=== PATIENT | male | born 1945 | race Two or more races ===

== ENCOUNTER 2024-05-22 05:40 | Day surgery (SDC) | payer MEDICARE, MEDICAID, SELFPAY ==
[2024-05-16 08:49] VITALS: BMI 23.6
[2024-05-16 09:51] LABS: Alanine Aminotransferase 37 U/L (10-49); Albumin, Serum 4.1 gm/dL (3.4-4.8); Albumin/Globulin Ratio 1.4 (1.2-2.2); Alkaline Phosphatase 226 U/L (46-116); Anion Gap 12 (7-16); Aspartate Amino Transferase 13 U/L (0-34); BUN/Creatinine Ratio 19 Ratio (12-20); Bilirubin,Total 0.3 mg/dL (0.3-1.2); Blood Urea Nitrogen 98 mg/dL (9-23); Calcium 8.9 mg/dL (8.3-10.6); Calcium (Corrected) 8.9 mg/dL (8.5-10.1); Carbon Dioxide 24.2 mMol/L (20.0-31.0); Chloride 98 mMol/L (98-107); Creatinine (Component) 5.2 mg/dL (0.6-1.3); Estimated Creatinine Clearance 11.5 mL/min (>60); Glucose 214 mg/dL (74-106); Osmolality,Calculated 304 (275-295); Potassium 4.2 mMol/L (3.4-5.1); Sodium 134 mMol/L (136-145); Total Protein 7.1 gm/dL (5.7-8.2); eGFR 11 See Note
--- NOTE | 2024-05-21 13:30 | SUR.PREOP ---
Health history reviewed with Dr Mace.
[2024-05-22] VITALS (8 sets, daily range): BP systolic 139–150; BP diastolic 61–68; PULSE 63–73; RESP 12–20; TEMP 36.6–37; O2SAT 99–100; BMI 23.2
[2024-05-22] MEDS: DEXAMETHASONE SOD PHOS INJ 10 MG/ML VIAL 8 MG IV (07:02)
[2024-05-22] MEDS: SODIUM CHLORIDE 0.9% 500 ML 500 ML 20 ML IV (07:03)
--- NOTE | 2024-05-22 10:36 | SUR.PHASEI ---
1036 Patient arrived to recovery resting comfortably in [facility], on oxygen 8L via oxy mask with an oral airway in place, breathing unlabored, vital signs stable, dressing intact to left ear; dermabond behind ear, cotton ball to ear, gauze, guilherme, no bleeding noted, lung sounds clear upon auscultation, bilateral radial pulses present when palpated, report received from Thelma LUTZ and Dr. Siddiqi
--- NOTE | 2024-05-22 10:43 | XR_ITS ---
Examination: Skull series 2 views TECHNIQUE: Yariel sagittal oblique skull series 2 views Exam date and time: May 22, 2024 1138 hours INDICATIONS: Postop cochlear implant FINDINGS: Cochlear implant lead satisfactory position Intact cranial vault IMPRESSION: Cochlear implant lead satisfactory position
--- NOTE | 2024-05-22 10:53 | ESOP_ITS ---
Date of Procedure 05/22/24 Pre Op Diagnosis Bilateral profound sensorineural hearing loss Post Op Diagnosis Bilateral profound sensorineural hearing loss Procedure Left tympanomastoidectomy with facial nerve monitoring and insertion of cochlear implant Findings Normal mastoid anatomy. The facial nerve was displaced anteriorly. The ossicular chain was intact and mobile. The round window had a large bony overhang preventing visualization from the mastoid cavity. Procedure Description Indications: This is a 78-year-old male with progressive long-term profound hearing loss. This was confirmed on audiometric testing as well as [place] bio testing which score was 0%. Treatment options were discussed and he and his family wish to proceed with insertion of a cochlear implant on the left side. The risk were explained in detail including facial nerve paralysis. Anticipated outcomes were discussed informing her that he will not have normal hearing restored and I will take active involvement by them postoperatively to improve the hearing. They understood this and wished to proceed. Patient was marked and shaved in the preoperative setting and transferred to the operative suite where he was anesthetized and intubated. Timeout was performed. Markings were made for the surgical incision and projected implant placement. Facial nerve monitoring electrodes were placed in the usual fashion for the left ear. Patient was then sterilely prepped and draped. Postauricular area was injected with 1% lidocaine with 1 100,000 dilution epinephrine. A lazy S postauricular incision was then performed and a anterior and posterior flap elevated. A palva flap was created as well. The ear was turned forward and held in place with self-retaining retractors. The external canal meatus was identified. A canal wall up mastoidectomy was then initiated with a 6 cutting bur. This was carried down to the aditus region where the horizontal canal and incus were identified. Further thinning of the posterior canal wall was performed and then switched out to a #3 and then gradually down to a 1.5 deep bur to open up the chorda facial angle. The facial nerve was identified with light pressure of the drill exposing the sheath covering the nerve but the nerve and the sheath were not traumatized. The nerve was tested with the nerve m onitor proximal to the exposed area and a good signal was maintained throughout the procedure. This was tested again later. The chorda tympani nerve was not identified in the mastoid cavity. The anterior displacement of the nerve made it more difficult to expose the round window niche. The stapes was identified and dissection was carried inferior to that happens was stillborn unable to identify the actual round window niche. This time elected to elevate the tympanic membrane so the canal was irrigated with saline and suctioned and then injected. The posterior tympanum flap was created and the drum turned forward. Some curetting was required to expose the oval window niche. The chorda tympani nerve was identified in the middle ear and preserved. Once good visualization was obtained the round window niche was drilled down with a #1 cutting bur. There appeared to be a false membrane overlying it but after opening it up it appeared that this was the actual membrane. I then returned my view back to the mastoid cavity was able to visualize where the round window now was. There was endolymphatic fluid present in the opening. Vitrace was placed over the area as well. I Went back and drilled the channel for the electrodes and a well for the internal implant. A pocket was created anteriorly for the ground electrode as well. Irrigation with warm saline solution was performed and mastoid cavity was carefully cleaned. I regloved and brought the implant into the field. At this point monopolar cautery was disabled. Under microscopic visualization the active electrode was carefully inserted into the round window to a near full insertion. Attempts at performing a full insertion were met with resistance so this was terminated. Periosteum had been harvested previously for a plug and this was placed around the electrode in between the electrode and the facial nerve. The ground electrode was placed in this position. The muscle layer was then closed with 4-0 Vicryl. And the tympanic membrane was returned back to its normal position and Surgifoam dipped in saline was placed on top of that. Neuro metric testing was then performed. All the electrodes were found to be functional. Electrodes 4 through 22 were found to have good responses. There was no response on testing with electrodes 1-3. The closure of the postauricular incision was then completed. Facial nerve monitoring electrodes were removed and patient was awakened and taken recovery room in stable condition Anesthesia GETA Implants Cochlear implant model CI 622 serial #[id number] Pathology / specimen None Estimated Blood Loss 5 Surgeon Elmer Rodriguez DO Surgical Staff Operation Date: 05/22/24 07:30 Case Staff Anesthesiologist: Sushil Siddiqi
--- NOTE | 2024-05-22 11:54 | SUR.PHASEII ---
1154 Patient meets discharge criteria from recovery, awake and alert, breathing unlabored, vital signs stable, denies pain, dressing intact; no bleeding noted, patient ate two jello and drinking water, denies nausea, patient assisted with dressing into his clothing by his son, patients son signed limited proficiency statement for to staff interpreter to his father, discharge instructions given to patients son and his father, son signed discharge instructions. Patient given all his belongings prior to discharge, transported via wheelchair and left in a private vehicle.
== END 2024-05-22 11:54 | disposition home or self-care (01) ==
PROVIDERS: PCP Family Medicine; Referring Provider Otolaryngology; Visit Provider Otolaryngology
PROC: (CPT 69930; principal; 2024-05-22 07:30)
DX: H90.A22 Sensorineural hearing loss, unilateral, left ear, with restricted hearing on the contralateral side (principal); E11.36 Type 2 diabetes mellitus with diabetic cataract; H26.9 Unspecified cataract; G47.33 Obstructive sleep apnea (adult) (pediatric); N18.6 End stage renal disease; Z99.2 Dependence on renal dialysis; E11.22 Type 2 diabetes mellitus with diabetic chronic kidney disease; I12.0 Hypertensive chronic kidney disease with stage 5 chronic kidney disease or end stage renal disease
CPT/HCPCS: 69930; 36415; 70250; 80053; 84132; A4217; A4649; J0171; J0690; J1100; J2250; J2405; J2704; J3010; J3473; J3490; J7040; L8614; L8690; Q9968; A9270

== ENCOUNTER 2024-07-19 14:02 | Emergency (ER) | payer MEDICARE, MEDICAID, SELFPAY ==
[2024-07-19 14:06] VITALS: BP 127/52; PULSE 145; PULSE 63; RESP 16; RESP 20; O2SAT 98
[2024-07-19 14:11] VITALS: BMI 23.8
[2024-07-19 14:14] VITALS: PULSE 63
[2024-07-19 14:17] VITALS: PULSE 63
--- NOTE | 2024-07-19 14:40 | PD.EDARRY ---
ED Arrhythmia Palp. RME/HPI General Chief Complaint: Arrhythmia/Palpitations Stated Complaint: TACHYCARDIA Time Seen by Provider: 07/19/24 14:38 Arrival date/time: 07/19/24 14:02 RME / HPI RME / HPI narrative: DR. FUENTES MAIN ED EVALUATION: 78 year old male with past medical history significant for SVT in past on carvedilol, renal disease with peritoneal dialysis, diabetes, and hypertension presents to the Emergency Department [facility] with complaint of palpitations prior to arrival. Per EMS, patient was in SVT and converted in the field. Nurse Charge Rn: Joseph De Leon at [place], has an appointment 07/24/2024. Hall Coordinator is at [place], last seen 2 months ago. Related Data Home Medications ?Medication ?Instructions ?Recorded ?Confirmed bumetanide 1 mg tablet 2 mg PO BID 12/22/23 05/16/24 calcitriol 0.25 mcg capsule 0.25 mcg PO UD 12/22/23 05/16/24 calcium acetate 667 mg tablet 667 mg PO DAILY 12/22/23 05/16/24 carvedilol 6.25 mg tablet 6.25 mg PO BID 12/22/23 05/16/24 ferrous sulfate 325 mg (65 mg 325 mg PO QDAY 12/22/23 05/16/24 iron) tablet hydralazine 50 mg tablet 50 mg PO TID 12/22/23 05/16/24 metolazone 2.5 mg tablet 2.5 mg PO Q OTHER DAY 12/22/23 05/16/24 minoxidil 2.5 mg tablet 2.5 mg PO BID 12/22/23 05/16/24 omeprazole 20 mg tablet,delayed 20 mg PO QDAY 12/22/23 05/16/24 release benzonatate 200 mg capsule 200 mg PO TID 05/16/24 05/16/24 fluoxetine 20 mg capsule (Prozac) 20 mg PO QAM 05/16/24 05/16/24 nifedipine 30 mg tablet,extended 90 mg PO QDAY 05/16/24 05/16/24 release pantoprazole 40 mg tablet,delayed 40 mg PO QAM 05/16/24 05/16/24 release Previous Rx's ?Medication ?Instructions ?Recorded cephalexin 500 mg capsule 500 mg PO BID #3 caps 02/06/25 hydrocodone 5 mg-acetaminophen 325 1 tab PO Q6H PRN pain #20 tabs 05/22/24 mg tablet Allergies Allergy/AdvReac Type Severity Reaction Status Date / Time No Known Allergies Allergy Verified 05/22/24 10:21 Review of Systems Review of Systems Systems Reviewed: All systems reviewed, normal except as documented Past Medical History Past Medical History CARDIAC: Positive Cardiac Disorders and Hypertension; Negative Congestive Heart Failure GENITOURINARY: Positive Genitourinary Disorders, Renal Disease and Dialysis (peritonial daily) ENT: Positive Cataracts and Deafness (bilateral hearing aids) ENDOCRINE: Positive Endocrine Disorders and Diabetes Mellitus Type 2 HEMATOLOGIC: Positive Blood Disorders and Anemia PSYCHO/SOCIAL: Positive Depression OTHER HISTORY: Positive Hospitalization and Chicken Pox Social History SMOKING STATUS: Never smoker SUBSTANCE USE: does not use ALCOHOL: Never ED Exam Narrative Physical exam: GENERAL APPEARANCE: AxOx4, generally well-appearing, no acute distress. HEENT: NC, AT. MMM. EOMI, clear conjunctiva, oropharynx clear. NECK: Supple without lymphadenopathy. No stiffness or restricted ROM. HEART: Normal rate and regular rhythm, normal S1/S1, no m/r/g LUNGS: CTAB, moving air well. No crackles or wheezes are heard. ABDOMEN: Soft, nontender, nondistended with good bowel sounds heard. BACK: No midline C/T/L spine pain or deformity, No CVAT, no obvious deformity. EXTREMITIES: Without cyanosis, clubbing or edema. MUSCULOSKELETAL: FROM of all major joints, no chest tenderness NEUROLOGICAL: Grossly nonfocal. Alert and oriented, moving all 4 extremities. CN not formally tested but appear grossly intact. Observed to ambulate with normal gait. Skin: Warm and dry without any rash. Course Quality Measures none Orders Category Date Time Status Marketing Planning Manager Q4H START 00 Care 07/19/24 14:16 Active Vital Signs Vital signs: Vital Signs Pulse Rate 63 07/19/24 14:06 Respiratory Rate 16 07/19/24 14:06 Blood Pressure 127/52 L 07/19/24 14:06 Pulse Oximetry (%) 98 07/19/24 14:06 Oxygen Delivery Method Room Air 07/19/24 14:06 Arrhythmia/Palpitations MDM Narrative MDM Narrative:: Marcela Hall am scribing for and in the presence of Dr. Fuentes. Patient data External records reviewed:: EMS form Clinical information provided by:: patient, EMS and spouse Social determinants that could affect healthcare access:: none Patient has the following chronic illnesses:: SVT in past on carvedilol, renal disease with peritoneal dialysis, diabetes, and hypertension How is presenting disease/condition affected by chronic disease/condition?: caused by Evaluation data The following diagnostics were reviewed and interpreted by me:: lab results and EKG tracing(s) Lab and/or radiology exams considered but not ordered:: none Interpretation Summary: Initial EMS EKG was done at 1323 hours, my interpretation: SVT at 145 BPM Second EKG by EMS done at 1331 hours, my interpretation: sinus rhythm at 66 BPM EKG#1 at emergency department: EKG at 1556 hours. Interpreted by me: sinus rhythm, rate 56, no acute ST-T wave changes. Medications / Prescriptions Medications or Prescriptions considered but not ordered:: none Medication administrations:: none Consultations Consultation(s) initiated? (list below): No Diagnosis Differential diagnosis arrhythmia/palpitations: palpitations, anxiety, artial fibrillation, artial flutter and supraventricular tachycardia Most likely diagnosis given after review of the tests above:: Paroxysmal supraventricular tachycardia End-stage renal disease on peritoneal dialysis Admission Indicated Admission indicated?: not indicated Admission Request Was there a request for admission?: No Disposition Plan Disposition Plan: Discharge Discharge Attestation Discharge Attestation: The patient and all family members were given an opportunity to ask questions and understood the discharge instructions. Discharge instructions specifically effects, indications for sooner follow up or return to the emergency department, and the expected course of current diagnosis. Patient condition: Stable Discharge Plan Plan Patient Disposition: HOME (Self Care) Prescriptions/Referrals Prescriptions/Med Rec: No Action pantoprazole 40 mg tablet,delayed release (DR/EC) 40 mg PO QAM benzonatate 200 mg capsule 200 mg PO TID fluoxetine [Prozac] 20 mg capsule 20 mg PO QAM nifedipine 30 mg tablet extended release 90 mg PO QDAY cephalexin 500 mg capsule 500 mg PO BID Qty: 3 0RF Rx Instructions: Begin 1st dose this afternoon hydrocodone-acetaminophen 5-325 mg tablet 1 tab PO Q6H MDD 5 PRN (Reason: pain) Qty: 20 0RF carvedilol 6.25 mg tablet 6.25 mg PO BID minoxidil 2.5 mg Tablet 2.5 mg PO BID bumetanide 1 mg tablet 2 mg PO BID hydralazine 50 mg tablet 50 mg PO TID calcitriol 0.25 mcg Capsule 0.25 mcg PO UD Rx Instructions: 4 days sunday, sunday, and sunday calcium acetate 667 mg Tablet 667 mg PO DAILY metolazone 2.5 mg Tablet 2.5 mg PO Q OTHER DAY ferrous sulfate 325 mg (65 mg iron) Tablet 325 mg PO QDAY omeprazole 20 mg Tablet,Delayed Release (Dr/Ec) 20 mg PO QDAY Referrals: Vera Hall MD [Primary Care Provider] - In 1 week Problem List Clinical Impression: Paroxysmal supraventricular tachycardia, End-stage renal disease on peritoneal dialysis Patient/Caregiver Discharge Instructions Education Materials: ED Tachycardia: PAT Additional Instructions: You can continue with your normal dialysis tonight at home. Follow-up with your mechanical intern (Beverley) in 2 to 3 days for recheck. You can return to the emergency department sooner symptoms worsen or if he notes any new, concerning issues. Print Language: Portuguese Stand Alone Forms: [facility] Award Info., Patient Portal Info Letter
[2024-07-19 15:31] LABS: Alanine Aminotransferase 13 U/L (10-49); Albumin, Serum 3.7 gm/dL (3.4-4.8); Albumin/Globulin Ratio 1.3 (1.2-2.2); Alkaline Phosphatase 218 U/L (46-116); Anion Gap 14 (7-16); Aspartate Amino Transferase 12 U/L (0-34); BUN/Creatinine Ratio 16 Ratio (12-20); Bilirubin,Total 0.3 mg/dL (0.3-1.2); Blood Urea Nitrogen 95 mg/dL (9-23); Calcium 8.5 mg/dL (8.3-10.6); Calcium (Corrected) 8.7 mg/dL (8.5-10.1); Chloride 91 mMol/L (98-107); Creatinine (Component) 5.9 mg/dL (0.6-1.3); Estimated Creatinine Clearance 9.5 mL/min (>60); Globulin 2.9 gm/dL (2.3-3.5); Glucose 304 mg/dL (74-106); Magnesium 2.2 mg/dL (1.6-2.6); Osmolality,Calculated 301 (275-295); Potassium 3.9 mMol/L (3.4-5.1); Sodium 130 mMol/L (136-145); Total Protein 6.6 gm/dL (5.7-8.2); eGFR 9 See Note
--- NOTE | 2024-07-19 15:50 | EKG_ITS ---
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
[2024-07-19 16:00] VITALS: BP 127/62; PULSE 57; RESP 16; O2SAT 98
== END 2024-07-19 16:10 | disposition home or self-care (01) ==
PROVIDERS: Emergency Provider Emergency Medicine; PCP Family Medicine
DX: I47.10 Supraventricular tachycardia, unspecified (principal); I12.0 Hypertensive chronic kidney disease with stage 5 chronic kidney disease or end stage renal disease; E11.22 Type 2 diabetes mellitus with diabetic chronic kidney disease; N18.6 End stage renal disease; Z99.2 Dependence on renal dialysis
CPT/HCPCS: 36415; 80053; 83735; 84484; 93005; 99283

== ENCOUNTER 2024-07-29 12:18 | Emergency (ER) | payer MEDICARE, MEDICAID, SELFPAY ==
--- NOTE | 2024-07-29 12:57 | PD.EDRME ---
Rapid Medical Screening Exam RME Arrival date/time: 07/29/24 12:18 78-year-old male with a history of peritoneal dialysis, SVT, presents to the emergency room with a chief complaint of nausea, diarrhea x 2 days I have greeted and performed a focused initial assessment of this patient. A comprehensive ED assessment and evaluation of the patient, analysis of all test results, and completion of the medical decision making process will be conducted by additional ED providers. Chief Complaint: Nausea/Vomiting/Diarrhea Vital signs reviewed by provider: Yes
[2024-07-29 13:04] VITALS: BP 120/68; PULSE 66; RESP 20; TEMP 36.6; O2SAT 98; BMI 25.6
[2024-07-29] MEDS: ONDANSETRON ODT 4 MG TABRAP PO (13:06)
[2024-07-29 13:38] LABS: Basophils % (Auto) 1 % (0-2.5); Eosinophils # (Auto) 0.1 Thou/mm3 (0.0-0.5); Eosinophils % (Auto) 2 % (0-10); Hematocrit 34.8 % (41.0-53.0); Immature Granulocytes % (Auto) 1 % (0-0); Immature Granulocytes Auto 0.03 Thou/mm3 (0.00-0.00); Lymphocytes # (Auto) 0.4 Thou/mm3 (1.0-4.8); Lymphocytes % (Auto) 7 % (10-50); Mean Corpuscular HGB Conc 34.5 g/dl (31.0-37.0); Mean Corpuscular Hemoglobin 32.7 pg (25.0-35.0); Mean Corpuscular Volume 95 fL (80-100); Monocytes # (Auto) 0.4 Thou/mm3 (0.0-0.8); Monocytes % (Auto) 6 % (0-12); Neutrophils # (Auto) 5.4 Thou/mm3 (1.8-7.7); Neutrophils % (Auto) 84 % (37-80); Nucleated Red Blood Cell % 0 /100 WBC (0); Platelet Count 181 Thou/mm3 (140-440); RDW Standard Deviation 44.9 fL (35.1-43.9); Red Blood Count 3.67 Miln/mm3 (4.50-5.90); White Blood Count 6.4 Thou/mm3 (3.8-10.6)
[2024-07-29 13:54] LABS: Alanine Aminotransferase 23 U/L (10-49); Albumin/Globulin Ratio 1.4 (1.2-2.2); Alkaline Phosphatase 205 U/L (46-116); Anion Gap 10 (7-16); Aspartate Amino Transferase 13 U/L (0-34); BUN/Creatinine Ratio 16 Ratio (12-20); Bilirubin,Total 0.3 mg/dL (0.3-1.2); Blood Urea Nitrogen 80 mg/dL (9-23); Calcium 8.7 mg/dL (8.3-10.6); Calcium (Corrected) 8.7 mg/dL (8.5-10.1); Chloride 99 mMol/L (98-107); Creatinine (Component) 4.9 mg/dL (0.6-1.3); Globulin 2.8 gm/dL (2.3-3.5); Glucose 123 mg/dL (74-106); Lipase 55 U/L (12-53); Osmolality,Calculated 293 (275-295); Potassium 4.2 mMol/L (3.4-5.1); Sodium 134 mMol/L (136-145); Total Protein 6.8 gm/dL (5.7-8.2); eGFR 12 See Note
[2024-07-29 13:55] LABS: Collection Type, Urine Clean Catch
[2024-07-29 14:03] LABS: Bacteria,Urine Rare; Bilirubin,Urine Negative (Negative); Blood,Urine Trace (Negative); Clarity,Urine Clear (Clear/Hazy); Color,Urine Lt-Yellow (Lt Yel-Yel); Glucose, Urine 2+ (Negative); Ketones,Urine Negative (Negative); Leukocyte Esterase,Urine Negative (Negative); Nitrite,Urine Negative (Negative); Protein,Urine 3+ (Neg - Trace); RBC,Urine 1 /hpf (0-3); Specific Gravity,Urine 1.034 (1.001-1.035); Squamous Epithelial Cell,Urine < 1 /hpf (0-5); Urobilinogen,Urine Negative mg/dL (0.0-1.0); WBC,Urine 1 /hpf (0-5)
[2024-07-29 17:08] VITALS: BP 145/74; PULSE 57; RESP 18; TEMP 36.4; O2SAT 97
--- NOTE | 2024-07-29 17:26 | PD.EDADULT ---
ED General RME/HPI General Chief complaint: Nausea/Vomiting/Diarrhea Stated complaint: N/V/D, DEHYDRATED, BURDICK, SOB, CHEST PAIN X 2 DAYS Time Seen by Provider: 07/29/24 17:26 Arrival date/time: 07/29/24 12:18 CC: Nausea vomiting diarrhea HPI onset last night. Although as per previously reported 2 days. The patient is awake alert oriented nontoxic-appearing not in any acute distress with no active nausea vomiting at this time. Patient is a peritoneal dialysis patient. RME / HPI RME / HPI narrative: 07/29/24 12:18 78-year-old male with a history of peritoneal dialysis, SVT, presents to the emergency room with a chief complaint of nausea, diarrhea x 2 days I have greeted and performed a focused initial assessment of this patient. A comprehensive ED assessment and evaluation of the patient, analysis of all test results, and completion of the medical decision making process will be conducted by additional ED providers. Related Data Home Medications ?Medication ?Instructions ?Recorded ?Confirmed bumetanide 1 mg tablet 2 mg PO BID 12/22/23 05/16/24 calcitriol 0.25 mcg capsule 0.25 mcg PO UD 12/22/23 05/16/24 calcium acetate 667 mg tablet 667 mg PO DAILY 12/22/23 05/16/24 carvedilol 6.25 mg tablet 6.25 mg PO BID 12/22/23 05/16/24 ferrous sulfate 325 mg (65 mg 325 mg PO QDAY 12/22/23 05/16/24 iron) tablet hydralazine 50 mg tablet 50 mg PO TID 12/22/23 05/16/24 metolazone 2.5 mg tablet 2.5 mg PO Q OTHER DAY 12/22/23 05/16/24 minoxidil 2.5 mg tablet 2.5 mg PO BID 12/22/23 05/16/24 omeprazole 20 mg tablet,delayed 20 mg PO QDAY 12/22/23 05/16/24 release benzonatate 200 mg capsule 200 mg PO TID 05/16/24 05/16/24 fluoxetine 20 mg capsule (Prozac) 20 mg PO QAM 05/16/24 05/16/24 nifedipine 30 mg tablet,extended 90 mg PO QDAY 05/16/24 05/16/24 release pantoprazole 40 mg tablet,delayed 40 mg PO QAM 05/16/24 05/16/24 release Previous Rx's ?Medication ?Instructions ?Recorded cephalexin 500 mg capsule 500 mg PO BID #3 caps 05/22/24 hydrocodone 5 mg-acetaminophen 325 1 tab PO Q6H PRN pain #20 tabs 05/22/24 mg tablet loperamide 2 mg capsule (Imodium 2 mg PO Q6H PRN loose stool #10 07/29/24 A-D) caps ondansetron 4 mg disintegrating 4 mg PO Q8H #10 tabs 07/29/24 tablet Allergies Allergy/AdvReac Type Severity Reaction Status Date / Time No Known Allergies Allergy Verified 07/29/24 12:22 Review of Systems Review of Systems Narrative Review of Systems: GEN: No fever, no chills, no weight loss EYES: No discharge, no visual changes, no pain HEENT: No ear pain, no congestion, no sore throat PULM: No shortness of breath, no cough, no congestion CV: No chest pain, no dyspnea on exertion, no palpitations GI: No nausea, no vomiting, no diarrhea, no pain, no constipation : No frequency, no urgency, no dysuria MUSC/SKEL: No joint pain, no back pain SKIN: No rash PSYCH: No hallucinations, no depression HEME/LYMPH: No easy bleeding or bruising tendencies NEURO: No weakness, no headache Past Medical History Past Medical History NEUROLOGIC: Negative Neurological Disorders or Seizures CARDIAC: Positive Cardiac Disorders and Hypertension; Negative Congestive Heart Failure RESPIRATORY: Negative Chronic Obstructive Pulmonary Disease (COPD) GASTROINTESTINAL: Negative Gastrointestinal Disorders or Hepatitis GENITOURINARY: Positive Genitourinary Disorders, Renal Disease and Dialysis (peritonial daily) MUSCULOSKELETAL: Negative Musculoskeletal Disorders ENT: Positive Cataracts and Deafness (bilateral hearing aids) ENDOCRINE: Positive Endocrine Disorders and Diabetes Mellitus Type 2; Negative Diabetes Mellitus Type 1 HEMATOLOGIC: Positive Blood Disorders and Anemia PSYCHO/SOCIAL: Positive Depression OTHER HISTORY: Positive Hospitalization and Chicken Pox; Negative Autoimmune Disease, Shingles, Falls, Blood Transfusions, Blood Transfusion Reaction, Anesthesia Reactions or Cancer Family History FAMILY HISTORY: Negative Family Psychiatric Problems, Family Respiratory Disorders, Family Cardiac Disorders, Family Gastrointestinal Problems, Family Cancer, Family Surgery or Family Anesthesia Reaction Social History SMOKING STATUS: Never smoker SUBSTANCE USE: does not use ED Exam Narrative Physical exam: [General: Not in any acute distress Head normocephalic HEENT: Within acceptable limits Neck is supple nontender Chest equal chest rise nontender to palpation Respiratory: Clear to auscultation no wheezes crackles or rubs CV: Rate rhythm is regular no murmurs rubs or clicks Abdomen is soft nontender no masses positive bowel sounds all 4 quadrants Back: No CVA tenderness no spinous process tenderness from cervical spine thoracic and lumbar spine Skin: Intact no petechiae rash induration ulceration or crepitus Extremities: Moving all extremity against resistance cap refill less than 2 seconds neurosensory intact Neuro: Awake alert oriented x3 Glascow coma 15 no focal deficits] Course Quality Measures none Orders Category Date Time Status CBC Stat Lab 07/29/24 13:13 Completed CMP [Comprehensive Metabolic Panel] Stat Lab 07/29/24 13:13 Completed Lipase Stat Lab 07/29/24 13:13 Completed UA [Urinalysis] Stat Lab 07/29/24 13:42 Completed Urine Culture Stat Lab 07/29/24 13:42 Received Ondansetron Odt [Zofran Odt] Med 07/29/24 12:58 Discontinued 4 mg PO X1 ONE Vital Signs Vital signs: Vital Signs Temperature 97.9 F 07/29/24 13:04 Pulse Rate 66 07/29/24 13:04 Respiratory Rate 20 07/29/24 13:04 Blood Pressure 120/68 07/29/24 13:04 Pulse Oximetry (%) 98 07/29/24 13:04 [facility] Patient data External records reviewed:: [facility] previous records Clinical information provided by:: patient Social determinants that could affect healthcare access:: none Patient has the following chronic illnesses:: Peritoneal dialysis ESRD How is presenting disease/condition affected by chronic disease/condition?: exacerbated by Evaluation data The following diagnostics were reviewed and interpreted by me:: lab results and radiology exam(s) Lab and/or radiology exams considered but not ordered:: CBC shows no leukocytosis and H&H of 12.0 and 34.8. With platelets at 181. CMP shows sodium 134 BUN of 80 creatinine 4.9. Glucose of 123. Alk phos of 205 Lipase at 55. Urine shows of 3+ protein nitrite negative no signs of infection. Interpretation Summary: There is no active nausea vomiting or diarrhea while waiting here in the emergency room the patient has been here approximately 4 hours. This time comfortable discharging the patient home is a most likely viral syndrome. Medications Medications considered but not ordered:: None Medication administrations:: Medication Administration History Discontinued Medications Ondansetron HCl (Ondansetron Odt 4 Mg Tabrap) 4 mg PO X1 ONE; Protocol Stop: 07/29/24 12:59 Last Admin: 07/29/24 13:06 Dose: 4 mg Documented By: MURTAZA None Consultations Consultation(s) initiated? (list below): No Diagnosis Differential Diagnosis ED Complaint MDM: Nausea vomiting diarrhea viral syndrome Most likely diagnosis given after review of the tests above:: Nausea vomiting diarrhea Admission Indicated Admission indicated?: not indicated Explain why admission is indicated or not indicated:: None Admission Request Was there a request for admission?: No Disposition Plan Disposition Plan: Discharge Discharge Attestation Discharge Attestation: The patient and all family members were given an opportunity to ask questions and understood the discharge instructions. Discharge instructions specifically effects, indications for sooner follow up or return to the emergency department, and the expected course of current diagnosis. Patient condition: Stable Medical Decision Making Differential Diagnosis Differential Diagnosis: Nausea vomiting diarrhea viral syndrome Lab Data 07/29/24 13:13 07/29/24 13:13 Labs: Lab Results 07/29/24 07/29/24 Range/Units 13:13 13:42 WBC 6.4 (3.8-10.6) Thou/mm3 RBC 3.67 L (4.50-5.90) Miln/mm3 Hgb 12.0 L (13.5-16.0) g/dL Hct 34.8 L (41.0-53.0) % MCV 95 (80-100) fL MCH 32.7 (25.0-35.0) pg MCHC 34.5 (31.0-37.0) g/dl RDW Std Deviation 44.9 H (35.1-43.9) fL Plt Count 181 (140-440) Thou/mm3 Neut % (Auto) 84 H (37-80) % Lymph % (Auto) 7 L (10-50) % [place] % (Auto) 6 (0-12) % Eos % (Auto) 2 (0-10) % Baso % (Auto) 1 (0-2.5) % Neut # (Auto) 5.4 (1.8-7.7) Thou/mm3 Lymph # (Auto) 0.4 L (1.0-4.8) Thou/mm3 [place] # (Auto) 0.4 (0.0-0.8) Thou/mm3 Eos # (Auto) 0.1 (0.0-0.5) Thou/mm3 Baso # (Auto) 0.0 (0.0-0.2) Thou/mm3 Immature Gran # (Auto) 0.03 H (0.00-0.00) Thou/mm3 Absolute Nucleated RBC 0.00 (0.00-0.00) Thou/mm3 Immature Gran % 1 H (0-0) % Nucleated RBC % 0 (0) /100 WBC Sodium 134 L (136-145) mMol/L Potassium 4.2 (3.4-5.1) mMol/L Chloride 99 (98-107) mMol/L Carbon Dioxide 25.0 (20.0-31.0) mMol/L Anion Gap 10 (7-16) BUN 80 H (9-23) mg/dL Creatinine 4.9 H* (0.6-1.3) mg/dL Estim Creat Clear Calc 11.0 L (>60) mL/min eGFR 12 L* (60 - ) See Note BUN/Creatinine Ratio 16 (12-20) Ratio Glucose 123 H (74-106) mg/dL Calculated Osmolality 293 (275-295) Calcium 8.7 (8.3-10.6) mg/dL Corrected Calcium 8.7 (8.5-10.1) mg/dL Total Bilirubin 0.3 (0.3-1.2) mg/dL AST 13 (0-34) U/L ALT 23 (10-49) U/L Alkaline Phosphatase 205 H (46-116) U/L Total Protein 6.8 (5.7-8.2) gm/dL Albumin 4.0 (3.4-4.8) gm/dL Globulin 2.8 (2.3-3.5) gm/dL Albumin/Globulin Ratio 1.4 (1.2-2.2) Lipase 55 H (12-53) U/L Ur Collection Type Clean Catch Urine Color Lt-Yellow (Lt Yel-Yel) Urine Clarity Clear (Clear/Hazy) Urine pH 6.0 (5.0-7.0) Ur Specific [place] 1.034 (1.001-1.035) Urine Protein 3+ A (Neg - Trace) Urine Glucose (UA) 2+ A (Negative) Urine Ketones Negative (Negative) Urine Blood Trace (Negative) Urine Nitrite Negative (Negative) Urine Bilirubin Negative (Negative) Urine Urobilinogen (Auto) Negative (0.0-1.0) mg/dL Ur Leukocyte Esterase Negative (Negative) Urine RBC 1 (0-3) /hpf Urine WBC 1 (0-5) /hpf Ur Squamous Epith Cells < 1 (0-5) /hpf Urine Bacteria Rare (None) Discharge Plan Plan Patient Disposition: HOME (Self Care) Patient condition on transfer: Stable Prescriptions/Referrals Prescriptions/Med Rec: New ondansetron 4 mg tablet,disintegrating 4 mg PO Q8H Qty: 10 0RF loperamide [Imodium A-D] 2 mg capsule 2 mg PO Q6H PRN (Reason: loose stool) Qty: 10 0RF No Action pantoprazole 40 mg tablet,delayed release (DR/EC) 40 mg PO QAM benzonatate 200 mg capsule 200 mg PO TID fluoxetine [Prozac] 20 mg capsule 20 mg PO QAM nifedipine 30 mg tablet extended release 90 mg PO QDAY cephalexin 500 mg capsule 500 mg PO BID Qty: 3 0RF Rx Instructions: Begin 1st dose this afternoon hydrocodone-acetaminophen 5-325 mg tablet 1 tab PO Q6H MDD 5 PRN (Reason: pain) Qty: 20 0RF carvedilol 6.25 mg tablet 6.25 mg PO BID minoxidil 2.5 mg Tablet 2.5 mg PO BID bumetanide 1 mg tablet 2 mg PO BID hydralazine 50 mg tablet 50 mg PO TID calcitriol 0.25 mcg Capsule 0.25 mcg PO UD Rx Instructions: 4 days sunday, sunday, and sunday calcium acetate 667 mg Tablet 667 mg PO DAILY metolazone 2.5 mg Tablet 2.5 mg PO Q OTHER DAY ferrous sulfate 325 mg (65 mg iron) Tablet 325 mg PO QDAY omeprazole 20 mg Tablet,Delayed Release (Dr/Ec) 20 mg PO QDAY Referrals: Vera Hall MD [Primary Care Provider] - In 1 week Problem List Clinical Impression: Nausea vomiting and diarrhea Patient/Caregiver Discharge Instructions Education Materials: ED Vomiting and Diarrhea ... Print Language: Ghanaian Stand Alone Forms: [facility] Award Info., Patient Portal Info Letter PA/PIECER UP Supervising Physician PA/PIECER UP Supervising Physician: Bryant Clarke ENP
== END 2024-07-29 17:35 | disposition home or self-care (01) ==
PROVIDERS: Nurse Practitioner Family; Emergency Provider Emergency Medicine; PCP Family Medicine
DX: R11.2 Nausea with vomiting, unspecified (principal); R19.7 Diarrhea, unspecified
CPT/HCPCS: 36415; 80053; 81001; 83690; 85025; 87086; 99283; Q0162

== ENCOUNTER 2025-01-17 10:27 | Inpatient (IN) | payer MEDICARE, MEDICAID, SELFPAY ==
[2025-01-17] VITALS (11 sets, daily range): BP systolic 104–137; BP diastolic 67–84; PULSE 19–99; RESP 16–100; TEMP -12.4–37.1; O2SAT 98–100; BMI 27.4
--- NOTE | 2025-01-17 11:03 | EDNOTE_ITS ---
ED SOB =RME/HPI General Chief Complaint: Weakness Stated Complaint: GENERALIZED WEAKNESS Time Seen by Provider: 01/17/25 11:03 Arrival date/time: 01/17/25 10:27 Limitations: no limitations RME / HPI RME / HPI Narrative: DR. LINK MAIN ED EVALUATION: 79-year-old male with past medical history of diabetes, hypertension, supraventricular tachycardia on carvedilol, and renal disease on peritoneal di alysis presents to the Emergency Department [facility] with complaints of abdominal distention and shortness of breath following his dialysis session this morning. He reports feeling like he had too much fluid in his belly after dialysis, which he has not experienced before. Associated symptoms include generalized weakness. He still produces urine and denies dysuria or chest pain. Social history negative for tobacco, alcohol, or substance use. Related Data Home Medications ?Medication ?Instructions ?Recorded ?Confirmed bumetanide 1 mg tablet 2 mg PO BID 12/22/23 calcitriol 0.25 mcg capsule 0.25 mcg PO UD 12/22/23 calcium acetate 667 mg tablet 667 mg PO DAILY 12/22/23 01/18/25 carvedilol 6.25 mg tablet 6.25 mg PO BID 12/22/2309/07 ferrous sulfate 325 mg (65 mg 325 mg PO QDAY 12/22/23 01/18/25 iron) tablet metolazone 2.5 mg tablet 2.5 mg PO Q OTHER DAY 01/18/25 minoxidil 2.5 mg tablet 2.5 mg PO BID 12/22/2301/18 fluoxetine 20 mg capsule (Prozac) 20 mg PO QAM 5 01/18/25 pantoprazole 40 mg tablet,delayed 40 mg PO QAM 5 01/18/25 release atorvastatin 40 mg tablet 40 mg PO DAILY 01/18/2509/07 insulin glargine 100 unit/mL (3 20 unit subcut BID 09/0701/18/25 mL) subcutaneous pen (Lantus Solostar U-100 Insulin) levothyroxine 50 mcg tablet 50 mcg PO DAILY 01/18/25 1 nifedipine 60 mg tablet,extended 60 mg PO DAILY 01/18/25 release Previous Rx's ?Medication ?Instructions ?Recorded amiodarone 200 mg tablet (Pacerone) 400 mg (2 x 200 mg ) PO BID 30 days 01/25/25 #120 tabs apixaban 2.5 mg tablet (Eliquis) 2.5 mg PO BID 30 days #60 tabs 01/25/25 Allergies Allergy/AdvReac Type Severity Reaction Status Date / Time No Known Allergies Allergy Verified 01/24/25 16:44 Review of Systems Review of Systems Systems Reviewed: All systems reviewed, normal except as documented Past Medical History Past Medical History CARDIAC: Positive Cardiac Disorders and Hypertension GENITOURINARY: Positive Genitourinary Disorders, Renal Disease and Dialysis (peritonial daily) ENT: Positive Cataracts and Deafness (bilateral hearing aids) ENDOCRINE: Positive Endocrine Disorders and Diabetes Mellitus Type 2 HEMATOLOGIC: Positive Blood Disorders and Anemia PSYCHO/SOCIAL: Positive Depression OTHER HISTORY: Positive Hospitalization and Chicken Pox Social History SMOKING STATUS: Never smoker SUBSTANCE USE: does not use ALCOHOL: Never ED Exam General Limitations: Present no limitations General appearance: Present alert and in no apparent distress Head Head exam: Present atraumatic, normocephalic and normal inspection Eye Eye exam: Present normal appearance, PERRL and EOMI ENT ENT exam: Present normal exam, normal oropharynx and mucous membranes moist Neck Neck exam: Present normal inspection, full ROM and trachea midline Chest Chest inspection: Present normal inspection and symmetric chest wall rise Respiratory Respiratory exam: Present normal lung sounds bilaterally Cardiovascular Cardiovascular exam: Present regular rate, normal rhythm and normal heart sounds Abdominal Exam Abdominal exam: Present distention (mildly distended) and normal bowel sounds Extremities Exam Extremities exam: Present normal inspection and full ROM Back Exam Back exam: Present normal inspection and full ROM Neurological Exam Neurological exam: Present alert, oriented X3 and CN II-XII intact Psychiatric Psychiatric exam: Present normal affect and normal mood Skin Skin exam: Present warm, dry, intact and normal color Course Quality Measures none Orders Category Date Time Status Bedside COVID-19 Antigen Test NOW Care 01/17/25 11:[address] Screening NOW Care 01/17/25 14:[address] Screening NOW Care 01/17/25 14:[address] Screening NOW Care 01/17/25 17:13 Completed EKG (ED ONLY) *Do not use* NOW Care 01/17/25 11:04 Completed Occult Blood,Stool (Nursing) NOW Care 01/17/25 18:[address] angio abdomen pelvis Stat Exams 01/17/25 14:30 Completed CXR [XR chest 1V] Stat Exams 01/17/25 11:03 Completed EKG (ED Only) Stat Exams 01/17/25 11:03 Draft BNP [B-Type Natriuretic Peptide] Stat Lab 01/17/25 11:10 Completed CBC Stat Lab 01/17/25 11:10 Completed CMP [Comprehensive Metabolic Panel] Stat Lab 01/17/25 11:10 Completed INR [Prothrombin Time with INR] Stat Lab 01/17/25 12:13 Completed Influenza A & B Rapid Panel Stat Lab 01/17/25 14:53 Completed Peritoneal Cell Cnt/Diff Stat Lab 01/17/25 16:30 Completed Troponin I Stat Lab 01/17/25 11:10 Completed Type and Screen Routine Lab 01/17/25 18:48 Completed Vital Signs Vital signs: Vital Signs Temperature 98.7 F 01/17/25 10:49 Pulse Rate 79 01/17/25 10:49 Respiratory Rate 22 H 01/17/25 10:49 Blood Pressure 111/69 01/17/25 10:49 Pulse Oximetry (%) 100 01/17/25 10:49 Oxygen Delivery Method Room Air 01/17/25 10:49 Shortness of Breath / Dyspnea MDM Narrative MDM Narrative:: Patient is a 79-year-old male is in the emerged from concerns for acute shortness of breath after initiating peritoneal dialysis for the day. Vital signs and exam as listed. Concern for ACS arrhythmia electrolyte disturbance CHF exacerbation among others. Also concern for possible complication from patient's peritoneal dialysis. Ordered labs EKG chest x-ray. Also requested that dialysis nurse come to evaluate the patient. On my assessment patient is hemodynamically stable not in distress states that he feels better. Labs with evidence of leukocytosis 12.2, left shift of 87%. Patient hemoglobin 7.3, previously 12 in July of this year. Patient denies any bleeding no hematemesis no bloody stools no melena. Patient also with hyponatremia sodium 124, this is near patient's baseline. Patient BUN is 85 no significant transaminitis, troponin normal. BNP 319, this is higher than patient's baseline. Chest x-ray with cardiomegaly otherwise no other abnormalities. EKG performed today at 1135, sinus rhythm, normal intervals, nonspecific T wave changes, no cardiac alert. Chest x-ray cardiomegaly. EKG performed at 1135 today, notable for sinus rhythm, normal intervals, nonspecific T wave changes, not a cardiac alert. Given patient's acute decline in his hemoglobin performed a rectal exam, did not identify any gross blood. CT abdomen pelvis angio study prominent pericardial effusion, moderate vascular congestion, small bilateral pleural effusions, liver disease, as well as free fluid in the abdomen likely secondary to patient's peritoneal dialysis. Patient is HD stable, not in tamponade physiology. Updated patient's in person and son Devin over the phone. I ordered CTA of chest and discussed with group leader semiconductor processing ruby on rails developer Dr. Fajardo. Does not recommend CTA chest at this time. recommends admission and echocardiogram. States that effusion is less likely hemorrhagic and more likely 2/2 failed peritoneal dialysis. States that if patient requires a pericardiocentesis that he can perform as needed, but not needed at this time. I updated patient and family. In agreement with admission. Discussed with hospitalist, agrees to admit I, Marcela Kolb, am scribing for and in the presence of Dr. Link. Patient data External records reviewed:: [facility] previous records and EMS form Clinical information provided by:: patient and EMS Social determinants that could affect healthcare access:: none Patient has the following chronic illnesses:: Medical history of diabetes, hypertension, supraventricular tachycardia on carvedilol, and renal disease on peritoneal dialysis. How is presenting disease/condition affected by chronic disease/condition?: exacerbated by Evaluation data The following diagnostics were reviewed and interpreted by me:: lab results, radiology exam(s) and EKG tracing(s) Lab and/or radiology exams considered but not ordered:: none Interpretation Summary: See MDM narrative above. RADIOLOGY Procedure(s): XR chest 1V Accession Number(s): [id number] cc: Floyd Ospina MD; Vera Hall MD; Mery Link MD~ Examination: AP chest single view Technique one AP portable upright chest single view Date and time: January 17, 2025, 1141 hrs. Indications: Chest pain shortness of breath today. Findings: Moderate enlargement cardiac contour. No pneumonia or pulmonary edema. Prominent osteopenia Impression: Moderate enlargement cardiac contour Dictated By: Floyd Ospina MD Medications / Prescriptions Medications or Prescriptions considered but not ordered:: none Medication administrations:: Medication Administration History Discontinued Medications Acetaminophen (Acetaminophen 325 Mg Tablet) 650 mg PO Q6H PRN; Protocol PRN Reason: Fever >100.4 or pain Stop: 02/16/25 18:38 Hydrocodone Bitart/Acetaminophen (Hydrocodone/Apap 5/325 Tablet) 1 tab PO Q6H PRN PRN Reason: PAIN Stop: 01/22/25 19:25 Hydrocodone Bitart/Acetaminophen (Hydrocodone/Apap 5/325 Tablet) 1 tab PO Q6H PRN PRN Reason: PAIN SCALE 4-10(Mod-Sev Stop: 01/22/25 06:01 Last Admin: 01/21/25 11:58 Dose: 1 tab Documented By: Admin: 01/20/25 10:45 Dose: 1 tab Documented By: MAX Amiodarone HCl (Amiodarone Hcl 200 Mg Tablet) 200 mg PO BID JAIRO Stop: 02/19/25 14:39 Last Admin: 01/22/25 09:07 Dose: 200 mg Documented By: Admin: 01/21/25 20:32 Dose: 200 mg Documented By: Admin: 01/21/25 11:50 Dose: 200 mg Documented By: Admin: 01/20/25 15:11 Dose: 200 mg Documented By: Admin: 01/20/25 15:10 Dose: 200 mg Documented By: MAX Amiodarone HCl (Amiodarone Hcl 200 Mg Tablet) 200 mg PO X1 ONE Stop: 01/22/25 09:56 Last Admin: 01/22/25 10:01 Dose: 200 mg Documented By: LISE Amiodarone HCl (Amiodarone Hcl 200 Mg Tablet) 400 mg PO BID JAIRO Stop: 02/21/25 20:59 Last Admin: 01/25/25 08:20 Dose: 400 mg Documented By: Admin: 01/24/25 20:24 Dose: 400 mg Documented By: Admin: 01/24/25 07:49 Dose: 400 mg Documented By: Admin: 01/23/25 20:23 Dose: 400 mg Documented By: Admin: 01/23/25 09:47 Dose: 400 mg Documented By: Admin: 01/22/25 22:01 Dose: 400 mg Documented By: FLIP Comments: late admin, pt not on floor Apixaban (Apixaban 2.5 Mg Tablet) 2.5 mg PO BID [facility] Stop: 02/21/25 20:59 Last Admin: 01/22/25 22:01 Dose: 2.5 mg Documented By: FLIP Comments: late admin, pt not on floor Atorvastatin Calcium (Atorvastatin Calcium 20 Mg Tablet) 40 mg PO HS JAIRO Stop: 02/16/25 20:59 Last Admin: 01/24/25 20:23 Dose: 40 mg Documented By: Admin: 01/23/25 20:23 Dose: 40 mg Documented By: Admin: 01/22/25 22:00 Dose: 40 mg Documented By: FLIP Comments: Admin: 01/21/25 20:25 Dose: 40 mg Documented By: Admin: 01/20/25 20:11 Dose: 40 mg Documented By: Admin: 01/19/25 20:06 Dose: 40 mg Documented By: Admin: 01/18/25 20:58 Dose: 40 mg Documented By: Admin: 01/17/25 22:02 Dose: 40 mg Documented By: SHARAD Benzocaine (Benzocaine 20% (Hurricaine) Dana 1 Dose) Confirm Administered Dose 1 dose TOP .STK-MED ONE Stop: 01/22/25 20:39 Benzocaine (Benzocaine 20% (Hurricaine) Dana 1 Dose) 1 dose TOP X1 ONE Stop: 01/22/25 20:40 Bumetanide (Bumetanide 0.5 Mg Tablet) 2 mg PO BID [facility] Stop: 02/16/25 20:59 Bumetanide (Bumetanide 0.5 Mg Tablet) 1 mg PO BID [facility] Stop: 02/16/25 20:59 Bumetanide (Bumetanide 0.5 Mg Tablet) 2 mg PO BID JAIRO Stop: 02/16/25 20:59 Last Admin: 01/25/25 08:19 Dose: 2 mg Documented By: Admin: 01/24/25 20:25 Dose: 2 mg Documented By: Admin: 01/24/25 08:00 Dose: Not Given Documented By: OKSANA Non-Admin Reason: Held for Dialysis Admin: 01/23/25 20:22 Dose: 2 mg Documented By: Admin: 01/23/25 09:48 Dose: 2 mg Documented By: Admin: 01/22/25 21:59 Dose: 2 mg Documented By: Admin: 01/22/25 08:35 Dose: Not Given Documented By: OKSANA Non-Admin Reason: Held for Dialysis Admin: 01/21/25 20:25 Dose: 2 mg Documented By: Admin: 01/21/25 11:48 Dose: 2 mg Documented By: Admin: 01/20/25 20:12 Dose: 2 mg Documented By: Admin: 01/20/25 08:02 Dose: 2 mg Documented By: Admin: 01/19/25 20:05 Dose: 2 mg Documented By: Admin: 01/19/25 08:48 Dose: 2 mg Documented By: Admin: 01/18/25 20:58 Dose: 2 mg Documented By: Admin: 01/18/25 10:01 Dose: 2 mg Documented By: Admin: 01/17/25 22:01 Dose: 2 mg Documented By: SHARAD Calcitriol (Calcitriol 0.25 Mcg Capsule) 0.25 mcg PO UD JAIRO Stop: 02/16/25 19:29 Last Admin: 01/24/25 20:23 Dose: 0.25 mcg Documented By: Admin: 01/23/25 19:07 Dose: Not Given Documented By: HOLLY Non-Admin Reason: per instructions, not to be given Sunday Admin: 01/22/25 22:08 Dose: 0.25 mcg Documented By: Admin: 01/21/25 20:21 Dose: Not Given Documented By: ANTHONY Non-Admin Reason: not due til wed per swati pharmacey Admin: 01/20/25 20:11 Dose: 0.25 mcg Documented By: Admin: 01/19/25 20:06 Dose: 0.25 mcg Documented By: Admin: 01/19/25 05:20 Dose: Not Given Documented By: FLIP Non-Admin Reason: Due Sunday Admin: 01/18/25 00:16 Dose: 0.25 mcg Documented By: FLIP Calcium Acetate (Calcium Acetate 667 Mg Tablet) 667 mg PO DAILY JAIRO Stop: 02/17/25 08:59 Last Admin: 01/19/25 08:42 Dose: 667 mg Documented By: Admin: 01/18/25 08:19 Dose: 667 mg Documented By: Calcium Acetate (Calcium Acetate 667 Mg Tablet) 667 mg PO TIDWM JAIRO Stop: 02/18/25 11:59 Last Admin: 01/25/25 08:14 Dose: Not Given Documented By: TED Non-Admin Reason: ON HOLD Admin: 01/24/25 17:41 Dose: 667 mg Documented By: Admin: 01/24/25 12:15 Dose: 667 mg Documented By: Admin: 01/24/25 07:54 Dose: Not Given Documented By: OKSANA Non-Admin Reason: Held for Dialysis Admin: 01/23/25 18:16 Dose: 667 mg Documented By: Admin: 01/23/25 12:37 Dose: 667 mg Documented By: Admin: 01/23/25 08:05 Dose: 667 mg Documented By: Admin: 01/22/25 16:53 Dose: 667 mg Documented By: Admin: 01/22/25 11:43 Dose: 667 mg Documented By: Admin: 01/22/25 07:47 Dose: Not Given Documented By: OKSANA Non-Admin Reason: Held for Dialysis Admin: 01/21/25 17:05 Dose: 667 mg Documented By: Admin: 01/21/25 11:50 Dose: 667 mg Documented By: Admin: 01/21/25 11:50 Dose: Not Given Documented By: AC Non-Admin Reason: PT AT HD Admin: 01/20/25 18:46 Dose: 667 mg Documented By: Admin: 01/20/25 11:45 Dose: 667 mg Documented By: Admin: 01/20/25 08:02 Dose: 667 mg Documented By: Admin: 01/19/25 17:30 Dose: 667 mg Documented By: Admin: 01/19/25 11:53 Dose: 667 mg Documented By: Carvedilol (Carvedilol 3.125 Mg Tablet) 6.25 mg PO BID JAIRO Stop: 02/16/25 20:59 Last Admin: 01/19/25 08:49 Dose: Not Given Documented By: Non-Admin Reason: help per Dr. Santana Admin: 01/18/25 20:57 Dose: 6.25 mg Documented By: Admin: 01/18/25 08:19 Dose: 6.25 mg Documented By: Admin: 01/17/25 22:02 Dose: 6.25 mg Documented By: SHARAD Dextrose (Dextrose 50%-Water Inj 50 Ml Syringe) 25 ml IV Q15MIN PRN PRN Reason: BG 50-70 responsive npo pt Stop: 02/16/25 20:07 Dextrose (Dextrose 50%-Water Inj 50 Ml Syringe) 50 ml IV Q15MIN PRN PRN Reason: BG <50 OR BG <70 & pt unresponsive Stop: 02/16/25 20:07 Diltiazem HCl (Diltiazem Inj 5 Mg/Ml Vial 5 Ml) 15 mg IV X1 ONE Stop: 01/18/25 23:08 Last Admin: 01/19/25 05:14 Dose: Not Given Documented By: FLIP Non-Admin Reason: Cancelled by Provider Diphenhydramine HCl (Diphenhydramine Inj 50 Mg/Ml Vial) Confirm Administered Dose 50 mg .ROUTE .STK-MED ONE Stop: 01/22/25 20:40 Diphenhydramine HCl (Diphenhydramine Inj 50 Mg/Ml Vial) 25 mg IVP PRNMRX1 PRN PRN Reason: MODERATE SEDATION Stop: 01/22/25 22:39 Epoetin Avni (Epoetin Avni-Epbx Inj 10,000 Unit/Ml Vial (Esrd)) 10,000 unit SC X1 ONE Stop: 01/18/25 13:04 Last Admin: 01/18/25 15:32 Dose: 10,000 unit Documented By: Epoetin Avni (Epoetin Avni-Epbx Inj 10,000 Unit/Ml Vial (Non-Esrd)) 10,000 unit IV X1 ONE Stop: 01/22/25 09:01 Last Admin: 01/22/25 10:56 Dose: 10,000 unit Documented By: SC Fentanyl Citrate (Fentanyl Cit Inj 50 Mcg/Ml Amp 2ml) Confirm Administered Dose 100 mcg .ROUTE .STK-MED ONE Stop: 01/20/25 13:46 Last Admin: 01/20/25 13:57 Dose: Not Given Documented By: (2) Non-Admin Reason: Duplicate Medication on eMAR Fentanyl Citrate (Fentanyl Cit Inj 50 Mcg/Ml Amp 2ml) 50 mcg IVP X1 ONE Stop: 01/20/25 14:01 Last Admin: 01/20/25 14:30 Dose: 50 mcg Documented By: (2) Fentanyl Citrate (Fentanyl Cit Inj 50 Mcg/Ml Amp 2ml) Confirm Administered Dose 100 mcg .ROUTE .STK-MED ONE Stop: 01/22/25 20:40 Fentanyl Citrate (Fentanyl Cit Inj 50 Mcg/Ml Amp 2ml) 50 mcg IVP Q2M PRN PRN Reason: MODERATE SEDATION Stop: 01/22/25 22:39 Fentanyl Citrate (Fentanyl Cit Inj 50 Mcg/Ml Amp 2ml) Confirm Administered Dose 100 mcg .ROUTE .STK-MED ONE Stop: 01/24/25 14:54 Fentanyl Citrate (Fentanyl Cit Inj 50 Mcg/Ml Amp 2ml) 50 mcg IVP Q2M PRN PRN Reason: MODERATE SEDATION Stop: 01/24/25 17:50 Fluoxetine HCl (Fluoxetine Hcl 10 Mg Capsule) 20 mg PO QDAY JAIRO Stop: 02/17/25 08:59 Last Admin: 01/25/25 08:19 Dose: 20 mg Documented By: Admin: 01/24/25 08:01 Dose: Not Given Documented By: OKSANA Non-Admin Reason: Held for Dialysis Admin: 01/23/25 09:48 Dose: 20 mg Documented By: Admin: 01/22/25 08:35 Dose: Not Given Documented By: OKSANA Non-Admin Reason: Held for Dialysis Admin: 01/21/25 11:49 Dose: 20 mg Documented By: MAX Comments: PT AT HD. MEDS LATE Admin: 01/20/25 08:02 Dose: 20 mg Documented By: Admin: 01/19/25 08:42 Dose: 20 mg Documented By: Admin: 01/18/25 08:20 Dose: 20 mg Documented By: Glucagon (Glucagon Inj 1 Mg Vial) 1 mg IM Q15MIN PRN PRN Reason: BG <70, and no IV access Heparin Sodium (Beef Lung) (Heparin Sod Lock Syr 100 Unit/Ml) Confirm Administered Dose 500 unit .ROUTE .STK-MED ONE Stop: 01/20/25 13:46 Last Admin: 01/20/25 13:57 Dose: Not Given Documented By: (2) Non-Admin Reason: Duplicate Medication on eMAR Heparin Sodium (Beef Lung) (Heparin Sod Lock Syr 100 Unit/Ml) 500 unit STFIELD X1 ONE Stop: 01/20/25 14:01 Last Admin: 01/20/25 14:15 Dose: 500 unit Documented By: (2) Heparin Sodium (Beef Lung) (Heparin Sod Lock Syr 100 Unit/Ml) 4,100 unit INTRACATH X1 ONE Stop: 01/20/25 14:31 Last Admin: 01/20/25 15:27 Dose: Not Given Documented By: AC Non-Admin 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: 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 Heparin Sodium (Porcine) (Heparin Sod Inj 1000 Unit/Ml Vial) Confirm Administered Dose 5,000 unit .ROUTE .STK-MED ONE Stop: 01/20/25 13:46 Last Admin: 01/20/25 13:57 Dose: Not Given Documented By: (2) Non-Admin Reason: Duplicate Medication on eMAR Heparin Sodium (Porcine) (Heparin Sod Inj 1000 Unit/Ml Vial) 4,100 unit INDWELLCAT X1 ONE Stop: 01/20/25 14:31 Last Admin: 01/20/25 14:55 Dose: 4,100 unit Documented By: (2) Co-signed By: CU Heparin Sodium (Porcine) (Heparin Sod Inj 1000 Unit/Ml Vial 10 Ml) 4,100 unit INDWELLCAT PRN PRN PRN Reason: DIALYSIS Stop: 02/03/25 17:07 Last Admin: 01/24/25 11:15 Dose: 4,100 unit Documented By: ED Co-signed By: PP Admin: 01/22/25 09:36 Dose: 4,100 unit Documented By: ED Co-signed By: SC Admin: 01/21/25 11:07 Dose: 4,100 unit Documented By: MM Co-signed By: MM(2) Magnesium Sulfate (Magnesium Sulfate Ivpb) 2 gm in 50 mls @ 25 mls/hr IV X1 ONE Stop: 01/18/25 11:09 Last Admin: 01/18/25 10:05 Dose: 25 mls/hr Documented By: Magnesium Sulfate (Magnesium Sulfate Ivpb) 4 gm in 50 mls @ 12.5 mls/hr IV X1 ONE Stop: 01/19/25 03:16 Last Admin: 01/18/25 23:27 Dose: 12.5 mls/hr Documented By: FLIP Amiodarone HCl/Dextrose (Nexterone Ivpb) 150 mg in 100 mls @ 600 mls/hr IV .Q10M ONE Stop: 01/19/25 04:21 Last Admin: 01/19/25 04:43 Dose: 600 mls/hr Documented By: SS Amiodarone HCl/Dextrose (Nexterone Ivpb) 360 mg in 200 mls @ 33.333 mls/hr IV .Q6H ONE Stop: 01/19/25 10:10 Last Admin: 01/19/25 05:02 Dose: 33.333 mls/hr Documented By: FLIP Amiodarone HCl/Dextrose (Nexterone Ivpb) 360 mg in 200 mls @ 16.667 mls/hr IV .Q12H JAIRO Stop: 01/20/25 04:11 Last Admin: 01/19/25 23:17 Dose: 16.667 mls/hr Documented By: Infusion: 01/19/25 22:55 Dose: Infused Documented By: Admin: 01/19/25 10:55 Dose: 16.667 mls/hr Documented By: Albumin Human (Albuminex 25% Ivpb) 25 gm in 100 mls @ 100 mls/min IV PRN PRN PRN Reason: DIALYSIS Last Infusion: 01/21/25 19:19 Dose: Infused Documented By: Admin: 01/20/25 16:31 Dose: 100 mls/min Documented By: MM(2) Magnesium Sulfate (Magnesium Sulfate Ivpb) 2 gm in 50 mls @ 25 mls/hr IV X1 ONE Stop: 01/23/25 09:11 Last Admin: 01/23/25 08:05 Dose: 25 mls/hr Documented By: YOAN Sodium Chloride (Ns) 500 mls @ 20 mls/hr IV .Q24H ONE Stop: 01/25/25 15:49 Last Admin: 01/24/25 15:51 Dose: 20 mls/hr Documented By: ERIK Insulin Degludec (Insulin Degludec 5 Unit/0.05 Ml (Per 5 Units)) 10 unit SC QDAY JAIRO Stop: 02/17/25 08:59 Last Admin: 01/18/25 08:21 Dose: 10 unit Documented By: Co-signed By: DEBORAH Insulin Degludec (Insulin Degludec 5 Unit/0.05 Ml (Per 5 Units)) 20 unit SC QDAY JAIRO Stop: 02/18/25 08:59 Last Admin: 01/25/25 09:34 Dose: 20 unit Documented By: TED Co-signed By: WILLOW Admin: 01/24/25 08:01 Dose: Not Given Documented By: OKSANA Non-Admin Reason: Not In Room Admin: 01/23/25 09:59 Dose: Not Given Documented By: YOAN Non-Admin Reason: Per Protocol Comments: Per MD order, BS too low Admin: 01/22/25 08:38 Dose: Not Given Documented By: OKSANA Non-Admin Reason: Held for Dialysis Admin: 01/21/25 07:59 Dose: 20 unit Documented By: MAX Co-signed By: KARRIE Admin: 01/20/25 08:11 Dose: 20 unit Documented By: MAX Co-signed By: OKSANA Admin: 01/19/25 08:36 Dose: 20 unit Documented By: Co-signed By: MAX Insulin Degludec (Insulin Degludec 5 Unit/0.05 Ml (Per 5 Units)) 10 unit SC X1 ONE Stop: 01/18/25 09:00 Last Admin: 01/18/25 09:59 Dose: 10 unit Documented By: Co-signed By: TADEO Insulin Human Lispro (Insulin Lispro (Admelog) 1 Unit/0.01 Ml Unit) 0 unit SC AC [facility]; Protocol Stop: 02/17/25 07:29 Last Admin: 01/18/25 11:58 Dose: 5 unit Documented By: Co-signed By: DEBORAH Admin: 01/18/25 08:21 Dose: 5 unit Documented By: Co-signed By: DEBORAH Insulin Human Lispro (Insulin Lispro (Admelog) 1 Unit/0.01 Ml Unit) 0 unit SC ACHS [facility]; Protocol Stop: 02/17/25 16:59 Last Admin: 01/25/25 12:15 Dose: 3 unit Documented By: TED Co-signed By: WILLOW Admin: 01/25/25 08:17 Dose: 3 unit Documented By: TED Co-signed By: EMETERIO Admin: 01/24/25 20:25 Dose: 5 unit Documented By: DINORAH Co-signed By: HOLLY Admin: 01/24/25 17:32 Dose: Not Given Documented By: OKSANA Non-Admin Reason: blood sugar 111 Admin: 01/24/25 12:14 Dose: 3 unit Documented By: OKSANA Co-signed By: TED Admin: 01/24/25 07:47 Dose: Not Given Documented By: OKSANA Non-Admin Reason: blood sugar 105 Admin: 01/23/25 20:24 Dose: Not Given Documented By: DINORAH Non-Admin Reason: Patient Refused Admin: 01/23/25 17:47 Dose: Not Given Documented By: YOAN Non-Admin Reason: Per Protocol Admin: 01/23/25 12:28 Dose: Not Given Documented By: YOAN Non-Admin Reason: Per Protocol Admin: 01/23/25 07:58 Dose: Not Given Documented By: YOAN Non-Admin Reason: Per Protocol Comments: BS 62 Admin: 01/22/25 22:06 Dose: Not Given Documented By: FLIP Non-Admin Reason: blood glucose 115 Admin: 01/22/25 16:52 Dose: Not Given Documented By: OKSANA Non-Admin Reason: NPO Admin: 01/22/25 11:43 Dose: 3 unit Documented By: OKSANA Co-signed By: LISE Admin: 01/22/25 07:47 Dose: Not Given Documented By: OKSANA Non-Admin Reason: blood sugar 164. just received orange juice Admin: 01/21/25 20:24 Dose: 3 unit Documented By: ANTHONY Co-signed By: TAE Admin: 01/21/25 17:33 Dose: 6 unit Documented By: MAX Co-signed By: TED Admin: 01/21/25 12:06 Dose: 3 unit Documented By: MAX Co-signed By: WILLOW Admin: 01/21/25 07:59 Dose: 4 unit Documented By: MAX Co-signed By: KARRIE Admin: 01/20/25 20:17 Dose: Not Given Documented By: XIANG Non-Admin Reason: Per Protocol Admin: 01/20/25 17:27 Dose: Not Given Documented By: AMX Non-Admin Reason: Per Protocol Admin: 01/20/25 11:39 Dose: 3 unit Documented By: MAX Co-signed By: TADEO Admin: 01/20/25 07:44 Dose: 3 unit Documented By: MAX Co-signed By: AYDEE Admin: 01/19/25 20:11 Dose: 5 unit Documented By: XIANG Co-signed By: TAE(2) Admin: 01/19/25 17:30 Dose: 5 unit Documented By: Co-signed By: MAX Admin: 01/19/25 11:53 Dose: 5 unit Documented By: Co-signed By: MAX Admin: 01/19/25 08:35 Dose: 3 unit Documented By: Co-signed By: MAX Admin: 01/18/25 21:02 Dose: 1 unit Documented By: FLIP Co-signed By: VINNY Admin: 01/18/25 17:39 Dose: 5 unit Documented By: Co-signed By: DEBORAH Levothyroxine Sodium (Levothyroxine Sodium 25 Mcg Tablet) 50 mcg PO ACBR JAIRO Stop: 02/17/25 05:59 Last Admin: 01/25/25 05:06 Dose: 50 mcg Documented By: Admin: 01/24/25 05:36 Dose: 50 mcg Documented By: Admin: 01/23/25 05:15 Dose: 50 mcg Documented By: Admin: 01/22/25 05:35 Dose: 50 mcg Documented By: Admin: 01/21/25 05:46 Dose: 50 mcg Documented By: Admin: 01/20/25 05:09 Dose: 50 mcg Documented By: Admin: 01/19/25 05:14 Dose: 50 mcg Documented By: Admin: 01/18/25 05:15 Dose: 50 mcg Documented By: FRANCI Lidocaine HCl (Lidocaine Inj Pf 1% 30 Ml Vial) Confirm Administered Dose 30 ml .ROUTE .STK-MED ONE Stop: 01/20/25 13:46 Last Admin: 01/20/25 13:57 Dose: Not Given Documented By: (2) Non-Admin Reason: Duplicate Medication on eMAR Lidocaine HCl (Lidocaine Inj Pf 1% 5 Ml Vial) 6 ml INFL X1 ONE Stop: 01/20/25 14:32 Last Admin: 01/20/25 14:31 Dose: 6 ml Documented By: (2) Metolazone (Metolazone 2.5 Mg Tablet) 2.5 mg PO Q48H [facility] Stop: 02/17/25 16:14 Last Admin: 01/24/25 17:40 Dose: 2.5 mg Documented By: Admin: 01/22/25 16:53 Dose: 2.5 mg Documented By: Admin: 01/20/25 15:11 Dose: 2.5 mg Documented By: Admin: 01/18/25 17:38 Dose: 2.5 mg Documented By: Midazolam HCl (Midazolam Inj 1 Mg/Ml Vial 2 Ml) Confirm Administered Dose 4 mg .ROUTE .STK-MED ONE Stop: 01/22/25 20:40 Midazolam HCl (Midazolam Inj 1 Mg/Ml Vial 2 Ml) 2 mg IVP Q2M PRN PRN Reason: Moderate Sedation Stop: 01/22/25 22:39 Midazolam HCl (Midazolam Inj 1 Mg/Ml Vial 2 Ml) Confirm Administered Dose 4 mg .ROUTE .STK-MED ONE Stop: 01/24/25 14:54 Midazolam HCl (Midazolam Inj 1 Mg/Ml Vial 2 Ml) 2 mg IVP Q2M PRN PRN Reason: Moderate Sedation Stop: 01/24/25 17:50 Naloxone HCl (Naloxone Inj 0.4 Mg/Ml Vial) Confirm Administered Dose 0.4 mg .ROUTE .STK-MED ONE Stop: 01/20/25 13:46 Last Admin: 01/20/25 13:57 Dose: Not Given Documented By: (2) Non-Admin Reason: Duplicate Medication on eMAR Ondansetron HCl (Ondansetron Inj 2 Mg/Ml Inj 2 Ml) 4 mg IVP Q6H PRN; Protocol PRN Reason: NAUSEA OR VOMITING Stop: 02/16/25 18:38 Last Admin: 01/21/25 11:59 Dose: 4 mg Documented By: Admin: 01/20/25 08:08 Dose: 4 mg Documented By: Admin: 01/19/25 11:52 Dose: 4 mg Documented By: Admin: 01/18/25 11:27 Dose: 4 mg Documented By: Pantoprazole Sodium (Pantoprazole 40 Mg Tablet) 40 mg PO QAM JAIRO Stop: 02/17/25 08:59 Last Admin: 01/25/25 08:18 Dose: 40 mg Documented By: Admin: 01/24/25 08:01 Dose: Not Given Documented By: OKSANA Non-Admin Reason: Held for Dialysis Admin: 01/23/25 09:48 Dose: 40 mg Documented By: Admin: 01/22/25 08:35 Dose: Not Given Documented By: OKSANA Non-Admin Reason: Held for Dialysis Admin: 01/21/25 11:47 Dose: 40 mg Documented By: MAX Comments: PT AT HD. MEDS LATE Admin: 01/20/25 08:04 Dose: 40 mg Documented By: Admin: 01/19/25 08:43 Dose: 40 mg Documented By: Admin: 01/18/25 08:19 Dose: 40 mg Documented By: Polyethylene Glycol/Electrolytes (Na Lara/Nahco3/Haris/Peg (Golytely) 4,000 Ml Btl) 4,000 ml PO X1 ONE Stop: 01/22/25 20:54 Last Admin: 01/22/25 22:17 Dose: 4,000 ml Documented By: FLIP Polyethylene Glycol/Electrolytes (Na Lara/Nahco3/Haris/Peg (Golytely) 4,000 Ml Btl) 4,000 ml PO X1 ONE Stop: 01/23/25 18:06 Last Admin: 01/23/25 21:21 Dose: 1 bottle Documented By: DINORAH Potassium Chloride (Potassium Chloride 20 Meq Tabcr) 40 meq PO X1 ONE Stop: 01/23/25 07:11 Last Admin: 01/23/25 08:05 Dose: 40 meq Documented By: YOAN Tuberculin PPD (Tuberculin Ppd Inj 5 Unit/0.1 Ml Dose) 5 unit ID X1 ONE Stop: 01/21/25 13:53 Last Admin: 01/22/25 17:51 Dose: 5 unit Documented By: Admin: 01/21/25 17:17 Dose: Not Given Documented By: MAX Non-Admin Reason: MD HAGEN NOTIFIED PT HAS BCG VACCINE see above if any Consultations Consultation(s) initiated? (list below): Yes Consultation #1 (Physician, Specialty, Details): See MDM narrative above. Diagnosis Shortness of Breath Differential Diagnosis: other (Volume overload, peritoneal dialysis complication (peritonitis or dialysate imbalance), and CHF exacerbation.) Most likely diagnosis given after review of the tests above:: See below under clinical impression Admission Indicated Admission indicated?: indicated Admission Request Was there a request for admission?: Yes Admission Attestation Admission request attestation: Discussed case with Hospitalist service regarding admission. Discussed patients ED course, exam findings, labs, and radiology results. The Hospitalist [agrees] to accept the patient for admission. Disposition Plan Disposition Plan: Admit Critical Care Time Critical Care Time Critical Care Time: Yes Total Critical Care Time (min.): 60 Attestation: Due to a high probability of clinically significant, life threatening deterioration, the patient required my highest level of preparedness to intervene emergently and I personally spent this critical care time directly and personally managing the patient. This critical care time included obtaining a history; examining the patient; pulse oximetry; ordering and review of studies; arranging urgent treatment with development of a management plan; evaluation of patient's response to treatment; frequent reassessment; and, discussions with other providers. This critical care time was performed to assess and manage the high probability of imminent, life-threatening deterioration that could result in multi-organ fa ilure. It was exclusive of separately billable procedures and treating other patients and teaching time. Please see MDM section and the rest of the note for further information on patient assessment and treatment. Discharge Plan Plan Patient Disposition: Admit Acute Care w/in Hospital Problem List Clinical Impression: Anemia, Acute pericardial effusion Patient/Caregiver Discharge Instructions Other Activity Instructions:: Follow up with out patient dialysis at [facility], #[phone], M/W/F at 10:15 chair time. Address: [facility] [address]. Start date: 2024. Please arrive 30 min early with d/c paperwork, insurance cards, I.D.
--- NOTE | 2025-01-17 11:03 | EKG_ITS ---
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
[2025-01-17 11:50] LABS: Alanine Aminotransferase 27 U/L (10-49); Albumin, Serum 3.8 gm/dL (3.4-4.8); Albumin/Globulin Ratio 1.6 (1.2-2.2); Alkaline Phosphatase 177 U/L (46-116); Anion Gap 13 (7-16); Aspartate Amino Transferase 19 U/L (0-34); BUN/Creatinine Ratio 14 Ratio (12-20); Bilirubin,Total 0.2 mg/dL (0.3-1.2); Blood Urea Nitrogen 85 mg/dL (9-23); Calcium 8.0 mg/dL (8.3-10.6); Calcium (Corrected) 8.2 mg/dL (8.5-10.1); Carbon Dioxide 22.7 mMol/L (20.0-31.0); Chloride 88 mMol/L (98-107); Creatinine (Component) 6.2 mg/dL (0.6-1.3); Estimated Creatinine Clearance 9.6 mL/min (>60); Globulin 2.4 gm/dL (2.3-3.5); Glucose 267 mg/dL (74-106); Osmolality,Calculated 284 (275-295); Potassium 4.3 mMol/L (3.4-5.1); Sodium 124 mMol/L (136-145); Total Protein 6.2 gm/dL (5.7-8.2); Troponin I < 0.020 ng/mL (0.0-0.045); eGFR 9 See Note
[2025-01-17 12:04] LABS: Basophils # (Auto) 0.0 Thou/mm3 (0.0-0.2); Basophils % (Auto) 0 % (0-2.5); Eosinophils # (Auto) 0.0 Thou/mm3 (0.0-0.5); Eosinophils % (Auto) 0 % (0-10); Hematocrit 21.3 % (41.0-53.0); Immature Granulocytes Auto 0.08 Thou/mm3 (0.00-0.00); Lymphocytes # (Auto) 0.6 Thou/mm3 (1.0-4.8); Lymphocytes % (Auto) 5 % (10-50); Mean Corpuscular HGB Conc 34.3 g/dl (31.0-37.0); Mean Corpuscular Hemoglobin 32.3 pg (25.0-35.0); Mean Corpuscular Volume 94 fL (80-100); Monocytes # (Auto) 0.9 Thou/mm3 (0.0-0.8); Monocytes % (Auto) 7 % (0-12); Neutrophils # (Auto) 10.5 Thou/mm3 (1.8-7.7); Neutrophils % (Auto) 87 % (37-80); Nucleated Red Blood Cell # 0.00 Thou/mm3 (0.00-0.00); Nucleated Red Blood Cell % 0 /100 WBC (0); Platelet Count 250 Thou/mm3 (140-440); RDW Standard Deviation 42.2 fL (35.1-43.9); Red Blood Count 2.26 Miln/mm3 (4.50-5.90); White Blood Count 12.2 Thou/mm3 (3.8-10.6)
[2025-01-17 12:34] LABS: INR 1.1 (0.9-1.3); Prothrombin Time 11.2 Seconds (9.0-12.2)
[2025-01-17 12:38] LABS: Hemoglobin 7.3 g/dL (13.5-16.0)
[2025-01-17 13:06] LABS: B-Type Natriuretic Peptide 319 pg/mL (0-100)
--- NOTE | 2025-01-17 13:07 | PC.NURSE ---
CALLED DIALYSIS NURSE JEFFY TO SEE IF IT IS POSSIBLE TO COME EVALUATE PATIENT'S PERITONEAL DIALYSIS CATHETER FOR PATENCY.
--- NOTE | 2025-01-17 14:30 | XR_ITS ---
Examination: . CTA abdomen, with intravenous contrast. CTA pelvis, with intravenous contrast. 2-D sagittal and coronal reconstructions. 3-D reconstructions. Date and time of exam: January 17, 2025, 1539 hrs. Indications: Abdominal pain today, clinical diagnosis gastrointestinal bleeding CTDI vol (mgy) 8.68 DLP (MGycm) 540 Technique: Multiple CTA images, 2.0 mm slice thickness, obtained, abdomen, pelvis, with the high-resolution 64 slice scanner. 100 cc Isovue-370 is administered intravenously. Sagittal and coronal 2-D reconstructions are obtained. 3-D reconstructions, angiographic images are obtained. 3-D postprocessing, including vascular maximum intensity projections. Low dose protocols were performed. One or more of the following dose reduction techniques were used; automated exposure control, adjustment of the mA and/or KV according to patient size, use of iterative reconstruction technique. Findings: Prominent pericardial effusion, measuring up to 26 mm at the level of the left ventricle Moderate vascular congestion small bilateral pleural effusions Atelectasis versus pneumonia left base Liver is irregular in contour with mild fluid in the abdomen including peripheral to the spleen Gallbladder wall appears mildly thickened No pancreatic or adrenal mass Gastric mucosa is thickened Atrophic kidneys Peritoneal dialysis catheter No contrast extravasation in the gastrointestinal tract Normal appendix Severe osteopenia No hydronephrosis No abdominal aortic aneurysmal dilatation Negative for pneumoperitoneum Colonic diverticulosis Impression: Prominent pericardial effusion Moderate vascular congestion Small bilateral pleural effusions. Atelectasis versus pneumonia left base. Suspicious for primary hepatocellular disease. Gastritis pattern. Gallbladder wall appears mildly thickened, recommend hepatobiliary sonography follow-up No contrast extravasation in the stomach or gastrointestinal tract. Normal appendix Mild free fluid in the abdomen likely related to the peritoneal dialysis catheter
[2025-01-17 15:32] LABS: Influenza A Ag Negative
[2025-01-17 15:33] LABS: Influenza B Ag Negative
[2025-01-17 17:22] LABS: Peritoneal Fluid WBC 92 /cmm; RBC,Peritoneal Fluid 0 /cmm
[2025-01-17 17:24] LABS: Peritoneal Fluid Appearance Clear; Peritoneal Fluid Color Straw; Peritoneal Fluid Mononuclear 86 %; Peritoneal Fluid Polynuclear 14 %
--- NOTE | 2025-01-17 17:40 | PD.RESCONSUL ---
HPI Data of Consult Primary Care Provider: Vera Hall MD Consult Narrative History of present illness: Patient is a Australian speaking 79 year old male with PMH of ESRD on peritoneal dialysis for the past 3 years history of SVT (last reported episode July 2024), chronic anemia, insulin-dependent diabetes type 2, hypertension, GERD, alcohol abuse who presents to the ED on 01/17 for shortness of breath. Patient was a very poor historian so majority of history was obtained from patient's son Devin over telephone. Per son, patient has been experiencing nausea, shortness of breath, lightheadedness for the past 3 days since peritoneal dialysis fluid was switched to different solution. Denies recent trauma, cardiac procedures, illnesses/infections, history of LA. Patient's assist patient with peritoneal dialysis sessions every day at home. Goes to dialysis center twice a month for iron infusions. 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 De Leon in [place]. Otherwise patient does not have shortness of breath, and is usually able to walk at least 4 blocks with ease and is otherwise functionally independent. Does sleep with 2-3 pillows at night. Has CPAP machine at home but does not use it. Patient follows program developer in [place] Dr. Gutierrez. Last visit was 3 weeks ago for follow-up of echo results, was told that heart is doing fine. On exam, patient denied any chest pain, shortness of breath, palpitations. Only endorsed abdominal discomfort from distended abdomen. Blood pressure was 121/68, heart rate in 70s, saturating well on room air. WBC elevated 12.2, likely reactive. Hemoglobin 7.3, platelets 258. Sodium 124, potassium 4.3, BUN 85, creatinine 6.2, glucose 264, calcium 8.2. Troponin negative, BNP 319. Chest x-ray showed enlarged cardiac contour. EKG showed sinus rhythm, no ST or T wave abnormalities noted. CT abdomen pelvis showed prominent pericardial effusion, measuring up to 26 mm, moderate vascular congestion with small bilateral pleural effusions, mild fluid in the abdomen including peripheral to the spleen, irregular liver contour, atrophic kidneys, peritoneal dialysis catheter. Cardiology was consulted for pericardial effusion found on CT A/P, consulted by ED for concern of hemopericardium. Past Medical History: As above Family History: Father and mother had diabetes. No known family history of cardiac disease. Surgical History: Left cochlear implant (05/22/2024) Social History: Used to drink 6 pack beers per day during his youth for about 25 years, stopped 3 years ago. Denies tobacco and drug use. Used to work as a [employer] for 30 years. Was born in [place] and came to the in 1960s. Lives at home with in [place]. Current Medications: Hydralazine 50 mg 3 times daily, nifedipine 60 mg daily, carvedilol 6.25 mg twice daily, Bumex 2 mg twice daily, Protonix 40 mg daily. Pending official med rec Allergies: No known drug allergies cc:: cc: Exam Vital Signs Temp Pulse Resp BP Pulse Ox O2 Del Method 97.6 F 72 19 121/68 99 Room Air 01/17/25 17:37 01/17/25 17:37 01/17/25 17:37 01/17/25 17:37 01/17/25 17:37 01/17/25 17:37 Narrative Exam Physical Exam General: Awake and in no acute distress. Conversational and non-toxic appearing. Australian-speaking elderly male. Overweight. HEENT: Normocephalic, atraumatic, mucous membranes moist. Heart: Regular rate and rhythm, normal S1 and S2. 2/6 systolic murmur more pronounced with inspiration, heard best at right second intercostal space. Lungs: Decreased breath sounds in bilateral lower lobes, otherwise clear. Abdomen: Soft, distended, nontender, positive bowel sounds. No guarding or rebound tenderness. Neurologic: Alert and oriented x3, no gross neurological deficit, and patient able to move all 4 extremities. Extremities: No edema. Skin: No rash or ecchymoses. Results Labs 01/18/25 04:55 01/18/25 04:55 Labs: Short CBC 01/17/25 Range/Units 11:10 WBC 12.2 H (3.8-10.6) Thou/mm3 Hgb 7.3 L (13.5-16.0) g/dL Hct 21.3 L* (41.0-53.0) % Plt Count 250 (140-440) Thou/mm3 BMP 01/17/25 11:10 Sodium 124 L Potassium 4.3 Chloride 88 L Carbon Dioxide 22.7 BUN 85 H Creatinine 6.2 H* Glucose 267 H Calcium 8.0 L Cardiac Enzymes 01/17/25 Range/Units 11:10 Troponin I < 0.020 (0.0-0.045) ng/mL Liver Function 01/17/25 Range/Units 11:10 Total Bilirubin 0.2 L (0.3-1.2) mg/dL AST 19 (0-34) U/L ALT 27 (10-49) U/L Alkaline Phosphatase 177 H (46-116) U/L Albumin 3.8 (3.4-4.8) gm/dL Quality Measures Quality Measures none Advance care planning discussed with:: patient and child Medications Home Medications and Allergies Home Medications ?Medication ?Instructions ?Recorded ?Confirmed ?Type bumetanide 1 mg tablet 2 mg PO BID 12/22/23 01/18/25 History calcitriol 0.25 mcg capsule 0.25 mcg PO UD 12/22/23 01/18/25 History calcium acetate 667 mg tablet 667 mg PO DAILY 12/22/23 01/18/25 History carvedilol 6.25 mg tablet 6.25 mg PO BID 12/22/23 01/18/25 History ferrous sulfate 325 mg (65 mg 325 mg PO QDAY 12/22/23 01/18/25 History iron) tablet hydralazine 50 mg tablet 50 mg PO TID 12/22/23 01/18/25 History metolazone 2.5 mg tablet 2.5 mg PO Q OTHER DAY 12/22/23 01/18/25 History minoxidil 2.5 mg tablet 2.5 mg PO BID 12/22/23 01/18/25 History omeprazole 20 mg tablet,delayed 20 mg PO QDAY 12/22/23 01/18/25 History release fluoxetine 20 mg capsule (Prozac) 20 mg PO QAM 05/16/24 01/18/25 History nifedipine 30 mg tablet,extended 90 mg PO QDAY 05/16/24 01/18/25 History release pantoprazole 40 mg tablet,delayed 40 mg PO QAM 05/16/24 01/18/25 History release atorvastatin 40 mg tablet 40 mg PO DAILY 01/18/25 01/18/25 History insulin glargine 100 unit/mL (3 20 unit subcut BID 01/18/25 01/18/25 History mL) subcutaneous pen (Lantus Solostar U-100 Insulin) levothyroxine 50 mcg tablet 50 mcg PO DAILY 01/18/25 01/18/25 History nifedipine 60 mg tablet,extended 60 mg PO DAILY 01/18/25 01/18/25 History release Allergies Allergy/AdvReac Type Severity Reaction Status Date / Time No Known Allergies Allergy Verified 01/17/25 10:37 Assessment & Plan Plan Patient is a 79 year old male with PMH of ESRD on peritoneal dialysis for the past 3 years history of SVT (last reported episode July 2024), chronic anemia, insulin-dependent diabetes type 2, hypertension, GERD, alcohol abuse who presents to the ED on 01/17 for shortness of breath. Cardiology was consulted for pericardial effusion found on CT A/P, consulted by ED for concern of hemopericardium. #Pericardial effusion, 26mm on CTAP #Bilateral pleural effusions #SVT, resolved #ESRD on peritoneal dialysis (2021) 2/2 diabetic nephropathy #2/6 systolic murmur # Rule out heart failure Presents with 3 day history of SOB and fatigue. Symptom onset since transition to new solution recently. Reported that at home, patient blood pressure was low at 190s and heart rate elevated 160s to 180s. Suspect patient has been fluctuating between over and under diuresis since solution transition. Last dialysis session last night at home. Otherwise, had been on PD since 2021 for diabetic nephropathy. At home, patient is on bumetanide 2 mg BID and metolaxone 2.5 mg QOD. Admission vital stable. BNP 319. EKG shows sinus rhythm rate 79 QTc 457. On exam, 2/6 systolic murmur increased on inspiration as well as decreased lung sounds and distended abdomen. No edema. CXR shows moderate enlargement cardiac contour. CTAP shows prominent pericardial effusion of 26 mm, moderate vascular congestion, small bilateral pleural effusions, atelectasis versus pneumonia left base, suspicious for edema. Hepatocellular disease, gastritis pattern, gallbladder wall appears slightly thickened, mild free fluid in the abdomen likely related to peritoneal dialysis catheter. Likely 2/2 fluid overload from inadequate peritoneal fluid removal with new recently changed PD regimen vs heart failure exacerbation. Patient follows program developer Dr. Gonsales in [place], followed up 3 weeks ago for echo results which he was told was fine . Plan: ? Obtain TTE for better visualization of pericardial effusion. Low suspicion for hemoperitoneum at this time despite what appears to be acute drop in hemoglobin, as well as stable vitals and unremarkable EKG. Based on history, anemia appears to be chronic. Will determine based on echo results if effusion will require drainage. ?Recommend consulting nephrology for dialysis as soon as possible ?Resume home Bumex and metolaxone #Normocytic anemia, chronic Per son, patient receives iron infusions bimonthly at dialysis center and takes iron supplements 325 QD. WBC 12.2 and H&H 7.3/21.3. Anemia likely secondary to chronic disease on dialysis, low suspicion for active bleeding as patient. Denies any melena, hematochezia or coffee-ground emesis. ?Defer anemia workup to primary team #IDDM2 #HLD Per pharmacy review, patient has been prescribed insulin and is taking atorvastatin 40 mg qhs. On admission glucose 267 Plan: ?A1c, lipid panel and TSH/T4 ?Insulin management per primary team ? Recommend continuing atorvastatin 40 mg nightly #HTN Has history of hypertension however as of late, patient has been hypotensive, likely secondary to volume status changes. Home medications include hydralazine 50 mg TID, carvedilol 6.25 mg BID, nifedipine ER 60 mg QD. Plan: - Resume all home antihypertensives as above #Hx alcohol abuse Used to drink 6 pack beers per day during his youth for 25 years, stopped 3 years ago when started on dialysis. #Leukocytosis, likely reactive #Hyponatremia #Hypothyroidism #GERD #Depression ?Management per primary team Thank you for your consultation, please do not hesitate to reach out if you have any question or concern Patient plan of care was discussed with the attending physician, Dr. Fajardo. Lucy Santana, PGY-1 Attending Provider Attestation/Addendum I have personally seen and examined the patient separately on the above date of service and discussed the plan of care with the resident. I reviewed the resident Dr. Lucy aSntana consultation progress note and agree with the resident findings and plan in the note above and have also edited the documentation to reflect my findings and plan. Essential gentleman with a past medical history of ESRD on peritoneal dialysis for the last 3 years, history of SVT in July 2024, chronic anemia and transfusions at the dialysis center, essential hypertension, type 2 diabetes mellitus, GERD, history of previous alcohol abuse presented to the emergency department for further evaluation of shortness of breath along with abdominal discomfort during peritoneal dialysis. During the initial evaluation in the ED a CT abdomen and pelvis was performed which showed pericardial effusion measuring [address] and cardiology was consulted for further evaluation. Patient denies any chest pain chest pressure but does have shortness of breath at rest or even with minimal exertion and also has significant orthopnea. Patient did follow-up with cardiology in [place] Dr. Gutierrez. Previously no history of any CAD or any heart failure. Labs showed that the patient hemoglobin was low at 7.3 and platelets 258 with WBC of 12.2 and BUN of 85 and creatinine of 6.2 troponins were negative BNP was 319 and chest x-ray showed cardiomegaly along with vascular congestion as well as bilateral pleural effusions. Mild fluid in the abdomen was noted on the CT abdomen with irregular liver contour atrophic kidneys. Moderate vascular congestion also noted. ED doctor had concern for hemopericardium given the low hemoglobin in the no obvious blood loss. Assessment and plan- Patient presented with shortness of breath as well as abdominal pain. CT showed left pericardial effusion up to 26 mm along with bilateral pleural effusions along with moderate vascular congestion and also mild fluid in the abdomen. ED had concern about the hemopericardium given the low hemoglobin. Explained to the ED that unlikely it is a hemorrhagic pericardial effusion as patient has been on iron infusions at the dialysis center and could be chronic blood loss as the last globin was around 11-12 in July 2024. The pericardial effusion is secondary mostly to longstanding urinary pericardial effusion from the inadequate peritoneal dialysis given that the patient is fluid overloaded. Patient apparently had change of fluid dialysate recently but still patient has not been having significant net negative balance. Recommend to obtain echocardiogram to evaluate pericardial effusion. Patient is not in any kind of cardiac tamponade Clinically the patient respiratory stable and heart rate is also stable. No Kussmaul sign. Will evaluate with echocardiogram to see if the patient has any kind of signs of cardiac tamponade by echocardiographic criteria. Echocardiogram ordered. Check lipid profile, TSH, A1c and free T4 Regarding shortness of breath patient shortness of breath is mostly secondary to the fluid overload state due to inadequate fluid removal from the peritoneal dialysis. Is been 3 years since the peritoneal dialysis and started most likely the PD is not working well for the patient and will need hemodialysis because the BUN is 86 and creatinine is 2.6. Patient will need hemodialysis and recommend to consult nephrology and pericardial effusion is also secondary to same with the pleural effusions as well as mild fluid in the abdomen. Regarding the anemia-patient's hemoglobin is 7.0 and previous hemoglobin was around 11-12 in July 2024. Patient apparently is on IV iron transfusions. Unclear if the patient is on a probiotic. Recommend to obtain all the anemia workup by the primary team transfuse if she is 2 units of PRBC to keep the hemoglobin around 9-10 in view of possible procedures. Julius Fajardo M.D. Interventional Cardiology
--- NOTE | 2025-01-17 18:41 | ECHO_ITS ---
Transthoracic Echo Report Ht (in): 66 Wt (lb): 170 Exam Location: Echo Lab Status: Emergency Paleontology Teacher: Jimena Choi Indications: Procedure Performed: BP: 110 / 82 HR: 77 Rhythm: Sinus Technical Quality: Fair MEASUREMENTS (Male / Female) Normal Values 2D ECHO LV Ejection Fraction MOD BP 50.4 % >= 55 % LV Cardiac Index MOD BP 1964.7 cm?/min?m? LV Ejection Fraction MOD 4C 45.8 % LV Cardiac Index MOD 4C 1288.3 cm?/min?m? LV Ejection Fraction 4C AL 45.6 % LV Cardiac Index 4C AL 1356.3 cm?/min?m? LV Ejection Fraction MOD 2C 51.5 % LV Cardiac Index MOD 2C 2572.7 cm?/min?m? LV Ejection Fraction 2C AL 54.2 % LV Cardiac Index 2C AL 2864.7 cm?/min?m? LA Volume Index 22.2 cm?/m? 16 - 28 cm?/m? DOPPLER AV Peak Velocity 154.0 cm/s AV Peak Gradient 9.5 mmHg AV Mean Gradient 4.0 mmHg AV Velocity Time Integral 29.0 cm LVOT Peak Velocity 137.0 cm/s LVOT Peak Gradient 7.5 mmHg LVOT Velocity Time Integral 33.9 cm MV Area PHT 3.0 cm? Mitral E Point Velocity 59.7 cm/s Mitral A Point Velocity 107.0 cm/s Mitral E to A Ratio 0.6 LV E' Lateral Velocity 5.8 cm/s Mitral E to LV E' Lateral Ratio 10.3 LV E' Septal Velocity 4.5 cm/s Mitral E to LV E' Septal Ratio 13.4 TR Peak Velocity 233.0 cm/s TR Peak Gradient 21.7 mmHg FINDINGS Left Ventricle Normal left ventricular size and wall thickness, systolic function with no obvious regional wall motion abnormalities. There is grade I diastolic dysfunction of the left ventricle (impaired relaxation pattern). The ejection fraction is visually estimated at 45-50%. Right Ventricle The right ventricular cavity size is normal. The right ventricular systolic function is normal. Left Atrium The left atrium is normal by two-dimensional, color flow and Doppler imaging with no structural abnormalities, no thrombus formation present. Right Atrium The right atrium is normal by two-dimensional imaging, color flow and Doppler imaging with no structural abnormalities, no thrombus formation present. Atrial Septum The interatrial septum appears normal with no evidence of a shunt. Aorta The aorta is normal by two-dimensional, color flow and Doppler interrogation. Mitral Valve The mitral valve is normal by two-dimensional, color flow and Doppler interrogation. There is no significant mitral valve regurgitation, stenosis or prolapse. Aortic Valve The aortic valve is not well visualized. Tricuspid Valve The tricuspid valve is normal by two-dimensional, color flow and Doppler interrogation. There is trace tricuspid valve regurgitation. Pulmonic Valve The pulmonic valve is not well visualized. There is no significant pulmonic valve regurgitation. Vessels Less than 50% respiratory change in dimension of the inferior vena cava abnormal. Pericardium There is a large circumferential pericardial effusion. There is echocardiographic evidence of pericardial tamponade. CONCLUSIONS Indication: Pericardial effusion Normal LV size and wall thickness. There is grade I diastolic dysfunction. Estimated EF at 50-55%. Normal RV size and function. RVSP appears to be in the normal range Trace TR and MR. Minimal aortic valve sclerosis without stenosis. Large circumferential pericardial effusion that appears to be loculated with significant septae noted along with the fibrinous exudate on the ventricular veloz indicating chronic effusion. No RV diastolic collapse or any RA inversion.. No significant respiratory variation in the tricuspid inflow velocities except for the mitral inflow. IVC dilated with less than 50% collapse with inspiration. There is no clear evidence of cardiac tamponade. Julius Fajardo (Electronically Signed) Final Date: 18 January 2025 19:18
--- NOTE | 2025-01-17 19:29 | PD.RESHP ---
Documentation for date of: 01/17/25 Senior resident attestation: Patient evaluated and examined at the bedside, plan of care discussed with rest of the team including my attending physician, except as noted. Mr. Sebas Patel is a 79-year-old male who presented to the ED complaining of shortness of breath and abdominal discomfort during peritoneal dialysis. Patient has a history of ESRD on peritoneal dialysis since 2021, history of diabetes mellitus, hypertension, history of SVT on carvedilol. #Pericardial effusion?CT scan imaging showed prominent pericardial effusion 27 mm, ER consulted studio potter Dr. Fajardo who recommended getting echocardiogram and he will evaluate the patient for possible pericardiocentesis if found to have massive pericardial effusion or signs of tamponade. Currently the patient is maintaining stable vitals, on room air, laying comfortably in bed, no complaint. Or chest pain. Slightly distended with nontender abdomen. Will resume patient's home medications, echocardiogram ordered. #ESRD on peritoneal dialysis?on-call acid pump operator Dr. Amador is consulted, to resume peritoneal dialysis nightly. #Hypertension #History of diabetes mellitus Quresh PGY3 HPI History of Present Illness Chief complaint: Abdominal distension History of present illness: Ruperto Love 79M pmhx significant for ESRD on home PD (since 2021) 2/2 diabetic nephropathy, IDDM2, HTN, TATY, hx of SVT on carvedilol, and hypothyroidism who presents with epigastric abdominal pain that occurs during PD and SOB. Reports has been feeling nauseous with some abdominal pain during PD with associated worsening shortness of breath on short distances. Patient reports his studio potter in [place] had told him to go to the emergency room. Per son, he reports that patient recently started new PD regimen and since then has been having the symptoms which have worsened over the past 3 days with SBPs in 90s and heart rate 160-180s at home yesterday. Son reports patient received iron infusions twice a month at dialysis center. Patient has not had any melena, hematochezia or coffee-ground emesis as well as recent fever/chills. At this time, patient denies complaining chest pain, abdominal pain or shortness of breath. 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 Cage Supervisor is Dr. De Leon in [place]. 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 Peritoneal fluid with normal limits. CXR shows moderate enlargement cardiac contour. EKG shows sinus rhythm rate 79 QTc 457. CTAP shows prominent pericardial effusion of 26 mm, moderate vascular congestion, small bilateral pleural effusions, atelectasis versus pneumonia left base, suspicious for edema. Hepatocellular disease, gastritis pattern, gallbladder wall appears slightly thickened, mild free fluid in the abdomen likely related to peritoneal dialysis catheter Patient was admitted for further workup, found to have pericardial effusion. Review of Systems Review of Systems Systems Reviewed: All systems reviewed, normal except as documented Exam Vital Signs Temp Pulse Resp BP Pulse Ox O2 Del Method 97.6 F 71 21 H 121/68 99 Room Air 01/17/25 17:37 01/17/25 19:11 01/17/25 19:11 01/17/25 17:37 01/17/25 17:37 01/17/25 17:37 Narrative Exam GENERAL: AOx3, no acute distress, sitting in bed, frail HEENT: NC/AT, mucous membranes moist, bilateral sclera anicteric CARDIOVASCULAR: regular rate, S1/S2 present, 2/6 systolic murmur PULMONARY: diminished breath sounds bilaterally, no rales/rhonchi/wheezes ABDOMINAL: soft, distended, non-tender, no rebound/guarding, bowel sounds present, PD cath present and covered to L of umbilicus EXTREMITIES: no peripheral edema SKIN: warm and dry, intact, no rashes NEURO: CN II-XII grossly intact, no focal deficits, alert, following commands Results: Labs 01/19/25 04:54 01/19/25 04:54 Labs: Short CBC 01/17/25 Range/Units 11:10 WBC 12.2 H (3.8-10.6) Thou/mm3 Hgb 7.3 L (13.5-16.0) g/dL Hct 21.3 L* (41.0-53.0) % Plt Count 250 (140-440) Thou/mm3 BMP 01/17/25 11:10 Sodium 124 L Potassium 4.3 Chloride 88 L Carbon Dioxide 22.7 BUN 85 H Creatinine 6.2 H* Glucose 267 H Calcium 8.0 L Cardiac Enzymes 01/17/25 Range/Units 11:10 Troponin I < 0.020 (0.0-0.045) ng/mL Liver Function 01/17/25 Range/Units 11:10 Total Bilirubin 0.2 L (0.3-1.2) mg/dL AST 19 (0-34) U/L ALT 27 (10-49) U/L Alkaline Phosphatase 177 H (46-116) U/L Albumin 3.8 (3.4-4.8) gm/dL Quality Measures Quality Measures none Advance care planning discussed with:: patient Medications Home Medications and Allergies Home Medications ?Medication ?Instructions ?Recorded ?Confirmed ?Type bumetanide 1 mg tablet 2 mg PO BID 12/22/23 01/18/25 History calcitriol 0.25 mcg capsule 0.25 mcg PO UD 12/22/23 01/18/25 History calcium acetate 667 mg tablet 667 mg PO DAILY 12/22/23 01/18/25 History carvedilol 6.25 mg tablet 6.25 mg PO BID 12/22/23 01/18/25 History ferrous sulfate 325 mg (65 mg 325 mg PO QDAY 12/22/23 01/18/25 History iron) tablet hydralazine 50 mg tablet 50 mg PO TID 12/22/23 01/18/25 History metolazone 2.5 mg tablet 2.5 mg PO Q OTHER DAY 12/22/23 01/18/25 History minoxidil 2.5 mg tablet 2.5 mg PO BID 12/22/23 01/18/25 History omeprazole 20 mg tablet,delayed 20 mg PO QDAY 12/22/23 01/18/25 History release fluoxetine 20 mg capsule (Prozac) 20 mg PO QAM 05/16/24 01/18/25 History nifedipine 30 mg tablet,extended 90 mg PO QDAY 05/16/24 01/18/25 History release pantoprazole 40 mg tablet,delayed 40 mg PO QAM 05/16/24 01/18/25 History release atorvastatin 40 mg tablet 40 mg PO DAILY 01/18/25 01/18/25 History insulin glargine 100 unit/mL (3 20 unit subcut BID 01/18/25 01/18/25 History mL) subcutaneous pen (Lantus Solostar U-100 Insulin) levothyroxine 50 mcg tablet 50 mcg PO DAILY 01/18/25 01/18/25 History nifedipine 60 mg tablet,extended 60 mg PO DAILY 01/18/25 01/18/25 History release Allergies Allergy/AdvReac Type Severity Reaction Status Date / Time No Known Allergies Allergy Verified 01/17/25 10:37 Visit Medications Acetaminophen (Acetaminophen 325 Mg Tablet) 650 mg PO Q6H PRN PRN Reason: Fever >100.4 or pain Stop: 02/16/25 18:38 Hydrocodone Bitart/Acetaminophen (Hydrocodone/Apap 5/325 Tablet) 1 tab PO Q6H PRN PRN Reason: PAIN Stop: 01/22/25 19:25 Bumetanide (Bumetanide 0.5 Mg Tablet) 2 mg PO BID JAIRO Stop: 02/16/25 20:59 Calcitriol (Calcitriol 0.25 Mcg Capsule) 0.25 mcg PO UD JAIRO Stop: 02/16/25 19:29 Carvedilol (Carvedilol 3.125 Mg Tablet) 6.25 mg PO BID JAIRO Stop: 02/16/25 20:59 Non-Formulary Medication (Calcium Acetate) 667 mg PO DAILY JAIRO Stop: 02/16/25 19:29 Ondansetron HCl (Ondansetron Inj 2 Mg/Ml Inj 2 Ml) 4 mg IVP Q6H PRN; Protocol PRN Reason: NAUSEA OR VOMITING Stop: 02/16/25 18:38 Pantoprazole Sodium (Pantoprazole 40 Mg Tablet) 40 mg PO QAM JAIRO Stop: 02/17/25 08:59 Assessment & Plan Plan Ruperto Love 79M pmhx significant for ESRD on home PD (since 2021) 2/2 diabetic nephropathy, IDDM2, HTN, TATY, hx of SVT on carvedilol, and hypothyroidism who presents with epigastric abdominal pain that occurs during PD and SOB, admitted for pericardial effusion. #Shortness of breath #Pericardial effusion #Volume overload #ESRD on peritoneal dialysis (2021) 2/2 diabetic nephropathy Presents with SOB and fatigue. Has been on PD since 2021 for diabetic nephropathy. At home, patient is on bumetanide 2 mg BID and metolaxone 2.5 mg QOD. Admission BNP 319. EKG shows sinus rhythm rate 79 QTc 457. CXR shows moderate enlargement cardiac contour. CTAP shows prominent pericardial effusion of 26 mm, moderate vascular congestion, small bilateral pleural effusions, atelectasis versus pneumonia left base, suspicious for edema. Hepatocellular disease, gastritis pattern, gallbladder wall appears slightly thickened, mild free fluid in the abdomen likely related to peritoneal dialysis catheter. Likely 2/2 fluid overload from inadequate peritoneal fluid removal with new recently changed PD regimen vs heart failure exacerbation vs PNA vs atelectasis. Low suspicion for hemopericardium as patient's vitals and presentation are stable. Plan: - Dr. Amador consulted, recs appreciated: PD tonight - Cardiology consulted, recs appreciated - F/u echocardiogram - Fluid restrictions 1.2L - Continue calcium acetate - Continue home PO bumetanide 2 mg BID, consider IV if inadequate diuresis - Hold metolazone #Hyponatremia Admission Na 124. Likely 2/2 fluid overload. Plan: - Fluid restriction 1.2L as above - Caution with bumetanide, hold metolazone - CTM Na #Normocytic anemia #Leukocytosis Per son, patient has been received iron infusions bimonthly at dialysis center and takes iron supplements 325 QD. WBC 12.2 and H&H 7.3/21.3. Anemia likely secondary to chronic disease on dialysis, low suspicion for active bleeding as patient denies any melena, hematochezia or coffee-ground emesis. Leukocytosis likely reactive, no clear source of infection at this time with peritoneal fluid cytology negative with no tenderness to abdominal palpation. Plan: - F/u FOBT - CTM CBC - Consider abx if patient becomes symptomatic or leukocytosis worsens - Type and screen ordered - Transfuse if Hgb <7 #IDDM2 #Hyperglycemia #HLD Per pharmacy review, patient has been prescribed insulin and is taking atorvastatin 40 mg qhs. On admission glucose 267 Plan: - F/u A1c, lipid panel and TSH/T4 - Degludac 10u started with SSI step 2 #HTN Per history. However recently patient has been hypotensive secondary to volume overload. At home patient is on hydralazine 50 mg TID, carvedilol 6.25 mg BID, nifedipine ER 90 mg QD, minoxidil 5 mg BID, Plan: - Hold all home antihypertensives #Hypothyroidism Plan: - Continue home levothyroxine 50 mcg QD #Depression Plan: - Continue home fluoxetine 20 mg QD Hospital management: Lines: PIV, PD cath L of umbilicus Diet: Cardiac 1.2L fluid restriction Bowel: not indicated GI prophylaxis: PO pantoprazole 40 mg QD DVT prophylaxis: SCDs iso severe anemia Disposition: tele for PD and evaluation of pericardial effusion CODE STATUS: FULL CODE Plan of care discussed with attending Dr. Villa, and PGY-3 Dr. Naidu. Hortencia Santana, DO PGY-1 Internal Medicine Attending Provider Attestation/Addendum I have examined the patient, reviewed labs and imaging findings, discussed the case with the resident(s), and reviewed entered orders. I agree with the plan of care as outlined in this note, with these additional summaries/recommendations: Patient seen at bedside. No acute overnight events. Patient did receive session of peritoneal dialysis overnight. Patient admitted for shortness of breath and was found to have prominent pericardial effusion up to 26 mm at the level of the left ventricle. Cardiology consulted and following. Most likely etiology for pericardial effusion is end-stage renal disease. Transthoracic echocardiogram ordered. Patient currently hemodynamically stable. Case was discussed with cardiology and given this effusion patient should be switched to hemodialysis. Discussed with family and they are in agreement. We will touch base with nephrology. Patient also noted to have hemoglobin 7.0. Fecal occult blood test negative. Patient does have a history of iron deficiency anemia. At this time most likely multifactorial secondary to anemia of chronic disease and MANOLO. We will give a dose of Epogen today. Transfuse 1 unit platelets given cardiac history. Hyponatremia present in the setting of volume overload. Continue fluid restriction and dialysis for preload reduction. Nephrology following. Patient has diabetes mellitus type 2 with hyperglycemia and blood sugars into the 400s today. No evidence of DKA. A1c 7.5%. We will adjust basal and bolus insulin to target blood sugar of 140-180 while hospitalized. Mild electrolyte abnormalities with hypomagnesia and hypocalcemia and replacement given. Repeat levels in AM. Leukocytosis present although no evidence of infection at this time. Patient and family updated on the plan and in agreement. All questions answered to satisfaction. Please see residents note for additional details and management. Dr. Allen MD
[2025-01-17] MEDS: BUMETANIDE 0.5 MG TABLET 2 MG PO (22:01)
[2025-01-17] MEDS: ATORVASTATIN CALCIUM 20 MG TABLET 40 MG PO (22:02)
[2025-01-18] VITALS (16 sets, daily range): BP systolic 105–139; BP diastolic 66–94; PULSE 19–100; RESP 18–97; TEMP 36.2–37.1; O2SAT 95–99; BMI 26.5
[2025-01-18] MEDS: LEVOTHYROXINE SODIUM 25 MCG TABLET 50 MCG PO (05:15)
[2025-01-18 05:30] LABS: Basophils # (Auto) 0.0 Thou/mm3 (0.0-0.2); Basophils % (Auto) 0 % (0-2.5); Eosinophils # (Auto) 0.0 Thou/mm3 (0.0-0.5); Eosinophils % (Auto) 0 % (0-10); Hematocrit 20.4 % (41.0-53.0); Immature Granulocytes Auto 0.09 Thou/mm3 (0.00-0.00); Lymphocytes # (Auto) 0.5 Thou/mm3 (1.0-4.8); Lymphocytes % (Auto) 4 % (10-50); Mean Corpuscular HGB Conc 34.3 g/dl (31.0-37.0); Mean Corpuscular Hemoglobin 32.9 pg (25.0-35.0); Mean Corpuscular Volume 96 fL (80-100); Monocytes # (Auto) 1.0 Thou/mm3 (0.0-0.8); Monocytes % (Auto) 9 % (0-12); Neutrophils # (Auto) 10.0 Thou/mm3 (1.8-7.7); Neutrophils % (Auto) 86 % (37-80); Nucleated Red Blood Cell # 0.00 Thou/mm3 (0.00-0.00); Nucleated Red Blood Cell % 0 /100 WBC (0); Platelet Count 252 Thou/mm3 (140-440); RDW Standard Deviation 43.0 fL (35.1-43.9); Red Blood Count 2.13 Miln/mm3 (4.50-5.90); White Blood Count 11.6 Thou/mm3 (3.8-10.6)
[2025-01-18 05:31] LABS: Hemoglobin 7.0 g/dL (13.5-16.0)
[2025-01-18 06:14] LABS: Alanine Aminotransferase 20 U/L (10-49); Albumin, Serum 3.7 gm/dL (3.4-4.8); Albumin/Globulin Ratio 1.5 (1.2-2.2); Alkaline Phosphatase 141 U/L (46-116); Anion Gap 14 (7-16); Aspartate Amino Transferase < 10 U/L (0-34); BUN/Creatinine Ratio 13 Ratio (12-20); Bilirubin,Total 0.2 mg/dL (0.3-1.2); Blood Urea Nitrogen 84 mg/dL (9-23); Calcium 8.1 mg/dL (8.3-10.6); Calcium (Corrected) 8.3 mg/dL (8.5-10.1); Carbon Dioxide 21.6 mMol/L (20.0-31.0); Cardiac Risk Estimate 3.2 RATIO (4.0-6.7); Chloride 87 mMol/L (98-107); Cholesterol 104 mg/dL (132-200); Creatinine (Component) 6.6 mg/dL (0.6-1.3); Estimated Creatinine Clearance 9.0 mL/min (>60); Free T4 (Free Thyroxine) 1.22 ng/dL (0.89-1.76); Globulin 2.5 gm/dL (2.3-3.5); HDL Cholesterol 33 mg/dL (40-60); LDL Cholesterol,Calculated 51 mg/dL (0-130); Magnesium 1.4 mg/dL (1.6-2.6); Osmolality,Calculated 291 (275-295); Phosphorous 5.3 mg/dL (2.4-5.1); Potassium 4.1 mMol/L (3.4-5.1); Sodium 123 mMol/L (136-145); Thyroid Stimulating Hormone 4.88 uIU/mL (0.55-4.78); Total Protein 6.2 gm/dL (5.7-8.2); Triglycerides 99 mg/dL (30-150); eGFR 8 See Note
[2025-01-18 06:18] LABS: Glucose 431 mg/dL (74-106)
[2025-01-18 06:36] LABS: OBS Card Lot # 0124; OBS Developer Lot # 23002; OBS Performed By ORPIW2; OBS QC OK? Yes; Occult Blood, Stool Negative (Negative)
[2025-01-18] MEDS: CALCIUM ACETATE 667 MG TABLET PO (08:19)
[2025-01-18] MEDS: PANTOPRAZOLE 40 MG TABLET PO (08:19)
[2025-01-18] MEDS: INSULIN DEGLUDEC 5 UNIT/0.05 ML (PER 5 UNITS) 10 UNIT SC ×2 (08:21→09:59)
[2025-01-18] MEDS: INSULIN LISPRO (AdmeLOG) 1 UNIT/0.01 ML UNIT SC ×4 (08:21→21:02)
--- NOTE | 2025-01-18 09:52 | PD.RESPRO ---
Documentation for date of: 01/18/25 Subjective Subjective Interval history: Patient seen and assessed at bedside. Doing well this morning. Denies chest pain, shortness of breath, palpitations. On exam abdomen continues to be distended. Underwent peritoneal dialysis overnight, removed 600 cc however continues to appear fluid overloaded. On bedside echo, noted approximately 30 mm peripheral effusion with fibrotic adhesions, indicating likely chronic effusion. Will likely need to advance to hemodialysis. Intermittent PVCs noted on telemetry. Blood pressure well-controlled, systolics 120s to 130s. Heart rate in 70s. Hemoglobin dropped to 7.0 (7.3 yesterday). Sodium 123, potassium 4.1, BUN 84, creatinine 6.6, glucose 431, magnesium 1.4, recommend potassium mag repletion. TSH elevated at 4.88. Exam Vital Signs Temp Pulse Resp BP Pulse Ox O2 Del Method 97.2 F 75 21 H 129/83 96 Room Air 01/18/25 08:00 01/18/25 08:19 01/18/25 08:00 01/18/25 08:19 01/18/25 08:00 01/18/25 08:00 Objective Labs 01/18/25 04:55 01/18/25 04:55 Labs: Laboratory Results - last 24 hr 01/17/25 01/17/25 01/17/25 11:10 12:13 14:53 WBC 12.2 H RBC 2.26 L Hgb 7.3 L Hct 21.3 L* MCV 94 MCH 32.3 MCHC 34.3 RDW Std Deviation 42.2 Plt Count 250 Neut % (Auto) 87 H Lymph % (Auto) 5 L [place] % (Auto) 7 Eos % (Auto) 0 Baso % (Auto) 0 Neut # (Auto) 10.5 H Lymph # (Auto) 0.6 L [place] # (Auto) 0.9 H Eos # (Auto) 0.0 Baso # (Auto) 0.0 Immature Gran # (Auto) 0.08 H Absolute Nucleated RBC 0.00 Immature Gran % 1 H Nucleated RBC % 0 PT 11.2 INR 1.1 Sodium 124 L Potassium 4.3 Chloride 88 L Carbon Dioxide 22.7 Anion Gap 13 BUN 85 H Creatinine 6.2 H* Estim Creat Clear Calc 9.6 L eGFR 9 L* BUN/Creatinine Ratio 14 Glucose 267 H Calculated Osmolality 284 Calcium 8.0 L Corrected Calcium 8.2 L Phosphorus Magnesium Total Bilirubin 0.2 L AST 19 ALT 27 Alkaline Phosphatase 177 H Troponin I < 0.020 B-Natriuretic Peptide 319 H Total Protein 6.2 Albumin 3.8 Globulin 2.4 Albumin/Globulin Ratio 1.6 Triglycerides Cholesterol LDL Cholesterol, Calc HDL Cholesterol Cholesterol/HDL Ratio TSH Free T4 Peritoneal Color Peritoneal Appearance Peritoneal WBC Peritoneal RBC Periton Polynucl WBCs Periton Mononucl WBCs Stool Occult Blood Influenza A (Rapid) Negative Influenza B (Rapid) Negative Blood Type Antibody Screen Blood Bank Wristband ID 01/17/25 01/17/25 01/18/25 16:30 18:48 04:55 WBC 11.6 H RBC 2.13 L Hgb 7.0 L Hct 20.4 L* MCV 96 MCH 32.9 MCHC 34.3 RDW Std Deviation 43.0 Plt Count 252 Neut % (Auto) 86 H Lymph % (Auto) 4 L [place] % (Auto) 9 Eos % (Auto) 0 Baso % (Auto) 0 Neut # (Auto) 10.0 H Lymph # (Auto) 0.5 L [place] # (Auto) 1.0 H Eos # (Auto) 0.0 Baso # (Auto) 0.0 Immature Gran # (Auto) 0.09 H Absolute Nucleated RBC 0.00 Immature Gran % 1 H Nucleated RBC % 0 PT INR Sodium 123 L Potassium 4.1 Chloride 87 L Carbon Dioxide 21.6 Anion Gap 14 BUN 84 H Creatinine 6.6 H* Estim Creat Clear Calc 9.0 L eGFR 8 L* BUN/Creatinine Ratio 13 Glucose 431 H* D Calculated Osmolality 291 Calcium 8.1 L Corrected Calcium 8.3 L Phosphorus 5.3 H Magnesium 1.4 L Total Bilirubin 0.2 L AST < 10 ALT 20 Alkaline Phosphatase 141 H D Troponin I B-Natriuretic Peptide Total Protein 6.2 Albumin 3.7 Globulin 2.5 Albumin/Globulin Ratio 1.5 Triglycerides 99 Cholesterol 104 L LDL Cholesterol, Calc 51 HDL Cholesterol 33 L Cholesterol/HDL Ratio 3.2 L TSH 4.88 H Free T4 1.22 Peritoneal Color Straw Peritoneal Appearance Clear Peritoneal WBC 92 Peritoneal RBC 0 Periton Polynucl WBCs 14 Periton Mononucl WBCs 86 Stool Occult Blood Influenza A (Rapid) Influenza B (Rapid) Blood Type O Positive Antibody Screen NEGATIVE Blood Bank Wristband ID Yes 01/18/25 06:06 WBC RBC Hgb Hct MCV MCH MCHC RDW Std Deviation Plt Count Neut % (Auto) Lymph % (Auto) [place] % (Auto) Eos % (Auto) Baso % (Auto) Neut # (Auto) Lymph # (Auto) [place] # (Auto) Eos # (Auto) Baso # (Auto) Immature Gran # (Auto) Absolute Nucleated RBC Immature Gran % Nucleated RBC % PT INR Sodium Potassium Chloride Carbon Dioxide Anion Gap BUN Creatinine Estim Creat Clear Calc eGFR BUN/Creatinine Ratio Glucose Calculated Osmolality Calcium Corrected Calcium Phosphorus Magnesium Total Bilirubin AST ALT Alkaline Phosphatase Troponin I B-Natriuretic Peptide Total Protein Albumin Globulin Albumin/Globulin Ratio Triglycerides Cholesterol LDL Cholesterol, Calc HDL Cholesterol Cholesterol/HDL Ratio TSH Free T4 Peritoneal Color Peritoneal Appearance Peritoneal WBC Peritoneal RBC Periton Polynucl WBCs Periton Mononucl WBCs Stool Occult Blood Negative Influenza A (Rapid) Influenza B (Rapid) Blood Type Antibody Screen Blood Bank Wristband ID Quality Measures Quality Measures none Advance care planning discussed with:: patient Assessment & Plan Assessment Current Active Medications: Generic Name Dose Route Start Last Admin Trade Name Freq PRN Reason Stop Dose Admin Acetaminophen 650 mg 01/17/25 18:39 Acetaminophen 325 Mg Tablet PO 02/16/25 18:38 Q6H PRN Fever >100.4 or pain Protocol Hydrocodone Bitart/Acetaminophen 1 tab 01/18/25 06:02 Hydrocodone/Apap 5/325 Tablet PO 01/22/25 06:01 Q6H PRN PAIN SCALE 4-10(Mod-Sev Atorvastatin Calcium 40 mg 01/17/25 21:00 01/17/25 22:02 Atorvastatin Calcium 20 Mg Tablet PO 02/16/25 20:59 40 mg HS JAIRO Administration Bumetanide 2 mg 01/17/25 21:00 01/17/25 22:01 Bumetanide 0.5 Mg Tablet PO 02/16/25 20:59 2 mg BID JAIRO Administration Calcitriol 0.25 mcg 01/17/25 19:30 01/18/25 00:16 Calcitriol 0.25 Mcg Capsule PO 02/16/25 19:29 0.25 mcg UD JAIRO Administration Calcium Acetate 667 mg 01/18/25 09:00 01/18/25 08:19 Calcium Acetate 667 Mg Tablet PO 02/17/25 08:59 667 mg DAILY JAIRO Administration Carvedilol 6.25 mg 01/17/25 21:00 01/18/25 08:19 Carvedilol 3.125 Mg Tablet PO 02/16/25 20:59 6.25 mg BID JAIRO Administration Dextrose 25 ml 01/17/25 20:08 Dextrose 50%-Water Inj 50 Ml Syringe IV 02/16/25 20:07 Q15MIN PRN BG 50-70 responsive npo pt Dextrose 50 ml 01/17/25 20:08 Dextrose 50%-Water Inj 50 Ml Syringe IV 02/16/25 20:07 Q15MIN PRN BG <50 OR BG <70 & pt unresponsive Fluoxetine HCl 20 mg 01/18/25 09:00 01/18/25 08:20 Fluoxetine Hcl 10 Mg Capsule PO 02/17/25 08:59 20 mg QDAY JAIRO Administration Glucagon 1 mg 01/17/25 20:08 Glucagon Inj 1 Mg Vial IM Q15MIN PRN BG <70, and no IV access Magnesium Sulfate 2 gm in 50 mls @ 25 mls/hr 01/18/25 09:10 Magnesium Sulfate Ivpb IV 01/18/25 11:09 X1 ONE Insulin Degludec 20 unit 01/19/25 09:00 Insulin Degludec 5 Unit/0.05 Ml (Per 5 Units) SC 02/18/25 08:59 QDAY JAIRO Insulin Human Lispro 0 unit 01/18/25 07:30 01/18/25 08:21 Insulin Lispro (Admelog) 1 Unit/0.01 Ml Unit SC 02/17/25 07:29 5 unit AC JAIRO Administration Protocol Levothyroxine Sodium 50 mcg 01/18/25 06:00 01/18/25 05:15 Levothyroxine Sodium 25 Mcg Tablet PO 02/17/25 05:59 50 mcg ACBR JAIRO Administration Ondansetron HCl 4 mg 01/17/25 18:39 Ondansetron Inj 2 Mg/Ml Inj 2 Ml IVP 02/16/25 18:38 Q6H PRN NAUSEA OR VOMITING Protocol Pantoprazole Sodium 40 mg 01/18/25 09:00 01/18/25 08:19 Pantoprazole 40 Mg Tablet PO 02/17/25 08:59 40 mg QAM JAIRO Administration Plan Patient is a 79 year old male with PMH of ESRD on peritoneal dialysis for the past 3 years history of SVT (last reported episode July 2024), chronic anemia, insulin-dependent diabetes type 2, hypertension, GERD, alcohol abuse who presents to the ED on 01/17 for shortness of breath. Cardiology was consulted for pericardial effusion found on CT A/P, consulted by ED for concern of hemopericardium. Found to have approximately 3 cm chronic pericardial effusion. #Pericardial effusion, 26mm on CTAP #Bilateral pleural effusions #SVT, resolved #ESRD on peritoneal dialysis (2021) 2/2 diabetic nephropathy #? HF #2/6 systolic murmur Presents with 3 day history of SOB and fatigue. Symptom onset since transition to new solution recently. Reported that at home, patient blood pressure was low at 190s and heart rate elevated 160s to 180s. Suspect patient has been fluctuating between over and under diuresis since solution transition. Last dialysis session last night at home. Otherwise, had been on PD since 2021 for diabetic nephropathy. At home, patient is on bumetanide 2 mg BID and metolaxone 2.5 mg QOD. Admission vital stable. BNP 319. EKG shows sinus rhythm rate 79 QTc 457. On exam, 2/6 systolic murmur increased on inspiration as well as decreased lung sounds and distended abdomen. No edema. CXR shows moderate enlargement cardiac contour. CTAP shows prominent pericardial effusion of 26 mm, moderate vascular congestion, small bilateral pleural effusions, atelectasis versus pneumonia left base, suspicious for edema. Hepatocellular disease, gastritis pattern, gallbladder wall appears slightly thickened, mild free fluid in the abdomen likely related to peritoneal dialysis catheter. Likely 2/2 fluid overload from inadequate peritoneal fluid removal with new recently changed PD regimen vs heart failure exacerbation. Patient follows measurement department chief clerk Dr. Gonsales in [place], followed up 3 weeks ago for echo results which he was told was fine . Plan: ?Pending official TTE read but TTE showed approximately 30 mm pericardial effusion with fibrotic adhesions, indicating likely chronic effusion. No right ventricular diastolic dysfunction or swinging heart sign noted however does have mild respiratory variation in flow velocity across mitral valve. Does not meet criteria for cardiac tamponade. ?Based on chronicity of effusion, patient will likely benefit more from starting hemodialysis to remove excess fluid at this time. Will reconsider effusion drainage once patient is more hemodynamically stable and HD catheter is in place. ?Recommend consulting nephrology for insertion of hemodialysis catheter ?Resume home Bumex and metolaxone #Normocytic anemia, chronic Per son, patient receives iron infusions bimonthly at dialysis center and takes iron supplements 325 QD. WBC 12.2 and H&H 7.3/21.3. Anemia likely secondary to chronic disease on dialysis, low suspicion for active bleeding as patient. Denies any melena, hematochezia or coffee-ground emesis. 01/18/2025?hemoglobin dropped to 7.0. No sign of acute bleed. ?Defer anemia workup to primary team. Recommend transfusing 1 unit. #IDDM2 #HLD Per pharmacy review, patient has been prescribed insulin and is taking atorvastatin 40 mg qhs. On admission glucose 267. A1c 7.5. Lipid panel: Trig 99, total cholesterol 104, LDL 51, HDL 33. TSH elevated 4.88, T41.22. ASCVD score: Patient is above age 75 however this regarding age, would recommend to continue high intensity statin Plan: ?Insulin management per primary team ?Continue atorvastatin 40 mg nightly #HTN Has history of hypertension however as of late, patient has been hypotensive, likely secondary to volume status changes. Home medications include hydralazine 50 mg TID, carvedilol 6.25 mg BID, nifedipine ER 60 mg QD. Plan: - Resume all home antihypertensives as above #Hx alcohol abuse Used to drink 6 pack beers per day during his youth for 25 years, stopped 3 years ago when started on dialysis. #Leukocytosis, likely reactive #Hyponatremia #Hypothyroidism #GERD #Depression ?Management per primary team Thank you for your consultation, please do not hesitate to reach out if you have any question or concern Patient plan of care was discussed with the attending physician, Dr. Fajardo. Lucy Santana, PGY-1 Attending Provider Attestation/Addendum I have personally seen and examined the patient separately on the above date of service and discussed the plan of care with the resident. I reviewed the resident Dr. Lucy Santana consultation progress note and agree with the resident findings and plan in the note above and have also edited the documentation to reflect my findings and plan. Echocardiogram completed 01/18/2025 showed Normal LV size and wall thickness. There is grade I diastolic dysfunction. Estimated EF at 50-55%. Normal RV size and function. RVSP appears to be in the normal range. Trace TR and MR. Minimal aortic valve sclerosis without stenosis. Large circumferential pericardial effusion that appears to be loculated with significant septae noted along with the fibrinous exudate on the ventricular veloz indicating chronic effusion. No RV diastolic collapse or any RA inversion. No significant respiratory variation in the tricuspid inflow velocities except for the mitral inflow. IVC dilated with less than 50% collapse with inspiration.There is no clear evidence of cardiac tamponade. No need of any urgent pericardiocentesis at the present moment as there is no evidence of any cardiac tamponade as mentioned above. Patient also has possibility of loculated pericardial effusion given the significant septae noted on the echocardiogram. Her pericardial effusion is mostly secondary to the inadequate fluid removal from the peritoneal dialysis as suspected earlier. Patient will need hemodialysis and discussed the primary team to discuss with nephrology team for placement of dialysis catheter. Discussed the same with who was at the bedside as well as the patient. Patient has significant anemia and hemoglobin is 7.0. Anemia workup started by the primary team. Recommended to transfuse 2 units of PRBC to keep the hemoglobin between 9-10. Patient will need to transfusions as patient will need further procedures including permacath placement requested access catheter placement. And if patient is hemodynamically unstable then we will plan for any kind of pericardiocentesis which also would require stable hemoglobin. Electrolytes reviewed and magnesium is 1.4 and recommend to replace magnesium aggressively. Potassium appears to be in the normal range. Julius Fajardo M.D. Interventional Cardiology
[2025-01-18] MEDS: BUMETANIDE 0.5 MG TABLET 2 MG PO ×2 (10:01→20:58)
[2025-01-18] MEDS: Magnesium Sulfate 2 GM Ivpb 2 GM/50 ML BAG IV (10:05)
[2025-01-18 10:27] LABS: Glucose Estimated Average 169 mg/dL (80-131); Hemoglobin A1C 7.5 % Hgb (4.8-6.0)
[2025-01-18] MEDS: ONDANSETRON INJ 2 MG/ML INJ 2 ML 4 MG IVP (11:27)
--- NOTE | 2025-01-18 12:17 | PC.SS ---
Ruperto Love is a 79-year-old male admitted to [facility] for Pericardal Effusion. SS conducted bedside contact with the patient to complete initial assessment and to discuss discharge planning. Role and reason explained. Pt confirmed demographic information. Pt identifies his son Devin Mullen [phone]. Pt resides at home with his Mery Mullen [phone]. Pt is independent with all ADLs. No need for any source of DME. Pt PCP is Dr. Vera Hall (last visit was 2 weeks ago). Pharmacy of choice is [facility] in [place]. Pt will return home at the time of DC. SS will remain available for any additional needs. DC plan: Home DM: Son
--- NOTE | 2025-01-18 13:57 | PD.RESPRO ---
Documentation for date of: 01/18/25 Senior resident attestation: Patient evaluated and examined at the bedside, plan of care discussed with rest of the team including my attending physician, except as noted. Mr. Sebas Patel is a 79-year-old male who presented to the ED complaining of shortness of breath and abdominal discomfort during peritoneal dialysis. Patient has a history of ESRD on peritoneal dialysis since 2021, history of diabetes mellitus, hypertension, history of SVT on carvedilol. #Pericardial effusion? Echocardiogram 01/17/2025, EF reported as 50 to 55%, large circumferential pericardial effusion that appears to be loculated with significant septae noted along with fibrinous exudate on the ventricular veloz indicating chronic effusion no RV diastolic collapse or RA inversion no significant respiratory variation no tricuspid inflow velocities except for mitral inflow. IVC dilated with less than 50% collapse with inspiration. Per cardiology no clear evidence of cardiac tamponade. Pericardial effusion secondary to underlying CKD. #ESRD on peritoneal dialysis?on-call bottom hoop driver Dr. Amador is consulted, to resume peritoneal dialysis nightly. Per cardiology patient will benefit from hemodialysis as the peritoneal dialysis appears to be ineffective. Patient's bottom hoop driver is Dr. De Leon in [place]. #Hypertension #History of diabetes mellitus Quresh PGY3 Subjective Subjective Interval history: Overnight, patient received peritoneal dialysis with 600 cc ultrafiltration. Patient seen and examined at bedside. Patient's at bedside reports dry heaving but no vomiting. states that 4 days ago peritoneal dialysis regimen was changed from green to purple with improvement however reports that recently patient feels like he is drowning during peritoneal dialysis sessions. Denies chest pain, shortness of breath or abdominal pain at this time. Lab eval reviewed. Hemoglobin decreased from 7.3 to 7.0 with hematocrit 20.4. Sodium 123, chloride 87, BUN 84, creatinine 6.6, glucose 431, calcium low 8.3, phosphate 5.3, magnesium 1.4, repleted with 2 g IV. Per nephrology, EPO x 1 and peritoneal dialysis to be administered today by . Hyponatremia likely secondary to volume overload. 1 PRBC transfusing currently. Although FOBT negative, GI consulted for sharp decline in hemoglobin from 6 months ago to today. Per cardiology, pericardial effusion likely chronic due to chronic volume overload and no intervention at this time. Believe the patient will benefit from hemodialysis versus peritoneal dialysis. Restarted home metolazone and continue bumetanide. Pending echo. Exam Vital Signs Temp Pulse Resp BP Pulse Ox O2 Del Method 97.9 F 74 18 122/66 95 Room Air 01/18/25 12:00 01/18/25 12:00 01/18/25 12:00 01/18/25 12:00 01/18/25 12:00 01/18/25 12:00 Narrative Exam GENERAL: AOx3, no acute distress, sitting in bed, frail HEENT: NC/AT, mucous membranes moist, bilateral sclera anicteric CARDIOVASCULAR: regular rate, S1/S2 present, 2/6 systolic murmur PULMONARY: diminished breath sounds bilaterally, no rales/rhonchi/wheezes ABDOMINAL: soft, distended, non-tender, no rebound/guarding, bowel sounds present, PD cath present and covered to L of umbilicus EXTREMITIES: no peripheral edema SKIN: warm and dry, intact, no rashes NEURO: CN II-XII grossly intact, no focal deficits, alert, following commands Objective Labs 01/19/25 04:54 01/19/25 04:54 Labs: Laboratory Results - last 24 hr 01/17/25 01/17/25 01/17/25 14:53 16:30 18:48 WBC RBC Hgb Hct MCV MCH MCHC RDW Std Deviation Plt Count Neut % (Auto) Lymph % (Auto) [place] % (Auto) Eos % (Auto) Baso % (Auto) Neut # (Auto) Lymph # (Auto) [place] # (Auto) Eos # (Auto) Baso # (Auto) Immature Gran # (Auto) Absolute Nucleated RBC Immature Gran % Nucleated RBC % Sodium Potassium Chloride Carbon Dioxide Anion Gap BUN Creatinine Estim Creat Clear Calc eGFR BUN/Creatinine Ratio Glucose Estimated Ave Glu mg/dL Hemoglobin A1c Calculated Osmolality Calcium Corrected Calcium Phosphorus Magnesium Total Bilirubin AST ALT Alkaline Phosphatase Total Protein Albumin Globulin Albumin/Globulin Ratio Triglycerides Cholesterol LDL Cholesterol, Calc HDL Cholesterol Cholesterol/HDL Ratio TSH Free T4 Peritoneal Color Straw Peritoneal Appearance Clear Peritoneal WBC 92 Peritoneal RBC 0 Periton Polynucl WBCs 14 Periton Mononucl WBCs 86 Stool Occult Blood Influenza A (Rapid) Negative Influenza B (Rapid) Negative Blood Type O Positive Antibody Screen NEGATIVE Blood Bank Wristband ID Yes 01/18/25 01/18/25 04:55 06:06 WBC 11.6 H RBC 2.13 L Hgb 7.0 L Hct 20.4 L* MCV 96 MCH 32.9 MCHC 34.3 RDW Std Deviation 43.0 Plt Count 252 Neut % (Auto) 86 H Lymph % (Auto) 4 L Z[place] % (Auto) 9 Eos % (Auto) 0 Baso % (Auto) 0 Neut # (Auto) 10.0 H Lymph # (Auto) 0.5 L [place] # (Auto) 1.0 H Eos # (Auto) 0.0 Baso # (Auto) 0.0 Immature Gran # (Auto) 0.09 H Absolute Nucleated RBC 0.00 Immature Gran % 1 H Nucleated RBC % 0 Sodium 123 L Potassium 4.1 Chloride 87 L Carbon Dioxide 21.6 Anion Gap 14 BUN 84 H Creatinine 6.6 H* Estim Creat Clear Calc 9.0 L eGFR 8 L* BUN/Creatinine Ratio 13 Glucose 431 H* D Estimated Ave Glu mg/dL 169 H Hemoglobin A1c 7.5 H Calculated Osmolality 291 Calcium 8.1 L Corrected Calcium 8.3 L Phosphorus 5.3 H Magnesium 1.4 L Total Bilirubin 0.2 L AST < 10 ALT 20 Alkaline Phosphatase 141 H D Total Protein 6.2 Albumin 3.7 Globulin 2.5 Albumin/Globulin Ratio 1.5 Triglycerides 99 Cholesterol 104 L LDL Cholesterol, Calc 51 HDL Cholesterol 33 L Cholesterol/HDL Ratio 3.2 L TSH 4.88 H Free T4 1.22 Peritoneal Color Peritoneal Appearance Peritoneal WBC Peritoneal RBC Periton Polynucl WBCs Periton Mononucl WBCs Stool Occult Blood Negative Influenza A (Rapid) Influenza B (Rapid) Blood Type Antibody Screen Blood Bank Wristband ID Quality Measures Quality Measures none Advance care planning discussed with:: patient Assessment & Plan Assessment Current Active Medications: Generic Name Dose Route Start Last Admin Trade Name Freq PRN Reason Stop Dose Admin Acetaminophen 650 mg 01/17/25 18:39 Acetaminophen 325 Mg Tablet PO 02/16/25 18:38 Q6H PRN Fever >100.4 or pain Protocol Hydrocodone Bitart/Acetaminophen 1 tab 01/18/25 06:02 Hydrocodone/Apap 5/325 Tablet PO 01/22/25 06:01 Q6H PRN PAIN SCALE 4-10(Mod-Sev Atorvastatin Calcium 40 mg 01/17/25 21:00 01/17/25 22:02 Atorvastatin Calcium 20 Mg Tablet PO 02/16/25 20:59 40 mg HS JAIRO Administration Bumetanide 2 mg 01/17/25 21:00 01/18/25 10:01 Bumetanide 0.5 Mg Tablet PO 02/16/25 20:59 2 mg BID JAIRO Administration Calcitriol 0.25 mcg 01/17/25 19:30 01/18/25 00:16 Calcitriol 0.25 Mcg Capsule PO 02/16/25 19:29 0.25 mcg UD JAIRO Administration Calcium Acetate 667 mg 01/18/25 09:00 01/18/25 08:19 Calcium Acetate 667 Mg Tablet PO 02/17/25 08:59 667 mg DAILY JAIRO Administration Carvedilol 6.25 mg 01/17/25 21:00 01/18/25 08:19 Carvedilol 3.125 Mg Tablet PO 02/16/25 20:59 6.25 mg BID JAIRO Administration Dextrose 25 ml 01/17/25 20:08 Dextrose 50%-Water Inj 50 Ml Syringe IV 02/16/25 20:07 Q15MIN PRN BG 50-70 responsive npo pt Dextrose 50 ml 01/17/25 20:08 Dextrose 50%-Water Inj 50 Ml Syringe IV 02/16/25 20:07 Q15MIN PRN BG <50 OR BG <70 & pt unresponsive Fluoxetine HCl 20 mg 01/18/25 09:00 01/18/25 08:20 Fluoxetine Hcl 10 Mg Capsule PO 02/17/25 08:59 20 mg QDAY JAIRO Administration Glucagon 1 mg 01/17/25 20:08 Glucagon Inj 1 Mg Vial IM Q15MIN PRN BG <70, and no IV access Insulin Degludec 20 unit 01/19/25 09:00 Insulin Degludec 5 Unit/0.05 Ml (Per 5 Units) SC 02/18/25 08:59 QDAY JAIRO Insulin Human Lispro 0 unit 01/18/25 07:30 01/18/25 11:58 Insulin Lispro (Admelog) 1 Unit/0.01 Ml Unit SC 02/17/25 07:29 5 unit AC JAIRO Administration Protocol Levothyroxine Sodium 50 mcg 01/18/25 06:00 01/18/25 05:15 Levothyroxine Sodium 25 Mcg Tablet PO 02/17/25 05:59 50 mcg ACBR JAIRO Administration Ondansetron HCl 4 mg 01/17/25 18:39 01/18/25 11:27 Ondansetron Inj 2 Mg/Ml Inj 2 Ml IVP 02/16/25 18:38 4 mg Q6H PRN Administration NAUSEA OR VOMITING Protocol Pantoprazole Sodium 40 mg 01/18/25 09:00 01/18/25 08:19 Pantoprazole 40 Mg Tablet PO 02/17/25 08:59 40 mg QAM JAIRO Administration Plan Ruperto Love 79M pmhx significant for ESRD on home PD (since 2021) 2/2 diabetic nephropathy, IDDM2, HTN, TATY, hx of SVT on carvedilol, and hypothyroidism who presents with epigastric abdominal pain that occurs during PD and SOB, admitted for volume overload and pericardial effusion. #Shortness of breath #Pericardial effusion, chronic #Volume overload #ESRD on peritoneal dialysis (2021) 2/2 diabetic nephropathy Presents with SOB and fatigue. Has been on PD since 2021 for diabetic nephropathy. At home, patient is on bumetanide 2 mg BID and metolaxone 2.5 mg QOD. Admission BNP 319. EKG shows sinus rhythm rate 79 QTc 457. CXR shows moderate enlargement cardiac contour. CTAP shows prominent pericardial effusion of 26 mm, moderate vascular congestion, small bilateral pleural effusions, atelectasis versus pneumonia left base, suspicious for edema. Hepatocellular disease, gastritis pattern, gallbladder wall appears slightly thickened, mild free fluid in the abdomen likely related to peritoneal dialysis catheter. Likely 2/2 fluid overload from inadequate peritoneal fluid removal with new recently changed PD regimen vs heart failure exacerbation vs PNA vs atelectasis. Low suspicion for hemopericardium as patient's vitals and presentation are stable. Peritoneal dialysis: 01/17 (600cc UF), Plan: - Dr. Amador consulted, recs appreciated: PD today by , EPOx1 given - Consider HD and TDC as PD seems insufficient - Cardiology consulted, recs appreciated - F/u echocardiogram - Fluid restrictions 1.2L - Continue calcium acetate - Continue home PO bumetanide 2 mg BID, consider IV if inadequate diuresis - Restart home metolazone 2.5 mg QOD #Hyponatremia Admission Na 124. Likely 2/2 fluid overload. Plan: - Fluid restriction 1.2L as above - Caution with bumetanide and metolazone - CTM Na #Normocytic anemia #Leukocytosis Per son, patient has been received iron infusions bimonthly at dialysis center and takes iron supplements 325 QD. WBC 12.2 and H&H 7.3/21.3. FOBT negative. Iron low 36, TIBC 230, iron sat 15, ferritin 1077. Anemia likely secondary to chronic disease on dialysis, low suspicion for active bleeding as patient denies any melena, hematochezia or coffee-ground emesis. Leukocytosis likely reactive, no clear source of infection at this time with peritoneal fluid cytology negative with no tenderness to abdominal palpation. Plan: - CTM CBC - Consider abx if patient becomes symptomatic or leukocytosis worsens - 1 pRBC transfusing - Transfuse if Hgb <7 - GI consulted, recs appreciated #IDDM2 #Hyperglycemia #HLD Per pharmacy review, patient has been prescribed insulin and is taking atorvastatin 40 mg qhs. On admission glucose 267. 01/2025 A1c 7.5. Triglycerides 99. Cholesterol 104. LDL 51, HDL 33. Plan: - Degludac 20u started with SSI step 2 #HTN Per history. However recently patient has been hypotensive secondary to volume overload. At home patient is on hydralazine 50 mg TID, carvedilol 6.25 mg BID, nifedipine ER 90 mg QD, minoxidil 5 mg BID, Plan: - Hold all home antihypertensives #Hypothyroidism TSH 4.88 and T4 1.22. Plan: - Continue home levothyroxine 50 mcg QD #Depression Plan: - Continue home fluoxetine 20 mg QD Hospital management: Lines: PIV, PD cath L of umbilicus Diet: Cardiac 1.2L fluid restriction Bowel: not indicated GI prophylaxis: PO pantoprazole 40 mg QD DVT prophylaxis: SCDs iso severe anemia Disposition: tele for PD and evaluation of pericardial effusion CODE STATUS: FULL CODE Plan of care discussed with attending Dr. Villa, and PGY-3 Dr. Naidu. Hortencia Santana, DO PGY-1 Internal Medicine Attending Provider Attestation/Addendum I have examined the patient, reviewed labs and imaging findings, discussed the case with the resident(s), and reviewed entered orders. I agree with the plan of care as outlined in this note, with these additional summaries/recommendations: Patient seen at bedside. No acute overnight events. Patient did receive session of peritoneal dialysis overnight. Patient admitted for shortness of breath and was found to have prominent pericardial effusion up to 26 mm at the level of the left ventricle. Cardiology consulted and following. Most likely etiology for pericardial effusion is end-stage renal disease. Transthoracic echocardiogram ordered. Patient currently hemodynamically stable. Case was discussed with cardiology and given this effusion patient should be switched to hemodialysis. Discussed with family and they are in agreement. We will touch base with nephrology. Patient also noted to have hemoglobin 7.0. Fecal occult blood test negative. Patient does have a history of iron deficiency anemia. At this time most likely multifactorial secondary to anemia of chronic disease and MANOLO. We will give a dose of Epogen today. Transfuse 1 unit platelets given cardiac history. Hyponatremia present in the setting of volume overload. Continue fluid restriction and dialysis for preload reduction. Nephrology following. Patient has diabetes mellitus type 2 with hyperglycemia and blood sugars into the 400s today. No evidence of DKA. A1c 7.5%. We will adjust basal and bolus insulin to target blood sugar of 140-180 while hospitalized. Mild electrolyte abnormalities with hypomagnesia and hypocalcemia and replacement given. Repeat levels in AM. Leukocytosis present although no evidence of infection at this time. Patient and family updated on the plan and in agreement. All questions answered to satisfaction. Please see residents note for additional details and management. Dr. Allen MD
[2025-01-18 15:19] LABS: Immature Reticulocyte Fraction 36.1 % (2.3-13.4); Reticulocyte % (Auto) 2.4 % (0.5-1.5); Reticulocyte Absolute Auto 51.0 Biln/L (25.0-75.0); Reticulocyte Hgb Content 39.5 pg (28.0-35.0)
[2025-01-18] MEDS: EPOETIN ALFA-EPBX INJ 10,000 UNIT/ML VIAL (ESRD) 10000 UNIT SC (15:32)
[2025-01-18 15:39] LABS: Ferritin 1077 ng/mL (10.5-307.3); Iron 36 mcg/dL (65-175); Percent Iron Saturation 15 % (20-55); Total Iron Binding Capacity 230 mcg/dL (250-425); Unsaturated Iron Binding 194 (225-295)
--- NOTE | 2025-01-18 16:01 | PC.SS ---
Rounding: Pending cardio reccs, nephro consult, DC plan home when stable
--- NOTE | 2025-01-18 20:31 | PD.IMCONS ---
HPI Data of Consult Requesting Physician: Jefry Villa MD Primary Care Provider: Vera Hall MD Consult Narrative Reason for consult: Epigastric pain, nausea History of present illness: 79 years old male sent by his primary care physician to the emergency room because of epigastric pain nausea and shortness of breath CTA abdomen shows prominent pericardial effusion and peritoneal dialysis catheter in place which he has started recently Patient does have a history of diabetes mellitus essential hypertension supraventricular tachycardia on carvedilol and of course peritoneal dialysis His WBC count is 12.2 hemoglobin hematocrit 7.3 and 21.3 and the platelet count at 1 50,000 Hemoglobin hematocrit has gone down to 7.0 and 20.4 cc:: cc: Jefry Villa MD Review of Systems Review of Systems Systems Reviewed: All systems reviewed, normal except as documented Past Medical History Surgical History OTHER SURGICAL HX: As in the history of present illness Meds Home Medications and Allergies Home Medications ?Medication ?Instructions ?Recorded ?Confirmed ?Type bumetanide 1 mg tablet 2 mg PO BID 12/22/23 01/18/25 History calcitriol 0.25 mcg capsule 0.25 mcg PO UD 12/22/23 01/18/25 History calcium acetate 667 mg tablet 667 mg PO DAILY 12/22/23 01/18/25 History carvedilol 6.25 mg tablet 6.25 mg PO BID 12/22/23 01/18/25 History ferrous sulfate 325 mg (65 mg 325 mg PO QDAY 12/22/23 01/18/25 History iron) tablet hydralazine 50 mg tablet 50 mg PO TID 12/22/23 01/18/25 History metolazone 2.5 mg tablet 2.5 mg PO Q OTHER DAY 12/22/23 01/18/25 History minoxidil 2.5 mg tablet 2.5 mg PO BID 12/22/23 01/18/25 History omeprazole 20 mg tablet,delayed 20 mg PO QDAY 12/22/23 01/18/25 History release fluoxetine 20 mg capsule (Prozac) 20 mg PO QAM 05/16/24 01/18/25 History nifedipine 30 mg tablet,extended 90 mg PO QDAY 05/16/24 01/18/25 History release pantoprazole 40 mg tablet,delayed 40 mg PO QAM 05/16/24 01/18/25 History release atorvastatin 40 mg tablet 40 mg PO DAILY 01/18/25 01/18/25 History insulin glargine 100 unit/mL (3 20 unit subcut BID 01/18/25 01/18/25 History mL) subcutaneous pen (Lantus Solostar U-100 Insulin) levothyroxine 50 mcg tablet 50 mcg PO DAILY 01/18/25 01/18/25 History nifedipine 60 mg tablet,extended 60 mg PO DAILY 01/18/25 01/18/25 History release Allergies Allergy/AdvReac Type Severity Reaction Status Date / Time No Known Allergies Allergy Verified 01/17/25 10:37 Exam Vital Signs Temp Pulse Resp BP Pulse Ox O2 Del Method 98.7 F 75 20 124/90 H 96 Room Air 01/18/25 18:25 01/18/25 18:25 01/18/25 18:25 01/18/25 18:25 01/18/25 18:25 01/18/25 16:00 Constitutional Comments: Chronically ill-appearing Routine Respiratory Exam Comments: Normal to auscultation Routine Abdominal Exam Comments: Midepigastric tenderness Results Labs 01/19/25 16:43 01/19/25 04:54 Labs: Short CBC 01/18/25 Range/Units 04:55 WBC 11.6 H (3.8-10.6) Thou/mm3 Hgb 7.0 L (13.5-16.0) g/dL Hct 20.4 L* (41.0-53.0) % Plt Count 252 (140-440) Thou/mm3 BMP 01/18/25 04:55 Sodium 123 L Potassium 4.1 Chloride 87 L Carbon Dioxide 21.6 BUN 84 H Creatinine 6.6 H* Glucose 431 H* D Calcium 8.1 L Liver Function 01/18/25 Range/Units 04:55 Total Bilirubin 0.2 L (0.3-1.2) mg/dL AST < 10 (0-34) U/L ALT 20 (10-49) U/L Alkaline Phosphatase 141 H D (46-116) U/L Albumin 3.7 (3.4-4.8) gm/dL Assessment and Plan Additional Assessment & Plan Additional Plan: # Epigastric abdominal pain # Nausea # Anemia multifactorial already getting iron infusions twice a month at the dialysis center Other medical problems include Suggestions Once patient's shortness of breath improves and pericardial effusion is taking care of upper endoscopy prior to discharge Other medical problems include Diabetes mellitus type 1 Essential hypertension SVT on carvedilol Peritoneal dialysis Pericardial effusion Thank you very much for the opportunity to participate in care of this patient
[2025-01-18] MEDS: ATORVASTATIN CALCIUM 20 MG TABLET 40 MG PO (20:58)
--- NOTE | 2025-01-18 22:42 | EKG_ITS ---
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
[2025-01-18] MEDS: Magnesium Sulfate 4 GM Ivpb 4 GM/50 ML BAG IV (23:27)
[2025-01-18 23:29] LABS: Troponin I 0.020 ng/mL (0.0-0.045)
[2025-01-19] VITALS (20 sets, daily range): BP systolic 100–128; BP diastolic 57–92; PULSE 61–87; RESP 15–98; TEMP 35.9–36.6; O2SAT 94–98; BMI 26.5
[2025-01-19] MEDS: AMIODARONE 150 MG IVPB 150 MG/100 ML BAG 600 MG IV (04:43)
[2025-01-19] MEDS: AMIODARONE 360 MG IVPB 360 MG/200 ML BAG 33.333 MG IV (05:02)
[2025-01-19] MEDS: LEVOTHYROXINE SODIUM 25 MCG TABLET 50 MCG PO (05:14)
[2025-01-19 06:06] LABS: Basophils # (Auto) 0.0 Thou/mm3 (0.0-0.2); Basophils % (Auto) 0 % (0-2.5); Eosinophils # (Auto) 0.0 Thou/mm3 (0.0-0.5); Eosinophils % (Auto) 0 % (0-10); Hematocrit 21.8 % (41.0-53.0); Immature Granulocytes Auto 0.08 Thou/mm3 (0.00-0.00); Lymphocytes # (Auto) 0.7 Thou/mm3 (1.0-4.8); Lymphocytes % (Auto) 6 % (10-50); Mean Corpuscular HGB Conc 34.4 g/dl (31.0-37.0); Mean Corpuscular Hemoglobin 33.0 pg (25.0-35.0); Mean Corpuscular Volume 96 fL (80-100); Monocytes # (Auto) 1.0 Thou/mm3 (0.0-0.8); Monocytes % (Auto) 8 % (0-12); Neutrophils # (Auto) 10.1 Thou/mm3 (1.8-7.7); Neutrophils % (Auto) 85 % (37-80); Nucleated Red Blood Cell # 0.02 Thou/mm3 (0.00-0.00); Nucleated Red Blood Cell % 0 /100 WBC (0); Platelet Count 238 Thou/mm3 (140-440); RDW Standard Deviation 45.5 fL (35.1-43.9); Red Blood Count 2.27 Miln/mm3 (4.50-5.90); White Blood Count 11.9 Thou/mm3 (3.8-10.6)
[2025-01-19 06:10] LABS: Hemoglobin 7.5 g/dL (13.5-16.0)
[2025-01-19 06:30] LABS: Alanine Aminotransferase 20 U/L (10-49); Albumin, Serum 3.7 gm/dL (3.4-4.8); Albumin/Globulin Ratio 1.4 (1.2-2.2); Alkaline Phosphatase 129 U/L (46-116); Anion Gap 15 (7-16); Aspartate Amino Transferase 16 U/L (0-34); BUN/Creatinine Ratio 11 Ratio (12-20); Bilirubin,Total 0.2 mg/dL (0.3-1.2); Blood Urea Nitrogen 81 mg/dL (9-23); Calcium 8.5 mg/dL (8.3-10.6); Calcium (Corrected) 8.7 mg/dL (8.5-10.1); Carbon Dioxide 22.9 mMol/L (20.0-31.0); Chloride 87 mMol/L (98-107); Creatinine (Component) 7.1 mg/dL (0.6-1.3); Estimated Creatinine Clearance 7.7 mL/min (>60); Globulin 2.6 gm/dL (2.3-3.5); Glucose 142 mg/dL (74-106); Magnesium 3.1 mg/dL (1.6-2.6); Osmolality,Calculated 277 (275-295); Phosphorous 5.7 mg/dL (2.4-5.1); Potassium 4.2 mMol/L (3.4-5.1); Sodium 125 mMol/L (136-145); Total Protein 6.3 gm/dL (5.7-8.2); eGFR 7 See Note
[2025-01-19] MEDS: INSULIN LISPRO (AdmeLOG) 1 UNIT/0.01 ML UNIT SC ×4 (08:35→20:11)
[2025-01-19] MEDS: INSULIN DEGLUDEC 5 UNIT/0.05 ML (PER 5 UNITS) 20 UNIT SC (08:36)
[2025-01-19] MEDS: CALCIUM ACETATE 667 MG TABLET PO ×3 (08:42→17:30)
[2025-01-19] MEDS: PANTOPRAZOLE 40 MG TABLET PO (08:43)
[2025-01-19] MEDS: BUMETANIDE 0.5 MG TABLET 2 MG PO ×2 (08:48→20:05)
--- NOTE | 2025-01-19 10:47 | PD.NEPHCONS ---
History of Present Illness Data of Consult Requesting Physician: Jefry Villa MD Primary Care Provider: Vera Hall MD Consult Narrative History of present illness: Mr. Sebas Patel is a 79-year-old male who presented to the complaining of shortness of breath and abdominal discomfort during peritoneal dialysis. Patient has a history of ESRD on peritoneal dialysis since 2021, history of diabetes mellitus, hypertension, history of SVT on carvedilol. #Pericardial effusion? Echocardiogram 01/17/2025, EF reported as 50 to 55%, large circumferential pericardial effusion that appears to be loculated with significant septae noted along with fibrinous exudate on the ventricular veloz indicating chronic effusion no RV diastolic collapse or RA inversion no significant respiratory variation no tricuspid inflow velocities except for mitral inflow. IVC dilated with less than 50% collapse with inspiration. Per cardiology no clear evidence of cardiac tamponade. Pericardial effusion secondary to underlying CKD. Pt follows with Dr Shepherd, I am covering Dr Shepherd cc:: cc: Jefry Villa MD Review of Systems Review of Systems Systems Reviewed: All systems reviewed, normal except as documented Meds Home Medications and Allergies Home Medications ?Medication ?Instructions ?Recorded ?Confirmed ?Type bumetanide 1 mg tablet 2 mg PO BID 12/22/23 01/18/25 History calcitriol 0.25 mcg capsule 0.25 mcg PO UD 12/22/23 01/18/25 History calcium acetate 667 mg tablet 667 mg PO DAILY 12/22/23 01/18/25 History carvedilol 6.25 mg tablet 6.25 mg PO BID 12/22/23 01/18/25 History ferrous sulfate 325 mg (65 mg 325 mg PO QDAY 12/22/23 01/18/25 History iron) tablet hydralazine 50 mg tablet 50 mg PO TID 12/22/23 01/18/25 History metolazone 2.5 mg tablet 2.5 mg PO Q OTHER DAY 12/22/23 01/18/25 History minoxidil 2.5 mg tablet 2.5 mg PO BID 12/22/23 01/18/25 History omeprazole 20 mg tablet,delayed 20 mg PO QDAY 12/22/23 01/18/25 History release fluoxetine 20 mg capsule (Prozac) 20 mg PO QAM 05/16/24 01/18/25 History nifedipine 30 mg tablet,extended 90 mg PO QDAY 05/16/24 01/18/25 History release pantoprazole 40 mg tablet,delayed 40 mg PO QAM 05/16/24 01/18/25 History release atorvastatin 40 mg tablet 40 mg PO DAILY 01/18/25 01/18/25 History insulin glargine 100 unit/mL (3 20 unit subcut BID 01/18/25 01/18/25 History mL) subcutaneous pen (Lantus Solostar U-100 Insulin) levothyroxine 50 mcg tablet 50 mcg PO DAILY 01/18/25 01/18/25 History nifedipine 60 mg tablet,extended 60 mg PO DAILY 01/18/25 01/18/25 History release Allergies Allergy/AdvReac Type Severity Reaction Status Date / Time No Known Allergies Allergy Verified 01/17/25 10:37 Exam Vital Signs Temp Pulse Resp BP Pulse Ox O2 Del Method 96.7 F L 76 20 102/57 L 95 Room Air 01/19/25 08:00 01/19/25 08:48 01/19/25 08:00 01/19/25 08:48 01/19/25 08:00 01/19/25 08:00 Narrative Exam GENERAL: AOx3, no acute distress, sitting in bed, frail HEENT: NC/AT, mucous membranes moist, bilateral sclera anicteric CARDIOVASCULAR: regular rate, S1/S2 , positive systolic murmur PULMONARY: no rales/rhonchi/wheezes ABDOMINAL: soft, distended, non-tender, no rebound/guarding, bowel sounds present, PD cath present EXTREMITIES: no peripheral edema SKIN: warm and dry, intact, no rashes NEURO: CN II-XII grossly intact, no focal deficits, alert, following commands Results Labs 01/19/25 16:43 01/19/25 04:54 Labs: Short CBC 01/19/25 Range/Units 04:54 WBC 11.9 H (3.8-10.6) Thou/mm3 Hgb 7.5 L (13.5-16.0) g/dL Hct 21.8 L* (41.0-53.0) % Plt Count 238 (140-440) Thou/mm3 BMP 01/19/25 04:54 Sodium 125 L Potassium 4.2 Chloride 87 L Carbon Dioxide 22.9 BUN 81 H Creatinine 7.1 H* D Glucose 142 H D Calcium 8.5 Cardiac Enzymes 01/18/25 Range/Units 23:01 Troponin I 0.020 (0.0-0.045) ng/mL Liver Function 01/19/25 Range/Units 04:54 Total Bilirubin 0.2 L (0.3-1.2) mg/dL AST 16 (0-34) U/L ALT 20 (10-49) U/L Alkaline Phosphatase 129 H (46-116) U/L Albumin 3.7 (3.4-4.8) gm/dL Assessment & Plan Assessment and plan (1) End-stage renal disease on peritoneal dialysis: Status: Inactive Assessment and plan: ESRD on PD for 3 years Pt and his son states that recently xPD treatment changed by Dr Shepherd Pt was on Puple fluid (Isodextrin) was working well [employer] Manager recommended HD but pt and son want to keep on PD, pt lives 45 minutes away from near dialysis unit c/w PD Pt is stable f/u with Dr shepherd as out pt
[2025-01-19] MEDS: AMIODARONE 360 MG IVPB 360 MG/200 ML BAG 16.667 MG IV ×2 (10:55→23:17)
[2025-01-19] MEDS: ONDANSETRON INJ 2 MG/ML INJ 2 ML 4 MG IVP (11:52)
--- NOTE | 2025-01-19 14:30 | ESPR_ITS ---
<Statement entered by Germán Reed MD - 01/19/25 16:49> Patient was seen and evaluated at bedside this morning. Overnight patient had a run of A-fib with RVR and was placed on amiodarone drip by 19. At this time patient's [id number] was 3, but given patient's low hemoglobin hide risk of bleeding at this time we will hold off on heparin as per cardiology. Spoke with nephrology for possible need of temporary hemodialysis given that patient's peritoneal dialysis had been unsuccessful in removing excess fluid at this time and think that patient's pericardial effusion is in the setting of kidney disease. Hemodialysis was not recommended at this time by nephrology and stated to continue peritoneal dialysis. Will transfuse 1 unit PRBC as patient is hemoglobin was 7.5. Possible EGD after patient is more stable. Patient at this time is hemodynamically stable, and has not had hypotension. Will hold off carvedilol for now and will reevaluate tomorrow. I have reviewed the note and agree with the resident's assessment & plan with exceptions as below. I have personally reviewed labs, imaging, home meds/prior records, examined the patient, formulated and discussed management plan with my attending Case disclosed with attending Dr. Allen Reed PGY2 Disclaimer: Even though this this note was dictated by speech recognition and even though it was carefully revised there may still be minor errors in geriatric care manager due to voice recognition software. Documentation for date of: 01/19/25 Subjective Subjective Interval history: Overnight, patient developed atrial fibrillation RVR at 10:30 PM with rates between 130-170. 2 episodes of RVR with atrial fibrillation in between. 19 gave magnesium and diltiazem x 1 with no resolution of atrial fibrillation RVR. Patient was then placed on amiodarone drip with conversion to sinus rhythm rate 60s. Patient reports feeling well today, performed PD last night however did not insert any infiltration just took out 5 cc of fluid. Patient denies any abdominal pain however does have mild epigastric tenderness on palpation. Reports improved shortness of breath. Vitals and labs reviewed. Blood pressure still soft and morning dose of carvedilol held. Telemetry reviewed showing patient currently in sinus rhythm rate 60s and episodes of atrial fibrillation RVR as stated above. Hemoglobin 7.5. Hematocrit 21.8. Sodium 125, chloride 87, BUN stable elevated 81, creatinine 7. Glucose 142, phosphate 5.7, magnesium 3.1. Continue amiodarone drip and plan to transition to p.o. tomorrow. Per cardiology, no anticoagulation needed at this time as hemoglobin is in the 7s. Per nephrology, no indication for hemodialysis at this time due to not likely fluid overloaded clinically with no supplemental oxygen requirement and no leg edema except chronic pericardial effusion. Dr. De Leon attempted to be contacted however he is on vacation. to continue daily PD in hospital. Transfusing 1 more unit of PRBC, per GI, possible EGD after stabilization of SOB and resolution or improvement of pericardial effusion. Increased calcium acetate to 667 mg 3 times daily. Exam Vital Signs Temp Pulse Resp BP Pulse Ox O2 Del Method 96.9 F 85 21 H 114/82 96 Room Air 01/19/25 12:57 01/19/25 12:57 01/19/25 12:57 01/19/25 12:57 01/19/25 12:57 01/19/25 12:00 Narrative Exam GENERAL: AOx3, no acute distress, sitting in bed, frail HEENT: NC/AT, mucous membranes moist, bilateral sclera anicteric CARDIOVASCULAR: regular rate, S1/S2 present, 2/6 systolic murmur PULMONARY: diminished breath sounds bilaterally, no rales/rhonchi/wheezes ABDOMINAL: soft, distended, non-tender, no rebound/guarding, bowel sounds present, PD cath present and covered to L of umbilicus, mild epigastric tendereness EXTREMITIES: no peripheral edema SKIN: warm and dry, intact, no rashes NEURO: CN II-XII grossly intact, no focal deficits, alert, following commands Objective Labs 01/19/25 04:54 01/19/25 04:54 Labs: Laboratory Results - last 24 hr 01/17/25 01/18/25 01/18/25 18:48 04:55 13:30 WBC RBC Hgb Hct MCV MCH MCHC RDW Std Deviation Plt Count Neut % (Auto) Lymph % (Auto) Coke % (Auto) Eos % (Auto) Baso % (Auto) Neut # (Auto) Lymph # (Auto) Coke # (Auto) Eos # (Auto) Baso # (Auto) Immature Gran # (Auto) Absolute Nucleated RBC Immature Gran % Nucleated RBC % Retic Count (auto) 2.4 H Absolute Retic 51.0 Immature Retic Fraction 36.1 H Retic Hgb Content CHr 39.5 H Sodium Potassium Chloride Carbon Dioxide Anion Gap BUN Creatinine Estim Creat Clear Calc eGFR BUN/Creatinine Ratio Glucose Calculated Osmolality Calcium Corrected Calcium Phosphorus Magnesium Iron 36 L TIBC 230 L Iron Saturation 15 L Unsat Iron Binding 194 L Ferritin 1077 H Total Bilirubin AST ALT Alkaline Phosphatase Troponin I Total Protein Albumin Globulin Albumin/Globulin Ratio Blood Type O Positive Antibody Screen NEGATIVE Crossmatch See Detail Blood Bank Wristband ID Yes 01/18/25 01/19/25 23:01 04:54 WBC 11.9 H RBC 2.27 L Hgb 7.5 L Hct 21.8 L* MCV 96 MCH 33.0 MCHC 34.4 RDW Std Deviation 45.5 H Plt Count 238 Neut % (Auto) 85 H Lymph % (Auto) 6 L Coke % (Auto) 8 Eos % (Auto) 0 Baso % (Auto) 0 Neut # (Auto) 10.1 H Lymph # (Auto) 0.7 L Coke # (Auto) 1.0 H Eos # (Auto) 0.0 Baso # (Auto) 0.0 Immature Gran # (Auto) 0.08 H Absolute Nucleated RBC 0.02 H Immature Gran % 1 H Nucleated RBC % 0 Retic Count (auto) Absolute Retic Immature Retic Fraction Retic Hgb Content CHr Sodium 125 L Potassium 4.2 Chloride 87 L Carbon Dioxide 22.9 Anion Gap 15 BUN 81 H Creatinine 7.1 H* D Estim Creat Clear Calc 7.7 L eGFR 7 L* BUN/Creatinine Ratio 11 L Glucose 142 H D Calculated Osmolality 277 Calcium 8.5 Corrected Calcium 8.7 Phosphorus 5.7 H Magnesium 3.1 H Iron TIBC Iron Saturation Unsat Iron Binding Ferritin Total Bilirubin 0.2 L AST 16 ALT 20 Alkaline Phosphatase 129 H Troponin I 0.020 Total Protein 6.3 Albumin 3.7 Globulin 2.6 Albumin/Globulin Ratio 1.4 Blood Type Antibody Screen Crossmatch Blood Bank Wristband ID Quality Measures Quality Measures none Advance care planning discussed with:: patient Assessment & Plan Assessment Current Active Medications: Generic Name Dose Route Start Last Admin Trade Name Freq PRN Reason Stop Dose Admin Acetaminophen 650 mg 01/17/25 18:39 Acetaminophen 325 Mg Tablet PO 02/16/25 18:38 Q6H PRN Fever >100.4 or pain Protocol Hydrocodone Bitart/Acetaminophen 1 tab 01/18/25 06:02 Hydrocodone/Apap 5/325 Tablet PO 01/22/25 06:01 Q6H PRN PAIN SCALE 4-10(Mod-Sev Atorvastatin Calcium 40 mg 01/17/25 21:00 01/18/25 20:58 Atorvastatin Calcium 20 Mg Tablet PO 02/16/25 20:59 40 mg HS JAIRO Administration Bumetanide 2 mg 01/17/25 21:00 01/19/25 08:48 Bumetanide 0.5 Mg Tablet PO 02/16/25 20:59 2 mg BID JAIRO Administration Calcitriol 0.25 mcg 01/17/25 19:30 01/19/25 05:20 Calcitriol 0.25 Mcg Capsule PO 02/16/25 19:29 Not Given UD JAIRO Calcium Acetate 667 mg 01/19/25 12:00 01/19/25 11:53 Calcium Acetate 667 Mg Tablet PO 02/18/25 11:59 667 mg TIDWM JAIRO Administration Carvedilol 6.25 mg 01/17/25 21:00 01/19/25 08:49 Carvedilol 3.125 Mg Tablet PO 02/16/25 20:59 Not Given BID JAIRO Dextrose 25 ml 01/17/25 20:08 Dextrose 50%-Water Inj 50 Ml Syringe IV 02/16/25 20:07 Q15MIN PRN BG 50-70 responsive npo pt Dextrose 50 ml 01/17/25 20:08 Dextrose 50%-Water Inj 50 Ml Syringe IV 02/16/25 20:07 Q15MIN PRN BG <50 OR BG <70 & pt unresponsive Fluoxetine HCl 20 mg 01/18/25 09:00 01/19/25 08:42 Fluoxetine Hcl 10 Mg Capsule PO 02/17/25 08:59 20 mg QDAY JAIRO Administration Glucagon 1 mg 01/17/25 20:08 Glucagon Inj 1 Mg Vial IM Q15MIN PRN BG <70, and no IV access Amiodarone HCl/Dextrose 360 mg in 200 mls @ 16.667 mls/hr 01/19/25 04:12 01/19/25 10:55 Nexterone Ivpb IV 01/20/25 04:11 16.667 mls/hr .Q12H JAIRO Administration Insulin Degludec 20 unit 01/19/25 09:00 01/19/25 08:36 Insulin Degludec 5 Unit/0.05 Ml (Per 5 Units) SC 02/18/25 08:59 20 unit QDAY JAIRO Administration Insulin Human Lispro 0 unit 01/18/25 17:00 01/19/25 11:53 Insulin Lispro (Admelog) 1 Unit/0.01 Ml Unit SC 02/17/25 16:59 5 unit ACHS JAIRO Administration Protocol Levothyroxine Sodium 50 mcg 01/18/25 06:00 01/19/25 05:14 Levothyroxine Sodium 25 Mcg Tablet PO 02/17/25 05:59 50 mcg ACBR JAIRO Administration Metolazone 2.5 mg 01/18/25 16:15 01/18/25 17:38 Metolazone 2.5 Mg Tablet PO 02/17/25 16:14 2.5 mg Q48H JAIRO Administration Ondansetron HCl 4 mg 01/17/25 18:39 01/19/25 11:52 Ondansetron Inj 2 Mg/Ml Inj 2 Ml IVP 02/16/25 18:38 4 mg Q6H PRN Administration NAUSEA OR VOMITING Protocol Pantoprazole Sodium 40 mg 01/18/25 09:00 01/19/25 08:43 Pantoprazole 40 Mg Tablet PO 02/17/25 08:59 40 mg QAM JAIRO Administration Plan Ruperto Love 79M pmhx significant for ESRD on home PD (since 2021) 2/2 diabetic nephropathy, IDDM2, HTN, TATY, hx of SVT on carvedilol, and hypothyroidism who presents with epigastric abdominal pain that occurs during PD and SOB, admitted for volume overload and pericardial effusion. #Shortness of breath #Pericardial effusion, chronic #Volume overload #ESRD on peritoneal dialysis (2021) 2/2 diabetic nephropathy Presents with SOB and fatigue. Has been on PD since 2021 for diabetic nephropathy. At home, patient is on bumetanide 2 mg BID and metolaxone 2.5 mg QOD. Admission BNP 319. EKG shows sinus rhythm rate 79 QTc 457. CXR shows moderate enlargement cardiac contour. CTAP shows prominent pericardial effusion of 26 mm, moderate vascular congestion, small bilateral pleural effusions, atelectasis versus pneumonia left base, suspicious for edema. Hepatocellular disease, gastritis pattern, gallbladder wall appears slightly thickened, mild free fluid in the abdomen likely related to peritoneal dialysis catheter. Likely 2/2 fluid overload from inadequate peritoneal fluid removal with new recently changed PD regimen vs heart failure exacerbation vs PNA vs atelectasis. Low suspicion for hemopericardium as patient's vitals and presentation are stable. s/p EPO x1 01/18 TTE: Normal LV size and wall thickness. There is grade I diastolic dysfunction. Estimated EF at 50-55%. Normal RV size and function. RVSP appears to be in the normal range Trace TR and MR. Minimal aortic valve sclerosis without stenosis. Large circumferential pericardial effusion that appears to be loculated with significant septae noted along with the fibrinous exudate on the ventricular veloz indicating chronic effusion. No RV diastolic collapse or any RA inversion.. No significant respiratory variation in the tricuspid inflow velocities except for the mitral inflow. IVC dilated with less than 50% collapse with inspiration. There is no clear evidence of cardiac tamponade. Peritoneal dialysis: 01/17 (600cc UF), 01/18 (by , only ~500cc fluid removed no filtrate), 01/19 (by , 1.5L filtrate administered Plan: - Dr. Amador consulted, recs appreciated: PD continue to administer by , no need for HD at this time due to low clinical suspicion for overload with patient on room air and no leg edema - Cardiology consulted, recs appreciated: No need for urgent paracentesis at this time due to no evidence of cardiac tamponade, patient also has possibility of loculated pericardial effusion given septae noted, as pericardial fluid likely secondary to inadequate fluid removal from peritoneal dialysis, recommend HD - Fluid restrictions 1.2L - Consider temporary HD and TDC as PD seems insufficient - Increase calcium acetate from QD to TID - Continue home PO bumetanide 2 mg BID, consider IV if inadequate diuresis - Continue home metolazone 2.5 mg QOD #Atrial fibrillation, RVR, resolved #History of SVT Night of 01/18, patient developed 2 episodes of afib RVR at [id number] with rates 130-170 with intermittent atrial fibrillation with controlled rate in between. Overnight, patient received Mg and dilt without resolution. Amiodarone drip started with conversion of atrial fibraillation to sinus rhythm. Per , patient does not have a diagnosed history of atrial fibrillation however monitor reads sent entirely up to 170. CHADSVASC 4, 4.8% stroke risk/year HASBLED 2, moderate risk for bleeding Plan: - Cardiology consulted, recs appreciated: no need for heparin at this time due to low Hgb - Amiodarone drip, plan to transition to PO amiodarone following as patient can tolerate PO - Carvedilol held due to soft BP - Telemetry for monitoring - Keep K>4 and Mg>2 at all times #Hyponatremia Admission Na 124. Likely 2/2 fluid overload. Plan: - Fluid restriction 1.2L as above - Caution with bumetanide and metolazone - CTM Na #Normocytic anemia s/p 2 pRBC #Leukocytosis Per son, patient has been received iron infusions bimonthly at dialysis center and takes iron supplements 325 QD. WBC 12.2 and H&H 7.3/21.3. FOBT negative. Iron low 36, TIBC 230, iron sat 15, ferritin 1077. Anemia likely secondary to chronic disease on dialysis, low suspicion for active bleeding as patient denies any melena, hematochezia or coffee-ground emesis. Leukocytosis likely reactive, no clear source of infection at this time with peritoneal fluid cytology negative with no tenderness to abdominal palpation. s/p 1 pRBC 10/5 and 1 pRBC 10/6 Plan: - 1 pRBC transfusing - CTM CBC - Consider abx if patient becomes symptomatic or leukocytosis worsens - Transfuse if Hgb <7 - GI consulted, recs appreciated: Plan for EGD following resolution of patient's shortness of breath and pericardial effusion #IDDM2 #Hyperglycemia #HLD Per pharmacy review, patient has been prescribed insulin and is taking atorvastatin 40 mg qhs. On admission glucose 267. 01/2025 A1c 7.5. Triglycerides 99. Cholesterol 104. LDL 51, HDL 33. Plan: - Degludac 20u started with SSI step 2 #HTN Per history. However recently patient has been hypotensive secondary to volume overload. At home patient is on hydralazine 50 mg TID, carvedilol 6.25 mg BID, nifedipine ER 90 mg QD, minoxidil 5 mg BID, Plan: - Hold all home antihypertensives #Hypothyroidism TSH 4.88 and T4 1.22. Plan: - Continue home levothyroxine 50 mcg QD #Depression Plan: - Continue home fluoxetine 20 mg QD Hospital management: Lines: PIV, PD cath L of umbilicus Diet: Cardiac 1.2L fluid restriction Bowel: not indicated GI prophylaxis: PO pantoprazole 40 mg QD DVT prophylaxis: SCDs iso severe anemia Disposition: tele for PD and evaluation of pericardial effusion CODE STATUS: FULL CODE Plan of care discussed with attending Dr. Villa, and PGY-2 Dr. Foss. Hortencia Santana, DO PGY-1 Internal Medicine Attending Provider Attestation/Addendum I have examined the patient, reviewed labs and imaging findings, discussed the case with the resident(s), and reviewed entered orders. I agree with the plan of care as outlined in this note, with these additional summaries/recommendations: Patient seen at bedside. No acute overnight events and patient has no new symptoms to report today. Patient did receive session of peritoneal dialysis overnight. Patient admitted for shortness of breath and was found to have prominent pericardial effusion up to 26 mm at the level of the left ventricle. Echocardiogram completed which showed grade 1 diastolic dysfunction, EF 50 to 55%, large circumferential pericardial effusion that appears to be loculated with significant septi, and no RV collapse. Cardiology consulted and following. Most likely etiology for pericardial effusion is end-stage renal disease. Patient currently hemodynamically stable. Case was discussed with nephrology about transitioning to hemodialysis for better volume removal although patient currently lives 1 hour away from closest dialysis center and currently not an option. Patient's park maintainer Dr. De Leon is currently on vacation. Patient also noted to have hemoglobin 7.0. Fecal occult blood test negative. Patient does have a history of iron deficiency anemia. At this time most likely multifactorial secondary to anemia of chronic disease and MANOLO. S/P Epogen. Transfuse 1 unit platelets given cardiac history. Given patient has had such a significant drop in hemoglobin in a short amount of time we will consult gastroenterology, recommendations appreciated. Hyponatremia present in the setting of volume overload. Continue fluid restriction and dialysis for preload reduction. Nephrology following. Patient has diabetes mellitus type 2 with hyperglycemia and blood sugars into the 400s today. No evidence of DKA. A1c 7.5%. We will adjust basal and bolus insulin to target blood sugar of 140-180 while hospitalized. Mild electrolyte abnormalities with hypomagnesia and hypocalcemia and replacement given. Repeat levels in AM. Leukocytosis present although no evidence of infection at this time. Patient and family updated on the plan and in agreement. All questions answered to satisfaction. Please see residents note for additional details and management. Dr. Allen MD
--- NOTE | 2025-01-19 15:44 | PD.RESPRO ---
Documentation for date of: 01/19/25 Subjective Subjective Interval history: Patient was seen and assessed at bedside. Reports intermittent palpitations overnight, denies chest pain and shortness of breath. On telemetry, patient converted to A-fib with RVR, likely secondary to anemia. Was started on amiodarone drip overnight. BP 102/63 this morning, systolics in the 100-110s. HR in 60s to 70s. Started on EPO yesterday. WBC 11.9 from 11.6, hemoglobin 7.5 (from 7.0), recommend transfusing another unit. Sodium 125, potassium 4.2, creatinine 7.1, magnesium 3.1. Nephrology not recommending HD at this time. Exam Vital Signs Temp Pulse Resp BP Pulse Ox O2 Del Method 97.0 F 73 17 112/69 96 Room Air 01/19/25 15:23 01/19/25 15:23 01/19/25 15:23 01/19/25 15:23 01/19/25 15:23 01/19/25 15:23 Narrative Exam Physical Exam General: Awake and in no acute distress. Conversational and non-toxic appearing. [place]-speaking elderly male. Overweight. HEENT: Normocephalic, atraumatic, mucous membranes moist. Heart: Regular rate and rhythm, normal S1 and S2. 2/6 systolic murmur more pronounced with inspiration, heard best at right second intercostal space. Lungs: Decreased breath sounds in bilateral lower lobes, otherwise clear. Abdomen: Soft, distended, nontender, positive bowel sounds. No guarding or rebound tenderness. Neurologic: Alert and oriented x3, no gross neurological deficit, and patient able to move all 4 extremities. Extremities: No edema. Skin: No rash or ecchymoses. Objective Labs 01/19/25 16:43 01/19/25 04:54 Labs: Laboratory Results - last 24 hr 01/17/25 01/18/25 01/19/25 18:48 23:01 04:54 WBC 11.9 H RBC 2.27 L Hgb 7.5 L Hct 21.8 L* MCV 96 MCH 33.0 MCHC 34.4 RDW Std Deviation 45.5 H Plt Count 238 Neut % (Auto) 85 H Lymph % (Auto) 6 L [place] % (Auto) 8 Eos % (Auto) 0 Baso % (Auto) 0 Neut # (Auto) 10.1 H Lymph # (Auto) 0.7 L [place] # (Auto) 1.0 H Eos # (Auto) 0.0 Baso # (Auto) 0.0 Immature Gran # (Auto) 0.08 H Absolute Nucleated RBC 0.02 H Immature Gran % 1 H Nucleated RBC % 0 Sodium 125 L Potassium 4.2 Chloride 87 L Carbon Dioxide 22.9 Anion Gap 15 BUN 81 H Creatinine 7.1 H* D Estim Creat Clear Calc 7.7 L eGFR 7 L* BUN/Creatinine Ratio 11 L Glucose 142 H D Calculated Osmolality 277 Calcium 8.5 Corrected Calcium 8.7 Phosphorus 5.7 H Magnesium 3.1 H Total Bilirubin 0.2 L AST 16 ALT 20 Alkaline Phosphatase 129 H Troponin I 0.020 Total Protein 6.3 Albumin 3.7 Globulin 2.6 Albumin/Globulin Ratio 1.4 Blood Type O Positive Antibody Screen NEGATIVE Crossmatch See Detail Blood Bank Wristband ID Yes Quality Measures Quality Measures none Advance care planning discussed with:: patient Assessment & Plan Assessment Current Active Medications: Generic Name Dose Route Start Last Admin Trade Name Freq PRN Reason Stop Dose Admin Acetaminophen 650 mg 01/17/25 18:39 Acetaminophen 325 Mg Tablet PO 02/16/25 18:38 Q6H PRN Fever >100.4 or pain Protocol Hydrocodone Bitart/Acetaminophen 1 tab 01/18/25 06:02 Hydrocodone/Apap 5/325 Tablet PO 01/22/25 06:01 Q6H PRN PAIN SCALE 4-10(Mod-Sev Atorvastatin Calcium 40 mg 01/17/25 21:00 01/18/25 20:58 Atorvastatin Calcium 20 Mg Tablet PO 02/16/25 20:59 40 mg HS JAIRO Administration Bumetanide 2 mg 01/17/25 21:00 01/19/25 08:48 Bumetanide 0.5 Mg Tablet PO 02/16/25 20:59 2 mg BID JAIRO Administration Calcitriol 0.25 mcg 01/17/25 19:30 01/19/25 05:20 Calcitriol 0.25 Mcg Capsule PO 02/16/25 19:29 Not Given UD JAIRO Calcium Acetate 667 mg 01/19/25 12:00 01/19/25 11:53 Calcium Acetate 667 Mg Tablet PO 02/18/25 11:59 667 mg TIDWM JAIRO Administration Carvedilol 6.25 mg 01/17/25 21:00 01/19/25 08:49 Carvedilol 3.125 Mg Tablet PO 02/16/25 20:59 Not Given BID JAIRO Dextrose 25 ml 01/17/25 20:08 Dextrose 50%-Water Inj 50 Ml Syringe IV 02/16/25 20:07 Q15MIN PRN BG 50-70 responsive npo pt Dextrose 50 ml 01/17/25 20:08 Dextrose 50%-Water Inj 50 Ml Syringe IV 02/16/25 20:07 Q15MIN PRN BG <50 OR BG <70 & pt unresponsive Fluoxetine HCl 20 mg 01/18/25 09:00 01/19/25 08:42 Fluoxetine Hcl 10 Mg Capsule PO 02/17/25 08:59 20 mg QDAY JAIRO Administration Glucagon 1 mg 01/17/25 20:08 Glucagon Inj 1 Mg Vial IM Q15MIN PRN BG <70, and no IV access Amiodarone HCl/Dextrose 360 mg in 200 mls @ 16.667 mls/hr 01/19/25 04:12 01/19/25 10:55 Nexterone Ivpb IV 01/20/25 04:11 16.667 mls/hr .Q12H JAIRO Administration Insulin Degludec 20 unit 01/19/25 09:00 01/19/25 08:36 Insulin Degludec 5 Unit/0.05 Ml (Per 5 Units) SC 02/18/25 08:59 20 unit QDAY JAIRO Administration Insulin Human Lispro 0 unit 01/18/25 17:00 01/19/25 11:53 Insulin Lispro (Admelog) 1 Unit/0.01 Ml Unit SC 02/17/25 16:59 5 unit ACHS JAIRO Administration Protocol Levothyroxine Sodium 50 mcg 01/18/25 06:00 01/19/25 05:14 Levothyroxine Sodium 25 Mcg Tablet PO 02/17/25 05:59 50 mcg ACBR JAIRO Administration Metolazone 2.5 mg 01/18/25 16:15 01/18/25 17:38 Metolazone 2.5 Mg Tablet PO 02/17/25 16:14 2.5 mg Q48H JAIRO Administration Ondansetron HCl 4 mg 01/17/25 18:39 01/19/25 11:52 Ondansetron Inj 2 Mg/Ml Inj 2 Ml IVP 02/16/25 18:38 4 mg Q6H PRN Administration NAUSEA OR VOMITING Protocol Pantoprazole Sodium 40 mg 01/18/25 09:00 01/19/25 08:43 Pantoprazole 40 Mg Tablet PO 02/17/25 08:59 40 mg QAM JAIRO Administration Plan Patient is a 79 year old male with PMH of ESRD on peritoneal dialysis for the past 3 years history of SVT (last reported episode July 2024), chronic anemia, insulin-dependent diabetes type 2, hypertension, GERD, alcohol abuse who presents to the ED on 01/17 for shortness of breath. Cardiology was consulted for pericardial effusion found on CT A/P, consulted by ED for concern of hemopericardium. Found to have approximately 3 cm chronic pericardial effusion. #Afib with RVR Converted to A-fib with RVR overnight on telemetry. Confirmed on EKG. Was started on amiodarone drip by night team. Likely secondary to low hemoglobin despite 1 unit PRBC earlier that day. On telemetry, patient were to be back in sinus rhythm with occasional PACs. ?Continue amiodarone drip. Consider increasing IV amiodarone rate or adding another rate control agent if converts back to RVR. ?Hold heparin drip for now as patient is anemic. #Large pericardial effusion #Bilateral pleural effusions #SVT, resolved #ESRD on peritoneal dialysis (2021) 2/2 diabetic nephropathy #HFpEF (EF 50-55%) #Grade I diastolic dysfunction Presents with 3 day history of SOB and fatigue. Symptom onset since transition to new solution recently. Reported that at home, patient blood pressure was low at 190s and heart rate elevated 160s to 180s. Suspect patient has been fluctuating between over and under diuresis since solution transition. Last dialysis session last night at home. Otherwise, had been on PD since 2021 for diabetic nephropathy. At home, patient is on bumetanide 2 mg BID and metolaxone 2.5 mg QOD. Admission vital stable. BNP 319. EKG shows sinus rhythm rate 79 QTc 457. On exam, 2/6 systolic murmur increased on inspiration as well as decreased lung sounds and distended abdomen. No edema. CXR shows moderate enlargement cardiac contour. CTAP shows prominent pericardial effusion of 26 mm, moderate vascular congestion, small bilateral pleural effusions, atelectasis versus pneumonia left base, suspicious for edema. Hepatocellular disease, gastritis pattern, gallbladder wall appears slightly thickened, mild free fluid in the abdomen likely related to peritoneal dialysis catheter. TTE 01/17/25 shows normal LV size and wall thickness. There is grade I diastolic dysfunction. Estimated EF at 50-55%. Normal RV size and function. RVSP appears to be in the normal range. Trace TR and MR. Minimal aortic valve sclerosis without stenosis. Large circumferential pericardial effusion that appears to be loculated with significant septae noted along with the fibrinous exudate on the ventricular veloz indicating chronic effusion. No RV diastolic collapse or any RA inversion. No significant respiratory variation in the tricuspid inflow velocities except for the mitral inflow. IVC dilated with less than 50% collapse with inspiration. There is no clear evidence of cardiac tamponade. Likely 2/2 fluid overload from inadequate peritoneal fluid removal with new recently changed PD regimen vs heart failure exacerbation. Patient follows alternative financing specialist Dr. Gonsales in [place], followed up 3 weeks ago for echo results which he was told was fine . Plan: ?TTE showed approximately 30 mm pericardial effusion with fibrotic adhesions, indicating likely chronic effusion. No right ventricular diastolic dysfunction or swinging heart sign noted however does have mild respiratory variation in flow velocity across mitral valve. Does not meet criteria for cardiac tamponade. ?Based on chronicity of effusion, patient will likely benefit more from starting hemodialysis to remove excess fluid at this time. Will reconsider effusion drainage once patient is more hemodynamically stable and HD catheter is in place. ?Recommend consulting nephrology for insertion of hemodialysis catheter ?Resume home Bumex and metolaxone #Normocytic anemia, chronic Per son, patient receives iron infusions bimonthly at dialysis center and takes iron supplements 325 QD. WBC 12.2 and H&H 7.3/21.3. Anemia likely secondary to chronic disease on dialysis, low suspicion for active bleeding as patient. Denies any melena, hematochezia or coffee-ground emesis. 01/18/2025?hemoglobin dropped to 7.0. No sign of acute bleed. ?Defer anemia workup to primary team. Recommend transfusing 1 unit. #IDDM2 #HLD Per pharmacy review, patient has been prescribed insulin and is taking atorvastatin 40 mg qhs. On admission glucose 267. A1c 7.5. Lipid panel: Trig 99, total cholesterol 104, LDL 51, HDL 33. TSH elevated 4.88, T41.22. ASCVD score: Patient is above age 75 however this regarding age, would recommend to continue high intensity statin Plan: ?Insulin management per primary team ?Continue atorvastatin 40 mg nightly #HTN Has history of hypertension however as of late, patient has been hypotensive, likely secondary to volume status changes. Home medications include hydralazine 50 mg TID, carvedilol 6.25 mg BID, nifedipine ER 60 mg QD. Plan: - Resume all home antihypertensives as above #Hx alcohol abuse Used to drink 6 pack beers per day during his youth for 25 years, stopped 3 years ago when started on dialysis. #Leukocytosis, likely reactive #Hyponatremia #Hypothyroidism #GERD #Depression ?Management per primary team Thank you for your consultation, please do not hesitate to reach out if you have any question or concern Patient plan of care was discussed with the attending physician, Dr. Fajardo. Lucy Santana, PGY-1 Attending Provider Attestation/Addendum I have personally seen and examined the patient separately on the above date of service and discussed the plan of care with the resident. I reviewed the resident Dr. Lucy Santana consultation progress note and agree with the resident findings and plan in the note above and have also edited the documentation to reflect my findings and plan. Julius Fajardo M.D. Interventional Cardiology
[2025-01-19 17:13] LABS: Hematocrit 22.9 % (41.0-53.0)
[2025-01-19 17:43] LABS: Hemoglobin 8.0 g/dL (13.5-16.0)
--- NOTE | 2025-01-19 19:18 | ESPR_ITS ---
Documentation for date of: 01/19/25 Subjective Subjective Interval history: Patient evaluated 1Z show the pericardial effusion is resolved I will schedule the patient for an upper endoscopy Exam Vital Signs Temp Pulse Resp BP Pulse Ox O2 Del Method 97.0 F 73 17 112/69 96 Room Air 01/19/25 15:23 01/19/25 15:23 01/19/25 15:23 01/19/25 15:23 01/19/25 15:23 01/19/25 15:23 Objective Labs 01/19/25 16:43 01/19/25 04:54 Labs: Laboratory Results - last 24 hr 01/17/25 01/18/25 01/19/25 18:48 23:01 04:54 WBC 11.9 H RBC 2.27 L Hgb 7.5 L Hct 21.8 L* MCV 96 MCH 33.0 MCHC 34.4 RDW Std Deviation 45.5 H Plt Count 238 Neut % (Auto) 85 H Lymph % (Auto) 6 L [place] % (Auto) 8 Eos % (Auto) 0 Baso % (Auto) 0 Neut # (Auto) 10.1 H Lymph # (Auto) 0.7 L [place] # (Auto) 1.0 H Eos # (Auto) 0.0 Baso # (Auto) 0.0 Immature Gran # (Auto) 0.08 H Absolute Nucleated RBC 0.02 H Immature Gran % 1 H Nucleated RBC % 0 Sodium 125 L Potassium 4.2 Chloride 87 L Carbon Dioxide 22.9 Anion Gap 15 BUN 81 H Creatinine 7.1 H* D Estim Creat Clear Calc 7.7 L eGFR 7 L* BUN/Creatinine Ratio 11 L Glucose 142 H D Calculated Osmolality 277 Calcium 8.5 Corrected Calcium 8.7 Phosphorus 5.7 H Magnesium 3.1 H Total Bilirubin 0.2 L AST 16 ALT 20 Alkaline Phosphatase 129 H Troponin I 0.020 Total Protein 6.3 Albumin 3.7 Globulin 2.6 Albumin/Globulin Ratio 1.4 Blood Type O Positive Antibody Screen NEGATIVE Crossmatch See Detail Blood Bank Wristband ID Yes 01/19/25 16:43 WBC RBC Hgb 8.0 L Hct 22.9 L MCV MCH MCHC RDW Std Deviation Plt Count Neut % (Auto) Lymph % (Auto) [place] % (Auto) Eos % (Auto) Baso % (Auto) Neut # (Auto) Lymph # (Auto) [place] # (Auto) Eos # (Auto) Baso # (Auto) Immature Gran # (Auto) Absolute Nucleated RBC Immature Gran % Nucleated RBC % Sodium Potassium Chloride Carbon Dioxide Anion Gap BUN Creatinine Estim Creat Clear Calc eGFR BUN/Creatinine Ratio Glucose Calculated Osmolality Calcium Corrected Calcium Phosphorus Magnesium Total Bilirubin AST ALT Alkaline Phosphatase Troponin I Total Protein Albumin Globulin Albumin/Globulin Ratio Blood Type Antibody Screen Crossmatch Blood Bank Wristband ID Impressions Impression: Persistent nausea Pain abdomen epigastric Pericardial effusion End-stage renal disease on peritoneal dialysis Plan Cardiology evaluation in progress once pericardial effusion issue resolved I will schedule the patient for an upper endoscopy prior to discharge Assessment & Plan A&P Narrative # Epigastric abdominal pain # Nausea # Anemia multifactorial already getting iron infusions twice a month at the dialysis center Other medical problems include Suggestions Once patient's shortness of breath improves and pericardial effusion is taking care of upper endoscopy prior to discharge Other medical problems include Diabetes mellitus type 1 Essential hypertension SVT on carvedilol Peritoneal dialysis Pericardial effusion Thank you very much for the opportunity to participate in care of this patient Time Spent With Patient Time: Total time spent is greater than 50% in coordination of care (as documented) at patient's floor/unit and/or counseling patient:
[2025-01-19] MEDS: ATORVASTATIN CALCIUM 20 MG TABLET 40 MG PO (20:06)
[2025-01-20] VITALS (32 sets, daily range): BP systolic 82–158; BP diastolic 52–98; PULSE 54–112; RESP 14–97; TEMP 35.9–36.4; O2SAT 93–99; BMI 26.5
--- NOTE | 2025-01-20 | XR_ITS ---
Ultrasound-guided needle placement right internal jugular vein Permanent tunneled dialysis catheter insertion, percutaneous Fluoroscopy AP chest, portable, single view. Date and time of procedure: January 20, 2025, 1425 hours INDICATIONS: Acute renal insufficiency this week, need for statin long-term dialysis Informed consent provided Technique: A timeout was completed verifying correct patient, procedure, site, positioning, and special equipment if applicable. The patient was placed in a dependent position appropriate for dialysis catheter placement based on the vein to be cannulated. The patient's right neck was prepped and draped in sterile fashion. Maximum Sterile Barrier Technique used including cap, mask, sterile gown, sterile gloves, and sterile full body drape. If ultrasound technique used: sterile gel and sterile probe covers. Hand Hygiene performed using proper scrub, soap and water, or alcohol-based hand rub. 1% lidocaine was used to anesthetize the surrounding skin area [employer] portable ultrasound apparatus utilized to confirm patency of the right internal jugular vein Utilizing ultrasonographic guidance successful 21-gauge needle puncture right internal jugular vein Ultrasound images were recorded and stored. Vessel micropuncture was performed with 21-gauge needle. 0.18 wire guide is introduced into the vein. 0.18 wire is introduced into the vena cava under fluoroscopy. Subcutaneous tunnel formed in the upper chest. Permanent tunneled dialysis catheter placed in the subcutaneous tunnel. Dilators were introduced over the J-wire guide. Tunneled dialysis catheter is introduced through a dilator with venous sheath into the superior vena cava under fluoroscopic guidance. The catheter is sutured in place to the skin and a sterile dressing applied. Perfusion to the extremity distal to the point of catheter insertion is checked and found to be adequate Attending radiologist was present for the entire procedure Estimated blood loss 2 cc. The patient tolerated the procedure well and there were no complications Impression: Successful ultrasound-guided needle placement right internal jugular vein Successful permanent tunneled dialysis catheter insertion, percutaneous Fluoroscopy 0.3-minute radiation dose 2.72 mGy 1 spot fluoroscopic chest film. AP chest performed at completion procedure demonstrates satisfactory position dialysis catheter. May use dialysis catheter.
[2025-01-20] MEDS: LEVOTHYROXINE SODIUM 25 MCG TABLET 50 MCG PO (05:09)
[2025-01-20 05:28] LABS: Basophils # (Auto) 0.0 Thou/mm3 (0.0-0.2); Basophils % (Auto) 0 % (0-2.5); Eosinophils # (Auto) 0.0 Thou/mm3 (0.0-0.5); Eosinophils % (Auto) 0 % (0-10); Hematocrit 24.2 % (41.0-53.0); Immature Granulocytes Auto 0.14 Thou/mm3 (0.00-0.00); Lymphocytes # (Auto) 0.8 Thou/mm3 (1.0-4.8); Lymphocytes % (Auto) 7 % (10-50); Mean Corpuscular HGB Conc 35.1 g/dl (31.0-37.0); Mean Corpuscular Hemoglobin 32.7 pg (25.0-35.0); Mean Corpuscular Volume 93 fL (80-100); Monocytes # (Auto) 1.0 Thou/mm3 (0.0-0.8); Monocytes % (Auto) 9 % (0-12); Neutrophils # (Auto) 10.1 Thou/mm3 (1.8-7.7); Neutrophils % (Auto) 83 % (37-80); Nucleated Red Blood Cell # 0.03 Thou/mm3 (0.00-0.00); Nucleated Red Blood Cell % 0 /100 WBC (0); Platelet Count 230 Thou/mm3 (140-440); RDW Standard Deviation 47.7 fL (35.1-43.9); Red Blood Count 2.60 Miln/mm3 (4.50-5.90); White Blood Count 12.1 Thou/mm3 (3.8-10.6)
[2025-01-20 06:00] LABS: Hemoglobin 8.5 g/dL (13.5-16.0)
[2025-01-20 06:02] LABS: Alanine Aminotransferase 34 U/L (10-49); Albumin, Serum 3.5 gm/dL (3.4-4.8); Albumin/Globulin Ratio 1.3 (1.2-2.2); Alkaline Phosphatase 214 U/L (46-116); Anion Gap 18 (7-16); Aspartate Amino Transferase 23 U/L (0-34); BUN/Creatinine Ratio 11 Ratio (12-20); Bilirubin,Total < 0.2 mg/dL (0.3-1.2); Blood Urea Nitrogen 87 mg/dL (9-23); Calcium 8.0 mg/dL (8.3-10.6); Calcium (Corrected) 8.4 mg/dL (8.5-10.1); Carbon Dioxide 21.0 mMol/L (20.0-31.0); Chloride 84 mMol/L (98-107); Creatinine (Component) 8.0 mg/dL (0.6-1.3); Estimated Creatinine Clearance 6.9 mL/min (>60); Globulin 2.6 gm/dL (2.3-3.5); Glucose 170 mg/dL (74-106); Magnesium 2.5 mg/dL (1.6-2.6); Osmolality,Calculated 278 (275-295); Phosphorous 5.4 mg/dL (2.4-5.1); Potassium 4.5 mMol/L (3.4-5.1); Sodium 123 mMol/L (136-145); Total Protein 6.1 gm/dL (5.7-8.2); eGFR 6 See Note
[2025-01-20] MEDS: INSULIN LISPRO (AdmeLOG) 1 UNIT/0.01 ML UNIT SC ×2 (07:44→11:39)
[2025-01-20] MEDS: BUMETANIDE 0.5 MG TABLET 2 MG PO ×2 (08:02→20:12)
[2025-01-20] MEDS: CALCIUM ACETATE 667 MG TABLET PO ×3 (08:02→18:46)
[2025-01-20] MEDS: PANTOPRAZOLE 40 MG TABLET PO (08:04)
[2025-01-20] MEDS: ONDANSETRON INJ 2 MG/ML INJ 2 ML 4 MG IVP (08:08)
[2025-01-20] MEDS: INSULIN DEGLUDEC 5 UNIT/0.05 ML (PER 5 UNITS) 20 UNIT SC (08:11)
--- NOTE | 2025-01-20 09:22 | PD.RESPRO ---
Documentation for date of: 01/20/25 Subjective Subjective Interval history: Patient was seen and assessed at bedside. Had 2 runs of afib with RVR overnight at 2327 and 0300. No more than 5 beats. Complains this morning of upper abdominal pain, had 2500 cc removed via peritoneal dialysis overnight per son at bedside. BP and heart rate well controlled on current anti-hypertensive medication. Continues to saturate well on room air. Hgb stable at 8.5 s/p 1 unit pRBC. Potassium 4.5, magnesium 2.5, creatinine increased to 8.0. Exam Vital Signs Temp Pulse Resp BP Pulse Ox O2 Del Method 97.2 F 73 20 128/78 94 L Room Air 01/20/25 08:00 01/20/25 08:02 01/20/25 08:00 01/20/25 08:02 01/20/25 08:00 01/20/25 08:00 Narrative Exam Physical Exam General: Awake and in no acute distress. Conversational and non-toxic appearing. Monegasque-speaking elderly male. Overweight. HEENT: Normocephalic, atraumatic, mucous membranes moist. Heart: Regular rate and rhythm, normal S1 and S2. 2/6 systolic murmur more pronounced with inspiration, heard best at right second intercostal space. Lungs: Decreased breath sounds in bilateral lower lobes, otherwise clear. Abdomen: Soft, distended, nontender, positive bowel sounds. No guarding or rebound tenderness. Neurologic: Alert and oriented x3, no gross neurological deficit, and patient able to move all 4 extremities. Extremities: No edema. Skin: No rash or ecchymoses. Objective Labs 01/21/25 05:04 01/21/25 05:04 Labs: Laboratory Results - last 24 hr 01/17/25 01/19/25 01/20/25 18:48 16:43 04:26 WBC 12.1 H RBC 2.60 L Hgb 8.0 L 8.5 L Hct 22.9 L 24.2 L MCV 93 MCH 32.7 MCHC 35.1 RDW Std Deviation 47.7 H Plt Count 230 Neut % (Auto) 83 H Lymph % (Auto) 7 L [place] % (Auto) 9 Eos % (Auto) 0 Baso % (Auto) 0 Neut # (Auto) 10.1 H Lymph # (Auto) 0.8 L [place] # (Auto) 1.0 H Eos # (Auto) 0.0 Baso # (Auto) 0.0 Immature Gran # (Auto) 0.14 H Absolute Nucleated RBC 0.03 H Immature Gran % 1 H Nucleated RBC % 0 Sodium 123 L Potassium 4.5 Chloride 84 L Carbon Dioxide 21.0 Anion Gap 18 H BUN 87 H Creatinine 8.0 H* D Estim Creat Clear Calc 6.9 L eGFR 6 L* BUN/Creatinine Ratio 11 L Glucose 170 H Calculated Osmolality 278 Calcium 8.0 L Corrected Calcium 8.4 L Phosphorus 5.4 H Magnesium 2.5 Total Bilirubin < 0.2 L AST 23 ALT 34 Alkaline Phosphatase 214 H D Total Protein 6.1 Albumin 3.5 Globulin 2.6 Albumin/Globulin Ratio 1.3 Blood Type O Positive Antibody Screen NEGATIVE Crossmatch See Detail Blood Bank Wristband ID Yes Quality Measures Quality Measures none Advance care planning discussed with:: patient Assessment & Plan Assessment Current Active Medications: Generic Name Dose Route Start Last Admin Trade Name Freq PRN Reason Stop Dose Admin Acetaminophen 650 mg 01/17/25 18:39 Acetaminophen 325 Mg Tablet PO 02/16/25 18:38 Q6H PRN Fever >100.4 or pain Protocol Hydrocodone Bitart/Acetaminophen 1 tab 01/18/25 06:02 Hydrocodone/Apap 5/325 Tablet PO 01/22/25 06:01 Q6H PRN PAIN SCALE 4-10(Mod-Sev Atorvastatin Calcium 40 mg 01/17/25 21:00 01/19/25 20:06 Atorvastatin Calcium 20 Mg Tablet PO 02/16/25 20:59 40 mg HS JAIRO Administration Bumetanide 2 mg 01/17/25 21:00 01/20/25 08:02 Bumetanide 0.5 Mg Tablet PO 02/16/25 20:59 2 mg BID JAIRO Administration Calcitriol 0.25 mcg 01/17/25 19:30 01/19/25 20:06 Calcitriol 0.25 Mcg Capsule PO 02/16/25 19:29 0.25 mcg UD JAIRO Administration Calcium Acetate 667 mg 01/19/25 12:00 01/20/25 08:02 Calcium Acetate 667 Mg Tablet PO 02/18/25 11:59 667 mg TIDWM JAIRO Administration Carvedilol 6.25 mg 01/17/25 21:00 01/19/25 08:49 Carvedilol 3.125 Mg Tablet PO 02/16/25 20:59 Not Given On Hold: 01/19/25 16:51 BID JAIRO Dextrose 25 ml 01/17/25 20:08 Dextrose 50%-Water Inj 50 Ml Syringe IV 02/16/25 20:07 Q15MIN PRN BG 50-70 responsive npo pt Dextrose 50 ml 01/17/25 20:08 Dextrose 50%-Water Inj 50 Ml Syringe IV 02/16/25 20:07 Q15MIN PRN BG <50 OR BG <70 & pt unresponsive Fluoxetine HCl 20 mg 01/18/25 09:00 01/20/25 08:02 Fluoxetine Hcl 10 Mg Capsule PO 02/17/25 08:59 20 mg QDAY JAIRO Administration Glucagon 1 mg 01/17/25 20:08 Glucagon Inj 1 Mg Vial IM Q15MIN PRN BG <70, and no IV access Insulin Degludec 20 unit 01/19/25 09:00 01/20/25 08:11 Insulin Degludec 5 Unit/0.05 Ml (Per 5 Units) SC 02/18/25 08:59 20 unit QDAY JAIRO Administration Insulin Human Lispro 0 unit 01/18/25 17:00 01/20/25 07:44 Insulin Lispro (Admelog) 1 Unit/0.01 Ml Unit SC 02/17/25 16:59 3 unit ACHS JAIRO Administration Protocol Levothyroxine Sodium 50 mcg 01/18/25 06:00 01/20/25 05:09 Levothyroxine Sodium 25 Mcg Tablet PO 02/17/25 05:59 50 mcg ACBR JAIRO Administration Metolazone 2.5 mg 01/18/25 16:15 01/18/25 17:38 Metolazone 2.5 Mg Tablet PO 02/17/25 16:14 2.5 mg Q48H JAIRO Administration Ondansetron HCl 4 mg 01/17/25 18:39 01/20/25 08:08 Ondansetron Inj 2 Mg/Ml Inj 2 Ml IVP 02/16/25 18:38 4 mg Q6H PRN Administration NAUSEA OR VOMITING Protocol Pantoprazole Sodium 40 mg 01/18/25 09:00 01/20/25 08:04 Pantoprazole 40 Mg Tablet PO 02/17/25 08:59 40 mg QAM JAIRO Administration Plan Patient is a 79 year old male with PMH of ESRD on peritoneal dialysis for the past 3 years history of SVT (last reported episode July 2024), chronic anemia, insulin-dependent diabetes type 2, hypertension, GERD, alcohol abuse who presents to the ED on 01/17 for shortness of breath. Cardiology was consulted for pericardial effusion found on CT A/P, consulted by ED for concern of hemopericardium. Found to have approximately 3 cm chronic pericardial effusion. #Afib with RVR Reports occassional palpitations at home prior to admission. Converted to A-fib with RVR overnight on telemetry. Confirmed on EKG. Was started on amiodarone drip by night team. Likely secondary to low hemoglobin despite 1 unit PRBC earlier that day. On telemetry, patient were to be back in sinus rhythm with occasional PACs. ?Continue amiodarone drip. Consider increasing IV amiodarone rate or adding another rate control agent if converts back to RVR. ?Hold heparin drip for now as patient is anemic. - Recommend that patient get outpatient work up #Large pericardial effusion #Bilateral pleural effusions #SVT, resolved #ESRD on peritoneal dialysis (2021) 2/2 diabetic nephropathy #HFpEF (EF 50-55%) #Grade I diastolic dysfunction Presents with 3 day history of SOB and fatigue. Symptom onset since transition to new solution recently. Reported that at home, patient blood pressure was low at 190s and heart rate elevated 160s to 180s. Suspect patient has been fluctuating between over and under diuresis since solution transition. Last dialysis session last night at home. Otherwise, had been on PD since 2021 for diabetic nephropathy. At home, patient is on bumetanide 2 mg BID and metolaxone 2.5 mg QOD. Admission vital stable. BNP 319. EKG shows sinus rhythm rate 79 QTc 457. On exam, 2/6 systolic murmur increased on inspiration as well as decreased lung sounds and distended abdomen. No edema. CXR shows moderate enlargement cardiac contour. CTAP shows prominent pericardial effusion of 26 mm, moderate vascular congestion, small bilateral pleural effusions, atelectasis versus pneumonia left base, suspicious for edema. Hepatocellular disease, gastritis pattern, gallbladder wall appears slightly thickened, mild free fluid in the abdomen likely related to peritoneal dialysis catheter. TTE 01/17/25 shows normal LV size and wall thickness. There is grade I diastolic dysfunction. Estimated EF at 50-55%. Normal RV size and function. RVSP appears to be in the normal range. Trace TR and MR. Minimal aortic valve sclerosis without stenosis. Large circumferential pericardial effusion that appears to be loculated with significant septae noted along with the fibrinous exudate on the ventricular veloz indicating chronic effusion. No RV diastolic collapse or any RA inversion. No significant respiratory variation in the tricuspid inflow velocities except for the mitral inflow. IVC dilated with less than 50% collapse with inspiration. There is no clear evidence of cardiac tamponade. Likely 2/2 fluid overload from inadequate peritoneal fluid removal with new recently changed PD regimen vs heart failure exacerbation. Patient follows senior peoplesoft developer Dr. Gonsales in [place], followed up 3 weeks ago for echo results which he was told was fine . Plan: ?TTE showed approximately 30 mm pericardial effusion with fibrotic adhesions, indicating likely chronic effusion. No right ventricular diastolic dysfunction or swinging heart sign noted however does have mild respiratory variation in flow velocity across mitral valve. Does not meet criteria for cardiac tamponade, which does not make him an ideal candidate for pleural drainage given risks versus benefits. ?Based on chronicity of effusion, patient will likely benefit more from starting hemodialysis to remove excess fluid at this time. ?Recommend consulting nephrology for insertion of hemodialysis catheter ?Resume home Bumex 2mg daily and metolaxone #Normocytic anemia, chronic Per son, patient receives iron infusions bimonthly at dialysis center and takes iron supplements 325 QD. WBC 12.2 and H&H 7.3/21.3. Anemia likely secondary to chronic disease on dialysis, low suspicion for active bleeding as patient. Denies any melena, hematochezia or coffee-ground emesis. 01/18/2025?hemoglobin dropped to 7.0. No sign of acute bleed. S/p 2 units pRBC. ?Defer anemia workup to primary team. #IDDM2 #HLD Per pharmacy review, patient has been prescribed insulin and is taking atorvastatin 40 mg qhs. On admission glucose 267. A1c 7.5. Lipid panel: Trig 99, total cholesterol 104, LDL 51, HDL 33. TSH elevated 4.88, T4 1.22. ASCVD score: Patient is above age 75 however this regarding age, would recommend to continue high intensity statin Plan: ?Insulin management per primary team ?Continue atorvastatin 40 mg nightly #HTN Has history of hypertension however as of late, patient has been hypotensive, likely secondary to volume status changes. Home medications include hydralazine 50 mg TID, carvedilol 6.25 mg BID, nifedipine ER 60 mg QD. Plan: - Resume all home antihypertensives as above #Hx alcohol abuse Used to drink 6 pack beers per day during his youth for 25 years, stopped 3 years ago when started on dialysis. #Leukocytosis, likely reactive #Hyponatremia #Hypothyroidism #GERD #Depression ?Management per primary team Thank you for your consultation, please do not hesitate to reach out if you have any question or concern Patient plan of care was discussed with the attending physician, Dr. Fajardo. Lucy Santana, PGY-1 Attending Provider Attestation/Addendum I have personally seen and examined the patient separately on the above date of service and discussed the plan of care with the resident. I reviewed the resident Dr. Lucy Santana consultation progress note and agree with the resident findings and plan in the note above and have also edited the documentation to reflect my findings and plan. Dr. Amador lean manufacturing leader called me today regarding the patient and we discussed about his fluid overloaded state with the bilateral pleural effusions, fluid in the abdomen along with the large pericardial effusion. It appears that patient has not been diuresing well in the recent past and hence the dialysate was changed as per nephrology. Patient is not too keen for starting hemodialysis even previously and also there were issues with transportation and hence the PD was being continued. Unfortunately the peritoneal dialysis is not helping the patient and looks like he has been accumulating more fluid and is being fluid overloaded from previously indicated with a large pericardial effusion with septic. There was also chronic fibrinous exudate noted on the LV, RV veloz indicating the chronic nature of the effusion along with the septae. Ideally not a good candidate to perform pericardiocentesis until the patient is in tamponade. Patient possibly has loculated effusions and we might end up even only doing partial pericardiocentesis. Patient should slowly improve over repeated time with hemodialysis and adequate fluid removal with hemodialysis. Dr. Fisher from nephrology agrees with the plan and she conveyed to us that he will speak to the family regarding starting the hemodialysis. Hemoglobin appears to be stable now at 8.5 and patient did receive 2 units of blood. Not a significant increase as the overall hemoglobin went up only by 1-1.5 g. Hemodynamically stable. Management of rest of the medical conditions as per primary team and other consultants. Thank you for the consult and allowing me to participate in the care of the patient. Cardiology will continue to follow. Julius Fajardo M.D. Interventional Cardiology
[2025-01-20] MEDS: HYDROcodone/APAP 5/325 TABLET 1 TAB PO (10:45)
--- NOTE | 2025-01-20 13:32 | ESPR_ITS ---
<Statement entered by Germán Reed MD - 01/20/25 16:57> Patient was seen and evaluated at bedside this morning. No acute overnight events. Spoke into detail with patient's and patient's son about the need for hemodialysis at this time given that patient did have a significant pleural effusion and that the risk factors for pericardiocentesis were greater than further hemodialysis. Nephrology also stated that they were agreeable to start hemodialysis on the patient to improve the patient's pleural effusion. Ordered a tunneled dialysis catheter after having long discussion with the patient's family including the and the son about the need for hemodialysis at this time given that there was significant risk with pericardiocentesis as well as continuing only with peritoneal dialysis. It was explained to them that even though patient was getting peritoneal dialysis it seem like it was not being efficient as patient's was taking out the fluid prior to the multimedia coordinator needed of the hemodialysis. Therefore he was explained that patient needed a more efficient dialysis and that hemodialysis at this time would be appropriate. Tunneled dialysis catheter was placed. Will transition to oral p.o. amiodarone 200 twice daily. Still pending EGD prior to discharge. I have reviewed the note and agree with the resident's assessment & plan with exceptions as below. I have personally reviewed labs, imaging, home meds/prior records, examined the patient, formulated and discussed management plan with my attending Case disclosed with attending Dr. Daly Reed PGY2 Disclaimer: Even though this this note was dictated by speech recognition and even though it was carefully revised there may still be minor errors in television news anchor due to voice recognition software. Documentation for date of: 01/20/25 Subjective Subjective Interval history: No acute overnight events. Patient seen and examined at bedside with . Patient complains of abdominal pain as recently injected ultrafiltrate, however she is concerned as his abdomen is very distended. Abdominal pain improved with [place]. Spoke with and son (on the phone) and they are amenable to hemodialysis at this time. Vitals and labs reviewed, SBP 115-130 off carvedilol, while continuing bumex and metolazone. Telemetry reviewed, overnight 3 minutes of atrial fibrillation rate ~110. Hgb stable post 2 pRBC at 8.5 this AM. Na still low 123, K 4.5, BUN stable elevated 84, Cr 8. Ca 8.4, Phos 5.4, alk phos 214. TDC to be placed by IR with subsequent HD. Continue Bumex and metolazone. Completed amio drip 10/7 AM and started PO amiodarone 200 mg BID. Per GI, possible EGD post discharge given acute drop on Hgb. Exam Vital Signs Temp Pulse Resp BP Pulse Ox O2 Del Method 97.5 F 72 18 123/76 95 Room Air 01/20/25 12:00 01/20/25 12:00 01/20/25 12:00 01/20/25 12:00 01/20/25 12:00 01/20/25 12:00 Narrative Exam GENERAL: AOx3, no acute distress, sitting in chair, frail HEENT: NC/AT, mucous membranes moist, bilateral sclera anicteric CARDIOVASCULAR: regular rate, S1/S2 present, 2/6 systolic murmur PULMONARY: diminished breath sounds bilaterally, no rales/rhonchi/wheezes ABDOMINAL: soft, distended, no rebound/guarding, bowel sounds present, PD cath present and covered to L of umbilicus, mild epigastric tendereness EXTREMITIES: no peripheral edema SKIN: warm and dry, intact, no rashes NEURO: CN II-XII grossly intact, no focal deficits, alert, following commands Objective Labs 01/20/25 04:26 01/20/25 04:26 Labs: Laboratory Results - last 24 hr 01/17/25 01/19/25 01/20/25 18:48 16:43 04:26 WBC 12.1 H RBC 2.60 L Hgb 8.0 L 8.5 L Hct 22.9 L 24.2 L MCV 93 MCH 32.7 MCHC 35.1 RDW Std Deviation 47.7 H Plt Count 230 Neut % (Auto) 83 H Lymph % (Auto) 7 L [place] % (Auto) 9 Eos % (Auto) 0 Baso % (Auto) 0 Neut # (Auto) 10.1 H Lymph # (Auto) 0.8 L [place] # (Auto) 1.0 H Eos # (Auto) 0.0 Baso # (Auto) 0.0 Immature Gran # (Auto) 0.14 H Absolute Nucleated RBC 0.03 H Immature Gran % 1 H Nucleated RBC % 0 Sodium 123 L Potassium 4.5 Chloride 84 L Carbon Dioxide 21.0 Anion Gap 18 H BUN 87 H Creatinine 8.0 H* D Estim Creat Clear Calc 6.9 L eGFR 6 L* BUN/Creatinine Ratio 11 L Glucose 170 H Calculated Osmolality 278 Calcium 8.0 L Corrected Calcium 8.4 L Phosphorus 5.4 H Magnesium 2.5 Total Bilirubin < 0.2 L AST 23 ALT 34 Alkaline Phosphatase 214 H D Total Protein 6.1 Albumin 3.5 Globulin 2.6 Albumin/Globulin Ratio 1.3 Crossmatch See Detail Quality Measures Quality Measures none Advance care planning discussed with:: patient Assessment & Plan Assessment Current Active Medications: Generic Name Dose Route Start Last Admin Trade Name Freq PRN Reason Stop Dose Admin Acetaminophen 650 mg 01/17/25 18:39 Acetaminophen 325 Mg Tablet PO 02/16/25 18:38 Q6H PRN Fever >100.4 or pain Protocol Hydrocodone Bitart/Acetaminophen 1 tab 01/18/25 06:02 01/20/25 10:45 Hydrocodone/Apap 5/325 Tablet PO 01/22/25 06:01 1 tab Q6H PRN Administration PAIN SCALE 4-10(Mod-Sev Atorvastatin Calcium 40 mg 01/17/25 21:00 01/19/25 20:06 Atorvastatin Calcium 20 Mg Tablet PO 02/16/25 20:59 40 mg HS JAIRO Administration Bumetanide 2 mg 01/17/25 21:00 01/20/25 08:02 Bumetanide 0.5 Mg Tablet PO 02/16/25 20:59 2 mg BID JAIRO Administration Calcitriol 0.25 mcg 01/17/25 19:30 01/19/25 20:06 Calcitriol 0.25 Mcg Capsule PO 02/16/25 19:29 0.25 mcg UD JAIRO Administration Calcium Acetate 667 mg 01/19/25 12:00 01/20/25 11:45 Calcium Acetate 667 Mg Tablet PO 02/18/25 11:59 667 mg TIDWM JAIRO Administration Carvedilol 6.25 mg 01/17/25 21:00 01/19/25 08:49 Carvedilol 3.125 Mg Tablet PO 02/16/25 20:59 Not Given On Hold: 01/19/25 16:51 BID JAIRO Dextrose 25 ml 01/17/25 20:08 Dextrose 50%-Water Inj 50 Ml Syringe IV 02/16/25 20:07 Q15MIN PRN BG 50-70 responsive npo pt Dextrose 50 ml 01/17/25 20:08 Dextrose 50%-Water Inj 50 Ml Syringe IV 02/16/25 20:07 Q15MIN PRN BG <50 OR BG <70 & pt unresponsive Fluoxetine HCl 20 mg 01/18/25 09:00 01/20/25 08:02 Fluoxetine Hcl 10 Mg Capsule PO 02/17/25 08:59 20 mg QDAY JAIRO Administration Glucagon 1 mg 01/17/25 20:08 Glucagon Inj 1 Mg Vial IM Q15MIN PRN BG <70, and no IV access Insulin Degludec 20 unit 01/19/25 09:00 01/20/25 08:11 Insulin Degludec 5 Unit/0.05 Ml (Per 5 Units) SC 02/18/25 08:59 20 unit QDAY JAIRO Administration Insulin Human Lispro 0 unit 01/18/25 17:00 01/20/25 11:39 Insulin Lispro (Admelog) 1 Unit/0.01 Ml Unit SC 02/17/25 16:59 3 unit ACHS JAIRO Administration Protocol Levothyroxine Sodium 50 mcg 01/18/25 06:00 01/20/25 05:09 Levothyroxine Sodium 25 Mcg Tablet PO 02/17/25 05:59 50 mcg ACBR JAIRO Administration Metolazone 2.5 mg 01/18/25 16:15 01/18/25 17:38 Metolazone 2.5 Mg Tablet PO 02/17/25 16:14 2.5 mg Q48H JAIRO Administration Ondansetron HCl 4 mg 01/17/25 18:39 01/20/25 08:08 Ondansetron Inj 2 Mg/Ml Inj 2 Ml IVP 02/16/25 18:38 4 mg Q6H PRN Administration NAUSEA OR VOMITING Protocol Pantoprazole Sodium 40 mg 01/18/25 09:00 01/20/25 08:04 Pantoprazole 40 Mg Tablet PO 02/17/25 08:59 40 mg QAM JAIRO Administration Plan Ruperto Love 79M pmhx significant for ESRD on home PD (since 2021) 2/2 diabetic nephropathy, IDDM2, HTN, TATY, hx of SVT on carvedilol, and hypothyroidism who presents with epigastric abdominal pain that occurs during PD and SOB, admitted for volume overload and pericardial effusion. #Pericardial effusion, chronic #Volume overload #ESRD on peritoneal dialysis (2021) 2/2 diabetic nephropathy #Shortness of breath Presents with SOB and fatigue. Has been on PD since 2021 for diabetic nephropathy. At home, patient is on bumetanide 2 mg BID and metolaxone 2.5 mg QOD. Admission BNP 319. EKG shows sinus rhythm rate 79 QTc 457. CXR shows moderate enlargement cardiac contour. CTAP shows prominent pericardial effusion of 26 mm, moderate vascular congestion, small bilateral pleural effusions, atelectasis versus pneumonia left base, suspicious for edema. Hepatocellular disease, gastritis pattern, gallbladder wall appears slightly thickened, mild free fluid in the abdomen likely related to peritoneal dialysis catheter. Likely 2/2 fluid overload from inadequate peritoneal fluid removal with new recently changed PD regimen vs heart failure exacerbation vs PNA vs atelectasis. Low suspicion for hemopericardium as patient's vitals and presentation are stable. s/p EPO x1 01/18 TTE: Normal LV size and wall thickness. There is grade I diastolic dysfunction. Estimated EF at 50-55%. Normal RV size and function. RVSP appears to be in the normal range Trace TR and MR. Minimal aortic valve sclerosis without stenosis. Large circumferential pericardial effusion that appears to be loculated with significant septae noted along with the fibrinous exudate on the ventricular veloz indicating chronic effusion. No RV diastolic collapse or any RA inversion.. No significant respiratory variation in the tricuspid inflow velocities except for the mitral inflow. IVC dilated with less than 50% collapse with inspiration. There is no clear evidence of cardiac tamponade. Peritoneal dialysis: 01/17 (600cc UF), 01/18 (by , only ~500cc fluid removed no filtrate), 01/19 (by , 1.5L filtrate administered), 01/20 (by , 2L filtrate administered) Plan: - Dr. Amador consulted, recs appreciated: TDC to be placed by IR, subsequent HD, anticipate 2-3 months of HD to remove pericardial effusion - Cardiology consulted, recs appreciated: No need for urgent paracentesis at this time due to no evidence of cardiac tamponade, patient also has possibility of loculated pericardial effusion given septae noted, as pericardial fluid likely secondary to inadequate fluid removal from peritoneal dialysis, recommend HD - Fluid restrictions 1.2L - Continue calcium acetate 667 mg TID - Continue home PO bumetanide 2 mg BID, consider IV if inadequate diuresis - Continue home metolazone 2.5 mg QOD #Atrial fibrillation, RVR, resolved #History of SVT Night of 01/18, patient developed 2 episodes of afib RVR at [id number] with rates 130-170 with intermittent atrial fibrillation with controlled rate in between. Overnight, patient received Mg and dilt without resolution. Amiodarone drip started with conversion of atrial fibraillation to sinus rhythm. Per , patient does not have a diagnosed history of atrial fibrillation however monitor reads sent entirely up to 170. s/p amiodarone drip and patient currently in sinus rhythm CHADSVASC 4, 4.8% stroke risk/year HASBLED 2, moderate risk for bleeding Plan: - Cardiology consulted, recs appreciated: no need for heparin at this time due to low Hgb - Start PO amiodarone 200 mg BID - Carvedilol held due to soft BP - Telemetry for monitoring - Keep K>4 and Mg>2 at all times #Hyponatremia Admission Na 124. Likely 2/2 fluid overload. Plan: - Fluid restriction 1.2L as above - Caution with bumetanide and metolazone - CTM Na #Normocytic anemia s/p 2 pRBC #Leukocytosis Per son, patient has been received iron infusions bimonthly at dialysis center and takes iron supplements 325 QD. WBC 12.2 and H&H 7.3/21.3. FOBT negative. Iron low 36, TIBC 230, iron sat 15, ferritin 1077. Anemia likely secondary to chronic disease on dialysis, low suspicion for active bleeding as patient denies any melena, hematochezia or coffee-ground emesis. Leukocytosis likely reactive, no clear source of infection at this time with peritoneal fluid cytology negative with no tenderness to abdominal palpation. s/p 1 pRBC /5 and 1 pRBC 10/6 Plan: - CTM CBC - Consider abx if patient becomes symptomatic or leukocytosis worsens - Transfuse if Hgb <7 - GI consulted, recs appreciated: Plan for EGD following resolution of patient's shortness of breath and pericardial effusion #IDDM2 #Hyperglycemia #HLD Per pharmacy review, patient has been prescribed insulin and is taking atorvastatin 40 mg qhs. On admission glucose 267. 01/2025 A1c 7.5. Triglycerides 99. Cholesterol 104. LDL 51, HDL 33. Plan: - Degludac 20u started with SSI step 2 #HTN Per history. However recently patient has been hypotensive secondary to volume overload. At home patient is on hydralazine 50 mg TID, carvedilol 6.25 mg BID, nifedipine ER 90 mg QD, minoxidil 5 mg BID, Plan: - Hold all home antihypertensives #Hypothyroidism TSH 4.88 and T4 1.22. Plan: - Continue home levothyroxine 50 mcg QD #Depression Plan: - Continue home fluoxetine 20 mg QD Hospital management: Lines: PIV, PD cath L of umbilicus Diet: Cardiac 1.2L fluid restriction Bowel: not indicated GI prophylaxis: PO pantoprazole 40 mg QD DVT prophylaxis: SCDs iso severe anemia Disposition: tele for PD and evaluation of pericardial effusion CODE STATUS: FULL CODE Plan of care discussed with attending Dr. Kauffman, and PGY-2 Dr. Foss. Hortencia Santana DO PGY-1 Internal Medicine Attending Provider Attestation/Addendum I have discussed and was present for the essential components of the history, physical examination, diagnosis, and treatment plan with the resident. I agree with the patient's care as documented by the resident and amended herein by me. Valentín Kauffman DO. Although this document has been carefully reviewed, there may still be some phonetic and other typographical errors. These errors are purely grammatical due to imperfections in the software program and should not be construed in any way to compromise the substance of the patient's medical care during this visit. Patient seen and evaluated this AM. In Short, patient is a 79M pmhx significant for ESRD on home PD (since 2021) 2/2 diabetic nephropathy, IDDM2, HTN, TATY, hx of SVT on carvedilol, and hypothyroidism who presents with epigastric abdominal pain that occurs during PD and SOB, admitted for volume overload and pericardial effusion. No acute events overnight, vital signs stable, patient afebrile, I/os 1637/0 mL overnight, significant labs included WBC of 12.1, hemoglobin 8.5 which is stable, sodium 123, potassium 4.5, chloride 84, anion gap 18, BUN 87, creatinine 8, corrected calcium 8.4 alk phos 214. At this point I do believe the patient would benefit for hemodialysis, we did speak with the family today and they are in agreement for dialysis catheter placement which has been ordered. Will then start the patient on hemodialysis at least on a temporary basis until we can get some fluid removed and his pericardial effusion improves. Cardiology consulted, agrees with continuing amiodarone 200 mg p.o. twice daily holding heparin for now, will also continue Bumex 2 mg p.o. twice daily and metolazone 2.5 mg p.o. every 48 hours. Patient's Coreg has been held due to soft blood pressures pending further cardiology recommendations. Nephrology also consulted for hemodialysis, appreciate recommendations.
[2025-01-20] MEDS: HEPARIN SOD LOCK SYR 100 UNIT/ML 500 UNIT STFIELD (14:15)
[2025-01-20] MEDS: fentaNYL CIT INJ 50 mCg/ML AMP 2ML IVP (14:30)
[2025-01-20] MEDS: LIDOCAINE INJ PF 1% 5 ML VIAL 6 ML INFL (14:31)
[2025-01-20] MEDS: HEPARIN SOD INJ 1000 UNIT/ML VIAL 4100 UNIT INDWELLCAT (14:55)
[2025-01-20] MEDS: AMIODARONE HCL 200 MG TABLET PO ×2 (15:10→15:11)
--- NOTE | 2025-01-20 15:31 | PC.SS ---
rounding note: Patient on peritoneal dialysis transitioning to HD for the next 3 days. 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
[2025-01-20] MEDS: ALBUMIN HUMAN-KJDA 25% IVPB 25 GM/100 ML BTL IV (16:31)
--- NOTE | 2025-01-20 16:34 | PC.NURSE ---
BP TRENDING DOWN, PT DENIES ALL S/S OF HYPOTENSION, UF GOAL LOWERED TO 1.5L TOLERATED. WILL ADMIN PRN ALBUMIN 25/100ML AND CONT. TO MONITOR
--- NOTE | 2025-01-20 17:46 | PC.NURSE ---
PT NOTED TO BE IN AFIB RVR PER THIS OR ASSISTANT, VENTILATING ENGINEER AMY AND MD PUENTES, PT REMAINS ASYMPTOMATIC AND DENIES ALL C/O CHEST PAIN, PRESSURE, BURDICK, SOB OR DISCOMFORT. MD SANTAMARIA AND DHAVAL NOTIFIED. DHAVAL AT BEDSIDE W/ ORDER TO CONTINUE TX LONF RVR DOES NOT INCREASE ANS SUSTAIN <170. MD SANTAMARIA AND VENTILATING ENGINEER AMY NOTIFIED OF ORDER. WILL CARRY OUT ORDER AND CONT. TO MONITOR
[2025-01-20] MEDS: ATORVASTATIN CALCIUM 20 MG TABLET 40 MG PO (20:11)
[2025-01-20 20:20] LABS: Albumin, Serum 4.2 gm/dL (3.4-4.8); Anion Gap 14 (7-16); BUN/Creatinine Ratio 8 Ratio (12-20); Blood Urea Nitrogen 44 mg/dL (9-23); Calcium 9.1 mg/dL (8.3-10.6); Calcium (Corrected) 9.1 mg/dL (8.5-10.1); Carbon Dioxide 23.2 mMol/L (20.0-31.0); Chloride 90 mMol/L (98-107); Creatinine (Component) 5.3 mg/dL (0.6-1.3); Estimated Creatinine Clearance 10.4 mL/min (>60); Glucose 104 mg/dL (74-106); Osmolality,Calculated 266 (275-295); Phosphorous 4.3 mg/dL (2.4-5.1); Potassium 3.7 mMol/L (3.4-5.1); Sodium 127 mMol/L (136-145); eGFR 10 See Note
--- NOTE | 2025-01-20 21:14 | PD.IMPROG ---
Documentation for date of: 01/20/25 Subjective Subjective Interval history: 2 episodes of atrial fibrillation last night according to cardiology notes the Pericardial effusion is chronic does not meet the criteria for tamponade But because of the cardiac arrhythmias and pericardial effusion issues I will hold off doing an endoscopy at this point till her cardiac issues are better under control Exam Vital Signs Temp Pulse Resp BP Pulse Ox O2 Del Method O2 Flow Rate 96.7 F L 88 16 141/90 H 98 Room Air 3 01/20/25 20:00 01/20/25 20:12 01/20/25 20:00 01/20/25 20:12 01/20/25 20:00 01/20/25 20:00 01/20/25 14:40 Objective Labs 01/20/25 04:26 01/20/25 19:52 Labs: Laboratory Results - last 24 hr 01/20/25 01/20/25 04:26 19:52 WBC 12.1 H RBC 2.60 L Hgb 8.5 L Hct 24.2 L MCV 93 MCH 32.7 MCHC 35.1 RDW Std Deviation 47.7 H Plt Count 230 Neut % (Auto) 83 H Lymph % (Auto) 7 L [place] % (Auto) 9 Eos % (Auto) 0 Baso % (Auto) 0 Neut # (Auto) 10.1 H Lymph # (Auto) 0.8 L [place] # (Auto) 1.0 H Eos # (Auto) 0.0 Baso # (Auto) 0.0 Immature Gran # (Auto) 0.14 H Absolute Nucleated RBC 0.03 H Immature Gran % 1 H Nucleated RBC % 0 Sodium 123 L 127 L Potassium 4.5 3.7 D Chloride 84 L 90 L Carbon Dioxide 21.0 23.2 Anion Gap 18 H 14 BUN 87 H 44 H Creatinine 8.0 H* D 5.3 H* D Estim Creat Clear Calc 6.9 L 10.4 L eGFR 6 L* 10 L* BUN/Creatinine Ratio 11 L 8 L Glucose 170 H 104 D Calculated Osmolality 278 266 L Calcium 8.0 L 9.1 Corrected Calcium 8.4 L 9.1 Phosphorus 5.4 H 4.3 Magnesium 2.5 Total Bilirubin < 0.2 L AST 23 ALT 34 Alkaline Phosphatase 214 H D Total Protein 6.1 Albumin 3.5 4.2 D Globulin 2.6 Albumin/Globulin Ratio 1.3 Impressions Impression: Anemia blood loss Atrial fibrillation with RVR currently rate controlled Pericardial effusion End-stage renal disease on dialysis Continue current management Assessment & Plan A&P Narrative # Epigastric abdominal pain # Nausea # Anemia multifactorial already getting iron infusions twice a month at the dialysis center Other medical problems include Suggestions Once patient's shortness of breath improves and pericardial effusion is taking care of upper endoscopy prior to discharge Other medical problems include Diabetes mellitus type 1 Essential hypertension SVT on carvedilol Peritoneal dialysis Pericardial effusion Thank you very much for the opportunity to participate in care of this patient Time Spent With Patient Time: Total time spent is greater than 50% in coordination of care (as documented) at patient's floor/unit and/or counseling patient:
[2025-01-21] VITALS (29 sets, daily range): BP systolic 104–155; BP diastolic 48–90; PULSE 77–96; RESP 16–24; TEMP 36–36.9; O2SAT 95–98; BMI 26.4; BMI 26.3
[2025-01-21] MEDS: LEVOTHYROXINE SODIUM 25 MCG TABLET 50 MCG PO (05:46)
[2025-01-21 05:59] LABS: Basophils # (Auto) 0.0 Thou/mm3 (0.0-0.2); Basophils % (Auto) 0 % (0-2.5); Eosinophils # (Auto) 0.0 Thou/mm3 (0.0-0.5); Eosinophils % (Auto) 0 % (0-10); Hematocrit 22.5 % (41.0-53.0); Immature Granulocytes Auto 0.09 Thou/mm3 (0.00-0.00); Lymphocytes # (Auto) 0.4 Thou/mm3 (1.0-4.8); Lymphocytes % (Auto) 3 % (10-50); Mean Corpuscular HGB Conc 34.7 g/dl (31.0-37.0); Mean Corpuscular Hemoglobin 32.5 pg (25.0-35.0); Mean Corpuscular Volume 94 fL (80-100); Monocytes # (Auto) 0.9 Thou/mm3 (0.0-0.8); Monocytes % (Auto) 7 % (0-12); Neutrophils # (Auto) 11.8 Thou/mm3 (1.8-7.7); Neutrophils % (Auto) 89 % (37-80); Nucleated Red Blood Cell # 0.03 Thou/mm3 (0.00-0.00); Nucleated Red Blood Cell % 0 /100 WBC (0); Platelet Count 237 Thou/mm3 (140-440); RDW Standard Deviation 48.6 fL (35.1-43.9); Red Blood Count 2.40 Miln/mm3 (4.50-5.90); White Blood Count 13.2 Thou/mm3 (3.8-10.6)
[2025-01-21 06:11] LABS: Hemoglobin 7.8 g/dL (13.5-16.0)
[2025-01-21 06:24] LABS: Alanine Aminotransferase 29 U/L (10-49); Albumin, Serum 3.8 gm/dL (3.4-4.8); Albumin/Globulin Ratio 1.6 (1.2-2.2); Alkaline Phosphatase 164 U/L (46-116); Anion Gap 17 (7-16); Aspartate Amino Transferase 17 U/L (0-34); BUN/Creatinine Ratio 10 Ratio (12-20); Bilirubin,Total 0.2 mg/dL (0.3-1.2); Blood Urea Nitrogen 62 mg/dL (9-23); Calcium 8.4 mg/dL (8.3-10.6); Calcium (Corrected) 8.6 mg/dL (8.5-10.1); Carbon Dioxide 22.0 mMol/L (20.0-31.0); Chloride 89 mMol/L (98-107); Creatinine (Component) 6.2 mg/dL (0.6-1.3); Estimated Creatinine Clearance 8.9 mL/min (>60); Globulin 2.4 gm/dL (2.3-3.5); Glucose 197 mg/dL (74-106); Magnesium 2.3 mg/dL (1.6-2.6); Osmolality,Calculated 279 (275-295); Phosphorous 5.3 mg/dL (2.4-5.1); Potassium 3.9 mMol/L (3.4-5.1); Sodium 128 mMol/L (136-145); Total Protein 6.2 gm/dL (5.7-8.2); eGFR 9 See Note
[2025-01-21] MEDS: INSULIN LISPRO (AdmeLOG) 1 UNIT/0.01 ML UNIT SC ×4 (07:59→20:24)
[2025-01-21] MEDS: INSULIN DEGLUDEC 5 UNIT/0.05 ML (PER 5 UNITS) 20 UNIT SC (07:59)
--- NOTE | 2025-01-21 09:47 | ESPR_ITS ---
Documentation for date of: 01/21/25 Senior resident attestation: Patient evaluated and examined at the bedside, plan of care discussed with rest of the team including my attending physician, except as noted. Mr. Sebas Patel is a 79-year-old male who presented to the ED complaining of shortness of breath and abdominal discomfort during peritoneal dialysis. Patient has a history of ESRD on peritoneal dialysis since 2021, history of diabetes mellitus, hypertension, history of SVT on carvedilol. #Pericardial effusion?CT scan imaging showed prominent pericardial effusion 27 mm, bush hog operator Dr. Fajardo was consulted and followed the patient, echocardiogram negative for signs of tamponade. Per cardiology patient will benefit from hemodialysis as peritoneal dialysis has been ineffective. Also patient is unable to tolerate PD, feels short of breath even after 3 to 4 hours and PD has to be discontinued. Coloring Checker Dr. Hanna was consulted, spoke to cardiology, hemodialysis was offered to the family. Patient's family also agreed to proceeding with hemodialysis, tunneled dialysis PermCath was ordered and hemodialysis initiated. Currently tolerating HD well. We attempted to reach Dr. De Leon earlier but [place] was [place] location unable to reach. Patient will need outpatient hemodialysis chair and follow-up with his child protective services social worker Dr. De Leon. #ESRD on peritoneal dialysis?on-call child protective services social worker Dr. Amador is consulted, initially attempted peritoneal dialysis but patient unable to tolerate PD, now started hemodialysis, details noted above. #Hypertension #History of diabetes mellitus Quresh PGY3 Subjective Subjective Interval history: Patient was seen and examined at bedside today. No acute events overnight. Has received his dialysis catheter, and went for his first session today, with 2.9L removed per report. Exam Vital Signs Temp Pulse Resp BP Pulse Ox O2 Del Method O2 Flow Rate 98.5 F 78 18 129/53 L 96 Room Air 3 01/21/25 08:28 01/21/25 09:45 01/21/25 08:28 01/21/25 09:45 01/21/25 08:28 01/21/25 08:00 01/20/25 14:40 Narrative Exam General: A/O x3, no acute distress, well-nourished, well-developed, dialysis catheter present Eyes: PERRL, EOMI. Anicteric, vision grossly intact. Ears: No ear pain, no ear discharge, Hearing grossly intact. Nose: No nasal discharge. Mouth/Throat: Moist mucous membranes, no redness, no lesions. Neck: Neck supple, non-tender, no cervical lymphadenopathy Lungs: Clear bilaterally to auscultation and percussion, No accessory muscle use. Cardio: Normal S1/S2, regular rhythm, no murmurs, no JVD or carotid bruits. Abdomen: Soft, mildly tender and distended, no palpable masses, peristalsis present, peritoneal dialysis catheter present Extremities: Symmetrical, no significant deformities, no peripheral edema , non-tender, peripheral pulses presents. Skin: No rashes, no lesions, warm to touch. Neuro: No focal neurological deficits. Psych: Cooperative, appropriate mood and effect. Objective Labs 01/22/25 04:33 01/22/25 04:33 Labs: Laboratory Results - last 24 hr 01/20/25 01/21/25 01/21/25 19:52 05:04 07:00 WBC 13.2 H RBC 2.40 L Hgb 7.8 L Hct 22.5 L MCV 94 MCH 32.5 MCHC 34.7 RDW Std Deviation 48.6 H Plt Count 237 Neut % (Auto) 89 H Lymph % (Auto) 3 L Garvin % (Auto) 7 Eos % (Auto) 0 Baso % (Auto) 0 Neut # (Auto) 11.8 H Lymph # (Auto) 0.4 L Garvin # (Auto) 0.9 H Eos # (Auto) 0.0 Baso # (Auto) 0.0 Immature Gran # (Auto) 0.09 H Absolute Nucleated RBC 0.03 H Immature Gran % 1 H Nucleated RBC % 0 Sodium 127 L 128 L Potassium 3.7 D 3.9 Chloride 90 L 89 L Carbon Dioxide 23.2 22.0 Anion Gap 14 17 H BUN 44 H 62 H Creatinine 5.3 H* D 6.2 H* D Estim Creat Clear Calc 10.4 L 8.9 L eGFR 10 L* 9 L* BUN/Creatinine Ratio 8 L 10 L Glucose 104 D 197 H D Calculated Osmolality 266 L 279 Calcium 9.1 8.4 Corrected Calcium 9.1 8.6 Phosphorus 4.3 5.3 H Magnesium 2.3 Total Bilirubin 0.2 L AST 17 ALT 29 Alkaline Phosphatase 164 H D Total Protein 6.2 Albumin 4.2 D 3.8 Globulin 2.4 Albumin/Globulin Ratio 1.6 Blood Type O Positive Antibody Screen NEGATIVE Crossmatch See Detail Blood Bank Wristband ID Yes Quality Measures Quality Measures none Advance care planning discussed with:: other Assessment & Plan Assessment Current Active Medications: Generic Name Dose Route Start Last Admin Trade Name Freq PRN Reason Stop Dose Admin Acetaminophen 650 mg 01/17/25 18:39 Acetaminophen 325 Mg Tablet PO 02/16/25 18:38 Q6H PRN Fever >100.4 or pain Protocol Hydrocodone Bitart/Acetaminophen 1 tab 01/18/25 06:02 01/20/25 10:45 Hydrocodone/Apap 5/325 Tablet PO 01/22/25 06:01 1 tab Q6H PRN Administration PAIN SCALE 4-10(Mod-Sev Amiodarone HCl 200 mg 01/20/25 14:40 01/20/25 15:11 Amiodarone Hcl 200 Mg Tablet PO 02/19/25 14:39 200 mg BID JAIRO Administration Atorvastatin Calcium 40 mg 01/17/25 21:00 01/20/25 20:11 Atorvastatin Calcium 20 Mg Tablet PO 02/16/25 20:59 40 mg HS JAIRO Administration Bumetanide 2 mg 01/17/25 21:00 01/20/25 20:12 Bumetanide 0.5 Mg Tablet PO 02/16/25 20:59 2 mg BID JAIRO Administration Calcitriol 0.25 mcg 01/17/25 19:30 01/20/25 20:11 Calcitriol 0.25 Mcg Capsule PO 02/16/25 19:29 0.25 mcg UD JAIRO Administration Calcium Acetate 667 mg 01/19/25 12:00 01/20/25 18:46 Calcium Acetate 667 Mg Tablet PO 02/18/25 11:59 667 mg TIDWM JAIRO Administration Carvedilol 6.25 mg 01/17/25 21:00 01/19/25 08:49 Carvedilol 3.125 Mg Tablet PO 02/16/25 20:59 Not Given On Hold: 01/19/25 16:51 BID JAIRO Dextrose 25 ml 01/17/25 20:08 Dextrose 50%-Water Inj 50 Ml Syringe IV 02/16/25 20:07 Q15MIN PRN BG 50-70 responsive npo pt Dextrose 50 ml 01/17/25 20:08 Dextrose 50%-Water Inj 50 Ml Syringe IV 02/16/25 20:07 Q15MIN PRN BG <50 OR BG <70 & pt unresponsive Fluoxetine HCl 20 mg 01/18/25 09:00 01/20/25 08:02 Fluoxetine Hcl 10 Mg Capsule PO 02/17/25 08:59 20 mg QDAY JAIRO Administration Glucagon 1 mg 01/17/25 20:08 Glucagon Inj 1 Mg Vial IM Q15MIN PRN BG <70, and no IV access Heparin Sodium (Porcine) 4,100 unit 01/20/25 17:08 Heparin Sod Inj 1000 Unit/Ml Vial 10 Ml INDWELLCAT 02/03/25 17:07 PRN PRN DIALYSIS Albumin Human 25 gm in 100 mls @ 100 mls/min 01/20/25 14:32 01/20/25 16:31 Albuminex 25% Ivpb IV 100 mls/min PRN PRN Administration DIALYSIS Insulin Degludec 20 unit 01/19/25 09:00 01/21/25 07:59 Insulin Degludec 5 Unit/0.05 Ml (Per 5 Units) SC 02/18/25 08:59 20 unit QDAY JAIRO Administration Insulin Human Lispro 0 unit 01/18/25 17:00 01/21/25 07:59 Insulin Lispro (Admelog) 1 Unit/0.01 Ml Unit SC 02/17/25 16:59 4 unit ACHS JAIRO Administration Protocol Levothyroxine Sodium 50 mcg 01/18/25 06:00 01/21/25 05:46 Levothyroxine Sodium 25 Mcg Tablet PO 02/17/25 05:59 50 mcg ACBR JAIRO Administration Metolazone 2.5 mg 01/18/25 16:15 01/20/25 15:11 Metolazone 2.5 Mg Tablet PO 02/17/25 16:14 2.5 mg Q48H JAIRO Administration Ondansetron HCl 4 mg 01/17/25 18:39 01/20/25 08:08 Ondansetron Inj 2 Mg/Ml Inj 2 Ml IVP 02/16/25 18:38 4 mg Q6H PRN Administration NAUSEA OR VOMITING Protocol Pantoprazole Sodium 40 mg 01/18/25 09:00 01/20/25 08:04 Pantoprazole 40 Mg Tablet PO 02/17/25 08:59 40 mg QAM JAIRO Administration Plan Patient is a 79M with PMH significant for ESRD on peritoneal dialysis (since 2021), diabetic nephropathy, T2DM, HTN, TATY, hx of SVT on carvedilol, and hypothyroidism who presents with epigastric abdominal pain that occurs during PD and SOB, admitted for volume overload and pericardial effusion. #Pericardial effusion, chronic #Volume overload #ESRD on peritoneal dialysis (2021) 2/2 diabetic nephropathy #Shortness of breath Presents with SOB and fatigue. Has been on PD since 2021 for diabetic nephropathy. At home, patient is on bumetanide 2 mg BID and metolazone 2.5 mg QOD. Admission BNP 319 (01-17-25). EKG shows sinus rhythm rate 79 QTc 457. CXR shows moderate enlargement cardiac contour. CTAP shows prominent pericardial effusion of 26 mm, moderate vascular congestion, small bilateral pleural effusions, atelectasis versus pneumonia left base, suspicious for edema. Hepatocellular disease, gastritis pattern, gallbladder wall appears slightly thickened, mild free fluid in the abdomen likely related to peritoneal dialysis catheter. Likely from fluid overload from inadequate peritoneal fluid removal with new recently changed PD regimen vs heart failure exacerbation vs PNA vs atelectasis. Low suspicion for hemopericardium as patient's vitals and presentation are stable. s/p EPO x1 01/18 TTE: Normal LV size and wall thickness. There is grade I diastolic dysfunction. Estimated EF at 50-55%. Normal RV size and function. RVSP appears to be in the normal range Trace TR and MR. Minimal aortic valve sclerosis without stenosis. Large circumferential pericardial effusion that appears to be loculated with significant septae noted along with the fibrinous exudate on the ventricular veloz indicating chronic effusion. No RV diastolic collapse or any RA inversion. No significant respiratory variation in the tricuspid inflow velocities except for the mitral inflow. IVC dilated with less than 50% collapse with inspiration. There is no clear evidence of cardiac tamponade. Peritoneal dialysis: 01/17 (600cc UF), 01/18 (by , only ~500cc fluid removed no filtrate), 01/19 (by , 1.5L filtrate administered), 01/20 (by , 2L filtrate administered) Plan: - Tunneled dialysis catheter placed; 2.9L fluid removed by hemodialysis on 01-21-25 - Dr. Amador consulted, recs appreciated: anticipate 2-3 months of hemodialysis to remove pericardial effusion - Cardiology consulted, recs appreciated: No need for urgent paracentesis at this time due to no evidence of cardiac tamponade, patient also has possibility of loculated pericardial effusion given septae noted, as pericardial fluid likely secondary to inadequate fluid removal from peritoneal dialysis, recommend hemodialysis - Fluid restrictions 1.2L - Continue calcium acetate 667 mg TID - Continue home PO bumetanide 2 mg BID, consider IV if inadequate diuresis - Continue home metolazone 2.5 mg QOD #Atrial fibrillation, RVR, resolved #History of SVT Night of 01/18, patient developed 2 episodes of afib RVR at [id number] with rates 130-170 with intermittent atrial fibrillation with controlled rate in between. Overnight, patient received Mg and dilt without resolution. Amiodarone drip started with conversion of atrial fibraillation to sinus rhythm. Per , patient does not have a diagnosed history of atrial fibrillation however monitor reads sent entirely up to 170. s/p amiodarone drip and patient currently in sinus rhythm CHADSVASC 4, 4.8% stroke risk/year HASBLED 2, moderate risk for bleeding Plan: - Cardiology consulted, recs appreciated: no need for heparin at this time due to low Hgb - PO amiodarone 200 mg BID - Carvedilol held - Telemetry for monitoring - Keep K>4 and Mg>2 at all times #Hyponatremia Admission Na 124 (10-4-25). Likely 2/2 fluid overload. Plan: - Fluid restriction 1.2L as above - Caution with bumetanide and metolazone - Trend Na #Normocytic anemia s/p 2 pRBC #Leukocytosis Per son, patient has been received iron infusions bimonthly at dialysis center and takes iron supplements 325 QD. WBC 13.2 and Hgb 7.8 (10-8-25). FOBT negative. Iron low 36, TIBC 230, iron sat 15, ferritin 1077 (01/18/25) Anemia likely secondary to chronic disease on dialysis, low suspicion for active bleeding as patient denies any melena, hematochezia or coffee-ground emesis. Leukocytosis likely reactive, no clear source of infection at this time with peritoneal fluid cytology negative with no tenderness to abdominal palpation. s/p 1 pRBC 10/5 and 1 pRBC 10/6 1 unit pRBCs transfused 01/21 per cardiology recommendations Plan: - Trend CBC - Consider antibiotics if patient becomes symptomatic or leukocytosis worsens - Per cardiology recommendations- transfuse if Hgb <8 - GI consulted, recs appreciated: Plan for EGD following resolution of patient's shortness of breath and pericardial effusion #IDDM2 #Hyperglycemia #HLD Per pharmacy review, patient has been prescribed insulin and is taking atorvastatin 40 mg qhs. On admission glucose 267. 01/2025 A1c 7.5. Triglycerides 99. Cholesterol 104. LDL 51, HDL 33. Glucose 01/21/25- 197 Plan: - Degludac 20 units started with SSI step 3 #HTN Per history. However recently patient has been hypotensive secondary to volume overload. At home patient is on hydralazine 50 mg TID, carvedilol 6.25 mg BID, nifedipine ER 90 mg QD, minoxidil 5 mg BID, Plan: - Hold all home antihypertensives #Hypothyroidism TSH 4.88 and T4 1.22 01-18-25. Plan: - Continue home levothyroxine 50 mcg QD #Depression Plan: - Continue home fluoxetine 20 mg QD Hospital management: Lines: PIV, peritoneal dialysis catheter L of umbilicus Diet: Cardiac 1.2L fluid restriction Bowel: not indicated GI prophylaxis: PO pantoprazole 40 mg QD DVT prophylaxis: SCDs iso severe anemia Disposition: tele for PD and evaluation of pericardial effusion CODE STATUS: FULL CODE This case was discussed with my attending physician, Dr. Kauffman, and senior resident, Dr. Naidu. Baltazar Partida MD-PhD, PGY1 Attending Provider Attestation/Addendum I have discussed and was present for the essential components of the history, physical examination, diagnosis, and treatment plan with the resident. I agree with the patient's care as documented by the resident and amended herein by me. Valentín Kauffman DO. Although this document has been carefully reviewed, there may still be some phonetic and other typographical errors. These errors are purely grammatical due to imperfections in the software program and should not be construed in any way to compromise the substance of the patient's medical care during this visit.
--- NOTE | 2025-01-21 10:21 | ESPR_ITS ---
Documentation for date of: 01/21/25 Subjective Subjective Interval history: Patient was seen and assessed at bedside. Exam Vital Signs Temp Pulse Resp BP Pulse Ox O2 Del Method O2 Flow Rate 98.5 F 82 18 121/74 96 Room Air 3 01/21/25 10:07 01/21/25 10:15 01/21/25 10:07 01/21/25 10:15 01/21/25 08:28 01/21/25 08:00 01/20/25 14:40 Narrative Exam Physical Exam General: Awake and in no acute distress. Conversational and non-toxic appearing. Greenlandic-speaking elderly male. Overweight. HEENT: Normocephalic, atraumatic, mucous membranes moist. Heart: Regular rate and rhythm, normal S1 and S2. 2/6 systolic murmur more pronounced with inspiration, heard best at right second intercostal space. Lungs: Decreased breath sounds in bilateral lower lobes, otherwise clear. Abdomen: Soft, distended, nontender, positive bowel sounds. No guarding or rebound tenderness. Neurologic: Alert and oriented x3, no gross neurological deficit, and patient able to move all 4 extremities. Extremities: No edema. Skin: No rash or ecchymoses. Objective Labs 01/21/25 05:04 01/21/25 05:04 Labs: Laboratory Results - last 24 hr 01/20/25 01/21/25 01/21/25 19:52 05:04 07:00 WBC 13.2 H RBC 2.40 L Hgb 7.8 L Hct 22.5 L MCV 94 MCH 32.5 MCHC 34.7 RDW Std Deviation 48.6 H Plt Count 237 Neut % (Auto) 89 H Lymph % (Auto) 3 L [place] % (Auto) 7 Eos % (Auto) 0 Baso % (Auto) 0 Neut # (Auto) 11.8 H Lymph # (Auto) 0.4 L [place] # (Auto) 0.9 H Eos # (Auto) 0.0 Baso # (Auto) 0.0 Immature Gran # (Auto) 0.09 H Absolute Nucleated RBC 0.03 H Immature Gran % 1 H Nucleated RBC % 0 Sodium 127 L 128 L Potassium 3.7 D 3.9 Chloride 90 L 89 L Carbon Dioxide 23.2 22.0 Anion Gap 14 17 H BUN 44 H 62 H Creatinine 5.3 H* D 6.2 H* D Estim Creat Clear Calc 10.4 L 8.9 L eGFR 10 L* 9 L* BUN/Creatinine Ratio 8 L 10 L Glucose 104 D 197 H D Calculated Osmolality 266 L 279 Calcium 9.1 8.4 Corrected Calcium 9.1 8.6 Phosphorus 4.3 5.3 H Magnesium 2.3 Total Bilirubin 0.2 L AST 17 ALT 29 Alkaline Phosphatase 164 H D Total Protein 6.2 Albumin 4.2 D 3.8 Globulin 2.4 Albumin/Globulin Ratio 1.6 Blood Type O Positive Antibody Screen NEGATIVE Crossmatch See Detail Blood Bank Wristband ID Yes Quality Measures Quality Measures none Advance care planning discussed with:: patient Assessment & Plan Assessment Current Active Medications: Generic Name Dose Route Start Last Admin Trade Name Freq PRN Reason Stop Dose Admin Acetaminophen 650 mg 01/17/25 18:39 Acetaminophen 325 Mg Tablet PO 02/16/25 18:38 Q6H PRN Fever >100.4 or pain Protocol Hydrocodone Bitart/Acetaminophen 1 tab 01/18/25 06:02 01/20/25 10:45 Hydrocodone/Apap 5/325 Tablet PO 01/22/25 06:01 1 tab Q6H PRN Administration PAIN SCALE 4-10(Mod-Sev Amiodarone HCl 200 mg 01/20/25 14:40 01/20/25 15:11 Amiodarone Hcl 200 Mg Tablet PO 02/19/25 14:39 200 mg BID JAIRO Administration Atorvastatin Calcium 40 mg 01/17/25 21:00 01/20/25 20:11 Atorvastatin Calcium 20 Mg Tablet PO 02/16/25 20:59 40 mg HS JAIRO Administration Bumetanide 2 mg 01/17/25 21:00 01/20/25 20:12 Bumetanide 0.5 Mg Tablet PO 02/16/25 20:59 2 mg BID JAIRO Administration Calcitriol 0.25 mcg 01/17/25 19:30 01/20/25 20:11 Calcitriol 0.25 Mcg Capsule PO 02/16/25 19:29 0.25 mcg UD JAIRO Administration Calcium Acetate 667 mg 01/19/25 12:00 01/20/25 18:46 Calcium Acetate 667 Mg Tablet PO 02/18/25 11:59 667 mg TIDWM JAIRO Administration Carvedilol 6.25 mg 01/17/25 21:00 01/19/25 08:49 Carvedilol 3.125 Mg Tablet PO 02/16/25 20:59 Not Given On Hold: 01/19/25 16:51 BID JAIRO Dextrose 25 ml 01/17/25 20:08 Dextrose 50%-Water Inj 50 Ml Syringe IV 02/16/25 20:07 Q15MIN PRN BG 50-70 responsive npo pt Dextrose 50 ml 01/17/25 20:08 Dextrose 50%-Water Inj 50 Ml Syringe IV 02/16/25 20:07 Q15MIN PRN BG <50 OR BG <70 & pt unresponsive Fluoxetine HCl 20 mg 01/18/25 09:00 01/20/25 08:02 Fluoxetine Hcl 10 Mg Capsule PO 02/17/25 08:59 20 mg QDAY JAIRO Administration Glucagon 1 mg 01/17/25 20:08 Glucagon Inj 1 Mg Vial IM Q15MIN PRN BG <70, and no IV access Heparin Sodium (Porcine) 4,100 unit 01/20/25 17:08 Heparin Sod Inj 1000 Unit/Ml Vial 10 Ml INDWELLCAT 02/03/25 17:07 PRN PRN DIALYSIS Albumin Human 25 gm in 100 mls @ 100 mls/min 01/20/25 14:32 01/20/25 16:31 Albuminex 25% Ivpb IV 100 mls/min PRN PRN Administration DIALYSIS Insulin Degludec 20 unit 01/19/25 09:00 01/21/25 07:59 Insulin Degludec 5 Unit/0.05 Ml (Per 5 Units) SC 02/18/25 08:59 20 unit QDAY JAIRO Administration Insulin Human Lispro 0 unit 01/18/25 17:00 01/21/25 07:59 Insulin Lispro (Admelog) 1 Unit/0.01 Ml Unit SC 02/17/25 16:59 4 unit ACHS JAIRO Administration Protocol Levothyroxine Sodium 50 mcg 01/18/25 06:00 01/21/25 05:46 Levothyroxine Sodium 25 Mcg Tablet PO 02/17/25 05:59 50 mcg ACBR JARIO Administration Metolazone 2.5 mg 01/18/25 16:15 01/20/25 15:11 Metolazone 2.5 Mg Tablet PO 02/17/25 16:14 2.5 mg Q48H JAIRO Administration Ondansetron HCl 4 mg 01/17/25 18:39 01/20/25 08:08 Ondansetron Inj 2 Mg/Ml Inj 2 Ml IVP 02/16/25 18:38 4 mg Q6H PRN Administration NAUSEA OR VOMITING Protocol Pantoprazole Sodium 40 mg 01/18/25 09:00 01/20/25 08:04 Pantoprazole 40 Mg Tablet PO 02/17/25 08:59 40 mg QAM JAIRO Administration Plan Patient is a 79 year old male with PMH of ESRD on peritoneal dialysis for the past 3 years history of SVT (last reported episode July 2024), chronic anemia, insulin-dependent diabetes type 2, hypertension, GERD, alcohol abuse who presents to the ED on 01/17 for shortness of breath. Cardiology was consulted for pericardial effusion found on CT A/P, consulted by ED for concern of hemopericardium. Found to have approximately 3 cm chronic pericardial effusion. #Afib with RVR Reports occassional palpitations at home prior to admission. Converted to A-fib with RVR overnight on telemetry. Confirmed on EKG. Was started on amiodarone drip by night team. Likely secondary to low hemoglobin despite 1 unit PRBC earlier that day. On telemetry, patient were to be back in sinus rhythm with occasional PACs. ?Amiodarone PO 200 mg BID ?Hold heparin drip for now as patient is anemic. - Recommend that patient get outpatient work up #Large pericardial effusion #Bilateral pleural effusions #SVT, resolved #ESRD on peritoneal dialysis (2021) 2/2 diabetic nephropathy #HFpEF (EF 50-55%) #Grade I diastolic dysfunction Presents with 3 day history of SOB and fatigue. Symptom onset since transition to new solution recently. Reported that at home, patient blood pressure was low at 190s and heart rate elevated 160s to 180s. Suspect patient has been fluctuating between over and under diuresis since solution transition. Last dialysis session last night at home. Otherwise, had been on PD since 2021 for diabetic nephropathy. At home, patient is on bumetanide 2 mg BID and metolaxone 2.5 mg QOD. Admission vital stable. BNP 319. EKG shows sinus rhythm rate 79 QTc 457. On exam, 2/6 systolic murmur increased on inspiration as well as decreased lung sounds and distended abdomen. No edema. CXR shows moderate enlargement cardiac contour. CTAP shows prominent pericardial effusion of 26 mm, moderate vascular congestion, small bilateral pleural effusions, atelectasis versus pneumonia left base, suspicious for edema. Hepatocellular disease, gastritis pattern, gallbladder wall appears slightly thickened, mild free fluid in the abdomen likely related to peritoneal dialysis catheter. TTE 01/17/25 shows normal LV size and wall thickness. There is grade I diastolic dysfunction. Estimated EF at 50-55%. Normal RV size and function. RVSP appears to be in the normal range. Trace TR and MR. Minimal aortic valve sclerosis without stenosis. Large circumferential pericardial effusion that appears to be loculated with significant septae noted along with the fibrinous exudate on the ventricular veloz indicating chronic effusion. No RV diastolic collapse or any RA inversion. No significant respiratory variation in the tricuspid inflow velocities except for the mitral inflow. IVC dilated with less than 50% collapse with inspiration. There is no clear evidence of cardiac tamponade. Likely 2/2 fluid overload from inadequate peritoneal fluid removal with new recently changed PD regimen vs heart failure exacerbation. Patient follows heel burnisher Dr. Gonsales in [place], followed up 3 weeks ago for echo results which he was told was fine . Plan: ?TTE showed approximately 30 mm pericardial effusion with fibrotic adhesions, indicating likely chronic effusion. No right ventricular diastolic dysfunction or swinging heart sign noted however does have mild respiratory variation in flow velocity across mitral valve. Does not meet criteria for cardiac tamponade, which does not make him an ideal candidate for pleural drainage given risks versus benefits. ?Based on chronicity of effusion, patient will likely benefit more from starting hemodialysis to remove excess fluid at this time. ?Recommend consulting nephrology for insertion of hemodialysis catheter ?Resume home Bumex 2mg daily and metolazone #Normocytic anemia, chronic Per son, patient receives iron infusions bimonthly at dialysis center and takes iron supplements 325 QD. WBC 12.2 and H&H 7.3/21.3. Anemia likely secondary to chronic disease on dialysis, low suspicion for active bleeding as patient. Denies any melena, hematochezia or coffee-ground emesis. 01/18/2025?hemoglobin dropped to 7.0. No sign of acute bleed. S/p 2 units pRBC. ?Defer anemia workup to primary team. #IDDM2 #HLD Per pharmacy review, patient has been prescribed insulin and is taking atorvastatin 40 mg qhs. On admission glucose 267. A1c 7.5. Lipid panel: Trig 99, total cholesterol 104, LDL 51, HDL 33. TSH elevated 4.88, T4 1.22. ASCVD score: Patient is above age 75 however this regarding age, would recommend to continue high intensity statin Plan: ?Insulin management per primary team ?Continue atorvastatin 40 mg nightly #HTN Has history of hypertension however as of late, patient has been hypotensive, likely secondary to volume status changes. Home medications include hydralazine 50 mg TID, carvedilol 6.25 mg BID, nifedipine ER 60 mg QD. Plan: - Resume all home antihypertensives as above #Hx alcohol abuse Used to drink 6 pack beers per day during his youth for 25 years, stopped 3 years ago when started on dialysis. #Leukocytosis, likely reactive #Hyponatremia #Hypothyroidism #GERD #Depression ?Management per primary team Thank you for your consultation, please do not hesitate to reach out if you have any question or concern Patient plan of care was discussed with the attending physician, Dr. Fajardo. Lucy Santana, PGY-1 Attending Provider Attestation/Addendum I have personally seen and examined the patient separately on the above date of service and discussed the plan of care with the resident. I reviewed the resident Dr. Lucy Santana consultation progress note and agree with the resident findings and plan in the note above and have also edited the documentation to reflect my findings and plan. Julius Fajardo M.D. Interventional Cardiology
[2025-01-21] MEDS: HEPARIN SOD INJ 1000 UNIT/ML VIAL 10 ML 4100 UNIT INDWELLCAT (11:07)
[2025-01-21] MEDS: PANTOPRAZOLE 40 MG TABLET PO (11:47)
[2025-01-21] MEDS: BUMETANIDE 0.5 MG TABLET 2 MG PO ×2 (11:48→20:25)
[2025-01-21] MEDS: AMIODARONE HCL 200 MG TABLET PO ×2 (11:50→20:32)
[2025-01-21] MEDS: CALCIUM ACETATE 667 MG TABLET PO ×2 (11:50→17:05)
[2025-01-21] MEDS: HYDROcodone/APAP 5/325 TABLET 1 TAB PO (11:58)
[2025-01-21] MEDS: ONDANSETRON INJ 2 MG/ML INJ 2 ML 4 MG IVP (11:59)
--- NOTE | 2025-01-21 15:05 | PC.SS ---
Rounding Note: TB test and HEP Panel have been ordered. Patient has completed 2 sessions of dialysis.
[2025-01-21 15:25] LABS: Hepatitis A Antibody IgM Non Reactive (Non React); Hepatitis B Core Antibody IgM Non Reactive (Non React); Hepatitis B Surface Antigen Non Reactive (Non React); Hepatitis C Antibody Non Reactive (Non React)
--- NOTE | 2025-01-21 17:18 | PC.NURSE ---
MD HAGEN NOTIFIED OF AM INSULIN INCORRECT AMOUNT OF INSULIN ADMINISTERED. PER PROTOCOL BG OF 253- 5 UNITS OF INSULIN LISPRO SUB Q SHOULD BE GIVEN. CHEMICAL MACHINE TENDER GAVE 4 UNITS VIA SUB Q.
--- NOTE | 2025-01-21 17:21 | PC.NURSE ---
MD HAGEN NOTIFIED PT HAS BCG VACCINE FROM [place]. PER , HOLD PPD ADMINISTRATION UNTIL ATTENDING NOTIFIED TO POSSIBLY MAKE ADJUSTMENTS TO POC.
[2025-01-21] MEDS: ATORVASTATIN CALCIUM 20 MG TABLET 40 MG PO (20:25)
--- NOTE | 2025-01-21 20:47 | ESPR_ITS ---
Documentation for date of: 01/21/25 Subjective Subjective Interval history: Patient went into A-fib RVR currently on amiodarone drip No signs of active bleeding although patient is anemic I recommended the patient needs to be on anticoagulation he can be I will speak with the hard metals hand engraver if he is cleared from a cardiology viewpoint with pericardial effusion which appears to be chronic and rate is controlled I can schedule the patient for initially upper endoscopy Exam Vital Signs Temp Pulse Resp BP Pulse Ox O2 Del Method O2 Flow Rate 97.2 F 80 24 H 125/90 H 98 Room Air 3 01/21/25 20:00 01/21/25 20:32 01/21/25 20:00 01/21/25 20:32 01/21/25 20:00 01/21/25 20:00 01/21/25 12:00 Objective Labs 01/21/25 05:04 01/21/25 05:04 Labs: Laboratory Results - last 24 hr 01/21/25 01/21/25 05:04 07:00 WBC 13.2 H RBC 2.40 L Hgb 7.8 L Hct 22.5 L MCV 94 MCH 32.5 MCHC 34.7 RDW Std Deviation 48.6 H Plt Count 237 Neut % (Auto) 89 H Lymph % (Auto) 3 L [place] % (Auto) 7 Eos % (Auto) 0 Baso % (Auto) 0 Neut # (Auto) 11.8 H Lymph # (Auto) 0.4 L [place] # (Auto) 0.9 H Eos # (Auto) 0.0 Baso # (Auto) 0.0 Immature Gran # (Auto) 0.09 H Absolute Nucleated RBC 0.03 H Immature Gran % 1 H Nucleated RBC % 0 Sodium 128 L Potassium 3.9 Chloride 89 L Carbon Dioxide 22.0 Anion Gap 17 H BUN 62 H Creatinine 6.2 H* D Estim Creat Clear Calc 8.9 L eGFR 9 L* BUN/Creatinine Ratio 10 L Glucose 197 H D Calculated Osmolality 279 Calcium 8.4 Corrected Calcium 8.6 Phosphorus 5.3 H Magnesium 2.3 Total Bilirubin 0.2 L AST 17 ALT 29 Alkaline Phosphatase 164 H D Total Protein 6.2 Albumin 3.8 Globulin 2.4 Albumin/Globulin Ratio 1.6 Hepatitis A IgM Ab Non Reactive Hep Bs Antigen Non Reactive Hep B Core IgM Ab Non Reactive Hepatitis C Antibody Non Reactive Blood Type O Positive Antibody Screen NEGATIVE Crossmatch See Detail Blood Bank Wristband ID Yes Impressions Impression: Anemia multifactorial A-fib with RVR on amiodarone drip pericardial effusion Will speak with a hard metals hand engraver before scheduling any invasive GI workup Assessment & Plan A&P Narrative # Epigastric abdominal pain # Nausea # Anemia multifactorial already getting iron infusions twice a month at the dialysis center Other medical problems include Suggestions Once patient's shortness of breath improves and pericardial effusion is taking care of upper endoscopy prior to discharge Other medical problems include Diabetes mellitus type 1 Essential hypertension SVT on carvedilol Peritoneal dialysis Pericardial effusion Thank you very much for the opportunity to participate in care of this patient Time Spent With Patient Time: Total time spent is greater than 50% in coordination of care (as documented) at patient's floor/unit and/or counseling patient:
[2025-01-22] VITALS (28 sets, daily range): BP systolic 105–171; BP diastolic 55–96; PULSE 58–145; RESP 12–24; TEMP 35.8–36.9; O2SAT 95–100; BMI 26.6
[2025-01-22] MEDS: LEVOTHYROXINE SODIUM 25 MCG TABLET 50 MCG PO (05:35)
[2025-01-22 05:44] LABS: Basophils # (Auto) 0.0 Thou/mm3 (0.0-0.2); Basophils % (Auto) 0 % (0-2.5); Eosinophils # (Auto) 0.0 Thou/mm3 (0.0-0.5); Eosinophils % (Auto) 0 % (0-10); Hematocrit 26.5 % (41.0-53.0); Hemoglobin 9.1 g/dL (13.5-16.0); Immature Granulocytes Auto 0.10 Thou/mm3 (0.00-0.00); Lymphocytes # (Auto) 0.7 Thou/mm3 (1.0-4.8); Lymphocytes % (Auto) 6 % (10-50); Mean Corpuscular HGB Conc 34.3 g/dl (31.0-37.0); Mean Corpuscular Hemoglobin 32.2 pg (25.0-35.0); Mean Corpuscular Volume 94 fL (80-100); Monocytes # (Auto) 1.2 Thou/mm3 (0.0-0.8); Monocytes % (Auto) 10 % (0-12); Neutrophils # (Auto) 10.2 Thou/mm3 (1.8-7.7); Neutrophils % (Auto) 83 % (37-80); Nucleated Red Blood Cell # 0.04 Thou/mm3 (0.00-0.00); Nucleated Red Blood Cell % 0 /100 WBC (0); Platelet Count 198 Thou/mm3 (140-440); RDW Standard Deviation 48.1 fL (35.1-43.9); Red Blood Count 2.83 Miln/mm3 (4.50-5.90); White Blood Count 12.3 Thou/mm3 (3.8-10.6)
[2025-01-22 06:12] LABS: Alanine Aminotransferase 30 U/L (10-49); Albumin, Serum 4.1 gm/dL (3.4-4.8); Albumin/Globulin Ratio 1.7 (1.2-2.2); Alkaline Phosphatase 179 U/L (46-116); Anion Gap 13 (7-16); Aspartate Amino Transferase 25 U/L (0-34); BUN/Creatinine Ratio 9 Ratio (12-20); Bilirubin,Total 0.2 mg/dL (0.3-1.2); Blood Urea Nitrogen 43 mg/dL (9-23); Calcium 9.2 mg/dL (8.3-10.6); Calcium (Corrected) 9.2 mg/dL (8.5-10.1); Carbon Dioxide 24.4 mMol/L (20.0-31.0); Chloride 94 mMol/L (98-107); Creatinine (Component) 4.9 mg/dL (0.6-1.3); Estimated Creatinine Clearance 11.2 mL/min (>60); Globulin 2.4 gm/dL (2.3-3.5); Glucose 65 mg/dL (74-106); Magnesium 1.9 mg/dL (1.6-2.6); Osmolality,Calculated 271 (275-295); Phosphorous 3.9 mg/dL (2.4-5.1); Potassium 4.3 mMol/L (3.4-5.1); Sodium 131 mMol/L (136-145); Total Protein 6.5 gm/dL (5.7-8.2); eGFR 11 See Note
--- NOTE | 2025-01-22 06:27 | PC.NURSE ---
Lab glucose this am was 65. I gave patient 2 orange juices and waited 20 min and luli's bs was 134.
--- NOTE | 2025-01-22 08:59 | EKG_ITS ---
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[id number] Requested By: Lucy Santana Order Number: [id number] Reading MD: Lucy Santana Measurements Intervals [place] Rate: 107 P: 5 ME: 147 QRS: 42 QRSD: 101 T: -4 QT: 410 QTc: 549 Interpretive Statements SINUS TACHYCARDIA WITH OCCASIONAL VENTRICULAR PREMATURE COMPLEXES WITH FREQUENT SUPRAVENTRICULAR PREMATURE COMPLEXES NONSPECIFIC T-WAVE ABNORMALITY ABNORMAL RHYTHM ECG Compared to ECG 01/18/2025 22:55:31 Ventricular premature complex(es) now present Atrial fibrillation no longer present Possible ischemia no longer present T-wave abnormality still present /store/S0/[id number].pdf
[2025-01-22] MEDS: AMIODARONE HCL 200 MG TABLET PO ×2 (09:07→10:01)
[2025-01-22] MEDS: HEPARIN SOD INJ 1000 UNIT/ML VIAL 10 ML 4100 UNIT INDWELLCAT (09:36)
--- NOTE | 2025-01-22 10:09 | PC.SS ---
Addendum entered by Diana Lux 01/22/25 15:15: SS spoke to [facility] and they state patient was receiving dialysis in [place]. teletype installer present. SS confirmed patient's physical address: [address] [place] Patient and were agreeable to dialysis closer to where they live. SS [facility] provided a schedule for [place] dialysis MWF . Financial clearance pending. Nursing and physician notes indicate that patient was not able to tolerate dialysis treatment today due to tachycardia. SS [facility] as patient's Neprhologist is Dr. De Leon with [facility] in [place]. Original Note: Follow up note: Today is patient's 3rd dialysis treatment. Patient went from PD to HD treatment. Patient will need new o/p chair time. SS submitted all documentation to [facility] D[facility] on [address] for review.
--- NOTE | 2025-01-22 10:39 | PD.RESPRO ---
Documentation for date of: 01/22/25 Subjective Subjective Interval history: Patient was seen and assessed at bedside and hemodialysis unit. On telemetry, patient was noted to be in A-fib with RVR (heart rate 130s to 140s). Dialysis session was stopped and given his morning dose of amiodarone 200 mg. Repeat EKG showed HR still in 100s to 105's. Was given another dose of amiodarone 200 mg x 1. No fluid was removed. Will increase amiodarone to 400 mg twice daily. Hemoglobin improved to 9.1 from 7.8 previously without any blood transfusions. Will start on Eliquis 2.5 twice daily as there does not appear to be any acute bleed. Continue to monitor hemoglobin and for signs of bleeding. Potassium 4.3, magnesium 1.9, replete accordingly. Exam Vital Signs Temp Pulse Resp BP Pulse Ox O2 Del Method O2 Flow Rate 98.4 F 116 H 17 138/81 H 99 Room Air 2 01/22/25 09:48 01/22/25 10:01 01/22/25 09:48 01/22/25 10:01 01/22/25 09:48 01/22/25 08:00 01/22/25 09:48 Narrative Exam Physical Exam General: Awake and in no acute distress. Conversational and non-toxic appearing. Telugu-speaking elderly male. Overweight. HEENT: Normocephalic, atraumatic, mucous membranes moist. Heart: Regular rate and rhythm, normal S1 and S2. 2/6 systolic murmur more pronounced with inspiration, heard best at right second intercostal space. Lungs: Decreased breath sounds in bilateral lower lobes, otherwise clear. Abdomen: Soft, distended, nontender, positive bowel sounds. No guarding or rebound tenderness. Neurologic: Alert and oriented x3, no gross neurological deficit, and patient able to move all 4 extremities. Extremities: No edema. Skin: No rash or ecchymoses. Objective Labs 01/22/25 04:33 01/22/25 04:33 Labs: Laboratory Results - last 24 hr 01/21/25 01/21/25 01/22/25 05:04 07:00 04:33 WBC 12.3 H RBC 2.83 L Hgb 9.1 L Hct 26.5 L MCV 94 MCH 32.2 MCHC 34.3 RDW Std Deviation 48.1 H Plt Count 198 D Neut % (Auto) 83 H Lymph % (Auto) 6 L [place] % (Auto) 10 Eos % (Auto) 0 Baso % (Auto) 0 Neut # (Auto) 10.2 H Lymph # (Auto) 0.7 L [place] # (Auto) 1.2 H Eos # (Auto) 0.0 Baso # (Auto) 0.0 Immature Gran # (Auto) 0.10 H Absolute Nucleated RBC 0.04 H Immature Gran % 1 H Nucleated RBC % 0 Sodium 131 L Potassium 4.3 Chloride 94 L Carbon Dioxide 24.4 Anion Gap 13 BUN 43 H Creatinine 4.9 H* D Estim Creat Clear Calc 11.2 L eGFR 11 L* BUN/Creatinine Ratio 9 L Glucose 65 L D Calculated Osmolality 271 L Calcium 9.2 Corrected Calcium 9.2 Phosphorus 3.9 Magnesium 1.9 Total Bilirubin 0.2 L AST 25 ALT 30 Alkaline Phosphatase 179 H Total Protein 6.5 Albumin 4.1 Globulin 2.4 Albumin/Globulin Ratio 1.7 Hepatitis A IgM Ab Non Reactive Hep Bs Antigen Non Reactive Hep B Core IgM Ab Non Reactive Hepatitis C Antibody Non Reactive Crossmatch See Detail Quality Measures Quality Measures none Advance care planning discussed with:: patient Assessment & Plan Assessment Current Active Medications: Generic Name Dose Route Start Last Admin Trade Name Freq PRN Reason Stop Dose Admin Acetaminophen 650 mg 01/17/25 18:39 Acetaminophen 325 Mg Tablet PO 02/16/25 18:38 Q6H PRN Fever >100.4 or pain Protocol Amiodarone HCl 400 mg 01/22/25 21:00 Amiodarone Hcl 200 Mg Tablet PO 02/21/25 20:59 BID JAIRO Atorvastatin Calcium 40 mg 01/17/25 21:00 01/21/25 20:25 Atorvastatin Calcium 20 Mg Tablet PO 02/16/25 20:59 40 mg HS JAIRO Administration Bumetanide 2 mg 01/17/25 21:00 01/22/25 08:35 Bumetanide 0.5 Mg Tablet PO 02/16/25 20:59 Not Given BID JARIO Calcitriol 0.25 mcg 01/17/25 19:30 01/21/25 20:21 Calcitriol 0.25 Mcg Capsule PO 02/16/25 19:29 Not Given UD JAIRO Calcium Acetate 667 mg 01/19/25 12:00 01/22/25 07:47 Calcium Acetate 667 Mg Tablet PO 02/18/25 11:59 Not Given TIDWM [facility] Carvedilol 6.25 mg 01/17/25 21:00 01/19/25 08:49 Carvedilol 3.125 Mg Tablet PO 02/16/25 20:59 Not Given On Hold: 01/19/25 16:51 BID JAIRO Dextrose 25 ml 01/17/25 20:08 Dextrose 50%-Water Inj 50 Ml Syringe IV 02/16/25 20:07 Q15MIN PRN BG 50-70 responsive npo pt Dextrose 50 ml 01/17/25 20:08 Dextrose 50%-Water Inj 50 Ml Syringe IV 02/16/25 20:07 Q15MIN PRN BG <50 OR BG <70 & pt unresponsive Fluoxetine HCl 20 mg 01/18/25 09:00 01/22/25 08:35 Fluoxetine Hcl 10 Mg Capsule PO 02/17/25 08:59 Not Given QDAY JAIRO Glucagon 1 mg 01/17/25 20:08 Glucagon Inj 1 Mg Vial IM Q15MIN PRN BG <70, and no IV access Heparin Sodium (Porcine) 4,100 unit 01/20/25 17:08 01/22/25 09:36 Heparin Sod Inj 1000 Unit/Ml Vial 10 Ml INDWELLCAT 02/03/25 17:07 4,100 unit PRN PRN Administration DIALYSIS Albumin Human 25 gm in 100 mls @ 100 mls/min 01/20/25 14:32 01/21/25 19:19 Albuminex 25% Ivpb IV Infused PRN PRN Infusion DIALYSIS Insulin Degludec 20 unit 01/19/25 09:00 01/22/25 08:38 Insulin Degludec 5 Unit/0.05 Ml (Per 5 Units) SC 02/18/25 08:59 Not Given QDAY [facility] Insulin Human Lispro 0 unit 01/18/25 17:00 01/22/25 07:47 Insulin Lispro (Admelog) 1 Unit/0.01 Ml Unit SC 02/17/25 16:59 Not Given ACHS [facility] Protocol Levothyroxine Sodium 50 mcg 01/18/25 06:00 01/22/25 05:35 Levothyroxine Sodium 25 Mcg Tablet PO 02/17/25 05:59 50 mcg ACBR [facility] Administration Metolazone 2.5 mg 01/18/25 16:15 01/20/25 15:11 Metolazone 2.5 Mg Tablet PO 02/17/25 16:14 2.5 mg Q48H JAIRO Administration Ondansetron HCl 4 mg 01/17/25 18:39 01/21/25 11:59 Ondansetron Inj 2 Mg/Ml Inj 2 Ml IVP 02/16/25 18:38 4 mg Q6H PRN Administration NAUSEA OR VOMITING Protocol Pantoprazole Sodium 40 mg 01/18/25 09:00 01/22/25 08:35 Pantoprazole 40 Mg Tablet PO 02/17/25 08:59 Not Given QAM JAIRO Plan Patient is a 79 year old male with PMH of ESRD on peritoneal dialysis for the past 3 years history of SVT (last reported episode July 2024), chronic anemia, insulin-dependent diabetes type 2, hypertension, GERD, alcohol abuse who presents to the ED on 01/17 for shortness of breath. Cardiology was consulted for pericardial effusion found on CT A/P, consulted by ED for concern of hemopericardium. Found to have approximately 3 cm chronic pericardial effusion. #Afib with RVR Reports occassional palpitations at home prior to admission. Converted to A-fib with RVR overnight on telemetry. Confirmed on EKG. Was started on amiodarone drip by night team. Likely secondary to low hemoglobin despite 1 unit PRBC earlier that day. On telemetry, patient were to be back in sinus rhythm with occasional PACs. 01/22/25: Went into afib with RVR (HR 130-140) during dialysis session. No fluid removed and patient was given amiodarone 200 mg, HR improved to 100-105. Gave another amiodarone 200 mg x1. ?Increase amiodarone PO to 400 mg BID for rate control for 2 weeks, recommend to reduce back to amiodarone 200 mg twice daily when patient follows outpatient with his investigations chief in [place]. ? Plan to start Eliquis 2.5 mg BID now that hemoglobin now improved and stable. Will hold off on Eliquis now and place patient on heparin drip in view of any possible procedures. -If blood pressure stable patient can be started on metoprolol tartrate 12.5 mg twice daily for now - Recommend that patient get outpatient work up #Large pericardial effusion #Bilateral pleural effusions #SVT, resolved #ESRD on peritoneal dialysis (2021) 2/2 diabetic nephropathy #HFpEF (EF 50-55%) #Grade I diastolic dysfunction Presents with 3 day history of SOB and fatigue. Symptom onset since transition to new solution recently. Reported that at home, patient blood pressure was low at 190s and heart rate elevated 160s to 180s. Suspect patient has been fluctuating between over and under diuresis since solution transition. Last dialysis session last night at home. Otherwise, had been on PD since 2021 for diabetic nephropathy. At home, patient is on bumetanide 2 mg BID and metolaxone 2.5 mg QOD. Admission vital stable. BNP 319. EKG shows sinus rhythm rate 79 QTc 457. On exam, 2/6 systolic murmur increased on inspiration as well as decreased lung sounds and distended abdomen. No edema. CXR shows moderate enlargement cardiac contour. CTAP shows prominent pericardial effusion of 26 mm, moderate vascular congestion, small bilateral pleural effusions, atelectasis versus pneumonia left base, suspicious for edema. Hepatocellular disease, gastritis pattern, gallbladder wall appears slightly thickened, mild free fluid in the abdomen likely related to peritoneal dialysis catheter. TTE 01/17/25 shows normal LV size and wall thickness. There is grade I diastolic dysfunction. Estimated EF at 50-55%. Normal RV size and function. RVSP appears to be in the normal range. Trace TR and MR. Minimal aortic valve sclerosis without stenosis. Large circumferential pericardial effusion that appears to be loculated with significant septae noted along with the fibrinous exudate on the ventricular veloz indicating chronic effusion. No RV diastolic collapse or any RA inversion. No significant respiratory variation in the tricuspid inflow velocities except for the mitral inflow. IVC dilated with less than 50% collapse with inspiration. There is no clear evidence of cardiac tamponade. Likely 2/2 fluid overload from inadequate peritoneal fluid removal with new recently changed PD regimen vs heart failure exacerbation. Patient follows investigations chief Dr. Gonsales in [place], followed up 3 weeks ago for echo results which he was told was fine . Plan: ?TTE showed approximately 30 mm pericardial effusion with fibrotic adhesions, indicating likely chronic effusion with multiple septae. No right ventricular diastolic collapse noted however does have mild respiratory variation in flow velocity across mitral valve but not diagnostic tricuspid valve and there was no inversion. Does not meet criteria for cardiac tamponade, which does not make him an ideal candidate for pericardial drainage given risks versus benefits and patient could be having loculated effusion given the septic. ?Based on chronicity of effusion, patient will likely benefit more from starting hemodialysis to remove excess fluid at this time. ? Patient seen by nephrology and now started on hemodialysis but unable to tolerated dialysis well due to the A-fib with RVR episodes we will adjust the medications for amiodarone. ?Patient maintaining very minimal urine output and recommend to discuss with nephrology about continuing the Bumex as well as metolazone and could be stopped if he does not have much output #Normocytic anemia, chronic Per son, patient receives iron infusions bimonthly at dialysis center and takes iron supplements 325 QD. WBC 12.2 and H&H 7.3/21.3. Anemia likely secondary to chronic disease on dialysis, low suspicion for active bleeding as patient. Denies any melena, hematochezia or coffee-ground emesis. 01/18/2025?hemoglobin dropped to 7.0. No sign of acute bleed. S/p 2 units pRBC. ?Defer anemia workup to primary team. #IDDM2 #HLD Per pharmacy review, patient has been prescribed insulin and is taking atorvastatin 40 mg qhs. On admission glucose 267. A1c 7.5. Lipid panel: Trig 99, total cholesterol 104, LDL 51, HDL 33. TSH elevated 4.88, T4 1.22. ASCVD score: Patient is above age 75 however this regarding age, would recommend to continue high intensity statin Plan: ?Insulin management per primary team ?Continue atorvastatin 40 mg nightly #HTN Has history of hypertension however as of late, patient has been hypotensive, likely secondary to volume status changes. Home medications include hydralazine 50 mg TID, carvedilol 6.25 mg BID, nifedipine ER 60 mg QD. Plan: - Resume all home antihypertensives as above #Hx alcohol abuse Used to drink 6 pack beers per day during his youth for 25 years, stopped 3 years ago when started on dialysis. #Leukocytosis, likely reactive #Hyponatremia #Hypothyroidism #GERD #Depression ?Management per primary team Thank you for your consultation, please do not hesitate to reach out if you have any question or concern Patient plan of care was discussed with the attending physician, Dr. Fajardo. Lucy Santana, PGY-1 Attending Provider Attestation/Addendum I have personally seen and examined the patient separately on the above date of service and discussed the plan of care with the resident. I reviewed the resident Dr. Lucy Santana consultation progress note and agree with the resident findings and plan in the note above and have also edited the documentation to reflect my findings and plan. Julius Fajardo M.D. Interventional Cardiology
[2025-01-22] MEDS: EPOETIN ALFA-EPBX INJ 10,000 UNIT/ML VIAL (NON-ESRD) 10000 UNIT IV (10:56)
[2025-01-22] MEDS: CALCIUM ACETATE 667 MG TABLET PO ×2 (11:43→16:53)
[2025-01-22] MEDS: INSULIN LISPRO (AdmeLOG) 1 UNIT/0.01 ML UNIT SC (11:43)
--- NOTE | 2025-01-22 13:01 | PD.NEPHPROG ---
Documentation for date of: 01/22/25 Subjective Subjective Interval history: Mr. Sebas Patel is a 79-year-old male who presented to the complaining of shortness of breath and abdominal discomfort during peritoneal dialysis. Patient has a history of ESRD on peritoneal dialysis since 2021, history of diabetes mellitus, hypertension, history of SVT on carvedilol. #Pericardial effusion? Echocardiogram 01/17/2025, EF reported as 50 to 55%, large circumferential pericardial effusion that appears to be loculated with significant septae noted along with fibrinous exudate on the ventricular veloz indicating chronic effusion no RV diastolic collapse or RA inversion no significant respiratory variation no tricuspid inflow velocities except for mitral inflow. IVC dilated with less than 50% collapse with inspiration. Per cardiology no clear evidence of cardiac tamponade. Pericardial effusion secondary to underlying CKD. Pt follows with Dr De Leon, I am covering Dr De Leon Pt is seen and examined Pt started on HD today 3rd treatment, pt had tachycardia during dialysis, dialysis stopped in 1 hour Exam Vital Signs Temp Pulse Resp BP Pulse Ox O2 Del Method O2 Flow Rate 97.1 F 101 H 22 H 139/72 H 97 Room Air 2 01/22/25 12:00 01/22/25 12:00 01/22/25 12:00 01/22/25 12:00 01/22/25 12:00 01/22/25 12:00 01/22/25 09:48 Narrative Exam no acute distress Pt is awake and alert Heart s1, s2 Chest CTA chad ext no edema Objective Labs 01/22/25 04:33 01/22/25 04:33 Labs: Laboratory Results - last 24 hr 01/21/25 01/21/25 01/22/25 05:04 07:00 04:33 WBC 12.3 H RBC 2.83 L Hgb 9.1 L Hct 26.5 L MCV 94 MCH 32.2 MCHC 34.3 RDW Std Deviation 48.1 H Plt Count 198 D Neut % (Auto) 83 H Lymph % (Auto) 6 L [place] % (Auto) 10 Eos % (Auto) 0 Baso % (Auto) 0 Neut # (Auto) 10.2 H Lymph # (Auto) 0.7 L [place] # (Auto) 1.2 H Eos # (Auto) 0.0 Baso # (Auto) 0.0 Immature Gran # (Auto) 0.10 H Absolute Nucleated RBC 0.04 H Immature Gran % 1 H Nucleated RBC % 0 Sodium 131 L Potassium 4.3 Chloride 94 L Carbon Dioxide 24.4 Anion Gap 13 BUN 43 H Creatinine 4.9 H* D Estim Creat Clear Calc 11.2 L eGFR 11 L* BUN/Creatinine Ratio 9 L Glucose 65 L D Calculated Osmolality 271 L Calcium 9.2 Corrected Calcium 9.2 Phosphorus 3.9 Magnesium 1.9 Total Bilirubin 0.2 L AST 25 ALT 30 Alkaline Phosphatase 179 H Total Protein 6.5 Albumin 4.1 Globulin 2.4 Albumin/Globulin Ratio 1.7 Hepatitis A IgM Ab Non Reactive Hep Bs Antigen Non Reactive Hep B Core IgM Ab Non Reactive Hepatitis C Antibody Non Reactive Crossmatch See Detail Assessment & Plan Assessment and plan (1) End-stage renal disease on peritoneal dialysis: Status: Inactive Assessment and plan: Had 3rd dialysis for 1 hour, dialysis stopped due to tachycardia discussed with digital specialist digital specialist increased dose of Amiodarone will give rest tomorrow from dialysis. next dialysis on Sunday
--- NOTE | 2025-01-22 14:18 | ESPR_ITS ---
<Statement entered by Germán Reed MD - 01/22/25 20:15> Patient was seen and evaluated at bedside this morning. No acute overnight events. Patient will likely undergo EGD today by GI. Otherwise no new complaints. Cardiology increased amiodarone to 400 mg BID and Eliquis 2.5mg BID. I have reviewed the note and agree with the resident's assessment & plan with exceptions as below. I have personally reviewed labs, imaging, home meds/prior records, examined the patient, formulated and discussed management plan with my attending Germán Reed PGY2 Disclaimer: Even though this this note was dictated by speech recognition and even though it was carefully revised there may still be minor errors in cooking casing and drying supervisor due to voice recognition software. Documentation for date of: 01/22/25 Subjective Subjective Interval history: No acute overnight events. Patient seen examined at bedside in dialysis. Denies abdominal pain or chest pain. Reports feeling well. Denies palpitations during dialysis. Vitals labs reviewed. Telemetry reviewed, atrial fibrillation RVR in a.m. during dialysis with rate 110-160, and otherwise sinus. WBC 12.3, hemoglobin 9.1 posttransfusion. Sodium improved to 131, potassium 4.3, BUN downtrending from 62-43, creatinine downtrending from 6.2-4.9 following dialysis. Magnesium 1.9. Pending hemodialysis chair placement and PPD. Received third session of dialysis today. EGD tonight. Amio increased to 400 twice daily due to continued atrial fibrillation RVR on 200 twice daily. Per cardiology, start Eliquis 2.5 mg twice daily. Exam Vital Signs Temp Pulse Resp BP Pulse Ox O2 Del Method O2 Flow Rate 97.1 F 101 H 22 H 139/72 H 97 Room Air 2 01/22/25 12:00 01/22/25 12:00 01/22/25 12:00 01/22/25 12:00 01/22/25 12:00 01/22/25 12:00 01/22/25 09:48 Narrative Exam GENERAL: AOx3, no acute distress, sitting in chair, frail HEENT: NC/AT, mucous membranes moist, bilateral sclera anicteric CARDIOVASCULAR: regular rate, S1/S2 present, 2/6 systolic murmur, RIJ TDC PULMONARY: diminished breath sounds bilaterally, no rales/rhonchi/wheezes ABDOMINAL: soft, distended, no rebound/guarding, non-tender, bowel sounds present, PD cath present and covered to L of umbilicus EXTREMITIES: no peripheral edema SKIN: warm and dry, intact, no rashes NEURO: CN II-XII grossly intact, no focal deficits, alert, following commands Objective Labs 01/22/25 04:33 01/22/25 04:33 Labs: Laboratory Results - last 24 hr 01/21/25 01/22/25 05:04 04:33 WBC 12.3 H RBC 2.83 L Hgb 9.1 L Hct 26.5 L MCV 94 MCH 32.2 MCHC 34.3 RDW Std Deviation 48.1 H Plt Count 198 D Neut % (Auto) 83 H Lymph % (Auto) 6 L [place] % (Auto) 10 Eos % (Auto) 0 Baso % (Auto) 0 Neut # (Auto) 10.2 H Lymph # (Auto) 0.7 L [place] # (Auto) 1.2 H Eos # (Auto) 0.0 Baso # (Auto) 0.0 Immature Gran # (Auto) 0.10 H Absolute Nucleated RBC 0.04 H Immature Gran % 1 H Nucleated RBC % 0 Sodium 131 L Potassium 4.3 Chloride 94 L Carbon Dioxide 24.4 Anion Gap 13 BUN 43 H Creatinine 4.9 H* D Estim Creat Clear Calc 11.2 L eGFR 11 L* BUN/Creatinine Ratio 9 L Glucose 65 L D Calculated Osmolality 271 L Calcium 9.2 Corrected Calcium 9.2 Phosphorus 3.9 Magnesium 1.9 Total Bilirubin 0.2 L AST 25 ALT 30 Alkaline Phosphatase 179 H Total Protein 6.5 Albumin 4.1 Globulin 2.4 Albumin/Globulin Ratio 1.7 Hepatitis A IgM Ab Non Reactive Hep Bs Antigen Non Reactive Hep B Core IgM Ab Non Reactive Hepatitis C Antibody Non Reactive Quality Measures Quality Measures none Advance care planning discussed with:: patient Assessment & Plan Assessment Current Active Medications: Generic Name Dose Route Start Last Admin Trade Name Freq PRN Reason Stop Dose Admin Acetaminophen 650 mg 01/17/25 18:39 Acetaminophen 325 Mg Tablet PO 02/16/25 18:38 Q6H PRN Fever >100.4 or pain Protocol Amiodarone HCl 400 mg 01/22/25 21:00 Amiodarone Hcl 200 Mg Tablet PO 02/21/25 20:59 BID JAIRO Atorvastatin Calcium 40 mg 01/17/25 21:00 01/21/25 20:25 Atorvastatin Calcium 20 Mg Tablet PO 02/16/25 20:59 40 mg HS JAIRO Administration Bumetanide 2 mg 01/17/25 21:00 01/22/25 08:35 Bumetanide 0.5 Mg Tablet PO 02/16/25 20:59 Not Given BID JAIRO Calcitriol 0.25 mcg 01/17/25 19:30 01/21/25 20:21 Calcitriol 0.25 Mcg Capsule PO 02/16/25 19:29 Not Given UD JAIRO Calcium Acetate 667 mg 01/19/25 12:00 01/22/25 11:43 Calcium Acetate 667 Mg Tablet PO 02/18/25 11:59 667 mg TIDWM JAIRO Administration Carvedilol 6.25 mg 01/17/25 21:00 01/19/25 08:49 Carvedilol 3.125 Mg Tablet PO 02/16/25 20:59 Not Given On Hold: 01/19/25 16:51 BID JAIRO Dextrose 25 ml 01/17/25 20:08 Dextrose 50%-Water Inj 50 Ml Syringe IV 02/16/25 20:07 Q15MIN PRN BG 50-70 responsive npo pt Dextrose 50 ml 01/17/25 20:08 Dextrose 50%-Water Inj 50 Ml Syringe IV 02/16/25 20:07 Q15MIN PRN BG <50 OR BG <70 & pt unresponsive Fluoxetine HCl 20 mg 01/18/25 09:00 01/22/25 08:35 Fluoxetine Hcl 10 Mg Capsule PO 02/17/25 08:59 Not Given QDAY [facility] Glucagon 1 mg 01/17/25 20:08 Glucagon Inj 1 Mg Vial IM Q15MIN PRN BG <70, and no IV access Heparin Sodium (Porcine) 4,100 unit 01/20/25 17:08 01/22/25 09:36 Heparin Sod Inj 1000 Unit/Ml Vial 10 Ml INDWELLCAT 02/03/25 17:07 4,100 unit PRN PRN Administration DIALYSIS Albumin Human 25 gm in 100 mls @ 100 mls/min 01/20/25 14:32 01/21/25 19:19 Albuminex 25% Ivpb IV Infused PRN PRN Infusion DIALYSIS Insulin Degludec 20 unit 01/19/25 09:00 01/22/25 08:38 Insulin Degludec 5 Unit/0.05 Ml (Per 5 Units) SC 02/18/25 08:59 Not Given QDAY JAIRO Insulin Human Lispro 0 unit 01/18/25 17:00 01/22/25 11:43 Insulin Lispro (Admelog) 1 Unit/0.01 Ml Unit SC 02/17/25 16:59 3 unit ACHS JAIRO Administration Protocol Levothyroxine Sodium 50 mcg 01/18/25 06:00 01/22/25 05:35 Levothyroxine Sodium 25 Mcg Tablet PO 02/17/25 05:59 50 mcg ACBR JAIRO Administration Metolazone 2.5 mg 01/18/25 16:15 01/20/25 15:11 Metolazone 2.5 Mg Tablet PO 02/17/25 16:14 2.5 mg Q48H JAIRO Administration Ondansetron HCl 4 mg 01/17/25 18:39 01/21/25 11:59 Ondansetron Inj 2 Mg/Ml Inj 2 Ml IVP 02/16/25 18:38 4 mg Q6H PRN Administration NAUSEA OR VOMITING Protocol Pantoprazole Sodium 40 mg 01/18/25 09:00 01/22/25 08:35 Pantoprazole 40 Mg Tablet PO 02/17/25 08:59 Not Given QAM JAIRO Plan Ruperto Love 79M pmhx significant for ESRD on home PD (since 2021) 2/2 diabetic nephropathy, IDDM2, HTN, TATY, hx of SVT on carvedilol, and hypothyroidism who presents with epigastric abdominal pain that occurs during PD and SOB, admitted for volume overload and pericardial effusion. #Pericardial effusion, chronic #Volume overload #ESRD on peritoneal dialysis (2021) 2/2 diabetic nephropathy #Shortness of breath Presents with SOB and fatigue. Has been on PD since 2021 for diabetic nephropathy. At home, patient is on bumetanide 2 mg BID and metolazone 2.5 mg QOD. Admission BNP 319 (01-17-25). EKG shows sinus rhythm rate 79 QTc 457. CXR shows moderate enlargement cardiac contour. CTAP shows prominent pericardial effusion of 26 mm, moderate vascular congestion, small bilateral pleural effusions, atelectasis versus pneumonia left base, suspicious for edema. Hepatocellular disease, gastritis pattern, gallbladder wall appears slightly thickened, mild free fluid in the abdomen likely related to peritoneal dialysis catheter. Likely from fluid overload from inadequate peritoneal fluid removal with new recently changed PD regimen vs heart failure exacerbation vs PNA vs atelectasis. Low suspicion for hemopericardium as patient's vitals and presentation are stable. 01/18 TTE: Normal LV size and wall thickness. There is grade I diastolic dysfunction. Estimated EF at 50-55%. Normal RV size and function. RVSP appears to be in the normal range Trace TR and MR. Minimal aortic valve sclerosis without stenosis. Large circumferential pericardial effusion that appears to be loculated with significant septae noted along with the fibrinous exudate on the ventricular veloz indicating chronic effusion. No RV diastolic collapse or any RA inversion. No significant respiratory variation in the tricuspid inflow velocities except for the mitral inflow. IVC dilated with less than 50% collapse with inspiration. There is no clear evidence of cardiac tamponade. Peritoneal dialysis: 01/17 (600cc UF), 01/18 (by , only ~500cc fluid removed no filtrate), 01/19 (by , 1.5L filtrate administered), 01/20 (by , 2L filtrate administered) TDC placed 01/20, received HD: 01/20 (1.5L removed), 01/21 (2.5L removed), 01/22 (0L removed) Plan: - Dr. Amador consulted, recs appreciated: anticipate 2-3 months of hemodialysis to remove pericardial effusion - Cardiology consulted, recs appreciated: No need for urgent paracentesis at this time due to no evidence of cardiac tamponade, patient also has possibility of loculated pericardial effusion given septae noted, as pericardial fluid likely secondary to inadequate fluid removal from peritoneal dialysis, recommend hemodialysis - Fluid restrictions 1.2L - Continue calcium acetate 667 mg TID - Continue home PO bumetanide 2 mg BID, consider IV if inadequate diuresis - Continue home metolazone 2.5 mg QOD #Atrial fibrillation, RVR #History of SVT Night of 01/18, patient developed 2 episodes of afib RVR at [id number] with rates 130-170 with intermittent atrial fibrillation with controlled rate in between. Overnight, patient received Mg and dilt without resolution. Amiodarone drip started with conversion of atrial fibraillation to sinus rhythm. Per , patient does not have a diagnosed history of atrial fibrillation however monitor reads sent entirely up to 170. s/p amiodarone drip and patient currently in sinus rhythm CHADSVASC 4, 4.8% stroke risk/year HASBLED 2, moderate risk for bleeding Plan: - Cardiology consulted, recs appreciated: start Eliquis 2.5 mg BID - PO amiodarone 400 mg BID - Carvedilol held - Telemetry for monitoring - Keep K>4 and Mg>2 at all times #Hyponatremia, improving Admission Na 124 (01-17-25). Likely 2/2 fluid overload. Plan: - Fluid restriction 1.2L as above - Caution with bumetanide and metolazone - Trend Na #Normocytic anemia s/p 3 pRBC #Leukocytosis Per son, patient has been received iron infusions bimonthly at dialysis center and takes iron supplements 325 QD. WBC 13.2 and Hgb 7.8 (01-21-25). FOBT negative. Iron low 36, TIBC 230, iron sat 15, ferritin 1077 (01/18/25) Anemia likely secondary to chronic disease on dialysis, low suspicion for active bleeding as patient denies any melena, hematochezia or coffee-ground emesis. Leukocytosis likely reactive, no clear source of infection at this time with peritoneal fluid cytology negative with no tenderness to abdominal palpation. s/p 1 pRBC 10/5 and 1 pRBC 10/6 and 1 pRBC 10/8 Plan: - Trend CBC - Consider antibiotics if patient becomes symptomatic or leukocytosis worsens - Per cardiology recommendations- transfuse if Hgb <8 - GI consulted, recs appreciated: EGD tonight #IDDM2 #Hyperglycemia #HLD Per pharmacy review, patient has been prescribed insulin and is taking atorvastatin 40 mg qhs. On admission glucose 267. 01/2025 A1c 7.5. Triglycerides 99. Cholesterol 104. LDL 51, HDL 33. Glucose 01/21/25- 197 Plan: - Degludac 20 units started with SSI step 3 #HTN Per history. However recently patient has been hypotensive secondary to volume overload. At home patient is on hydralazine 50 mg TID, carvedilol 6.25 mg BID, nifedipine ER 90 mg QD, minoxidil 5 mg BID, Plan: - Hold all home antihypertensives #Hypothyroidism TSH 4.88 and T4 1.22 01-18-25. Plan: - Continue home levothyroxine 50 mcg QD #Depression Plan: - Continue home fluoxetine 20 mg QD Hospital management: Lines: PIV, PD cath L of umbilicus Diet: Cardiac 1.2L fluid restriction Bowel: not indicated GI prophylaxis: PO pantoprazole 40 mg QD DVT prophylaxis: SCDs iso severe anemia Disposition: tele for PD and evaluation of pericardial effusion CODE STATUS: FULL CODE Plan of care discussed with attending Dr. Kauffman, and PGY-2 Dr. Foss. Hortencia Santana DO PGY-1 Internal Medicine Attending Provider Attestation/Addendum I have discussed and was present for the essential components of the history, physical examination, diagnosis, and treatment plan with the resident. I agree with the patient's care as documented by the resident and amended herein by me. Valentín Kauffman DO. Although this document has been carefully reviewed, there may still be some phonetic and other typographical errors. These errors are purely grammatical due to imperfections in the software program and should not be construed in any way to compromise the substance of the patient's medical care during this visit. Patient seen and evaluated this AM. Patient doing well today, vital signs stable, patient afebrile overnight, I/O 1520/225 mL. Hemodialysis performed today however patient went into A-fib with RVR and had to be discontinued early. Significant labs include a sodium 131, hemoglobin stable at 9, chloride 94, BUN 43 and creatinine 4.9. Per cardiology, amiodarone has been titrated up to 400 mg twice daily, will continue Eliquis 2.5 p.o. twice daily. Patient also pending EGD tonight for previous drop in hemoglobin, possible upper GI bleed. For the patient's hemodialysis chair, it will be with Samantha, hep B surface antigen as well as a hep B core antibody ordered for chair placement. Will continue to monitor closely while he is here but clinically he is improved.
[2025-01-22] MEDS: TUBERCULIN PPD INJ 5 UNIT/0.1 ML DOSE ID (17:51)
[2025-01-22 19:05] LABS: Hepatitis B Core Antibody IgM Non Reactive (Non React); Hepatitis B Surface Antigen Non Reactive (Non React)
[2025-01-22] MEDS: BUMETANIDE 0.5 MG TABLET 2 MG PO (21:59)
[2025-01-22] MEDS: ATORVASTATIN CALCIUM 20 MG TABLET 40 MG PO (22:00)
[2025-01-22] MEDS: AMIODARONE HCL 200 MG TABLET 400 MG PO (22:01)
[2025-01-22] MEDS: APIXABAN 2.5 MG TABLET PO (22:01)
[2025-01-22] MEDS: NA SU/NAHCO3/KC/PEG (Golytely) 4,000 ML BTL 4000 ML PO (22:17)
[2025-01-23] VITALS (10 sets, daily range): BP systolic 121–168; BP diastolic 71–89; PULSE 62–81; RESP 17–23; TEMP 36–36.5; O2SAT 97–99; BMI 33.7
[2025-01-23] MEDS: LEVOTHYROXINE SODIUM 25 MCG TABLET 50 MCG PO (05:15)
[2025-01-23 06:25] LABS: Basophils # (Auto) 0.0 Thou/mm3 (0.0-0.2); Basophils % (Auto) 0 % (0-2.5); Eosinophils # (Auto) 0.1 Thou/mm3 (0.0-0.5); Eosinophils % (Auto) 1 % (0-10); Hematocrit 25.4 % (41.0-53.0); Immature Granulocytes Auto 0.08 Thou/mm3 (0.00-0.00); Lymphocytes # (Auto) 0.9 Thou/mm3 (1.0-4.8); Lymphocytes % (Auto) 9 % (10-50); Mean Corpuscular HGB Conc 34.6 g/dl (31.0-37.0); Mean Corpuscular Hemoglobin 33.3 pg (25.0-35.0); Mean Corpuscular Volume 96 fL (80-100); Monocytes # (Auto) 1.2 Thou/mm3 (0.0-0.8); Monocytes % (Auto) 12 % (0-12); Neutrophils # (Auto) 7.3 Thou/mm3 (1.8-7.7); Neutrophils % (Auto) 77 % (37-80); Nucleated Red Blood Cell # 0.07 Thou/mm3 (0.00-0.00); Nucleated Red Blood Cell % 1 /100 WBC (0); Platelet Count 181 Thou/mm3 (140-440); RDW Standard Deviation 50.9 fL (35.1-43.9); Red Blood Count 2.64 Miln/mm3 (4.50-5.90); White Blood Count 9.5 Thou/mm3 (3.8-10.6)
[2025-01-23 06:27] LABS: Hemoglobin 8.8 g/dL (13.5-16.0)
[2025-01-23 06:44] LABS: Alanine Aminotransferase 32 U/L (10-49); Albumin, Serum 3.7 gm/dL (3.4-4.8); Albumin/Globulin Ratio 1.3 (1.2-2.2); Alkaline Phosphatase 169 U/L (46-116); Anion Gap 12 (7-16); Aspartate Amino Transferase 27 U/L (0-34); BUN/Creatinine Ratio 9 Ratio (12-20); Bilirubin,Total 0.3 mg/dL (0.3-1.2); Blood Urea Nitrogen 46 mg/dL (9-23); Calcium 8.8 mg/dL (8.3-10.6); Calcium (Corrected) 9.0 mg/dL (8.5-10.1); Carbon Dioxide 26.9 mMol/L (20.0-31.0); Chloride 93 mMol/L (98-107); Creatinine (Component) 5.2 mg/dL (0.6-1.3); Estimated Creatinine Clearance 12.6 mL/min (>60); Globulin 2.8 gm/dL (2.3-3.5); Glucose 67 mg/dL (74-106); Magnesium 1.8 mg/dL (1.6-2.6); Osmolality,Calculated 274 (275-295); Phosphorous 2.8 mg/dL (2.4-5.1); Potassium 3.7 mMol/L (3.4-5.1); Sodium 132 mMol/L (136-145); Total Protein 6.5 gm/dL (5.7-8.2); eGFR 11 See Note
[2025-01-23] MEDS: Magnesium Sulfate 2 GM Ivpb 2 GM/50 ML BAG IV (08:05)
[2025-01-23] MEDS: CALCIUM ACETATE 667 MG TABLET PO ×3 (08:05→18:16)
--- NOTE | 2025-01-23 09:09 | PC.SS ---
SS received a call from [facility] and they confirmed placement at [facility] with a schedule of M/W/F @ 10:15a.m. with a start date of Sunday, 26 of January. Updated physician team and patient may discharge over the weekend.
--- NOTE | 2025-01-23 09:45 | ESPR_ITS ---
Documentation for date of: 01/23/25 Subjective Subjective Interval history: Patient was seen and assessed at bedside. No new complaints, denies any chest pain, shortness of breath, palpitations. No fluid removed today. On telemetry, patient had 5 beats of RVR on 0642, otherwise continues to be in A-fib with heart rate in 70s to 80s. Blood pressure 130/76 this morning, systolics usually 128-130, occasionally 140. EKG shows A-fib with heart rate of 107, QTc 549, when calculated likely actually 402-430. Heart rate likely elevated because patient is on GoLytely prep. Potassium 3.7, magnesium 1.8, recommend to replete judiciously to stabilize cardiac membrane. Hemoglobin improved to 8.8 (from 7.9). Exam Vital Signs Temp Pulse Resp BP Pulse Ox O2 Del Method O2 Flow Rate 97.4 F 77 23 H 132/84 H 97 Room Air 3 01/23/25 08:00 01/23/25 08:00 01/23/25 08:00 01/23/25 08:00 01/23/25 08:00 01/23/25 08:00 01/22/25 20:45 Narrative Exam Physical Exam General: Awake and in no acute distress. Conversational and non-toxic appearing. Citizen Of [place]-speaking elderly male. Overweight. HEENT: Normocephalic, atraumatic, mucous membranes moist. Heart: Regular rate and rhythm, normal S1 and S2. 2/6 systolic murmur more pronounced with inspiration, heard best at right second intercostal space. Lungs: Decreased breath sounds in bilateral lower lobes, otherwise clear. Abdomen: Soft, distended, nontender, positive bowel sounds. No guarding or rebound tenderness. Neurologic: Alert and oriented x3, no gross neurological deficit, and patient able to move all 4 extremities. Extremities: No edema. Skin: No rash or ecchymoses. Objective Labs 01/23/25 04:30 01/23/25 04:30 Labs: Laboratory Results - last 24 hr 01/22/25 01/23/25 04:32 04:30 WBC 9.5 RBC 2.64 L Hgb 8.8 L Hct 25.4 L MCV 96 MCH 33.3 MCHC 34.6 RDW Std Deviation 50.9 H Plt Count 181 Neut % (Auto) 77 Lymph % (Auto) 9 L [place] % (Auto) 12 Eos % (Auto) 1 Baso % (Auto) 0 Neut # (Auto) 7.3 Lymph # (Auto) 0.9 L [place] # (Auto) 1.2 H Eos # (Auto) 0.1 Baso # (Auto) 0.0 Immature Gran # (Auto) 0.08 H Absolute Nucleated RBC 0.07 H Immature Gran % 1 H Nucleated RBC % 1 H Sodium 132 L Potassium 3.7 D Chloride 93 L Carbon Dioxide 26.9 Anion Gap 12 BUN 46 H Creatinine 5.2 H* Estim Creat Clear Calc 12.6 L eGFR 11 L* BUN/Creatinine Ratio 9 L Glucose 67 L Calculated Osmolality 274 L Calcium 8.8 Corrected Calcium 9.0 Phosphorus 2.8 Magnesium 1.8 Total Bilirubin 0.3 AST 27 ALT 32 Alkaline Phosphatase 169 H Total Protein 6.5 Albumin 3.7 Globulin 2.8 Albumin/Globulin Ratio 1.3 Hep Bs Antigen Non Reactive Hep B Core IgM Ab Non Reactive Quality Measures Quality Measures none Advance care planning discussed with:: patient Assessment & Plan Assessment Current Active Medications: Generic Name Dose Route Start Last Admin Trade Name Freq PRN Reason Stop Dose Admin Acetaminophen 650 mg 01/17/25 18:39 Acetaminophen 325 Mg Tablet PO 02/16/25 18:38 Q6H PRN Fever >100.4 or pain Protocol Amiodarone HCl 400 mg 01/22/25 21:00 01/22/25 22:01 Amiodarone Hcl 200 Mg Tablet PO 02/21/25 20:59 400 mg BID JAIRO Administration Apixaban 2.5 mg 01/22/25 21:00 01/22/25 22:01 Apixaban 2.5 Mg Tablet PO 02/21/25 20:59 2.5 mg On Hold: 01/23/25 02:29 BID JAIRO Administration Atorvastatin Calcium 40 mg 01/17/25 21:00 01/22/25 22:00 Atorvastatin Calcium 20 Mg Tablet PO 02/16/25 20:59 40 mg HS JAIRO Administration Bumetanide 2 mg 01/17/25 21:00 01/22/25 21:59 Bumetanide 0.5 Mg Tablet PO 02/16/25 20:59 2 mg BID JAIRO Administration Calcitriol 0.25 mcg 01/17/25 19:30 01/22/25 22:08 Calcitriol 0.25 Mcg Capsule PO 02/16/25 19:29 0.25 mcg UD JAIRO Administration Calcium Acetate 667 mg 01/19/25 12:00 01/23/25 08:05 Calcium Acetate 667 Mg Tablet PO 02/18/25 11:59 667 mg TIDWM JAIRO Administration Carvedilol 6.25 mg 01/17/25 21:00 01/19/25 08:49 Carvedilol 3.125 Mg Tablet PO 02/16/25 20:59 Not Given On Hold: 01/19/25 16:51 BID JAIRO Dextrose 25 ml 01/17/25 20:08 Dextrose 50%-Water Inj 50 Ml Syringe IV 02/16/25 20:07 Q15MIN PRN BG 50-70 responsive npo pt Dextrose 50 ml 01/17/25 20:08 Dextrose 50%-Water Inj 50 Ml Syringe IV 02/16/25 20:07 Q15MIN PRN BG <50 OR BG <70 & pt unresponsive Fluoxetine HCl 20 mg 01/18/25 09:00 01/22/25 08:35 Fluoxetine Hcl 10 Mg Capsule PO 02/17/25 08:59 Not Given QDAY JAIRO Glucagon 1 mg 01/17/25 20:08 Glucagon Inj 1 Mg Vial IM Q15MIN PRN BG <70, and no IV access Heparin Sodium (Porcine) 4,100 unit 01/20/25 17:08 01/22/25 09:36 Heparin Sod Inj 1000 Unit/Ml Vial 10 Ml INDWELLCAT 02/03/25 17:07 4,100 unit PRN PRN Administration DIALYSIS Albumin Human 25 gm in 100 mls @ 100 mls/min 01/20/25 14:32 01/21/25 19:19 Albuminex 25% Ivpb IV Infused PRN PRN Infusion DIALYSIS Insulin Degludec 20 unit 01/19/25 09:00 01/22/25 08:38 Insulin Degludec 5 Unit/0.05 Ml (Per 5 Units) SC 02/18/25 08:59 Not Given QDAY JAIRO Insulin Human Lispro 0 unit 01/18/25 17:00 01/22/25 22:06 Insulin Lispro (Admelog) 1 Unit/0.01 Ml Unit SC 02/17/25 16:59 Not Given ACHS [facility] Protocol Levothyroxine Sodium 50 mcg 01/18/25 06:00 01/23/25 05:15 Levothyroxine Sodium 25 Mcg Tablet PO 02/17/25 05:59 50 mcg ACBR JAIRO Administration Metolazone 2.5 mg 01/18/25 16:15 01/22/25 16:53 Metolazone 2.5 Mg Tablet PO 02/17/25 16:14 2.5 mg Q48H JAIRO Administration Ondansetron HCl 4 mg 01/17/25 18:39 01/21/25 11:59 Ondansetron Inj 2 Mg/Ml Inj 2 Ml IVP 02/16/25 18:38 4 mg Q6H PRN Administration NAUSEA OR VOMITING Protocol Pantoprazole Sodium 40 mg 01/18/25 09:00 01/22/25 08:35 Pantoprazole 40 Mg Tablet PO 02/17/25 08:59 Not Given QAM JAIRO Plan Patient is a 79 year old male with PMH of ESRD on peritoneal dialysis for the past 3 years history of SVT (last reported episode July 2024), chronic anemia, insulin-dependent diabetes type 2, hypertension, GERD, alcohol abuse who presents to the ED on 01/17 for shortness of breath. Cardiology was consulted for pericardial effusion found on CT A/P, consulted by ED for concern of hemopericardium. Found to have approximately 3 cm chronic pericardial effusion. #new onset ? Afib with RVR Reports occassional palpitations at home prior to admission. Converted to A-fib with RVR overnight on telemetry. Confirmed on EKG. Was started on amiodarone drip by night team. Likely secondary to low hemoglobin despite 1 unit PRBC earlier that day. On telemetry, patient were to be back in sinus rhythm with occasional PACs while on amiodarone 200 twice daily. 01/22/25: Went into afib with RVR (HR 130-140) during dialysis session. No fluid removed and patient was given amiodarone 200 mg, HR improved to 100-105. Gave another amiodarone 200 mg x1. EKG 01/23/2025 shows A-fib with heart rate of 107, QTc 549, when calculated likely actually 402-430. Heart rate likely elevated because patient is on GoLytely prep. Plan: ? 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 ? Plan to start Eliquis 2.5 mg BID now that hemoglobin now improved and stable. Will hold off on Eliquis now and place patient on heparin drip in view of any possible procedures. -If blood pressure stable patient can be started on metoprolol tartrate 12.5 mg twice daily for now for better rate control - Recommend that patient get outpatient work up #Large pericardial effusion #Bilateral pleural effusions #SVT, resolved #ESRD on peritoneal dialysis (2021) 2/2 diabetic nephropathy #HFpEF (EF 50-55%) #Grade I diastolic dysfunction Presents with 3 day history of SOB and fatigue. Symptom onset since transition to new solution recently. Reported that at home, patient blood pressure was low at 190s and heart rate elevated 160s to 180s. Suspect patient has been fluctuating between over and under diuresis since solution transition. Last dialysis session last night at home. Otherwise, had been on PD since 2021 for diabetic nephropathy. At home, patient is on bumetanide 2 mg BID and metolaxone 2.5 mg QOD. Admission vital stable. BNP 319. EKG shows sinus rhythm rate 79 QTc 457. On exam, 2/6 systolic murmur increased on inspiration as well as decreased lung sounds and distended abdomen. No edema. CXR shows moderate enlargement cardiac contour. CTAP shows prominent pericardial effusion of 26 mm, moderate vascular congestion, small bilateral pleural effusions, atelectasis versus pneumonia left base, suspicious for edema. Hepatocellular disease, gastritis pattern, gallbladder wall appears slightly thickened, mild free fluid in the abdomen likely related to peritoneal dialysis catheter. TTE 01/17/25 shows normal LV size and wall thickness. There is grade I diastolic dysfunction. Estimated EF at 50-55%. Normal RV size and function. RVSP appears to be in the normal range. Trace TR and MR. Minimal aortic valve sclerosis without stenosis. Large circumferential pericardial effusion that appears to be loculated with significant septae noted along with the fibrinous exudate on the ventricular veloz indicating chronic effusion. No RV diastolic collapse or any RA inversion. No significant respiratory variation in the tricuspid inflow velocities except for the mitral inflow. IVC dilated with less than 50% collapse with inspiration. There is no clear evidence of cardiac tamponade. Likely 2/2 fluid overload from inadequate peritoneal fluid removal with new recently changed PD regimen vs heart failure exacerbation. Patient follows recyclable materials collector Dr. Gonsales in [place], followed up 3 weeks ago for echo results which he was told was fine . Plan: ?TTE showed approximately 30 mm pericardial effusion with fibrotic adhesions, indicating likely chronic effusion with multiple septae. No right ventricular diastolic collapse noted however does have mild respiratory variation in flow velocity across mitral valve but not diagnostic tricuspid valve and there was no inversion. Does not meet criteria for cardiac tamponade, which does not make him an ideal candidate for pericardial drainage given risks versus benefits and patient could be having loculated effusion given the septic. ?Based on chronicity of effusion, patient will likely benefit more from starting hemodialysis to remove excess fluid at this time. ? Patient seen by nephrology and now started on hemodialysis but unable to tolerated dialysis well due to the A-fib with RVR episodes we will adjust the medications for amiodarone. ?Patient maintaining very minimal urine output and recommend to discuss with nephrology about continuing the Bumex as well as metolazone and could be stopped if he does not have much output #Normocytic anemia, chronic Per son, patient receives iron infusions bimonthly at dialysis center and takes iron supplements 325 QD. WBC 12.2 and H&H 7.3/21.3. Anemia likely secondary to chronic disease on dialysis, low suspicion for active bleeding as patient. Denies any melena, hematochezia or coffee-ground emesis. 01/18/2025?hemoglobin dropped to 7.0. No sign of acute bleed. S/p 2 units pRBC. ?Defer anemia workup to primary team. #IDDM2 #HLD Per pharmacy review, patient has been prescribed insulin and is taking atorvastatin 40 mg qhs. On admission glucose 267. A1c 7.5. Lipid panel: Trig 99, total cholesterol 104, LDL 51, HDL 33. TSH elevated 4.88, T4 1.22. ASCVD score: Patient is above age 75 however this regarding age, would recommend to continue high intensity statin Plan: ?Insulin management per primary team ?Continue atorvastatin 40 mg nightly #HTN Has history of hypertension however as of late, patient has been hypotensive, likely secondary to volume status changes. Home medications include hydralazine 50 mg TID, carvedilol 6.25 mg BID, nifedipine ER 60 mg QD. Plan: - Resume all home antihypertensives as above #Hx alcohol abuse Used to drink 6 pack beers per day during his youth for 25 years, stopped 3 years ago when started on dialysis. #Leukocytosis, likely reactive #Hyponatremia #Hypothyroidism #GERD #Depression ?Management per primary team Thank you for your consultation, please do not hesitate to reach out if you have any question or concern Patient plan of care was discussed with the attending physician, Dr. Fajardo. Lucy Santana, PGY-1 Attending Provider Attestation/Addendum I have personally seen and examined the patient separately on the above date of service and discussed the plan of care with the resident. I reviewed the resident Dr. Lucy Santana consultation progress note and agree with the resident findings and plan in the note above and have also edited the documentation to reflect my findings and plan. Julius Fajardo M.D. Interventional Cardiology
[2025-01-23] MEDS: AMIODARONE HCL 200 MG TABLET 400 MG PO ×2 (09:47→20:23)
[2025-01-23] MEDS: PANTOPRAZOLE 40 MG TABLET PO (09:48)
[2025-01-23] MEDS: BUMETANIDE 0.5 MG TABLET 2 MG PO ×2 (09:48→20:22)
--- NOTE | 2025-01-23 12:03 | ESPR_ITS ---
<Statement entered by Germán Reed MD - 01/23/25 13:25> Patient was seen and evaluated at bedside this morning. No acute overnight events. Patient underwent EGD and was found to have gastritis, but no active signs of bleeding. Will plan for colonoscopy possibly today. Patient did get hemodialysis chair at the [facility], will hold off on dialysis today and will resume tomorrow. No other complaints at this time. I have reviewed the note and agree with the resident's assessment & plan with exceptions as below. I have personally reviewed labs, imaging, home meds/prior records, examined the patient, formulated and discussed management plan with my attending Germán Reed PGY2 Disclaimer: Even though this this note was dictated by speech recognition and even though it was carefully revised there may still be minor errors in financial developer due to voice recognition software. Documentation for date of: 01/23/25 Subjective Subjective Interval history: No acute events. Patient seen examined at bedside with . Patient denies any abdominal pain,, chest pain, shortness of breath or leg edema. Per , abdominal distention looks better. No new complaints. Vitals labs reviewed. Telemetry reviewed showing atrial fibrillation RVR yesterday a.m. to about noon during dialysis yesterday, another episode of A-fib RVR yesterday during the afternoon of rate 110s. Subsequently reverted back to sinus. Overnight at 3 AM, noted intermittent atrial fibrillation controlled rate for a short duration. WBC decreased from 12.3 to 9.5, hemoglobin stable 8.8. Sodium slightly improved to 132, potassium 3.7 repleted with 40 mEq, chloride 93, BUN stable 46, creatinine 5.2, magnesium 1.2 repleted with 2 g. AM glucose high 40s, was given clear liquid diet with resolution to glucose to 145 and degludec 20 held for today. Patient set up with hemodialysis chair starting Sunday with [facility] however pending immunology. EGD showed slight gastritis, plan for colonoscopy tonight. Continue amiodarone 400 mg twice daily. Exam Vital Signs Temp Pulse Resp BP Pulse Ox O2 Del Method O2 Flow Rate 97.4 F 77 23 H 132/84 H 97 Room Air 3 01/23/25 08:00 01/23/25 09:48 01/23/25 08:00 01/23/25 09:48 01/23/25 08:00 01/23/25 08:00 01/22/25 20:45 Narrative Exam GENERAL: AOx3, no acute distress, sitting up in bed HEENT: NC/AT, mucous membranes moist, bilateral sclera anicteric CARDIOVASCULAR: regular rate, S1/S2 present, 2/6 systolic murmur, RIJ TDC clean PULMONARY: diminished breath sounds bilaterally, no rales/rhonchi/wheezes ABDOMINAL: soft, distended, no rebound/guarding, non-tender, bowel sounds present, PD cath present and covered to L of umbilicus EXTREMITIES: no peripheral edema SKIN: warm and dry, intact, no rashes NEURO: CN II-XII grossly intact, no focal deficits, alert, following commands Objective Labs 01/24/25 05:20 01/24/25 05:20 Labs: Laboratory Results - last 24 hr 01/22/25 01/23/25 04:32 04:30 WBC 9.5 RBC 2.64 L Hgb 8.8 L Hct 25.4 L MCV 96 MCH 33.3 MCHC 34.6 RDW Std Deviation 50.9 H Plt Count 181 Neut % (Auto) 77 Lymph % (Auto) 9 L [place] % (Auto) 12 Eos % (Auto) 1 Baso % (Auto) 0 Neut # (Auto) 7.3 Lymph # (Auto) 0.9 L [place] # (Auto) 1.2 H Eos # (Auto) 0.1 Baso # (Auto) 0.0 Immature Gran # (Auto) 0.08 H Absolute Nucleated RBC 0.07 H Immature Gran % 1 H Nucleated RBC % 1 H Sodium 132 L Potassium 3.7 D Chloride 93 L Carbon Dioxide 26.9 Anion Gap 12 BUN 46 H Creatinine 5.2 H* Estim Creat Clear Calc 12.6 L eGFR 11 L* BUN/Creatinine Ratio 9 L Glucose 67 L Calculated Osmolality 274 L Calcium 8.8 Corrected Calcium 9.0 Phosphorus 2.8 Magnesium 1.8 Total Bilirubin 0.3 AST 27 ALT 32 Alkaline Phosphatase 169 H Total Protein 6.5 Albumin 3.7 Globulin 2.8 Albumin/Globulin Ratio 1.3 Hep Bs Antigen Non Reactive Hep B Core IgM Ab Non Reactive Quality Measures Quality Measures none Advance care planning discussed with:: patient Assessment & Plan Assessment Current Active Medications: Generic Name Dose Route Start Last Admin Trade Name Freq PRN Reason Stop Dose Admin Acetaminophen 650 mg 01/17/25 18:39 Acetaminophen 325 Mg Tablet PO 02/16/25 18:38 Q6H PRN Fever >100.4 or pain Protocol Amiodarone HCl 400 mg 01/22/25 21:00 01/23/25 09:47 Amiodarone Hcl 200 Mg Tablet PO 02/21/25 20:59 400 mg BID JAIRO Administration Apixaban 2.5 mg 01/22/25 21:00 01/22/25 22:01 Apixaban 2.5 Mg Tablet PO 02/21/25 20:59 2.5 mg On Hold: 01/23/25 02:29 BID JAIRO Administration Atorvastatin Calcium 40 mg 01/17/25 21:00 01/22/25 22:00 Atorvastatin Calcium 20 Mg Tablet PO 02/16/25 20:59 40 mg HS JAIRO Administration Bumetanide 2 mg 01/17/25 21:00 01/23/25 09:48 Bumetanide 0.5 Mg Tablet PO 02/16/25 20:59 2 mg BID JAIRO Administration Calcitriol 0.25 mcg 01/17/25 19:30 01/22/25 22:08 Calcitriol 0.25 Mcg Capsule PO 02/16/25 19:29 0.25 mcg UD JAIRO Administration Calcium Acetate 667 mg 01/19/25 12:00 01/23/25 08:05 Calcium Acetate 667 Mg Tablet PO 02/18/25 11:59 667 mg TIDWM JAIRO Administration Carvedilol 6.25 mg 01/17/25 21:00 01/19/25 08:49 Carvedilol 3.125 Mg Tablet PO 02/16/25 20:59 Not Given On Hold: 01/19/25 16:51 BID JAIRO Dextrose 25 ml 01/17/25 20:08 Dextrose 50%-Water Inj 50 Ml Syringe IV 02/16/25 20:07 Q15MIN PRN BG 50-70 responsive npo pt Dextrose 50 ml 01/17/25 20:08 Dextrose 50%-Water Inj 50 Ml Syringe IV 02/16/25 20:07 Q15MIN PRN BG <50 OR BG <70 & pt unresponsive Fluoxetine HCl 20 mg 01/18/25 09:00 01/23/25 09:48 Fluoxetine Hcl 10 Mg Capsule PO 02/17/25 08:59 20 mg QDAY JAIRO Administration Glucagon 1 mg 01/17/25 20:08 Glucagon Inj 1 Mg Vial IM Q15MIN PRN BG <70, and no IV access Heparin Sodium (Porcine) 4,100 unit 01/20/25 17:08 01/22/25 09:36 Heparin Sod Inj 1000 Unit/Ml Vial 10 Ml INDWELLCAT 02/03/25 17:07 4,100 unit PRN PRN Administration DIALYSIS Albumin Human 25 gm in 100 mls @ 100 mls/min 01/20/25 14:32 01/21/25 19:19 Albuminex 25% Ivpb IV Infused PRN PRN Infusion DIALYSIS Insulin Degludec 20 unit 01/19/25 09:00 01/23/25 09:59 Insulin Degludec 5 Unit/0.05 Ml (Per 5 Units) SC 02/18/25 08:59 Not Given QDAY JAIRO Insulin Human Lispro 0 unit 01/18/25 17:00 01/23/25 07:58 Insulin Lispro (Admelog) 1 Unit/0.01 Ml Unit SC 02/17/25 16:59 Not Given ACHS JAIRO Protocol Levothyroxine Sodium 50 mcg 01/18/25 06:00 01/23/25 05:15 Levothyroxine Sodium 25 Mcg Tablet PO 02/17/25 05:59 50 mcg ACBR JAIRO Administration Metolazone 2.5 mg 01/18/25 16:15 01/22/25 16:53 Metolazone 2.5 Mg Tablet PO 02/17/25 16:14 2.5 mg Q48H JAIRO Administration Ondansetron HCl 4 mg 01/17/25 18:39 01/21/25 11:59 Ondansetron Inj 2 Mg/Ml Inj 2 Ml IVP 02/16/25 18:38 4 mg Q6H PRN Administration NAUSEA OR VOMITING Protocol Pantoprazole Sodium 40 mg 01/18/25 09:00 01/23/25 09:48 Pantoprazole 40 Mg Tablet PO 02/17/25 08:59 40 mg QAM JAIRO Administration Plan Ruperto Love 79M pmhx significant for ESRD on home PD (since 2021) 2/2 diabetic nephropathy, IDDM2, HTN, TATY, hx of SVT on carvedilol, and hypothyroidism who presents with epigastric abdominal pain that occurs during PD and SOB, admitted for volume overload and pericardial effusion. #Pericardial effusion, chronic #Volume overload #ESRD on peritoneal dialysis (2021) 2/2 diabetic nephropathy #Shortness of breath Presents with SOB and fatigue. Has been on PD since 2021 for diabetic nephropathy. At home, patient is on bumetanide 2 mg BID and metolazone 2.5 mg QOD. Admission BNP 319 (10-4-25). EKG shows sinus rhythm rate 79 QTc 457. CXR shows moderate enlargement cardiac contour. CTAP shows prominent pericardial effusion of 26 mm, moderate vascular congestion, small bilateral pleural effusions, atelectasis versus pneumonia left base, suspicious for edema. Hepatocellular disease, gastritis pattern, gallbladder wall appears slightly thickened, mild free fluid in the abdomen likely related to peritoneal dialysis catheter. Likely from fluid overload from inadequate peritoneal fluid removal with new recently changed PD regimen vs heart failure exacerbation vs PNA vs atelectasis. Low suspicion for hemopericardium as patient's vitals and presentation are stable. 01/18 TTE: Normal LV size and wall thickness. There is grade I diastolic dysfunction. Estimated EF at 50-55%. Normal RV size and function. RVSP appears to be in the normal range Trace TR and MR. Minimal aortic valve sclerosis without stenosis. Large circumferential pericardial effusion that appears to be loculated with significant septae noted along with the fibrinous exudate on the ventricular veloz indicating chronic effusion. No RV diastolic collapse or any RA inversion. No significant respiratory variation in the tricuspid inflow velocities except for the mitral inflow. IVC dilated with less than 50% collapse with inspiration. There is no clear evidence of cardiac tamponade. Peritoneal dialysis: 01/17 (600cc UF), 01/18 (by , only ~500cc fluid removed no filtrate), 01/19 (by , 1.5L filtrate administered), 01/20 (by , 2L filtrate administered) TDC placed 01/20, received HD: 01/20 (1.5L removed), 01/21 (2.5L removed), 01/22 (0L removed, only tolerated 1 hr due to afib RVR rate 160s) Plan: - Dr. Amador consulted, recs appreciated: anticipate 2-3 months of hemodialysis to remove pericardial effusion, next HD planned for tomorrow - Cardiology consulted, recs appreciated: No need for urgent paracentesis at this time due to no evidence of cardiac tamponade, patient also has possibility of loculated pericardial effusion given septae noted, as pericardial fluid likely secondary to inadequate fluid removal from peritoneal dialysis, recommend hemodialysis - Fluid restrictions 1.2L - Continue calcium acetate 667 mg TID - Continue home PO bumetanide 2 mg BID, consider IV if inadequate diuresis - Continue home metolazone 2.5 mg QOD #Atrial fibrillation, RVR #History of SVT Night of 01/18, patient developed 2 episodes of afib RVR at [id number] with rates 130-170 with intermittent atrial fibrillation with controlled rate in between. Overnight, patient received Mg and dilt without resolution. Amiodarone drip started with conversion of atrial fibraillation to sinus rhythm. Per , patient does not have a diagnosed history of atrial fibrillation however monitor reads sent entirely up to 170. s/p amiodarone drip and patient currently in sinus rhythm CHADSVASC 4, 4.8% stroke risk/year HASBLED 2, moderate risk for bleeding Plan: - Cardiology consulted, recs appreciated: Eliquis 2.5 mg BID - PO amiodarone 400 mg BID - Carvedilol held - Telemetry for monitoring - Keep K>4 and Mg>2 at all times #Hyponatremia, improving Admission Na 124 (01-17-25). Likely 2/2 fluid overload. Plan: - Fluid restriction 1.2L as above - Caution with bumetanide and metolazone - Trend Na #Normocytic anemia s/p 3 pRBC #Leukocytosis Per son, patient has been received iron infusions bimonthly at dialysis center and takes iron supplements 325 QD. WBC 13.2 and Hgb 7.8 (01-21-25). FOBT negative. Iron low 36, TIBC 230, iron sat 15, ferritin 1077 (01/18/25) Anemia likely secondary to chronic disease on dialysis, low suspicion for active bleeding as patient denies any melena, hematochezia or coffee-ground emesis. Leukocytosis likely reactive, no clear source of infection at this time with peritoneal fluid cytology negative with no tenderness to abdominal palpation. 01/22 EGD: normal esophagus, gastritis, normal duodenum s/p 1 pRBC 10/5 and 1 pRBC 6 and 1 pRBC 01/21 Plan: - Trend CBC - Consider antibiotics if patient becomes symptomatic or leukocytosis worsens - Per cardiology recommendations- transfuse if Hgb <8 - GI consulted, recs appreciated: Golytely, CLD, colonoscopy tonight #IDDM2 #Hyperglycemia #HLD Per pharmacy review, patient has been prescribed insulin and is taking atorvastatin 40 mg qhs. On admission glucose 267. 01/2025 A1c 7.5. Triglycerides 99. Cholesterol 104. LDL 51, HDL 33. Glucose 01/21/25- 197 Plan: - Degludac 20 units started with SSI step 3 - Degludac held this am due to low AM glucose from being NPO for colonoscopy, plan to continue tomorrow #HTN Per history. However recently patient has been hypotensive secondary to volume overload. At home patient is on hydralazine 50 mg TID, carvedilol 6.25 mg BID, nifedipine ER 90 mg QD, minoxidil 5 mg BID and diuretics Plan: - Hold all home antihypertensives #Hypothyroidism TSH 4.88 and T4 1.22 01-18-25. Plan: - Continue home levothyroxine 50 mcg QD #Depression Plan: - Continue home fluoxetine 20 mg QD Hospital management: Lines: PIV, PD cath L of umbilicus Diet: Cardiac 1.2L fluid restriction Bowel: not indicated GI prophylaxis: PO pantoprazole 40 mg QD DVT prophylaxis: SCDs iso severe anemia Disposition: tele for PD and evaluation of pericardial effusion CODE STATUS: FULL CODE Plan of care discussed with attending Dr. Kauffman, and PGY-2 Dr. Foss. Hortencia Santana DO PGY-1 Internal Medicine Attending Provider Attestation/Addendum I have discussed and was present for the essential components of the history, physical examination, diagnosis, and treatment plan with the resident. I agree with the patient's care as documented by the resident and amended herein by me. Valentín Kauffman DO. Although this document has been carefully reviewed, there may still be some phonetic and other typographical errors. These errors are purely grammatical due to imperfections in the software program and should not be construed in any way to compromise the substance of the patient's medical care during this visit.
--- NOTE | 2025-01-23 15:48 | PC.SS ---
Rounding Note: Plan is for patient to obtain colonoscopy. Dialysis scheduled for tomorrow. D/C within 1-2 days.
--- NOTE | 2025-01-23 18:29 | PD.IMPROG ---
Documentation for date of: 01/23/25 Subjective Subjective Interval history: Patient evaluated Patient was not clear he is drinking still GoLytely Colonoscopy postponed and given additional 4 L of GoLytely Procedure postponed to tomorrow Exam Vital Signs Temp Pulse Resp BP Pulse Ox O2 Del Method O2 Flow Rate 97.7 F 62 22 H 127/71 99 Room Air 3 01/23/25 12:00 01/23/25 16:00 01/23/25 12:00 01/23/25 12:00 01/23/25 12:00 01/23/25 12:00 01/22/25 20:45 Objective Labs 01/23/25 04:30 01/23/25 04:30 Labs: Laboratory Results - last 24 hr 01/22/25 01/23/25 04:32 04:30 WBC 9.5 RBC 2.64 L Hgb 8.8 L Hct 25.4 L MCV 96 MCH 33.3 MCHC 34.6 RDW Std Deviation 50.9 H Plt Count 181 Neut % (Auto) 77 Lymph % (Auto) 9 L [place] % (Auto) 12 Eos % (Auto) 1 Baso % (Auto) 0 Neut # (Auto) 7.3 Lymph # (Auto) 0.9 L [place] # (Auto) 1.2 H Eos # (Auto) 0.1 Baso # (Auto) 0.0 Immature Gran # (Auto) 0.08 H Absolute Nucleated RBC 0.07 H Immature Gran % 1 H Nucleated RBC % 1 H Sodium 132 L Potassium 3.7 D Chloride 93 L Carbon Dioxide 26.9 Anion Gap 12 BUN 46 H Creatinine 5.2 H* Estim Creat Clear Calc 12.6 L eGFR 11 L* BUN/Creatinine Ratio 9 L Glucose 67 L Calculated Osmolality 274 L Calcium 8.8 Corrected Calcium 9.0 Phosphorus 2.8 Magnesium 1.8 Total Bilirubin 0.3 AST 27 ALT 32 Alkaline Phosphatase 169 H Total Protein 6.5 Albumin 3.7 Globulin 2.8 Albumin/Globulin Ratio 1.3 Hep Bs Antigen Non Reactive Hep B Core IgM Ab Non Reactive Impressions Impression: Anemia blood loss GoLytely prep will continue Colonoscopy a.m. Assessment & Plan A&P Narrative # Epigastric abdominal pain # Nausea # Anemia multifactorial already getting iron infusions twice a month at the dialysis center Other medical problems include Suggestions Once patient's shortness of breath improves and pericardial effusion is taking care of upper endoscopy prior to discharge Other medical problems include Diabetes mellitus type 1 Essential hypertension SVT on carvedilol Peritoneal dialysis Pericardial effusion Thank you very much for the opportunity to participate in care of this patient Time Spent With Patient Time: Total time spent is greater than 50% in coordination of care (as documented) at patient's floor/unit and/or counseling patient:
[2025-01-23] MEDS: ATORVASTATIN CALCIUM 20 MG TABLET 40 MG PO (20:23)
[2025-01-23] MEDS: NA SU/NAHCO3/KC/PEG (Golytely) 4,000 ML BTL 4000 ML PO (21:21)
[2025-01-24] VITALS (40 sets, daily range): BP systolic 106–175; BP diastolic 44–86; PULSE 62–79; RESP 14–38; TEMP 36–36.8; O2SAT 95–99; BMI 27.6
[2025-01-24] MEDS: LEVOTHYROXINE SODIUM 25 MCG TABLET 50 MCG PO (05:36)
[2025-01-24 06:01] LABS: Basophils # (Auto) 0.0 Thou/mm3 (0.0-0.2); Basophils % (Auto) 0 % (0-2.5); Eosinophils # (Auto) 0.2 Thou/mm3 (0.0-0.5); Eosinophils % (Auto) 2 % (0-10); Hematocrit 26.7 % (41.0-53.0); Hemoglobin 9.3 g/dL (13.5-16.0); Immature Granulocytes Auto 0.06 Thou/mm3 (0.00-0.00); Lymphocytes # (Auto) 0.8 Thou/mm3 (1.0-4.8); Lymphocytes % (Auto) 8 % (10-50); Mean Corpuscular HGB Conc 34.8 g/dl (31.0-37.0); Mean Corpuscular Hemoglobin 32.6 pg (25.0-35.0); Mean Corpuscular Volume 94 fL (80-100); Monocytes # (Auto) 1.2 Thou/mm3 (0.0-0.8); Monocytes % (Auto) 13 % (0-12); Neutrophils # (Auto) 7.6 Thou/mm3 (1.8-7.7); Neutrophils % (Auto) 77 % (37-80); Nucleated Red Blood Cell # 0.02 Thou/mm3 (0.00-0.00); Nucleated Red Blood Cell % 0 /100 WBC (0); Platelet Count 177 Thou/mm3 (140-440); RDW Standard Deviation 47.8 fL (35.1-43.9); Red Blood Count 2.85 Miln/mm3 (4.50-5.90); White Blood Count 9.8 Thou/mm3 (3.8-10.6)
[2025-01-24 06:26] LABS: Alanine Aminotransferase 33 U/L (10-49); Albumin, Serum 3.5 gm/dL (3.4-4.8); Albumin/Globulin Ratio 1.6 (1.2-2.2); Alkaline Phosphatase 146 U/L (46-116); Anion Gap 15 (7-16); Aspartate Amino Transferase 26 U/L (0-34); BUN/Creatinine Ratio 9 Ratio (12-20); Bilirubin,Total 0.4 mg/dL (0.3-1.2); Blood Urea Nitrogen 49 mg/dL (9-23); Calcium 8.4 mg/dL (8.3-10.6); Calcium (Corrected) 8.8 mg/dL (8.5-10.1); Carbon Dioxide 28.3 mMol/L (20.0-31.0); Chloride 91 mMol/L (98-107); Creatinine (Component) 5.5 mg/dL (0.6-1.3); Estimated Creatinine Clearance 10.9 mL/min (>60); Globulin 2.2 gm/dL (2.3-3.5); Glucose 97 mg/dL (74-106); Magnesium 2.0 mg/dL (1.6-2.6); Osmolality,Calculated 281 (275-295); Phosphorous 2.1 mg/dL (2.4-5.1); Potassium 3.6 mMol/L (3.4-5.1); Sodium 134 mMol/L (136-145); Total Protein 5.7 gm/dL (5.7-8.2); eGFR 10 See Note
[2025-01-24] MEDS: AMIODARONE HCL 200 MG TABLET 400 MG PO ×2 (07:49→20:24)
[2025-01-24] MEDS: HEPARIN SOD INJ 1000 UNIT/ML VIAL 10 ML 4100 UNIT INDWELLCAT (11:15)
[2025-01-24] MEDS: INSULIN LISPRO (AdmeLOG) 1 UNIT/0.01 ML UNIT SC ×2 (12:14→20:25)
[2025-01-24] MEDS: CALCIUM ACETATE 667 MG TABLET PO ×2 (12:15→17:41)
--- NOTE | 2025-01-24 12:35 | ESPR_ITS ---
Documentation for date of: 01/24/25 Subjective Subjective Interval history: Patient was seen examined bedside this afternoon. Patient was getting hemodialysis this morning, but spoke with patient's who was at bedside and updated her on the plans. Patient did not get a colonoscopy yesterday as she was still not clear. Will likely get colonoscopy today. Pending possible discharge in next 24 to 48 hours. Patient already has a hemodialysis chair in [facility] at the [place]. No other complete at this time. Exam Vital Signs Temp Pulse Resp BP Pulse Ox O2 Del Method O2 Flow Rate 96.8 F 72 38 H 146/76 H 97 Room Air 3 01/24/25 12:00 01/24/25 12:00 01/24/25 12:00 01/24/25 12:00 01/24/25 12:00 01/24/25 12:00 01/22/25 20:45 Narrative Exam General: A/O x3, no acute distress Eyes: PERRL, EOMI. Anicteric, vision grossly intact. Ears: No ear pain, no ear discharge, Hearing grossly impaired. Nose: No nasal discharge. Mouth/Throat: Moist mucous membranes, no redness, no lesions. Neck: Neck supple, non-tender, no cervical lymphadenopathy. Lungs: Clear KAREN to auscultation and percussion, No accessory muscle use. Cardio: Normal S1/S2, regular rhythm, systolic murmurs, no JVD Abdomen: Soft, but distended, non-tender, no palpable masses, peristalsis present, no guarding or rebound. Extremities: Symmetrical, no significant deformities, no peripheral edema , non-tender, peripheral pulses presents. Skin: No rashes, no lesions, warm to touch. RIJ HD cath Neuro: No focal neurological deficits. motor and sensory intact Psych: Cooperative, appropriate mood and effect. Objective Labs 01/24/25 05:20 01/24/25 05:20 Labs: Laboratory Results - last 24 hr 01/21/25 01/24/25 07:00 05:20 WBC 9.8 RBC 2.85 L Hgb 9.3 L Hct 26.7 L MCV 94 MCH 32.6 MCHC 34.8 RDW Std Deviation 47.8 H Plt Count 177 Neut % (Auto) 77 Lymph % (Auto) 8 L [place] % (Auto) 13 H Eos % (Auto) 2 Baso % (Auto) 0 Neut # (Auto) 7.6 Lymph # (Auto) 0.8 L [place] # (Auto) 1.2 H Eos # (Auto) 0.2 Baso # (Auto) 0.0 Immature Gran # (Auto) 0.06 H Absolute Nucleated RBC 0.02 H Immature Gran % 1 H Nucleated RBC % 0 Sodium 134 L Potassium 3.6 Chloride 91 L Carbon Dioxide 28.3 Anion Gap 15 BUN 49 H Creatinine 5.5 H* Estim Creat Clear Calc 10.9 L eGFR 10 L* BUN/Creatinine Ratio 9 L Glucose 97 Calculated Osmolality 281 Calcium 8.4 Corrected Calcium 8.8 Phosphorus 2.1 L Magnesium 2.0 Total Bilirubin 0.4 AST 26 ALT 33 Alkaline Phosphatase 146 H D Total Protein 5.7 Albumin 3.5 Globulin 2.2 L Albumin/Globulin Ratio 1.6 Crossmatch See Detail Quality Measures Quality Measures none Advance care planning discussed with:: patient and spouse Assessment & Plan Assessment Current Active Medications: Generic Name Dose Route Start Last Admin Trade Name Freq PRN Reason Stop Dose Admin Acetaminophen 650 mg 01/17/25 18:39 Acetaminophen 325 Mg Tablet PO 02/16/25 18:38 Q6H PRN Fever >100.4 or pain Protocol Amiodarone HCl 400 mg 01/22/25 21:00 01/24/25 07:49 Amiodarone Hcl 200 Mg Tablet PO 02/21/25 20:59 400 mg BID JAIRO Administration Apixaban 2.5 mg 01/22/25 21:00 01/22/25 22:01 Apixaban 2.5 Mg Tablet PO 02/21/25 20:59 2.5 mg On Hold: 01/23/25 02:29 BID JAIRO Administration Atorvastatin Calcium 40 mg 01/17/25 21:00 01/23/25 20:23 Atorvastatin Calcium 20 Mg Tablet PO 02/16/25 20:59 40 mg HS JAIRO Administration Bumetanide 2 mg 01/17/25 21:00 01/24/25 08:00 Bumetanide 0.5 Mg Tablet PO 02/16/25 20:59 Not Given BID JAIRO Calcitriol 0.25 mcg 01/17/25 19:30 01/23/25 19:07 Calcitriol 0.25 Mcg Capsule PO 02/16/25 19:29 Not Given UD JAIRO Calcium Acetate 667 mg 01/19/25 12:00 01/24/25 12:15 Calcium Acetate 667 Mg Tablet PO 02/18/25 11:59 667 mg TIDWM JAIRO Administration Carvedilol 6.25 mg 01/17/25 21:00 01/19/25 08:49 Carvedilol 3.125 Mg Tablet PO 02/16/25 20:59 Not Given On Hold: 01/19/25 16:51 BID JAIRO Dextrose 25 ml 01/17/25 20:08 Dextrose 50%-Water Inj 50 Ml Syringe IV 02/16/25 20:07 Q15MIN PRN BG 50-70 responsive npo pt Dextrose 50 ml 01/17/25 20:08 Dextrose 50%-Water Inj 50 Ml Syringe IV 02/16/25 20:07 Q15MIN PRN BG <50 OR BG <70 & pt unresponsive Fluoxetine HCl 20 mg 01/18/25 09:00 01/24/25 08:01 Fluoxetine Hcl 10 Mg Capsule PO 02/17/25 08:59 Not Given QDAY JAIRO Glucagon 1 mg 01/17/25 20:08 Glucagon Inj 1 Mg Vial IM Q15MIN PRN BG <70, and no IV access Heparin Sodium (Porcine) 4,100 unit 01/20/25 17:08 01/24/25 11:15 Heparin Sod Inj 1000 Unit/Ml Vial 10 Ml INDWELLCAT 02/03/25 17:07 4,100 unit PRN PRN Administration DIALYSIS Albumin Human 25 gm in 100 mls @ 100 mls/min 01/20/25 14:32 01/21/25 19:19 Albuminex 25% Ivpb IV Infused PRN PRN Infusion DIALYSIS Insulin Degludec 20 unit 01/19/25 09:00 01/24/25 08:01 Insulin Degludec 5 Unit/0.05 Ml (Per 5 Units) SC 02/18/25 08:59 Not Given QDAY JAIRO Insulin Human Lispro 0 unit 01/18/25 17:00 01/24/25 12:14 Insulin Lispro (Admelog) 1 Unit/0.01 Ml Unit SC 02/17/25 16:59 3 unit ACHS JAIRO Administration Protocol Levothyroxine Sodium 50 mcg 01/18/25 06:00 01/24/25 05:36 Levothyroxine Sodium 25 Mcg Tablet PO 02/17/25 05:59 50 mcg ACBR JAIRO Administration Metolazone 2.5 mg 01/18/25 16:15 01/22/25 16:53 Metolazone 2.5 Mg Tablet PO 02/17/25 16:14 2.5 mg Q48H JAIRO Administration Ondansetron HCl 4 mg 01/17/25 18:39 01/21/25 11:59 Ondansetron Inj 2 Mg/Ml Inj 2 Ml IVP 02/16/25 18:38 4 mg Q6H PRN Administration NAUSEA OR VOMITING Protocol Pantoprazole Sodium 40 mg 01/18/25 09:00 01/24/25 08:01 Pantoprazole 40 Mg Tablet PO 02/17/25 08:59 Not Given QAM JAIRO Plan Ruperto Love 79M pmhx significant for ESRD on home PD (since 2021) 2/2 diabetic nephropathy, IDDM2, HTN, TATY, hx of SVT on carvedilol, and hypothyroidism who presents with epigastric abdominal pain that occurs during PD and SOB, admitted for volume overload and pericardial effusion. #Pericardial effusion, chronic #Volume overload #ESRD on peritoneal dialysis (2021) 2/2 diabetic nephropathy #Shortness of breath Presents with SOB and fatigue. Has been on PD since 2021 for diabetic nephropathy. At home, patient is on bumetanide 2 mg BID and metolazone 2.5 mg QOD. Admission BNP 319 (10-4-25). EKG shows sinus rhythm rate 79 QTc 457. CXR shows moderate enlargement cardiac contour. CTAP shows prominent pericardial effusion of 26 mm, moderate vascular congestion, small bilateral pleural effusions, atelectasis versus pneumonia left base, suspicious for edema. Hepatocellular disease, gastritis pattern, gallbladder wall appears slightly thickened, mild free fluid in the abdomen likely related to peritoneal dialysis catheter. Likely from fluid overload from inadequate peritoneal fluid removal with new recently changed PD regimen vs heart failure exacerbation vs PNA vs atelectasis. Low suspicion for hemopericardium as patient's vitals and presentation are stable. 01/18 TTE: Normal LV size and wall thickness. There is grade I diastolic dysfunction. Estimated EF at 50-55%. Normal RV size and function. RVSP appears to be in the normal range Trace TR and MR. Minimal aortic valve sclerosis without stenosis. Large circumferential pericardial effusion that appears to be loculated with significant septae noted along with the fibrinous exudate on the ventricular veloz indicating chronic effusion. No RV diastolic collapse or any RA inversion. No significant respiratory variation in the tricuspid inflow velocities except for the mitral inflow. IVC dilated with less than 50% collapse with inspiration. There is no clear evidence of cardiac tamponade. Peritoneal dialysis: 01/17 (600cc UF), 01/18 (by , only ~500cc fluid removed no filtrate), 01/19 (by , 1.5L filtrate administered), 01/20 (by , 2L filtrate administered) TDC placed 01/20, received HD: 01/20 (1.5L removed), 01/21 (2.5L removed), 01/22 (0L removed, only tolerated 1 hr due to afib RVR rate 160s) Plan: - Dr. Amador consulted, recs appreciated: anticipate 2-3 months of hemodialysis to remove pericardial effusion - Cardiology consulted, recs appreciated: No need for urgent paracentesis at this time due to no evidence of cardiac tamponade, patient also has possibility of loculated pericardial effusion given septae noted, as pericardial fluid likely secondary to inadequate fluid removal from peritoneal dialysis, recommend hemodialysis - Fluid restrictions 1.2L - Continue calcium acetate 667 mg TID - Continue home PO bumetanide 2 mg BID, consider IV if inadequate diuresis - Continue home metolazone 2.5 mg QOD #Atrial fibrillation, RVR #History of SVT Night of 01/18, patient developed 2 episodes of afib RVR at [id number] with rates 130-170 with intermittent atrial fibrillation with controlled rate in between. Overnight, patient received Mg and dilt without resolution. Amiodarone drip started with conversion of atrial fibraillation to sinus rhythm. Per , patient does not have a diagnosed history of atrial fibrillation however monitor reads sent entirely up to 170. s/p amiodarone drip and patient currently in sinus rhythm CHADSVASC 4, 4.8% stroke risk/year HASBLED 2, moderate risk for bleeding Plan: - Cardiology consulted, recs appreciated: Eliquis 2.5 mg BID - PO amiodarone 400 mg BID - Carvedilol held - Telemetry for monitoring - Keep K>4 and Mg>2 at all times #Hyponatremia, improving Admission Na 124 (10-4-25). Likely 2/2 fluid overload. Plan: - Fluid restriction 1.2L as above - Caution with bumetanide and metolazone - Trend Na #Normocytic anemia s/p 3 pRBC #Leukocytosis Per son, patient has been received iron infusions bimonthly at dialysis center and takes iron supplements 325 QD. WBC 13.2 and Hgb 7.8 (01-21-25). FOBT negative. Iron low 36, TIBC 230, iron sat 15, ferritin 1077 (01/18/25) Anemia likely secondary to chronic disease on dialysis, low suspicion for active bleeding as patient denies any melena, hematochezia or coffee-ground emesis. Leukocytosis likely reactive, no clear source of infection at this time with peritoneal fluid cytology negative with no tenderness to abdominal palpation. 01/22 EGD: normal esophagus, gastritis, normal duodenum s/p 1 pRBC 01/18 and 1 pRBC 01/19 and 1 pRBC 01/21 Plan: - Trend CBC - Consider antibiotics if patient becomes symptomatic or leukocytosis worsens - Per cardiology recommendations- transfuse if Hgb <8 - GI consulted, recs appreciated: [place], CLD, colonoscopy tonight if clear #IDDM2 #Hyperglycemia #HLD Per pharmacy review, patient has been prescribed insulin and is taking atorvastatin 40 mg qhs. On admission glucose 267. 01/2025 A1c 7.5. Triglycerides 99. Cholesterol 104. LDL 51, HDL 33. Glucose 01/21/25- 197 Plan: - Degludac 20 units started with SSI step 3 - Degludac held this am due to low AM glucose from being NPO for colonoscopy, plan to continue tomorrow #HTN Per history. However recently patient has been hypotensive secondary to volume overload. At home patient is on hydralazine 50 mg TID, carvedilol 6.25 mg BID, nifedipine ER 90 mg QD, minoxidil 5 mg BID and diuretics Plan: - Hold all home antihypertensives #Hypothyroidism TSH 4.88 and T4 1.22 01-18-25. Plan: - Continue home levothyroxine 50 mcg QD #Depression Plan: - Continue home fluoxetine 20 mg QD Disposition: Pending colonoscopy Diet: Clear liquid GI prophylaxis: protonix DVT prophylaxis: SCDs Code: Full Case disclosed with Attending Dr. Daly Reed PGY2 Disclaimer: Even though this this note was dictated by speech recognition and even though it was carefully revised there may still be minor errors in wood web weaving machine operator due to voice recognition software. Attending Provider Attestation/Addendum I have discussed and was present for the essential components of the history, physical examination, diagnosis, and treatment plan with the resident. I agree with the patient's care as documented by the resident and amended herein by me. Valentín Kauffman DO. Although this document has been carefully reviewed, there may still be some phonetic and other typographical errors. These errors are purely grammatical due to imperfections in the software program and should not be construed in any way to compromise the substance of the patient's medical care during this visit. Patient seen and evaluated this AM. No acute events overnight, vital signs stable, patient afebrile, significant labs included creatinine of 5.5, hemodialysis scheduled for today. Patient is established with hemodialysis chair in [place] and they are ready for him on Sunday. Colonoscopy performed today, patient was not clear prior however 1 large polyp in the cecum was removed, the patient did have diverticulitis however nonbleeding and a couple internal hemorrhoids that were banded. Patient doing well overall, will continue amiodarone, Eliquis 2.5 mg p.o. twice daily, statin and Bumex for now likely discharge home tomorrow if he continues to clinically improved.
--- NOTE | 2025-01-24 14:28 | ESPR_ITS ---
<Statement entered by Joseluis Fuchs MD - 01/25/25 19:09> I personally examined the patient and evaluated the patient in telemetry floor underwent dialysis today patient is clinically stable not have any shortness of breath chest pain he does have pericardial effusion but no tamponade clinically I evaluated the patient with resident physician Dr. Marlon MONTOYA PGY2 agree with the treatment plan recommendation as documented Documentation for date of: 01/24/25 Subjective Subjective Interval history: No acute overnight events. Seen and examined at bedside after his colonoscopy and tolerated the procedure well. He denies any chest discomfort, pleuritic chest pain, or shortness of breath. BP 169/72 but otherwise vital signs stable as he is afebrile, saturating well on room air, pulse 63. Labs show stable hemoglobin, worsening renal function with creatinine of 5.5 from 5.2 but did receive hemodialysis, hypophosphatemia. Now has HD chair at [facility] in [place]. Exam Vital Signs Temp Pulse Resp BP Pulse Ox O2 Del Method O2 Flow Rate 96.8 F 72 38 H 146/76 H 97 Room Air 3 01/24/25 12:00 01/24/25 12:00 01/24/25 12:00 01/24/25 12:00 01/24/25 12:00 01/24/25 12:00 01/22/25 20:45 Narrative Exam General: Awake and in no acute distress. Conversational and non-toxic appearing. Turkmen-speaking elderly male. Overweight. HEENT: Normocephalic, atraumatic, mucous membranes moist. Heart: Regular rate and rhythm, normal S1 and S2. 2/6 systolic murmur more pronounced with inspiration, heard best at right second intercostal space. Lungs: Decreased breath sounds in bilateral lower lobes, otherwise clear. Abdomen: Soft, distended, nontender, positive bowel sounds. No guarding or rebound tenderness. Neurologic: Alert and oriented x3, no gross neurological deficit, and patient able to move all 4 extremities. Extremities: No edema. Skin: No rash or ecchymoses. Objective Labs 01/24/25 05:20 01/24/25 05:20 Labs: Laboratory Results - last 24 hr 01/21/25 01/24/25 07:00 05:20 WBC 9.8 RBC 2.85 L Hgb 9.3 L Hct 26.7 L MCV 94 MCH 32.6 MCHC 34.8 RDW Std Deviation 47.8 H Plt Count 177 Neut % (Auto) 77 Lymph % (Auto) 8 L [place] % (Auto) 13 H Eos % (Auto) 2 Baso % (Auto) 0 Neut # (Auto) 7.6 Lymph # (Auto) 0.8 L [place] # (Auto) 1.2 H Eos # (Auto) 0.2 Baso # (Auto) 0.0 Immature Gran # (Auto) 0.06 H Absolute Nucleated RBC 0.02 H Immature Gran % 1 H Nucleated RBC % 0 Sodium 134 L Potassium 3.6 Chloride 91 L Carbon Dioxide 28.3 Anion Gap 15 BUN 49 H Creatinine 5.5 H* Estim Creat Clear Calc 10.9 L eGFR 10 L* BUN/Creatinine Ratio 9 L Glucose 97 Calculated Osmolality 281 Calcium 8.4 Corrected Calcium 8.8 Phosphorus 2.1 L Magnesium 2.0 Total Bilirubin 0.4 AST 26 ALT 33 Alkaline Phosphatase 146 H D Total Protein 5.7 Albumin 3.5 Globulin 2.2 L Albumin/Globulin Ratio 1.6 Crossmatch See Detail Quality Measures Quality Measures none Advance care planning discussed with:: patient, spouse and child Assessment & Plan Assessment Current Active Medications: Generic Name Dose Route Start Last Admin Trade Name Freq PRN Reason Stop Dose Admin Acetaminophen 650 mg 01/17/25 18:39 Acetaminophen 325 Mg Tablet PO 02/16/25 18:38 Q6H PRN Fever >100.4 or pain Protocol Amiodarone HCl 400 mg 01/22/25 21:00 01/24/25 07:49 Amiodarone Hcl 200 Mg Tablet PO 02/21/25 20:59 400 mg BID JAIRO Administration Apixaban 2.5 mg 01/22/25 21:00 01/22/25 22:01 Apixaban 2.5 Mg Tablet PO 02/21/25 20:59 2.5 mg On Hold: 01/23/25 02:29 BID JAIRO Administration Atorvastatin Calcium 40 mg 01/17/25 21:00 01/23/25 20:23 Atorvastatin Calcium 20 Mg Tablet PO 02/16/25 20:59 40 mg HS JAIRO Administration Bumetanide 2 mg 01/17/25 21:00 01/24/25 08:00 Bumetanide 0.5 Mg Tablet PO 02/16/25 20:59 Not Given BID JAIRO Calcitriol 0.25 mcg 01/17/25 19:30 01/23/25 19:07 Calcitriol 0.25 Mcg Capsule PO 02/16/25 19:29 Not Given UD JAIRO Calcium Acetate 667 mg 01/19/25 12:00 01/24/25 12:15 Calcium Acetate 667 Mg Tablet PO 02/18/25 11:59 667 mg TIDWM JAIRO Administration Carvedilol 6.25 mg 01/17/25 21:00 01/19/25 08:49 Carvedilol 3.125 Mg Tablet PO 02/16/25 20:59 Not Given On Hold: 01/19/25 16:51 BID JAIRO Dextrose 25 ml 01/17/25 20:08 Dextrose 50%-Water Inj 50 Ml Syringe IV 02/16/25 20:07 Q15MIN PRN BG 50-70 responsive npo pt Dextrose 50 ml 01/17/25 20:08 Dextrose 50%-Water Inj 50 Ml Syringe IV 02/16/25 20:07 Q15MIN PRN BG <50 OR BG <70 & pt unresponsive Fluoxetine HCl 20 mg 01/18/25 09:00 01/24/25 08:01 Fluoxetine Hcl 10 Mg Capsule PO 02/17/25 08:59 Not Given QDAY [facility] Glucagon 1 mg 01/17/25 20:08 Glucagon Inj 1 Mg Vial IM Q15MIN PRN BG <70, and no IV access Heparin Sodium (Porcine) 4,100 unit 01/20/25 17:08 01/24/25 11:15 Heparin Sod Inj 1000 Unit/Ml Vial 10 Ml INDWELLCAT 02/03/25 17:07 4,100 unit PRN PRN Administration DIALYSIS Albumin Human 25 gm in 100 mls @ 100 mls/min 01/20/25 14:32 01/21/25 19:19 Albuminex 25% Ivpb IV Infused PRN PRN Infusion DIALYSIS Insulin Degludec 20 unit 01/19/25 09:00 01/24/25 08:01 Insulin Degludec 5 Unit/0.05 Ml (Per 5 Units) SC 02/18/25 08:59 Not Given QDAY JAIRO Insulin Human Lispro 0 unit 01/18/25 17:00 01/24/25 12:14 Insulin Lispro (Admelog) 1 Unit/0.01 Ml Unit SC 02/17/25 16:59 3 unit ACHS JAIRO Administration Protocol Levothyroxine Sodium 50 mcg 01/18/25 06:00 01/24/25 05:36 Levothyroxine Sodium 25 Mcg Tablet PO 02/17/25 05:59 50 mcg ACBR JAIRO Administration Metolazone 2.5 mg 01/18/25 16:15 01/22/25 16:53 Metolazone 2.5 Mg Tablet PO 02/17/25 16:14 2.5 mg Q48H JAIRO Administration Ondansetron HCl 4 mg 01/17/25 18:39 01/21/25 11:59 Ondansetron Inj 2 Mg/Ml Inj 2 Ml IVP 02/16/25 18:38 4 mg Q6H PRN Administration NAUSEA OR VOMITING Protocol Pantoprazole Sodium 40 mg 01/18/25 09:00 01/24/25 08:01 Pantoprazole 40 Mg Tablet PO 02/17/25 08:59 Not Given QAM JAIRO Plan 79-year-old male with a history of ESRD on peritoneal dialysis for the past 3 years, history of SVT (last reported episode July 2024), chronic anemia, insulin-dependent diabetes type 2, hypertension, GERD, alcohol abuse who presents to the ED on 01/17 for shortness of breath. Cardiology was consulted for pericardial effusion found on CT A/P with concern of hemopericardium. #? New onset afib with RVR Reports occassional palpitations at home prior to admission. Telemetry showed A-fib with RVR overnight and was confirmed on EKG. Started on amiodarone drip by night team and since transitioned to p.o. amiodarone 400 mg twice daily. Now in sinus rhythm and rate controlled. 01/22: Went into afib with RVR (HR 130-140) during dialysis. No fluid removed and given amiodarone 200 mg, HR improved to 100-105 and given another amiodarone 200 mg. 01/23: EKG showed A-fib with heart rate of 107, QTc 549 but calculated to be 402-430. Heart rate likely elevated secondary to GoLytely prep. ? Amiodarone 400 mg p.o. BID for rate control for 2 weeks (01/22-02/05) ? Recommend to reduce to 200 mg twice daily upon outpatient follow-up with girls tennis coach in [place] ? Eliquis 2.5 mg BID held in light of colonoscopy and can resume per primary team discretion ? Recommend that patient get further outpatient work up #Large pericardial effusion #Bilateral pleural effusions #SVT, resolved #ESRD on peritoneal dialysis since 2021 2/2 diabetic nephropathy now on hemodialysis #HFpEF (EF 50-55%) #Grade I diastolic dysfunction Has been on home PD since 2021 for diabetic nephropathy and symptom onset since recent transition to new solution. Suspect patient has been fluctuating between over and under diuresis since solution transition. CT A/P shows prominent pericardial effusion of 26 mm, moderate vascular congestion, small bilateral pleural effusions. TTE on 01/17 showed EF 50-55%, G1DD. Normal RV size and function. RVSP appears to be in normal range. Trace TR and MR. Minimal aortic valve sclerosis without stenosis. Large circumferential pericardial effusion that appears to be loculated with significant septae with fibrinous exudate on ventricular veloz, indicating chronic effusion. No RV diastolic collapse or RA inversion. No significant respiratory variation in tricuspid inflow velocities except for mitral inflow. IVC dilated with less than 50% collapse with inspiration. No clear evidence of cardiac tamponade. Suspect to be due to fluid overload from inadequate peritoneal fluid removal with new recently changed PD regimen vs heart failure exacerbation. Follows girls tennis coach Dr. Gonsales in [place], last seen 3 weeks ago for echo results which he was told was fine . ? Does not meet criteria for cardiac tamponade and not an ideal candidate for pericardial drainage given risks versus benefits and signs of chronicity and complex effusion ? Based on chronicity of effusion, will likely benefit more from starting hemodialysis to remove excess fluid at this time ? Started HD on 01/20 but unable to tolerate due to episodes of A-fib with RVR ? Maintaining very minimal urine output and recommend to discuss with nephrology about continuation of Bumex and metolazone #Normocytic anemia, chronic Per son, patient receives iron infusions bimonthly at dialysis center and takes iron supplements 325 QD Anemia likely secondary to chronic disease on dialysis vs ESRD, low suspicion for active bleeding as patient denies any melena, hematochezia or coffee-ground emesis 01/18: hemoglobin dropped to 7.0 and no sign of acute bleed but received 2 units pRBC ? Defer anemia workup to primary team #Type 2 diabetes mellitus, insulin dependent #Hyperlipidemia Per pharmacy review, prescribed insulin and taking atorvastatin 40 mg at night. On admission glucose 267, A1c 7.5%. TGD 99, total cholesterol 104, LDL 51, HDL 33. TSH elevated 4.88, T4 1.22. ASCVD score: above age 75 but would recommend to continue high intensity statin ? Insulin management per primary team ? Continue atorvastatin 40 mg nightly #Hypertension Has history of hypertension, however as of late, patient has been hypotensive likely secondary to volume status changes. Home medications include hydralazine 50 mg TID, carvedilol 6.25 mg BID, nifedipine ER 60 mg QD. ? Resume all home antihypertensives as above #History of alcohol abuse #Leukocytosis, likely reactive #Hyponatremia #Hypothyroidism #GERD #Depression ? Continue management per primary team ----- Plan discussed with attending physician Dr. Jef Montoya MD PGY-2 Internal Medicine
[2025-01-24] MEDS: SODIUM CHLORIDE 0.9% 500 ML 500 ML 20 ML IV (15:51)
--- NOTE | 2025-01-24 16:28 | PC.SS ---
Rounding note: Colonoscopy pending for today. May discharge home 01/25 if procedure is completed today.
--- NOTE | 2025-01-24 16:58 | SUR.PHASEI ---
[id number] pt to pacu via tera A&O [email or web address]. able to follow commands, will monitor
--- NOTE | 2025-01-24 17:20 | SUR.PHASEI ---
1717 pt to Tele in stable condition
[2025-01-24] MEDS: ATORVASTATIN CALCIUM 20 MG TABLET 40 MG PO (20:23)
[2025-01-24] MEDS: BUMETANIDE 0.5 MG TABLET 2 MG PO (20:25)
[2025-01-25] VITALS (7 sets, daily range): BP systolic 137–158; BP diastolic 68–77; PULSE 68–81; RESP 14–22; TEMP 36.2–36.9; O2SAT 96–99; BMI 26.6
[2025-01-25] MEDS: LEVOTHYROXINE SODIUM 25 MCG TABLET 50 MCG PO (05:06)
[2025-01-25 06:01] LABS: Basophils # (Auto) 0.0 Thou/mm3 (0.0-0.2); Basophils % (Auto) 0 % (0-2.5); Eosinophils # (Auto) 0.2 Thou/mm3 (0.0-0.5); Eosinophils % (Auto) 1 % (0-10); Hematocrit 28.9 % (41.0-53.0); Hemoglobin 9.9 g/dL (13.5-16.0); Immature Granulocytes Auto 0.09 Thou/mm3 (0.00-0.00); Lymphocytes # (Auto) 0.8 Thou/mm3 (1.0-4.8); Lymphocytes % (Auto) 8 % (10-50); Mean Corpuscular HGB Conc 34.3 g/dl (31.0-37.0); Mean Corpuscular Hemoglobin 32.6 pg (25.0-35.0); Mean Corpuscular Volume 95 fL (80-100); Monocytes # (Auto) 1.5 Thou/mm3 (0.0-0.8); Monocytes % (Auto) 13 % (0-12); Neutrophils # (Auto) 8.6 Thou/mm3 (1.8-7.7); Neutrophils % (Auto) 77 % (37-80); Nucleated Red Blood Cell # 0.03 Thou/mm3 (0.00-0.00); Nucleated Red Blood Cell % 0 /100 WBC (0); Platelet Count 188 Thou/mm3 (140-440); RDW Standard Deviation 48.0 fL (35.1-43.9); Red Blood Count 3.04 Miln/mm3 (4.50-5.90); White Blood Count 11.2 Thou/mm3 (3.8-10.6)
[2025-01-25 06:45] LABS: Alanine Aminotransferase 31 U/L (10-49); Albumin, Serum 3.4 gm/dL (3.4-4.8); Albumin/Globulin Ratio 1.5 (1.2-2.2); Alkaline Phosphatase 175 U/L (46-116); Anion Gap 13 (7-16); Aspartate Amino Transferase 22 U/L (0-34); BUN/Creatinine Ratio 8 Ratio (12-20); Bilirubin,Total 0.4 mg/dL (0.3-1.2); Blood Urea Nitrogen 32 mg/dL (9-23); Calcium 8.2 mg/dL (8.3-10.6); Calcium (Corrected) 8.7 mg/dL (8.5-10.1); Carbon Dioxide 27.5 mMol/L (20.0-31.0); Chloride 97 mMol/L (98-107); Creatinine (Component) 3.9 mg/dL (0.6-1.3); Estimated Creatinine Clearance 14.1 mL/min (>60); Globulin 2.2 gm/dL (2.3-3.5); Glucose 199 mg/dL (74-106); Magnesium 1.8 mg/dL (1.6-2.6); Osmolality,Calculated 286 (275-295); Phosphorous 2.0 mg/dL (2.4-5.1); Potassium 3.5 mMol/L (3.4-5.1); Sodium 137 mMol/L (136-145); Total Protein 5.6 gm/dL (5.7-8.2); eGFR 15 See Note
[2025-01-25] MEDS: INSULIN LISPRO (AdmeLOG) 1 UNIT/0.01 ML UNIT SC ×2 (08:17→12:15)
[2025-01-25] MEDS: PANTOPRAZOLE 40 MG TABLET PO (08:18)
[2025-01-25] MEDS: BUMETANIDE 0.5 MG TABLET 2 MG PO (08:19)
[2025-01-25] MEDS: AMIODARONE HCL 200 MG TABLET 400 MG PO (08:20)
[2025-01-25] MEDS: INSULIN DEGLUDEC 5 UNIT/0.05 ML (PER 5 UNITS) 20 UNIT SC (09:34)
--- NOTE | 2025-01-25 10:23 | PD.RESPRO ---
Documentation for date of: 01/25/25 Subjective Subjective Interval history: Patient seen and assessed at bedside. Sitting up in chair. No new complaints, denies any chest pain, shortness of breath, palpitations, pain with inspiration, dizziness with ambulation. BP 158/74, systolics 130s to 150s) heart rate in 60s to 70s. On telemetry, noted to be in sinus rhythm however P waves are not easily visible. WBC 11.2 (from 9.8), hemoglobin 9.9. Potassium 3.5, magnesium 1.8, replete accordingly. Creatinine 3.9 (from 5.5), BUN 32. Colonoscopy noted internal hemorrhoids, multiple diverticula, and polyp which was biopsied. Restarted Eliquis 2.5 mg twice daily today. Recommended patient adhere to high-fiber and low-sodium diet. Has HD chair at [facility] in [place], plan for discharge today. Exam Vital Signs Temp Pulse Resp BP Pulse Ox O2 Del Method O2 Flow Rate 97.2 F 77 21 H 158/74 H 97 Room Air 3 01/25/25 08:00 01/25/25 08:20 01/25/25 08:00 01/25/25 08:20 01/25/25 08:00 01/25/25 08:00 01/24/25 16:40 Narrative Exam Physical Exam General: Awake and in no acute distress. Conversational and non-toxic appearing. Wolof-speaking elderly male. Overweight. HEENT: Normocephalic, atraumatic, mucous membranes moist. Heart: Regular rate and rhythm, normal S1 and S2. 2/6 systolic murmur more pronounced with inspiration, heard best at right second intercostal space. Lungs: Decreased breath sounds in bilateral lower lobes, otherwise clear. Abdomen: Soft, distended, nontender, positive bowel sounds. No guarding or rebound tenderness. Neurologic: Alert and oriented x3, no gross neurological deficit, and patient able to move all 4 extremities. Extremities: No edema. Skin: No rash or ecchymoses. Objective Labs 01/25/25 04:10 01/25/25 04:10 Labs: Laboratory Results - last 24 hr 01/25/25 04:10 WBC 11.2 H RBC 3.04 L Hgb 9.9 L Hct 28.9 L MCV 95 MCH 32.6 MCHC 34.3 RDW Std Deviation 48.0 H Plt Count 188 Neut % (Auto) 77 Lymph % (Auto) 8 L Barnwell % (Auto) 13 H Eos % (Auto) 1 Baso % (Auto) 0 Neut # (Auto) 8.6 H Lymph # (Auto) 0.8 L Barnwell # (Auto) 1.5 H Eos # (Auto) 0.2 Baso # (Auto) 0.0 Immature Gran # (Auto) 0.09 H Absolute Nucleated RBC 0.03 H Immature Gran % 1 H Nucleated RBC % 0 Sodium 137 Potassium 3.5 Chloride 97 L Carbon Dioxide 27.5 Anion Gap 13 BUN 32 H Creatinine 3.9 H D Estim Creat Clear Calc 14.1 L eGFR 15 L BUN/Creatinine Ratio 8 L Glucose 199 H D Calculated Osmolality 286 Calcium 8.2 L Corrected Calcium 8.7 Phosphorus 2.0 L Magnesium 1.8 Total Bilirubin 0.4 AST 22 ALT 31 Alkaline Phosphatase 175 H D Total Protein 5.6 L Albumin 3.4 Globulin 2.2 L Albumin/Globulin Ratio 1.5 Quality Measures Quality Measures none Advance care planning discussed with:: patient, spouse and child Assessment & Plan Assessment Current Active Medications: Generic Name Dose Route Start Last Admin Trade Name Freq PRN Reason Stop Dose Admin Acetaminophen 650 mg 01/17/25 18:39 Acetaminophen 325 Mg Tablet PO 02/16/25 18:38 Q6H PRN Fever >100.4 or pain Protocol Amiodarone HCl 400 mg 01/22/25 21:00 01/25/25 08:20 Amiodarone Hcl 200 Mg Tablet PO 02/21/25 20:59 400 mg BID JAIRO Administration Apixaban 2.5 mg 01/22/25 21:00 01/22/25 22:01 Apixaban 2.5 Mg Tablet PO 02/21/25 20:59 2.5 mg On Hold: 01/23/25 02:29 BID JAIRO Administration Atorvastatin Calcium 40 mg 01/17/25 21:00 01/24/25 20:23 Atorvastatin Calcium 20 Mg Tablet PO 02/16/25 20:59 40 mg HS JAIRO Administration Bumetanide 2 mg 01/17/25 21:00 01/25/25 08:19 Bumetanide 0.5 Mg Tablet PO 02/16/25 20:59 2 mg BID JAIRO Administration Calcitriol 0.25 mcg 01/17/25 19:30 01/24/25 20:23 Calcitriol 0.25 Mcg Capsule PO 02/16/25 19:29 0.25 mcg UD JAIRO Administration Calcium Acetate 667 mg 01/19/25 12:00 01/25/25 08:14 Calcium Acetate 667 Mg Tablet PO 02/18/25 11:59 Not Given On Hold: 01/25/25 08:01 TIDWM JAIRO Carvedilol 6.25 mg 01/17/25 21:00 01/19/25 08:49 Carvedilol 3.125 Mg Tablet PO 02/16/25 20:59 Not Given On Hold: 01/19/25 16:51 BID JAIRO Dextrose 25 ml 01/17/25 20:08 Dextrose 50%-Water Inj 50 Ml Syringe IV 02/16/25 20:07 Q15MIN PRN BG 50-70 responsive npo pt Dextrose 50 ml 01/17/25 20:08 Dextrose 50%-Water Inj 50 Ml Syringe IV 02/16/25 20:07 Q15MIN PRN BG <50 OR BG <70 & pt unresponsive Fluoxetine HCl 20 mg 01/18/25 09:00 01/25/25 08:19 Fluoxetine Hcl 10 Mg Capsule PO 02/17/25 08:59 20 mg QDAY JAIRO Administration Glucagon 1 mg 01/17/25 20:08 Glucagon Inj 1 Mg Vial IM Q15MIN PRN BG <70, and no IV access Heparin Sodium (Porcine) 4,100 unit 01/20/25 17:08 01/24/25 11:15 Heparin Sod Inj 1000 Unit/Ml Vial 10 Ml INDWELLCAT 02/03/25 17:07 4,100 unit PRN PRN Administration DIALYSIS Albumin Human 25 gm in 100 mls @ 100 mls/min 01/20/25 14:32 01/21/25 19:19 Albuminex 25% Ivpb IV Infused PRN PRN Infusion DIALYSIS Sodium Chloride 500 mls @ 20 mls/hr 01/24/25 15:50 01/24/25 15:51 Ns IV 01/25/25 15:49 20 mls/hr .Q24H ONE Administration Insulin Degludec 20 unit 01/19/25 09:00 01/25/25 09:34 Insulin Degludec 5 Unit/0.05 Ml (Per 5 Units) SC 02/18/25 08:59 20 unit QDAY JAIRO Administration Insulin Human Lispro 0 unit 01/18/25 17:00 01/25/25 08:17 Insulin Lispro (Admelog) 1 Unit/0.01 Ml Unit SC 02/17/25 16:59 3 unit ACHS JAIRO Administration Protocol Levothyroxine Sodium 50 mcg 01/18/25 06:00 01/25/25 05:06 Levothyroxine Sodium 25 Mcg Tablet PO 02/17/25 05:59 50 mcg ACBR JAIRO Administration Metolazone 2.5 mg 01/18/25 16:15 01/24/25 17:40 Metolazone 2.5 Mg Tablet PO 02/17/25 16:14 2.5 mg Q48H JAIRO Administration Ondansetron HCl 4 mg 01/17/25 18:39 01/21/25 11:59 Ondansetron Inj 2 Mg/Ml Inj 2 Ml IVP 02/16/25 18:38 4 mg Q6H PRN Administration NAUSEA OR VOMITING Protocol Pantoprazole Sodium 40 mg 01/18/25 09:00 01/25/25 08:18 Pantoprazole 40 Mg Tablet PO 02/17/25 08:59 40 mg QAM JAIRO Administration Plan Patient is a 79 year old male with PMH of ESRD on peritoneal dialysis for the past 3 years history of SVT (last reported episode July 2024), chronic anemia, insulin-dependent diabetes type 2, hypertension, GERD, alcohol abuse who presents to the ED on 01/17 for shortness of breath. Cardiology was consulted for pericardial effusion found on CT A/P, consulted by ED for concern of hemopericardium. Found to have approximately 3 cm chronic pericardial effusion. #new onset ? Afib with RVR Reports occassional palpitations at home prior to admission. Converted to A-fib with RVR overnight on telemetry. Confirmed on EKG. Was started on amiodarone drip by night team. Likely secondary to low hemoglobin despite 1 unit PRBC earlier that day. On telemetry, patient were to be back in sinus rhythm with occasional PACs while on amiodarone 200 twice daily. 01/22/25: Went into afib with RVR (HR 130-140) during dialysis session. No fluid removed and patient was given amiodarone 200 mg, HR improved to 100-105. Gave another amiodarone 200 mg x1. EKG 01/23/2025 shows A-fib with heart rate of 107, QTc 549, when calculated likely actually 402-430. Heart rate likely elevated because patient is on GoLytely prep. Plan: ? Amiodarone PO 400 mg BID for rate control for 2 weeks (01/22 - 02/05), recommend to reduce back to amiodarone 200 mg twice daily when patient follows outpatient with his heavy equipment operator in [place]. ? Eliquis 2.5 mg BID now that hemoglobin now improved and stable. -If blood pressure stable patient can be started on metoprolol tartrate 12.5 mg twice daily for now for better rate control - Recommend that patient get outpatient work up #Large pericardial effusion #Bilateral pleural effusions #SVT, resolved #ESRD on peritoneal dialysis (2021) 2/2 diabetic nephropathy #HFpEF (EF 50-55%) #Grade I diastolic dysfunction Presents with 3 day history of SOB and fatigue. Symptom onset since transition to new solution recently. Reported that at home, patient blood pressure was low at 190s and heart rate elevated 160s to 180s. Suspect patient has been fluctuating between over and under diuresis since solution transition. Last dialysis session last night at home. Otherwise, had been on PD since 2021 for diabetic nephropathy. At home, patient is on bumetanide 2 mg BID and metolaxone 2.5 mg QOD. Admission vital stable. BNP 319. EKG shows sinus rhythm rate 79 QTc 457. On exam, 2/6 systolic murmur increased on inspiration as well as decreased lung sounds and distended abdomen. No edema. CXR shows moderate enlargement cardiac contour. CTAP shows prominent pericardial effusion of 26 mm, moderate vascular congestion, small bilateral pleural effusions, atelectasis versus pneumonia left base, suspicious for edema. Hepatocellular disease, gastritis pattern, gallbladder wall appears slightly thickened, mild free fluid in the abdomen likely related to peritoneal dialysis catheter. TTE 01/17/25 shows normal LV size and wall thickness. There is grade I diastolic dysfunction. Estimated EF at 50-55%. Normal RV size and function. RVSP appears to be in the normal range. Trace TR and MR. Minimal aortic valve sclerosis without stenosis. Large circumferential pericardial effusion that appears to be loculated with significant septae noted along with the fibrinous exudate on the ventricular veloz indicating chronic effusion. No RV diastolic collapse or any RA inversion. No significant respiratory variation in the tricuspid inflow velocities except for the mitral inflow. IVC dilated with less than 50% collapse with inspiration. There is no clear evidence of cardiac tamponade. Likely 2/2 fluid overload from inadequate peritoneal fluid removal with new recently changed PD regimen vs heart failure exacerbation. Patient follows heavy equipment operator Dr. Gonsales in [place], followed up 3 weeks ago for echo results which he was told was fine . Plan: ?TTE showed approximately 30 mm pericardial effusion with fibrotic adhesions, indicating likely chronic effusion with multiple septae. No right ventricular diastolic collapse noted however does have mild respiratory variation in flow velocity across mitral valve but not diagnostic tricuspid valve and there was no inversion. Does not meet criteria for cardiac tamponade, which does not make him an ideal candidate for pericardial drainage given risks versus benefits and patient could be having loculated effusion given the septic. ?Based on chronicity of effusion, patient will likely benefit more from starting hemodialysis to remove excess fluid at this time. ? Patient seen by nephrology and now started on hemodialysis but unable to tolerated dialysis well due to the A-fib with RVR episodes we will adjust the medications for amiodarone. ?Patient maintaining very minimal urine output and recommend to discuss with nephrology about continuing the Bumex as well as metolazone and could be stopped if he does not have much output #Normocytic anemia, chronic Per son, patient receives iron infusions bimonthly at dialysis center and takes iron supplements 325 QD. WBC 12.2 and H&H 7.3/21.3. Anemia likely secondary to chronic disease on dialysis, low suspicion for active bleeding as patient. Denies any melena, hematochezia or coffee-ground emesis. 01/18/2025?hemoglobin dropped to 7.0. No sign of acute bleed. S/p 2 units pRBC. Endoscopy 01/22/2025 showed normal esophagus with gastritis characterized by erythema, normal duodenum. Colonoscopy 01/24/2025 showed internal hemorrhoids that were banded, moderate diverticulosis in sigmoid and descending colon, no diverticular bleeding, 1 large polyp in cecum, biopsied. ?No sign of acute GI bleed. ?Defer anemia workup to primary team. #IDDM2 #HLD Per pharmacy review, patient has been prescribed insulin and is taking atorvastatin 40 mg qhs. On admission glucose 267. A1c 7.5. Lipid panel: Trig 99, total cholesterol 104, LDL 51, HDL 33. TSH elevated 4.88, T4 1.22. ASCVD score: Patient is above age 75 however this regarding age, would recommend to continue high intensity statin Plan: ?Insulin management per primary team ?Continue atorvastatin 40 mg nightly #HTN Has history of hypertension however as of late, patient has been hypotensive, likely secondary to volume status changes. Home medications include hydralazine 50 mg TID, carvedilol 6.25 mg BID, nifedipine ER 60 mg QD. Plan: - Hold carvedilol as patient is being rate controlled with amiodarone ?Bumex 2 mg twice daily for diuresis ?Metolazone every other day #Hx alcohol abuse Used to drink 6 pack beers per day during his youth for 25 years, stopped 3 years ago when started on dialysis. #Leukocytosis, likely reactive #Hyponatremia #Hypothyroidism #GERD #Depression ?Management per primary team Thank you for your consultation, please do not hesitate to reach out if you have any question or concern Patient plan of care was discussed with the attending physician, Dr. Fajardo. Lucy Santana, PGY-1 Attending Provider Attestation/Addendum I have personally seen and examined the patient separately on the above date of service and discussed the plan of care with the resident. I reviewed the resident Dr. Lucy Santana consultation progress note and agree with the resident findings and plan in the note above and have also edited the documentation to reflect my findings and plan. Julius Fajardo M.D. Interventional Cardiology
--- NOTE | 2025-01-25 13:17 | ESDS_ITS ---
Planned Discharge Date 01/25/25 DS: Providers Provider Date of admission: 01/17/25 18:39 Primary care physician: Vera Hall MD Admitting Provider: Jefry Villa MD Attending Provider on Admission: Bimal Kauffman DO Consults: 01/17/25 18:42 Consult to Cardiology Routine Comment: Consulting Provider: Julius Fajardo 01/18/25 08:30 Consult to Nephrology Routine Comment: Consulting Provider: Keshav Amador 01/18/25 10:40 Consult to Gastroenterology Routine Comment: Hgb 12->7 in 6 months Consulting Provider: Shai Tirado Attending Provider on DC: Bimal Kauffman DO Discharging Provider: Bimal Kauffman DO DS: Diagnosis Problem List Completed Was Problem List Reviewed/Reconciled?: Yes Hospital Course Hospital Course Hospital course: Summary: Ruperto Love 79M pmhx significant for ESRD on home PD (since 2021) 2/2 diabetic nephropathy, IDDM2, HTN, TATY, hx of SVT on carvedilol, and hypothyroidism who presents with epigastric abdominal pain that occurs during PD and SOB, admitted for volume overload and 3 cm pericardial effusion. On admission, patient presented with complaints of abdominal pain and shortness of breath during peritoneal dialysis in which his administered every day. On admission, BNP 319 with EKG showing sinus rhythm rate 79 and echocardiogram showed large 3 cm pericardial effusion. Nephrology was consulted for possible hemodialysis as peritoneal dialysis has likely been insufficient resulting in fluid accumulation in the pericardial effusion. Cardiology was consulted who re commended no urgent paracentesis due to no evidence of cardiac tamponade and that patient also has possibly loculated given septae noted, and pericardial effusion likely secondary to inadequate fluid removal from peritoneal dialysis. Patient family eventually agreeable to tunneled dialysis catheter placement and hemodialysis. TDC placed 01/20/2025 and underwent for hemodialysis sessions with improvement in labs. Per nephrology, anticipate a 2 to 3 months of hemodialysis to remove pericardial effusion. Of note, patient was noted to have atrial fibrillation RVR during peritoneal dialysis and hemodialysis and was started on amiodarone for rhythm and rate control. During admission, all antihypertensives except for diuretics held as initially blood pressures were soft however following hemodialysis SBP increased to 130-170s. Furthermore, on admission, patient was noted to have hemoglobin of 7.8 with FOBT negative however in 07/2024 hemoglobin was 12.0. Patient underwent EGD on 01/22 which showed normal esophagus, gastritis and normal duodenum and underwent colonoscopy on 01/24 which showed internal hemorrhoids that were banded, moderate to diverticulosis in sigmoid colon and descending colon noted diverticular bleeding and 1 large polyp in the cecum resected and retrieved. Furthermore, patient received total of 3 blood transfusions due to low hemoglobin. On discharge, patient is hemodynamically stable, labs and vitals reviewed, patient is feeling ready to be discharged home Imaging: CXR shows moderate enlargement cardiac contour. CTAP shows prominent pericardial effusion of 26 mm, moderate vascular congestion, small bilateral pleural effusions, atelectasis versus pneumonia left base, suspicious for edema. Hepatocellular disease, gastritis pattern, gallbladder wall appears slightly thickened, mild free fluid in the abdomen likely related to peritoneal dialysis catheter. 01/18 TTE: Normal LV size and wall thickness. There is grade I diastolic dysfunction. Estimated EF at 50-55%. Normal RV size and function. RVSP appears to be in the normal range Trace TR and MR. Minimal aortic valve sclerosis without stenosis. Large circumferential pericardial effusion that appears to be loculated with significant septae noted along with the fibrinous exudate on the ventricular veloz indicating chronic effusion. No RV diastolic collapse or any RA inversion. No significant respiratory variation in the tricuspid inflow velocities except for the mitral inflow. IVC dilated with less than 50% collapse with inspiration. There is no clear evidence of cardiac tamponade. Discharge Recommendations: - Please take all medications as prescribed - START amiodarone 400 mg twice daily and Eliquis 2.5 mg twice daily - Hold hydralazine 50 mg and nifedipine 30 mg tablet due to concern for low blood pressure and medication duplication. - Continue all home medications except as above - Please follow up with your PCP within one week of discharge - Follow-up with powder coat painter Dr. Fajardo within 1 week of discharge from the hospital. - Please follow-up with your physical chemistry teacher Dr. De Leon within 1 to 2 weeks of discharge from hospital to go over recent changes in treatment plan, recommend hemodialysis for now due to large pericardial effusion, (fluid around your heart). - If your symptoms worsen, please seek immediate medical attention and return to your nearest emergency room. - If you do not have a PCP, you may follow up at the [facility] at [address] [place] [address] [address], [facility] [address], Hospital Diagnoses: #Pericardial effusion, chronic #Volume overload #ESRD on peritoneal dialysis (2021) 2/2 diabetic nephropathy #Shortness of breath #Atrial fibrillation, RVR #History of SVT #Hyponatremia, improving #Normocytic anemia s/p 3 pRBC #Leukocytosis #IDDM2 #Hyperglycemia #HLD #HTN #Hypothyroidism #Depression Hortencia Santana, DO Internal Medicine, PGY-1 Time Spent with Patient Time attestation: Total time spent providing and/or coordinating discharge services: Time spent: Greater than 30 minutes Exam Vital Signs Temp Pulse Resp BP Pulse Ox O2 Del Method O2 Flow Rate 97.5 F 79 14 149/77 H 97 Room Air 3 01/25/25 12:00 01/25/25 12:00 01/25/25 12:00 01/25/25 12:00 01/25/25 12:00 01/25/25 12:00 01/24/25 16:40 Narrative Exam GENERAL: AOx3, no acute distress, sitting up in bed HEENT: NC/AT, mucous membranes moist, bilateral sclera anicteric CARDIOVASCULAR: regular rate, S1/S2 present, 2/6 systolic murmur, RIJ TDC clean PULMONARY: CTAB, no rales/rhonchi/wheezes ABDOMINAL: soft, distended, no rebound/guarding, non-tender, bowel sounds present, PD cath present and covered to L of umbilicus EXTREMITIES: no peripheral edema SKIN: warm and dry, intact, no rashes NEURO: CN II-XII grossly intact, no focal deficits, alert, following commands Discharge Plan Plan Patient Disposition: Home w/HOME HEALTH Care Plan Goals: Patient was started on new medications amiodarone for A-fib and Eliquis to prevent formation of blood clot in the heart due to A-fib. Continue to monitor blood pressure at home, recommend holding hydralazine 50 mg and nifedipine 30 mg tablet due to concern for low blood pressure and medication duplication. Follow-up with powder coat painter Dr. Fajardo within 1 week of discharge from the hospital. Please follow-up with your physical chemistry teacher Dr. De Leon within 1 to 2 weeks of discharge from hospital to go over recent changes in treatment plan, recommend hemodialysis for now due to large pericardial effusion, (fluid around your heart). Follow up with Primary care physician with labs within 3-5 days of discharge. Please watch out for any active bleeding in your stool or urine. If symptoms persist or worsen, return to the Emergency Department. Follow up with out patient dialysis at [facility], #[phone], M/W/F at 10:15 chair time. Address: [address] [place] [address]. Start date: 2024. Please arrive 30 min early with d/c paperwork, insurance cards, I.D. Prescriptions/Referrals Prescriptions/Med Rec: New amiodarone [Pacerone] 200 mg Tablet 400 mg PO BID 30 Days Qty: 120 0RF Eliquis 2.5 mg Tablet 2.5 mg PO BID 30 Days Qty: 60 0RF Continued pantoprazole 40 mg tablet,delayed release (DR/EC) 40 mg PO QAM fluoxetine [Prozac] 20 mg capsule 20 mg PO QAM atorvastatin 40 mg tablet 40 mg PO DAILY Patient Comments: TAKE 1 TABLET BY MOUTH EVERY NIGHT AT BEDTIME levothyroxine 50 mcg tablet 50 mcg PO DAILY Patient Comments: In the mornings nifedipine 60 mg tablet extended release 60 mg PO DAILY insulin glargine [Lantus Solostar U-100 Insulin] 100 unit/mL (3 mL) insulin pen 20 unit SUBCUT BID carvedilol 6.25 mg tablet 6.25 mg PO BID minoxidil 2.5 mg Tablet 2.5 mg PO BID bumetanide 1 mg tablet 2 mg PO BID calcitriol 0.25 mcg Capsule 0.25 mcg PO UD Rx Instructions: 4 days sunday, sunday, and sunday calcium acetate 667 mg Tablet 667 mg PO DAILY metolazone 2.5 mg Tablet 2.5 mg PO Q OTHER DAY ferrous sulfate 325 mg (65 mg iron) Tablet 325 mg PO QDAY Discontinued nifedipine 30 mg tablet extended release 90 mg PO QDAY hydralazine 50 mg tablet 50 mg PO TID omeprazole 20 mg Tablet,Delayed Release (Dr/Ec) 20 mg PO QDAY Referrals: Julius Fajardo MD [Physician, Cardiology] Vera Hall MD [Primary Care Provider] Patient/Caregiver Discharge Instructions Other Discharge Activity Instructions:: Follow up with out patient dialysis at [facility], #[phone], M/W/F at 10:15 chair time. Address: [address]. Start date: 2024. Please arrive 30 min early with d/c paperwork, insurance cards, I.D. Education Materials: Healthy Meals for Diabetes, Discharge Instructions for ..., Understanding Pericardial Effusion, ED Diet for Chronic Kidney Disease Print Language: Kyrgyz Stand Alone Forms: [employer] Award Info., Patient Portal Info Letter Discharge Order Discharge Orders: Discharge (Routine); Ordered 01/25/25 Ordered By: Stuart Naidu Quality Discharge Quality Measures VTE prophylaxis MD Attestestation MD Attestation I have discussed and was present for the essential components of the discharge history, physical examination, diagnosis, and discharge treatment plan with the resident. I agree with the patient's discharge care as documented by the resident and amended herein by me. Valentín Kauffman DO. The patient understood all discharge instructions, all questions were answered satisfactorily. The patient was instructed to return to the Emergency Depa rtment is symptoms worsened or persisted. Patient was stable, afebrile, tolerating p.o. intake and ambulatory at time of discharge home. Hemodialysis chair established in [facility]. All questions answered satisfactorily, patient stable for discharge home. Although this document has been carefully reviewed, there may still be some phonetic and other typographical errors. These errors are purely grammatical due to imperfections in the software program and should not be construed in any way to compromise the substance of the patient's medical care during this visit. Time Spent on discharge: 37 minutes
--- NOTE | 2025-01-26 08:14 | PC.CM ---
I called and spoke to Dr. Kauffman. I let him know patient has disposition to home with home health, but I do not have orders. He states he will look into it and put if orders if needed.
--- NOTE | 2025-01-26 11:42 | PC.CM ---
Patient accepted by [facility]. Start of care date set for 01/27.
== END 2025-01-25 15:55 | disposition home health service (06) | DRG 987 ==
LOC: SERX 11:22 → SERHOLD 01-18 10:09 → S2NX 01-18 10:09
PROVIDERS: Specialist; Student in an Organized Health Care Education/Training Program; Admitting Provider Student in an Organized Health Care Education/Training Program; Emergency Provider Emergency Medicine; PCP Family Medicine; Visit Provider Student in an Organized Health Care Education/Training Program
PROC: 0DJ08ZZ Inspection of Upper Intestinal Tract, Via Natural or Artificial Opening Endoscopic (ICD-10-PCS; CPT 43239; principal; 2025-01-22 20:00)
PROC: 0DJD8ZZ Inspection of Lower Intestinal Tract, Via Natural or Artificial Opening Endoscopic (ICD-10-PCS; CPT 45378; principal; 2025-01-24 16:15)
DX: I31.39 Other pericardial effusion (noninflammatory) (principal); K57.31 Diverticulosis of large intestine without perforation or abscess with bleeding; N18.6 End stage renal disease; E87.1 Hypo-osmolality and hyponatremia; I13.2 Hypertensive heart and chronic kidney disease with heart failure and with stage 5 chronic kidney disease, or end stage renal disease; I50.30 Unspecified diastolic (congestive) heart failure; I47.10 Supraventricular tachycardia, unspecified; E03.9 Hypothyroidism, unspecified; G47.33 Obstructive sleep apnea (adult) (pediatric); E11.22 Type 2 diabetes mellitus with diabetic chronic kidney disease; E87.70 Fluid overload, unspecified; K76.9 Liver disease, unspecified; D63.1 Anemia in chronic kidney disease; E11.65 Type 2 diabetes mellitus with hyperglycemia; F32.A Depression, unspecified; D50.9 Iron deficiency anemia, unspecified; E83.51 Hypocalcemia; D50.0 Iron deficiency anemia secondary to blood loss (chronic); E78.5 Hyperlipidemia, unspecified; I48.91 Unspecified atrial fibrillation; E83.39 Other disorders of phosphorus metabolism; I49.3 Ventricular premature depolarization; F10.10 Alcohol abuse, uncomplicated; E83.42 Hypomagnesemia; K64.3 Fourth degree hemorrhoids; K29.70 Gastritis, unspecified, without bleeding; Z79.890 Hormone replacement therapy; K21.9 Gastro-esophageal reflux disease without esophagitis; Z99.2 Dependence on renal dialysis; Z79.4 Long term (current) use of insulin; K63.5 Polyp of colon; Z79.01 Long term (current) use of anticoagulants; Z79.899 Other long term (current) drug therapy
CPT/HCPCS: 36415; 71045; 74174; 76937; 77001; 80053; 80061; 80069; 80074; 82270; 82728; 83036; 83540; 83550; 83735; 83880; 84100; 84439; 84443; 84484; 85014; 85018; 85025; 85046; 85610; 86580; 86705; 86850; 86900; 86901; 86923; 87340; 87502; 87811; 89051; 93005; 93306; 94762; 96374; 99284; A4649; C1750; C1894; J0283; J1200; J1642; J1643; J1815; J2250; J2405; J3010; J3475; J3490; J7050; J7999; P9016; P9047; Q5105; Q5106; Q9967; A9270; P0947